=== PATIENT | female | born 1975 | race Hispanic/Latino ===

== ENCOUNTER 2023-03-12 20:04 | Emergency (ER) | payer OTHER, BC ==
[2023-03-12] MEDS ORDERED: ONDANSETRON 4 MG/2 ML VIAL ONE (21:00)
[2023-03-12] MEDS ORDERED: MORPHINE 4 MG/ML SYR ONE ×2 (21:00→23:18)
[2023-03-12] MEDS ORDERED: KETOROLAC 30 MG/ML INJ ONE (21:00)
--- NOTE | 2023-03-12 21:39 | RAD REPORT ---
[facility] 9[facility]18 [facility] CLINICAL HISTORY: CHEST PAIN COMPARISON: No comparisons TECHNIQUE: Single AP view of the chest. FINDINGS: The lungs are clear. No pneumothorax or effusion. The cardiomediastinal contours are unre markable. IMPRESSION: No acute cardiopulmonary process.
[2023-03-12 22:09] LABS: Absolute Lymphocytes (CBC) 1.4 K/uL (0.7-4.9); Hematocrit 36.2 % (36.0-45.0); Lymphocytes % 27.6 % (15.3-44.8); MCV 85.6 fL (80-100); MPV 7.8 fL (7.6-11.3); RBC Red Blood Cell Count 4.22 M/uL (3.86-4.86)
[2023-03-12 22:19] LABS: Protime INR 1.11
[2023-03-12 22:24] LABS: ALT/SGPT 27 U/L (13-56); AST/SGOT 26 U/L (15-37); Albumin 3.2 g/dL (3.4-5.0); Alkaline Phosphatase 66 U/L (45-117); BUN Blood Urea Nitrogen 19 mg/dL (7-18); Bicarbonate 27 mEq/L (21-32); Bilirubin Total 0.4 mg/dL (0.2-1.0); Glomerular Filtration Rate 106 ml/min (=/>90); Glucose Level 91 mg/dL (74-106); Sodium Level 135 mEq/L (136-145)
[2023-03-12 22:25] LABS: NT PRO-BNP 68 pg/mL (<125)
[2023-03-12 22:36] LABS: Bilirubin Direct < 0.1 mg/dL (0-0.2); Bilirubin Indirect, Calculated ND mg/dL (0.2-0.8); Troponin High Sensitivity < 3.0 pg/mL (<58.9)
[2023-03-12] MEDS ORDERED: METOCLOPRAMIDE 10 MG/2mL INJ ONE (23:18)
[2023-03-12] MEDS ORDERED: DICYCLOMINE HCL 20 MG/2 ML AMP IM ONE (23:19)
--- NOTE | 2023-03-13 00:18 | ER ---
Nurse's Notes [facility] Name: Ethan Harrison Age: 48 yrs Sex: Female : 1975 Arrival Date: 03/12/2023 Time: 20:04 Bed 3 Private MD: Diagnosis: Lower abdominal pain, unspecified;Right flank pain, noncardiac chest pain, nausea and vomiting Presentation: 03/12 20:40 Chief complaint: Patient states: pain on the back, right side for 2 days. Coronavirus aa9 screen: Vaccine status: Patient reports receiving the 2nd dose of the covid vaccine. Pfizer. Ebola Screen: No symptoms or risks identified at this time. Initial Sepsis Screen: Does the patient meet any 2 criteria? No. Patient's initial sepsis screen is negative. Does the patient have a suspected source of infection? No. Patient's initial sepsis screen is negative. Risk Assessment: Do you want to hurt yourself or someone else? Patient reports no desire to harm self or others. Onset of symptoms was March 12, 2023. 20:40 Method Of Arrival: Ambulatory aa9 20:40 Acuity: YUAN 3 aa9 Triage Assessment: 20:42 General: Appears uncomfortable, Behavior is calm, cooperative. Pain: Complains of pain aa9 in right side back pain. Cardiovascular: Rhythm is regular. Respiratory: Airway is patent Respiratory effort is even, unlabored. GI: Reports diarrhea, vomiting. : No signs and/or symptoms were reported regarding the genitourinary system. Derm: Skin is intact, is healthy with good turgor. - Immunization history:: Client reports receiving the 2nd dose of the Covid vaccine. - Social history:: Patient/guardian denies using alcohol, street drugs, IV drugs, caffeine, over the counter diet medications, tobacco products, Smoking status: Patient denies any tobacco usage or history of. - Family history:: not pertinent. Screenin/28 00:27 [facility] ED Fall Risk Assessment (Adult) Score/Fall Risk Level 0 - 2 = Low Risk. Abuse as6 screen: Denies threats or abuse. Denies injuries from another. Nutritional screening: No deficits noted. Tuberculosis screening: No symptoms or risk factors identified. Assessment: 03/12 23:15 Reassessment: Patient appears in no apparent distress at this time. pt c/o RLQ pain aa9 10/10 notified provider. 23:39 Reassessment: Patient appears in no apparent distress at this time. Patient and/or aa9 family updated on plan of care and expected duration. Pain level reassessed. Patient is alert, oriented x 3, equal unlabored respirations, skin warm/dry/pink. Patient states feeling better. Vital Signs: 20:40 BP 154 / 98; Pulse 73; Resp 18 S; Pulse Ox 98% ; aa9 20:42 Temp 98.9; aa9 21:00 BP 163 / 77; Pulse 71; Resp 14 S; Pulse Ox 100% on R/A; as6 22:52 BP 118 / 73; Pulse 74; Resp 17 S; Pulse Ox 100% on R/A; as6 03/13 00:16 BP 112 / 72; Pulse 63; Resp 20 S; Pulse Ox 96% on R/A; as6 ED Course: 03/12 20:06 Patient arrived in ED. jj6 20:20 Socrates Topete MD is Attending Physician. sp4 20:34 Tali Judd, LISSETH is Primary Nurse. aa9 20:41 Triage completed. aa9 20:42 Arm band placed on. aa9 21:01 Missed attempt(s): 22 gauge in left antecubital area. Bleeding controlled, band aid aa9 applied, catheter tip intact. 21:20 XRAY Chest (1 view) In Process Unspecified. EDMS 21:44 Inserted saline lock: 20 gauge in left antecubital area, using aseptic technique. Blood as6 collected. ultrasound guided, long catheter. 21:57 Basic Metabolic Panel Sent. as7 21:57 CBC with Diff Sent. as7 21:57 LFT's Sent. as7 21:57 NT PRO-BNP Sent. as7 21:57 PT-INR Sent. as7 21:57 Troponin HS Sent. as7 23:01 CT Abd/Pelvis - IV Contrast Only In Process Unspecified. EDMS 03/13 00:17 Jl Reyes MD is Referral Physician. sp4 00:27 Placed in gown. Bed in low position. Call light in reach. Side rails up X 1. as6 00:27 No provider procedures requiring assistance completed. IV discontinued, intact, as6 bleeding controlled, No redness/swelling at site. Pressure dressing applied. Administered Medications: 03/12 21:44 Drug: morphine IVP or IV 4 mg Route: IVP; Infused Over: 4 mins; Site: left antecubital; as6 22:51 Follow up: Response: No adverse reaction aa9 21:45 Drug: Ketorolac IVP 30 mg Route: IVP; Site: left antecubital; as6 22:51 Follow up: Response: No adverse reaction aa9 21:45 Drug: Ondansetron IVP 8 mg Route: IVP; Site: left antecubital; as6 22:51 Follow up: Response: No adverse reaction aa9 23:23 Drug: morphine IVP or IV 4 mg Route: IVP; Infused Over: 4 mins; Site: left antecubital; aa9 03/13 00:28 Follow up: Response: No adverse reaction as6 03/12 23:23 Drug: metoCLOPramide IVP 10 mg Route: IVP; Site: left antecubital; aa9 03/13 00:28 Follow up: Response: No adverse reaction as6 03/12 23:23 Drug: Dicyclomine IM 20 mg Route: IM; Site: left deltoid; aa9 03/13 00:28 Follow up: Response: No adverse reaction as6 Medication: 00:27 VIS not applicable for this client. as6 Outcome: 00:17 Discharge ordered by sp4 00:27 Discharged to home ambulatory. as6 00:27 Condition: stable 00:27 Discharge instructions given to patient, Instructed on discharge instructions, follow up and referral plans. medication usage, Demonstrated understanding of instructions, follow-up care, medications, Prescriptions given X 3. 00:28 Patient left the ED. as6 Signatures: Dispatcher [employer] EDCarolee Oviedo jjAntione Gamino RN RN as6 Tali Judd RN RN aa9 Senkyrik, Autumn as7 Socrates Topete MD MD sp4
--- NOTE | 2023-03-13 00:18 | EDPHYS ---
Physician Documentation [facility] Name: Ethan Harrison Age: 48 yrs Sex: Female : 1975 Arrival Date: 03/12/2023 Time: 20:04 Bed 3 Private MD: ED Physician Socrates Topete HPI: 03/12 20:20 This 48 yrs old Female presents to ER via Unassigned with complaints of Chest sp4 Pain, Back Pain, Nausea/Vomiting. 03/13 00:05 Patient is 48-year-old female who presents with worsening right flank pain associated sp4 with nausea, chest pain, feeling unwell. . 00:11 Patient states her symptoms began 2 days ago and manifested as pain in the right flank sp4 right lower back, chest pain and also some nausea. Patient has history of gastric sleeve surgery. History of cholecystectomy. Gastric sleeve was done in [place]. - Immunization history:: Client reports receiving the 2nd dose of the Covid vaccine. - Social history:: Patient/guardian denies using alcohol, street drugs, IV drugs, caffeine, over the counter diet medications, tobacco products, Smoking status: Patient denies any tobacco usage or history of. - Family history:: not pertinent. ROS: 00:11 Constitutional: Negative for fever, chills, and weight loss, Eyes: Negative for injury, sp4 pain, redness, and discharge, ENT: Negative for injury, pain, and discharge, Neck: Negative for injury, pain, and swelling, Cardiovascular: Negative for palpitations, and edema, positive for chest pain Respiratory: Negative for shortness of breath, cough, wheezing, and pleuritic chest pain, Abdomen/GI: Negative for diarrhea, and constipation, positive for right flank pain, abdominal pain, nausea vomiting, right lower back pain. Back: Negative for injury , positive for right lower back pain : Negative for injury, bleeding, discharge, and swelling, MS/Extremity: Negative for injury and deformity, Skin: Negative for injury, rash, and discoloration, Neuro: Negative for headache, weakness, numbness, tingling, and seizure, Psych: Negative for depression, anxiety, Allergy/Immunology: Negative for hives, rash, and allergies Endocrine: Negative for neck swelling, polydipsia, polyuria, polyphagia, and weight changes Hematologic/Lymphatic: Negative for swollen nodes, abnormal bleeding, and unusual bruising Exam: 00:11 Constitutional: This is a well developed, well nourished patient who is awake, alert, sp4 and in no acute distress. Head/Face: Normocephalic, atraumatic. Eyes: Pupils equal round and reactive to light, extra-ocular motions intact. Lids and lashes normal. Conjunctiva and sclera are not injected. Cornea within normal limits. Periorbital areas with no swelling, redness, or edema. ENT: Nares patent. No nasal discharge, no septal abnormalities noted. Tympanic membranes are normal and external auditory canals are clear. Oropharynx with no redness, swelling, or masses, exudates, or evidence of obstruction, uvula midline. Mucous membranes moist. Neck: Trachea midline, no thyromegaly or masses palpated, and no cervical lymphadenopathy. Supple, full range of motion without nuchal rigidity, or vertebral point tenderness. No Meningismus. Chest/axilla: Normal chest wall appearance and motion. Nontender with no deformity. No lesions are appreciated. Cardiovascular: Regular rate and rhythm with a normal S1 and S2. No gallops, murmurs, or rubs. Normal PMI, no JVD. No pulse deficits. Respiratory: Lungs have equal breath sounds bilaterally, clear to auscultation and percussion. No rales, rhonchi or wheezes noted. No increased work of breathing, no retractions or nasal flaring. Abdomen/GI: Soft, obese abdomen, right abdominal tenderness, no rebound, no rigidity, scarring from prior cholecystectomy, and also from prior gastric sleeve surgery. Normal active bowel sounds Back: No spinal tenderness. No costovertebral tenderness. Skin: Warm, dry with normal turgor. Normal color with no rashes, no lesions, and no evidence of cellulitis. MS/ Extremity: Pulses equal, no cyanosis. Neurovascular intact. Full, normal range of motion. Neuro: Awake and alert, GCS 15, oriented to person, place, time, and situation. Cranial nerves II-XII grossly intact. Motor strength 5/5 in all extremities. Sensory grossly intact. Psych: Awake, alert, with orientation to person, place and time. Behavior, mood, and affect are within normal limits 00:11 ECG was reviewed by the Attending Physician. EKG time 2015. There is normal sinus sp4 rhythm. Normal EKG. No ectopy. Vital Signs: 03/12 20:40 BP 154 / 98; Pulse 73; Resp 18 S; Pulse Ox 98% ; aa9 20:42 Temp 98.9; aa9 21:00 BP 163 / 77; Pulse 71; Resp 14 S; Pulse Ox 100% on R/A; as6 22:52 BP 118 / 73; Pulse 74; Resp 17 S; Pulse Ox 100% on R/A; as6 03/13 00:16 BP 112 / 72; Pulse 63; Resp 20 S; Pulse Ox 96% on R/A; as6 MDM: 03/12 20:30 Patient medically screened. sp4 03/13 00:11 Differential diagnosis: abnormal EKG, acute pericarditis, chest wall pain, sp4 cholecystitis, Cholelithiasis costochondritis, esophagitis, gastritis. HEART Score: History: Slightly Suspicious (0), ECG: Normal (0), Age: > 45 and < 65 years (1), Risk Factors: No Risk Factors Known (0), Troponin: < or = 1 x Normal Limit (0), Total Score = 1. Data reviewed: vital signs, nurses notes, old medical records, lab test result(s), EKG, radiologic studies, CT scan, plain films. ED course: EKG is normal today, chemistry panel is normal, CBC is normal, LFTs normal, albumin is suboptimal 40.2, troponin negative. Chest x-ray revealed no acute cardiopulmonary process. CT revealed no acute intra-abdominal or pelvic disease. Moderate size hiatal hernia. Gastric surgical changes consistent with gastric sleeve. Mild sigmoid diverticulosis with no evidence of diverticulitis. Status postcholecystectomy and mild extrahepatic biliary dilatation.. ED course: Patient's pain has improved in the ER. Patient was evaluated and found in stable condition for discharge home. No emergent intra-abdominal problems identified. Chest pain work-up is unremarkable at this time. Patient is stable for discharge home. Will refer to general surgery for evaluation of hiatal hernia. . 03/12 20:20 Order name: Basic Metabolic Panel; Complete Time: 22:45 sp4 03/12 20:20 Order name: CBC with Diff; Complete Time: 22:45 sp4 03/12 20:20 Order name: LFT's; Complete Time: 22:45 sp4 03/12 20:20 Order name: NT PRO-BNP; Complete Time: 22:45 [facility] 03/12 20:20 Order name: PT-INR; Complete Time: 22:45 [facility] 03/12 20:20 Order name: Troponin HS; Complete Time: 22:45 [facility] 03/12 20:20 Order name: XRAY Chest (1 view); Complete Time: 22:45 [facility] 03/12 20:30 Order name: CT Abd/Pelvis - IV Contrast Only [facility] 03/12 20:20 Order name: EKG; Complete Time: 20:22 [facility] 03/12 20:20 Order name: Cardiac monitoring; Complete Time: 20:44 [facility] 03/12 20:20 Order name: EKG - Nurse/Tech; Complete Time: 20:44 [facility] 03/12 20:20 Order name: IV Saline Lock; Complete Time: 21:44 [facility] 03/12 20:20 Order name: Labs collected and sent; Complete Time: 21:44 [facility] 03/12 20:20 Order name: O2 Per Protocol; Complete Time: 20:44 [facility] 03/12 20:20 Order name: O2 Sat Monitoring; Complete Time: 20:44 03/12 21:42 Order name: Misc. Order: Recollect Labs; Complete Time: 21:57 rv1 EC:11 Rate is 76 beats/min. Rhythm is regular, Normal Sinus Rhythm. QRS Broad Top is Normal. GA sp4 interval is normal. QRS interval is normal. QT interval is normal. T waves are Normal. No ST changes noted. Clinical impression: Normal ECG. Interpreted by me. Administered Medications: 03/12 21:44 Drug: morphine IVP or IV 4 mg Route: IVP; Infused Over: 4 mins; Site: left antecubital; as6 22:51 Follow up: Response: No adverse reaction aa9 21:45 Drug: Ketorolac IVP 30 mg Route: IVP; Site: left antecubital; as6 22:51 Follow up: Response: No adverse reaction aa9 21:45 Drug: Ondansetron IVP 8 mg Route: IVP; Site: left antecubital; as6 22:51 Follow up: Response: No adverse reaction aa9 23:23 Drug: morphine IVP or IV 4 mg Route: IVP; Infused Over: 4 mins; Site: left antecubital; aa9 05/28 00:28 Follow up: Response: No adverse reaction as6 03/12 23:23 Drug: metoCLOPramide IVP 10 mg Route: IVP; Site: left antecubital; 03/13 00:28 Follow up: Response: No adverse reaction as6 03/12 23:23 Drug: Dicyclomine IM 20 mg Route: IM; Site: left deltoid; 03/13 00:28 Follow up: Response: No adverse reaction as6 Disposition Summary: 03/13/23 00:17 Discharge Ordered Location: Home sp4 Problem: new sp4 Symptoms: have improved sp4 Condition: Stable sp4 Diagnosis - Lower abdominal pain, unspecified sp4 - Right flank pain, noncardiac chest pain, nausea and vomiting sp4 Followup: sp4 - With: Jl Reyes MD - When: 7 - 10 days - Reason: Recheck today's complaints Discharge Instructions: - Discharge Summary Sheet sp4 - Flank Pain, Adult sp4 Forms: - Prescription Opioid Use sp4 Prescriptions: - Ibuprofen 600 mg Oral Tablet - take 1 tablet by ORAL route every 6 hours As needed take with food; 30 tablet; sp4 Refills: 0, Product Selection Permitted - Zofran 4 mg Oral Tablet - take 1 tablet by ORAL route every 6 hours As needed PRN nausea; 30 tablet; sp4 Refills: 0, Product Selection Permitted - Tramadol 50 mg Oral Tablet - take 1 tablet by ORAL route every 8 hours as needed; 30 tablet; Refills: 0, sp4 Product Selection Permitted Signatures: Dispatcher [employer] Antione Vieira RN RN as6 Tali Judd RN RN maria teresa9 Caitlin Fernandez Sergey, MD MD sp4
[2023-03-13 01:21] VITALS: TEMP 98.9
[2023-03-13 01:26] VITALS: BP 112/72; O2SAT 96
--- NOTE | 2023-03-14 16:55 | RAD REPORT ---
EXAM DESCRIPTION: CT - Abdomen Pelvis W Contrast - 03/13/2023 6:41 am CLINICAL HISTORY: ABD PAIN TECHNIQUE: Contiguous axial images obtained through the abdomen and pelvis following the uneventful administration of IV contrast. Coronal and sagittal reformatted images were provided. This exam was performed according to our departmental dose-optimization program, which includes autom ated exposure control, adjustment of the mA and/or kV according to patient size and/or use of iterati ve reconstruction technique. COMPARISON: None available for comparison. FINDINGS: Lung bases: Clear Liver: Unremarkable Gallbladder and biliary system: Status post cholecystectomy with mild intra and extrahepatic bile mable t dilatation. Pancreas: Unremarkable Spleen: Unremarkable Adrenals: Unremarkable Kidneys: Normal renal cortical enhancement. No calculi. No hydronephrosis. GI: Moderate size hiatal hernia. Gastric surgical changes consistent with gastric sleeve. No obstruction. No appreciable mucosal thick ening. Mild sigmoid diverticulosis with no evidence of diverticulitis. Appendix: No findings to suggest acute appendicitis. Urinary bladder: Unremarkable Reproductive: Unremarkable as visualized Lymph nodes: No pathologically enlarged lymph nodes. Peritoneum: No focal fluid collection. No free air. Vessels: No abdominal aortic aneurysm. Abdominal wall: Unremarkable Bones: Unremarkable IMPRESSION: 1. No acute intra-abdominal or pelvic disease. 2. Moderate size hiatal hernia. Gastric surgical changes consistent with gastric sleeve. 3. Mild sigmoid diverticulosis with no evidence of diverticulitis. 4. Status post cholecystectomy with mild intra and extrahepatic bile duct dilatation. Electronically signed by: Colby Krishnamurthy MD 03/12/2023 11:42 PM CDT Due to temporary technical issues with the PACS/Fluency reporting system, reports are being signed by the in house radiologists without review as a courtesy to insure prompt reporting. The interpreting radiologist is fully responsible for the content of the report.
--- NOTE | 2023-03-16 07:16 | EKG ---
Test Date: 2023-03-12 Test Time: 20:16:05 Prosthetic Dentist: MEASUREMENT RESULTS: Intervals: Rate: 76 MO: 144 QRSD: 76 QT: 386 QTc: 434 [place]: P: 43 MO: 144 QRS: 38 T: 26 INTERPRETIVE STATEMENTS: Normal sinus rhythm Normal ECG No previous ECG available for comparison Electronically Signed On 03-16-23 07:07:54 CDT by Jair Ernandez
== END 2023-03-13 00:28 | disposition home or self-care (01) ==
LOC: ER 20:04
DX: R10.31 Right lower quadrant pain (principal); R07.89 Other chest pain; R11.2 Nausea with vomiting, unspecified
CPT/HCPCS: 93005; 85025; 80048; 36415; 85610; 80076; 84484; 83880; 74177; 71045; 96375; 96372; 96374; 99284; Q9967; J2765; J0500; J2405

== ENCOUNTER 2023-03-22 18:15 | Emergency (ER) | payer OTHER ==
[2023-03-22 19:27] LABS: Specific Gravity 1.023 (1.005-1.030); Urine Bacteria <20 /HPF (<20); Urine Bilirubin NEGATIVE (Negative); Urine Blood Negative (Negative); Urine Clarity Extremely Turbid (Clear); Urine Color Light-Yellow (Yellow); Urine Glucose NEGATIVE (Negative); Urine Mucus Slight /HPF (None Seen); Urine Protein NEGATIVE (Negative); Urine RBC None Seen /HPF (None Seen); Urine Urobilinogen Normal (Normal); Urine pH 5.5 (5.0-7.0)
--- NOTE | 2023-03-22 20:13 | RAD REPORT ---
EXAM DESCRIPTION: RAD - Chest Single View - 03/22/2023 8:06 pm CLINICAL HISTORY: ABDOMINAL DISTENTION Chest pain. COMPARISON: Chest Single View dated 03/12/2023 FINDINGS: Portable technique limits examination quality. The lungs are grossly clear. The heart is normal in size. No displaced fractures. IMPRESSION: No acute intrathoracic process suspected.
[2023-03-22] MEDS ORDERED: NA CHLORIDE 0.9% 1,000 ML ONE (20:43)
[2023-03-22] MEDS ORDERED: FAMOTIDINE 20 MG/2 ML VIAL IV ONE (20:43)
[2023-03-22] MEDS ORDERED: NA CHLORIDE 0.9% 500 ML ONE (20:43)
[2023-03-22 20:46] LABS: Protime INR 1.01
[2023-03-22 20:58] LABS: Absolute Lymphocytes (CBC) 1.7 K/uL (0.7-4.9); Hematocrit 38.5 % (36.0-45.0); Lymphocytes % 29.5 % (15.3-44.8); MPV 7.8 fL (7.6-11.3); RBC Red Blood Cell Count 4.42 M/uL (3.86-4.86)
[2023-03-22 21:03] LABS: ALT/SGPT 29 U/L (13-56); AST/SGOT 14 U/L (15-37); Albumin 3.8 g/dL (3.4-5.0); Alkaline Phosphatase 81 U/L (45-117); BUN Blood Urea Nitrogen 16 mg/dL (7-18); Bicarbonate 28 mEq/L (21-32); Bilirubin Direct 0.1 mg/dL (0-0.2); Bilirubin Indirect, Calculated 0.4 mg/dL (0.2-0.8); Bilirubin Total 0.5 mg/dL (0.2-1.0); Glomerular Filtration Rate 91 ml/min (=/>90); Glucose Level 92 mg/dL (74-106); Magnesium 2.1 mg/dL (1.6-2.4); NT PRO-BNP 36 pg/mL (<125); Potassium 3.8 mEq/L (3.5-5.1); Protein, Total 8.1 g/dL (6.4-8.2); Sodium Level 137 mEq/L (136-145)
[2023-03-22 21:10] LABS: Troponin High Sensitivity < 3.0 pg/mL (<58.9)
[2023-03-22] MEDS ORDERED: NA CHLORIDE 0.9% 100 ML ONE (21:38)
[2023-03-22] MEDS ORDERED: PIPERACIL/TAZO 3.375 GM VIAL IV ONE (21:38)
[2023-03-22] MEDS ORDERED: ONDANSETRON 4 MG/2 ML VIAL ONE (21:38)
[2023-03-22] MEDS ORDERED: FENTANYL CITR 100 MCG/2 ML ONE (21:38)
--- NOTE | 2023-03-22 22:10 | RAD REPORT ---
EXAM DESCRIPTION: CTAbdomen Pelvis W Contrast - 03/22/2023 10:04 pm CLINICAL HISTORY: Abdominal pain. ABD PAIN COMPARISON: <Comparisons> TECHNIQUE: Biphasic CT imaging of the abdomen and pelvis was performed with 100 ml non-ionic IV cont rast. All CT scans are performed using dose optimization technique as appropriate and may include automated exposure control or mA/KV adjustment according to patient size. FINDINGS: The lung bases are clear.Postsurgical changes affect the stomach. Moderate axial hiatal he rnia. Cholecystectomy clips. The liver, spleen, pancreas, adrenal glands and kidneys are within normal limits. No bowel obstruction, free air, free fluid or abscess. Small umbilical hernia. The appendix is not id entified as a discrete structure, however, no secondary findings of appendicitis are identified. No evidence of significant lymphadenopathy. Lumbosacral degenerative changes. IMPRESSION: No acute intra-abdominal or pelvic finding.
--- NOTE | 2023-03-22 22:31 | EDPHYS ---
Physician Documentation [facility] Name: Ethan Harrison Age: 48 yrs Sex: Female : 1975 Arrival Date: 03/22/2023 Time: 18:15 Bed 14 Private MD: ED Physician Socrates Topete HPI: 03/22 20:38 This 48 yrs old Female presents to ER via Ambulatory with complaints of griffin Abdominal Pain. 20:38 The patient presents with abdominal pain in the epigastric area, in the upper abdomen, griffin abdominal distention in the upper abdomen, in the lower abdomen. Onset: The symptoms/episode began/occurred 1 day(s) ago. The symptoms do not radiate. Associated signs and symptoms: none. The symptoms are described as constant, crampy. Modifying factors: The symptoms are alleviated by nothing, the symptoms are aggravated by nothing. Severity of pain: At its worst the pain was moderate in the emergency department the pain is unchanged. The patient has experienced similar episodes in the past, multiple times. 21:20 Patient was sent here by Dr. Reyes . sp4 21:27 CT report from prior visit IMPRESSION: 1. No acute intra-abdominal or pelvic disease. sp4 2. Moderate size hiatal hernia. Gastric surgical changes consistent with gastric sleeve. 3. Mild sigmoid diverticulosis with no evidence of diverticulitis. 4. Status post cholecystectomy with mild intra and extrahepatic bile duct dilatation. Electronically signed by: Colby Krishnamurthy MD 03/12/2023 . Historical: - Allergies: 18:28 No Known Allergies; aa5 - PMHx: 18:28 Asthma; insomnia; aa5 22:25 Pancreatitis; aa9 - PSHx: 18:28 Cholecystectomy; Appendectomy; gastric sleeve; right shoulder; aa5 - Immunization history:: Adult Immunizations unknown. - Social history:: Smoking status: Patient denies any tobacco usage or history of. - Family history:: not pertinent. ROS: 20:38 Constitutional: Negative for fever, chills, and weight loss, Eyes: Negative for injury, griffin pain, redness, and discharge, ENT: Negative for injury, pain, and discharge, Neck: Negative for injury, pain, and swelling, Cardiovascular: Negative for chest pain, palpitations, and edema, Respiratory: Negative for shortness of breath, cough, wheezing, and pleuritic chest pain, Back: Negative for injury and pain, : Negative for injury, bleeding, discharge, and swelling, MS/Extremity: Negative for injury and deformity, Skin: Negative for injury, rash, and discoloration, Neuro: Negative for headache, weakness, numbness, tingling, and seizure, Psych: Negative for depression, anxiety, suicide ideation, homicidal ideation, and hallucinations, Allergy/Immunology: Negative for hives, rash, and allergies, Endocrine: Negative for neck swelling, polydipsia, polyuria, polyphagia, and marked weight changes. 20:38 Abdomen/GI: Positive for abdominal pain, nausea, of the epigastric area and right upper quadrant. Exam: 20:38 Constitutional: This is a well developed, well nourished patient who is awake, alert, griffin and in no acute distress. Head/Face: Normocephalic, atraumatic. Eyes: Pupils equal round and reactive to light, extra-ocular motions intact. Lids and lashes normal. Conjunctiva and sclera are non-icteric and not injected. Cornea within normal limits. Periorbital areas with no swelling, redness, or edema. ENT: Nares patent. No nasal discharge, no septal abnormalities noted. Tympanic membranes are normal and external auditory canals are clear. Oropharynx with no redness, swelling, or masses, exudates, or evidence of obstruction, uvula midline. Mucous membranes moist. Neck: Trachea midline, no thyromegaly or masses palpated, and no cervical lymphadenopathy. Supple, full range of motion without nuchal rigidity, or vertebral point tenderness. No Meningismus. Chest/axilla: Normal chest wall appearance and motion. Nontender with no deformity. No lesions are appreciated. Cardiovascular: Regular rate and rhythm with a normal S1 and S2. No gallops, murmurs, or rubs. Normal PMI, no JVD. No pulse deficits. Respiratory: Lungs have equal breath sounds bilaterally, clear to auscultation and percussion. No rales, rhonchi or wheezes noted. No increased work of breathing, no retractions or nasal flaring. Back: No spinal tenderness. No costovertebral tenderness. Full range of motion. Female : Normal external genitalia. Skin: Warm, dry with normal turgor. Normal color with no rashes, no lesions, and no evidence of cellulitis. MS/ Extremity: Pulses equal, no cyanosis. Neurovascular intact. Full, normal range of motion. Neuro: Awake and alert, GCS 15, oriented to person, place, time, and situation. Cranial nerves II-XII grossly intact. Motor strength 5/5 in all extremities. Sensory grossly intact. Cerebellar exam normal. Normal gait. Psych: Awake, alert, with orientation to person, place and time. Behavior, mood, and affect are within normal limits. 20:38 Abdomen/GI: Inspection: distension, that is moderate, Bowel sounds: normal, Palpation: moderate abdominal tenderness, in the epigastric area and right upper quadrant, Liver: no appreciated palpable abnormalities, Hernia: not appreciated. 22:20 ECG was reviewed by the Attending Physician. Normal sinus rhythm at the rate of 71. sp4 EKG time 2140. Otherwise normal EKG. Vital Signs: 18:26 BP 147 / 87; Pulse 82; Resp 16 S; Temp 97.1(TE); Pulse Ox 99% on R/A; Weight 91.17 kg aa5 (R); Height 5 ft. 0 in. (R); 22:00 BP 146 / 89; Pulse 76; Resp 18; Temp 98.1(O); Pulse Ox 98% ; aa9 22:48 BP 119 / 58; Pulse 75; Resp 17; Pulse Ox 99% on R/A; aa9 23:17 BP 117 / 59; Pulse 69; Resp 17; Pulse Ox 100% on R/A; aa9 18:26 Body Mass Index 39.25 (91.17 kg, 152.4 cm) aa5 MDM: 18:41 Patient medically screened. griffin 20:40 Differential diagnosis: bowel obstruction, diverticulitis, Hepatitis, non-specific abd griffin pain, pancreatitis, Peptic Ulcer Disease, Perf. Duodenal Ulcer, Perf. Gastric Ulcer, urinary tract infection. Data reviewed: vital signs, nurses notes, lab test result(s), EKG, radiologic studies, CT scan, plain films. Consideration of Admission/Observation Escalation of care including admission/observation considered. I considered the following discharge prescriptions or medication management in the emergency department Medications were administered in the Emergency Department. See MAR. Test considered but Not performed: MRI: NO MRCP. Care significantly affected by the following chronic conditions: ASTHMA, INSOMNIA. 22:29 ED course: CT abdomen and pelvis reveals no acute intra-abdominal pathology, labs sp4 unremarkable, patient has no signs of pancreatitis, patient has history of gastric sleeve, small hiatal hernia, history of cholecystectomy. At this time source of abdominal pain is unclear but there is no sign of emergent medical or surgical condition based on the work-up. Patient stable for discharge home with follow-up with her surgeon. Dr. Reyes , who plans to do an upper endoscopy on Tuesday.. 03/22 18:42 Order name: Basic Metabolic Panel; Complete Time: 22:22 [facility] 03/22 18:42 Order name: CBC with Diff; Complete Time: 21:05 [facility] 03/22 18:42 Order name: LFT's; Complete Time: 22:22 [facility] 03/22 18:42 Order name: Magnesium; Complete Time: :22 [facility] 03/22 18:42 Order name: NT PRO-BNP; Complete Time: 22:22 [facility] 03/22 18:42 Order name: PT-INR; Complete Time: 21:05 [facility] 03/22 18:42 Order name: Troponin HS; Complete Time: 22:22 [facility] 03/22 18:43 Order name: Urinalysis w/ reflexes; Complete Time: 20:35 [facility] 03/22 18:42 Order name: XRAY Chest (1 view); Complete Time: 20:35 [facility] 03/22 18:42 Order name: CT Abd/Pelvis - IV Contrast Only [facility] 03/22 22:19 Order name: CT; Complete Time: 22:22 [facility] 03/22 18:42 Order name: EKG; Complete Time: 18:43 [facility] 03/22 18:42 Order name: Cardiac monitoring; Complete Time: 21:15 [facility] 03/22 18:42 Order name: EKG - Nurse/Tech; Complete Time: 21:48 [facility] 03/22 18:42 Order name: IV Saline Lock; Complete Time: 21:15 [facility] 03/22 18:42 Order name: Labs collected and sent; Complete Time: 21:15 [facility] 03/22 18:42 Order name: O2 Per Protocol; Complete Time: 21:15 [facility] 03/22 18:42 Order name: O2 Sat Monitoring; Complete Time: 21:15 [facility] EC:20 Rate is 71 beats/min. Rhythm is regular, Normal Sinus Rhythm. QRS [place] is Normal. [place] sp4 interval is normal. QRS interval is normal. QT interval is normal. T waves are Normal. No ST changes noted. Clinical impression: No evidence of ischemia. Interpreted by me. Administered Medications: 21:15 Drug: NS 0.9% IV 500 ml Route: IV; Rate: bolus; Site: left antecubital; aa9 21:15 Drug: NS 0.9% IV 1000 ml Route: IV; Rate: 125 ml/hr; Site: left antecubital; aa9 21:15 Drug: Famotidine IVP 20 mg Route: IVP; Site: left antecubital; aa9 23:17 Follow up: Response: No adverse reaction aa9 21:48 Drug: fentaNYL (PF) IVP 50 mcg Route: IVP; Site: left antecubital; aa9 23:16 Follow up: Response: No adverse reaction aa9 21:48 Drug: Ondansetron IVP 4 mg Route: IVP; Site: left antecubital; aa9 23:16 Follow up: Response: No adverse reaction aa9 22:17 Drug: Piperacillin-Tazobactam IVPB 3.375 grams Route: IVPB; Infused Over: 60 mins; aa9 Site: left antecubital; 22:43 Drug: morphine IVP or IV 4 mg Route: IVP; Infused Over: 4 mins; Site: left antecubital; aa9 23:16 Follow up: Response: No adverse reaction; Pain is decreased aa9 22:43 Drug: metoCLOPramide IVP 10 mg Route: IVP; Site: left antecubital; aa9 23:16 Follow up: Response: No adverse reaction aa9 22:43 Drug: GI Cocktail without - (Maalox PO Suspension 30 ml, Lidocaine Mucous aa9 Membrane Liquid 2 % 15 ml) Route: PO; 23:16 Follow up: Response: No adverse reaction aa9 Disposition Summary: 03/22/23 22:31 Discharge Ordered Location: Home sp4 Problem: new sp4 Symptoms: have improved sp4 Condition: Stable sp4 Diagnosis - Upper abdominal pain, unspecified sp4 - Hiatal hernia sp4 Followup: sp4 - With: Jl Reyes MD - When: 2 - 3 days - Reason: Recheck today's complaints Discharge Instructions: - Discharge Summary Sheet sp4 - Abdominal Pain, Adult, [id number] sp4 Prescriptions: - famotidine 20 mg Oral tablet - take 2 tablet by ORAL route once daily for 1 month; 60 tablet; Refills: 0, sp4 Product Selection Permitted - Reglan 10 mg Oral Tablet - take 1 tablet by ORAL route every 6 hours PRN nausea; 30 tablet; Refills: 0, sp4 Product Selection Permitted - Tramadol 50 mg Oral Tablet - take 1 tablet by ORAL route every 6 hours as needed; 30 tablet; Refills: 0, sp4 Product Selection Permitted Signatures: Dispatcher [employer] Moiz Burton MD MD cha Calderon, Audri RN RN aa5 Tali Judd RN RN aa9 Socrates Topete MD MD sp4
--- NOTE | 2023-03-22 22:31 | ER ---
Nurse's Notes [facility] Name: Ethan Harrison Age: 48 yrs Sex: Female : 1975 Arrival Date: 03/22/2023 Time: 18:15 Bed 14 Private MD: Diagnosis: Upper abdominal pain, unspecified;Hiatal hernia Presentation: 03/22 18:26 Chief complaint: Patient states: right sided abd pain, seen approximately 1 week ago aa5 and reports CT scan showed bile duct dilation. Reports being sent here by Dr. Reyes. Coronavirus screen: At this time, the client does not indicate any symptoms associated with coronavirus-19. Ebola Screen: Patient denies travel to an Ebola-affected area in the 21 days before illness onset. Initial Sepsis Screen: Does the patient meet any 2 criteria? No. Patient's initial sepsis screen is negative. Does the patient have a suspected source of infection? No. Patient's initial sepsis screen is negative. Risk Assessment: Do you want to hurt yourself or someone else? Patient reports no desire to harm self or others. Onset of symptoms was March 2023. 18:26 Acuity: YUAN 3 aa5 18:26 Method Of Arrival: Ambulatory aa5 Historical: - Allergies: 18:28 No Known Allergies; aa5 - PMHx: 18:28 Asthma; insomnia; aa5 22:25 Pancreatitis; aa9 - PSHx: 18:28 Cholecystectomy; Appendectomy; gastric sleeve; right shoulder; aa5 - Immunization history:: Adult Immunizations unknown. - Social history:: Smoking status: Patient denies any tobacco usage or history of. - Family history:: not pertinent. Screenin:26 [facility] ED Fall Risk Assessment (Adult) History of falling in the last 3 months, aa9 including since admission No falls in past 3 months (0 pts) Confusion or Disorientation No (0 pts) Intoxicated or Sedated No (0 pts) Impaired Gait No (0 pts) Mobility Assist Device Used No (0 pt) Altered Elimination No (0 pt) Score/Fall Risk Level 0 - 2 = Low Risk Oriented to surroundings, Maintained a safe environment, Educated pt \T\ family on fall prevention, incl call for assistance when getting out of bed. Abuse screen: Denies threats or abuse. Denies injuries from another. Nutritional screening: Has had N/V for 3 or more days. Tuberculosis screening: No symptoms or risk factors identified. Assessment: 20:45 General: Appears uncomfortable, obese, Behavior is cooperative, anxious. aa9 20:45 Pain: Complains of pain in right upper quadrant Pain currently is 9 out of 10 on a pain aa9 scale. Noted to be moaning, resistant to movement. Neuro: Level of Consciousness is awake, alert, obeys commands, Oriented to person, place, time, Appropriate for age. Cardiovascular: Patient's skin is warm and dry. Respiratory: Airway is patent Respiratory effort is even, unlabored. GI: Reports nausea. : No signs and/or symptoms were reported regarding the genitourinary system. Derm: Skin is intact, is healthy with good turgor. 22:43 Reassessment: Patient appears in no apparent distress at this time. discharge pending aa9 Zosyn administration completion. 23:17 Reassessment: Patient appears in no apparent distress at this time. Patient and/or aa9 family updated on plan of care and expected duration. Pain level reassessed. Patient is alert, oriented x 3, equal unlabored respirations, skin warm/dry/pink. Patient states symptoms have improved. 23:18 GI: Bowel sounds present X 4 quads. Abd is soft. aa9 Vital Signs: 18:26 BP 147 / 87; Pulse 82; Resp 16 S; Temp 97.1(TE); Pulse Ox 99% on R/A; Weight 91.17 kg aa5 (R); Height 5 ft. 0 in. (R); 22:00 BP 146 / 89; Pulse 76; Resp 18; Temp 98.1(O); Pulse Ox 98% ; aa9 22:48 BP 119 / 58; Pulse 75; Resp 17; Pulse Ox 99% on R/A; aa9 23:17 BP 117 / 59; Pulse 69; Resp 17; Pulse Ox 100% on R/A; aa9 18:26 Body Mass Index 39.25 (91.17 kg, 152.4 cm) aa5 ED Course: 18:17 Patient arrived in ED. mr 18:26 Arm band placed on. aa5 18:27 Triage completed. aa5 18:41 Moiz Claros MD is Attending Physician. [facility] 19:03 Radiology exam delayed due to lab results not completed at this time. (BUN/Creatinine) jg10 IV insertion attempt and/or patient not having appropriate IV at this time. 20:07 XRAY Chest (1 view) In Process Unspecified. EDMS 20:30 Inserted saline lock: 20 gauge in left antecubital area, using aseptic technique. aa9 ,using aseptic technique. Ultrasound guided. Catheter tip well visualized within vasculature during placement. Blood collected. 20:42 Attending Physician role handed off by Moiz Claros MD sp4 20:42 Socrates Topete MD is Attending Physician. sp4 21:28 Tali Judd RN is Primary Nurse. aa9 22:26 Patient has correct armband on for positive identification. Placed in gown. Bed in low aa9 position. Call light in reach. Side rails up X2. Pulse ox on. NIBP on. Warm blanket given. 22:30 Jl Reyes MD is Referral Physician. sp4 23:18 IV discontinued, intact, bleeding controlled, No redness/swelling at site. Pressure aa9 dressing applied. 23:18 No provider procedures requiring assistance completed. aa9 Administered Medications: 21:15 Drug: NS 0.9% IV 500 ml Route: IV; Rate: bolus; Site: left antecubital; aa9 21:15 Drug: NS 0.9% IV 1000 ml Route: IV; Rate: 125 ml/hr; Site: left antecubital; aa9 21:15 Drug: Famotidine IVP 20 mg Route: IVP; Site: left antecubital; aa9 23:17 Follow up: Response: No adverse reaction aa9 21:48 Drug: fentaNYL (PF) IVP 50 mcg Route: IVP; Site: left antecubital; aa9 23:16 Follow up: Response: No adverse reaction aa9 21:48 Drug: Ondansetron IVP 4 mg Route: IVP; Site: left antecubital; aa9 23:16 Follow up: Response: No adverse reaction aa9 22:17 Drug: Piperacillin-Tazobactam IVPB 3.375 grams Route: IVPB; Infused Over: 60 mins; aa9 Site: left antecubital; 22:43 Drug: morphine IVP or IV 4 mg Route: IVP; Infused Over: 4 mins; Site: left antecubital; aa9 23:16 Follow up: Response: No adverse reaction; Pain is decreased aa9 22:43 Drug: metoCLOPramide IVP 10 mg Route: IVP; Site: left antecubital; aa9 23:16 Follow up: Response: No adverse reaction aa9 22:43 Drug: GI Cocktail without - (Maalox PO Suspension 30 ml, Lidocaine Mucous aa9 Membrane Liquid 2 % 15 ml) Route: PO; 23:16 Follow up: Response: No adverse reaction aa9 Medication: 22:26 VIS not applicable for this client. aa9 Outcome: 22:31 Discharge ordered by . sp4 23:17 Discharged to home ambulatory. aa9 23:17 Condition: stable 23:17 Discharge instructions given to patient, Instructed on discharge instructions, follow up and referral plans. medication usage, Demonstrated understanding of instructions, follow-up care, medications, Prescriptions given X 3. 23:18 Patient left the ED. aa9 Signatures: Dispatcher [employer] EDMS Moiz Claros MD MD cha Rivera, Mary mr Marshall, LISSETH Camarena RN aa5 Tali Judd RN RN aa9 Maggi De SantiagoSocrates Saldivar MD MD sp4 Corrections: (The following items were deleted from the chart) 18:29 18:26 Chief complaint: Patient states: right sided abd pain, seen approximately 1 week aa5 ago and reports CT scan showed bile duct dilation. aa5
[2023-03-22] MEDS ORDERED: METOCLOPRAMIDE 10 MG/2mL INJ ONE (22:40)
[2023-03-22] MEDS ORDERED: MAGNES/ALUMIN/SIMET 30ML UCUP ONE (22:40)
[2023-03-22] MEDS ORDERED: MORPHINE 4 MG/ML SYR ONE (22:41)
[2023-03-22] MEDS ORDERED: LIDOCAINE VISCOUS 2% SOLN 15 ML UDC ONE (22:41)
[2023-03-23 00:38] VITALS: TEMP 98.1
[2023-03-23 00:42] VITALS: BP 117/59; O2SAT 100
--- NOTE | 2023-03-23 14:34 | EKG ---
Test Date: 2023-03-22 Test Time: 21:40:07 Dinkey Dispatcher: KARLA MEASUREMENT RESULTS: Intervals: Rate: 71 IN: 170 QRSD: 80 QT: 402 QTc: 436 [place]: P: 52 IN: 170 QRS: 35 T: 29 INTERPRETIVE STATEMENTS: Normal sinus rhythm Septal infarct, age undetermined Abnormal ECG Compared to ECG 03/12/2023 20:16:05 Myocardial infarct finding now present Electronically Signed On 03-23-23 14:32:23 CDT by Luis Enrique Chavez
--- NOTE | 2023-03-23 14:34 | EKG ---
Test Date: 2023-03-22 Test Time: 21:39:33 [employer] Engineer: KARLA MEASUREMENT RESULTS: Intervals: Rate: 66 [place]: 158 QRSD: 72 QT: 402 QTc: 421 [place]: P: 35 [place]: 158 QRS: 33 T: 26 INTERPRETIVE STATEMENTS: Normal sinus rhythm Septal infarct, age undetermined Abnormal ECG Compared to ECG 03/12/2023 20:16:05 Myocardial infarct finding now present Electronically Signed On 03-23-23 14:32:24 CDT by Luis Enrique Chavez
== END 2023-03-22 23:18 | disposition home or self-care (01) ==
LOC: ER 18:15
DX: K44.9 Diaphragmatic hernia without obstruction or gangrene (principal); Z98.84 Bariatric surgery status
CPT/HCPCS: 93005 ×2; 85025; 81001; 80048; 36415; 83735; 85610; 80076; 84484; 83880; 74177; 71045; 96375; 96374; 99284; Q9967; J2765; J2543; J3010; J2405; J7040; J7030

== ENCOUNTER 2023-03-25 08:08 | Day surgery (SDC) | payer OTHER ==
[2023-03-25] MEDS ORDERED: Ringers Lactate 1,000 ML IV ONE (08:41)
[2023-03-25] MEDS ORDERED: LIDOCAINE 1% MPF 5 ML VIAL ONE (09:47)
[2023-03-25] MEDS ORDERED: ONDANSETRON 4 MG/2 ML VIAL ONE (09:47)
[2023-03-25] MEDS ORDERED: propofoL 200 MG/20 ML VIAL IV ONE (09:48)
[2023-03-25 10:31] VITALS: BP 101/65; TEMP 96.5; O2SAT 96
== END 2023-03-25 10:36 | disposition home or self-care (01) ==
LOC: OR 08:08
PROVIDERS: ATTEND Surgery
PROC: 0DB78ZX Excision of Stomach, Pylorus, Via Natural or Artificial Opening Endoscopic, Diagnostic (ICD-10-PCS; 2023-03-25)
PROC: 0DB68ZX Excision of Stomach, Via Natural or Artificial Opening Endoscopic, Diagnostic (ICD-10-PCS; 2023-03-25)
PROC: 0DB48ZX Excision of Esophagogastric Junction, Via Natural or Artificial Opening Endoscopic, Diagnostic (ICD-10-PCS; principal; 2023-03-25 09:30)
DX: K29.40 Chronic atrophic gastritis without bleeding (principal); R10.13 Epigastric pain; K21.9 Gastro-esophageal reflux disease without esophagitis; K44.9 Diaphragmatic hernia without obstruction or gangrene; K21.00 Gastro-esophageal reflux disease with esophagitis, without bleeding; Z98.84 Bariatric surgery status
CPT/HCPCS: 88312; 88305; 43239; J2704; J2001; J2405; J7120

== ENCOUNTER 2023-07-05 15:18 | Emergency (ER) | payer OTHER ==
--- OUTSIDE RECORDS SUMMARY | 2023-07-05 15:22 | XMS REPORT | Continuity of Care Document ---
:1975 Author Organization [facility] t Address [address] [facility] [address] [place] [id number] Care Team Providers Name Role Phone CHELSEA SILVA Attending Clinician Unavailable Problems This patient has no known problems. Allergies, Adverse Reactions, Alerts This patient has no known allergies or adverse reactions. Medications This patient has no known medications. Procedures This patient has no known procedures. Encounters Start End Encounter Admission Attending Care Care Encounter Source Date/Time Date/Time Type Type Clinicians Facility Department ID 2023-07-11 2023-07-11 Outpatient FERMÍN SILVA [id number] 11:00:00 11:00:00 CHELSEA sanches Results This patient has no known results.
--- NOTE | 2023-07-05 16:51 | RAD REPORT ---
EXAM DESCRIPTION: RAD - Shoulder Right 2 View - 07/05/2023 4:34 pm CLINICAL HISTORY: PAIN COMPARISON: Chest Single View dated 03/22/2023 FINDINGS: Slight offset of the AC joint is noted, although likely chronic. Mild degenerative change AC joint and glenohumeral joint is noted. No acute fracture or dislocation.
--- NOTE | 2023-07-05 17:07 | RAD REPORT ---
EXAM DESCRIPTION: US - Transvaginal Study Probe - 07/05/2023 4:37 pm CLINICAL HISTORY: pelvic pain, vaginal bleeding Pelvic pain. COMPARISON: No comparisons FINDINGS: The uterus is normal in size, shape and echotexture. The uterus measures 10.2 x 6.0 x 5.0 cm. The endometrial stripe measures 5 mm, normal. The right ovary is obscured by bowel gas. The left ovary measures 3.0 x 2.7 x 2.5 cm. Normal blood fl ow is seen in the left ovary. No significant pelvic ascites. IMPRESSION: Negative examination except for nonvisualization of the right ovary.
[2023-07-05 17:53] LABS: Specific Gravity 1.022 (1.005-1.030)
[2023-07-05] MEDS ORDERED: ONDANSETRON 4 MG/2 ML VIAL ONE (18:02)
[2023-07-05] MEDS ORDERED: MORPHINE 2 MG/ML SYR ONE (18:02)
[2023-07-05 18:05] LABS: Potassium 4.4 mEq/L (3.5-5.1)
[2023-07-05 18:09] LABS: Absolute Lymphocytes (CBC) 1.8 K/uL (0.7-4.9); Lymphocytes % 25.7 % (15.3-44.8); MCV 86.2 fL (80-100); MPV 7.9 fL (7.6-11.3); Platelets 161 thou/uL (152-406); RBC Red Blood Cell Count 4.17 M/uL (3.86-4.86)
[2023-07-05 18:15] LABS: White Blood Cell Scan OK (OK)
[2023-07-05 18:17] LABS: Blood Morphology Comment NOT SEEN (NOT SEEN)
[2023-07-05 18:18] LABS: Platelet Estimate ADEQ
--- NOTE | 2023-07-05 18:26 | ER ---
Nurse's Notes [facility] Name: Ethan Harrison Age: 48 yrs Sex: Female : 1975 Arrival Date: 07/05/2023 Time: 15:18 Bed 15 Private MD: Diagnosis: Abnormal uterine and vaginal bleeding, unspecified Presentation: 07/05 15:45 Chief complaint: Patient states: "My right shoulder has been hurting for the past week mb9 since moving. I have a old shoulder injury. I also have bright red vaginal bleeding with clots fro the past 2 weeks. I feel dry, dizzy, and fatigued.". Coronavirus screen: At this time, the client does not indicate any symptoms associated with coronavirus-19. Ebola Screen: No symptoms or risks identified at this time. Initial Sepsis Screen: Does the patient meet any 2 criteria? No. Patient's initial sepsis screen is negative. Does the patient have a suspected source of infection? No. Patient's initial sepsis screen is negative. Risk Assessment: Do you want to hurt yourself or someone else? Patient reports no desire to harm self or others. Onset of symptoms was July 05, 2023. 15:45 Method Of Arrival: Ambulatory mb9 15:45 Acuity: YUAN 3 mb9 Triage Assessment: 15:47 General: Appears in no apparent distress. Behavior is calm, cooperative. Pain: mb9 Complains of pain in pelvis Pain radiates to back Quality of pain is described as stabbing. Neuro: Raman Agitation-Sedation Scale (RASS): 0 - Alert and Calm Level of Consciousness is awake, alert, obeys commands, Oriented to person, place, time, situation, Appropriate for age. Neuro: Reports dizziness, weakness. Cardiovascular: Patient's skin is warm and dry. Respiratory: Airway is patent Respiratory effort is even, unlabored. : Reports vaginal bleeding that is bright red, with clots, moderate flow. Derm: Skin is pink, warm \\T\\ dry. Musculoskeletal: Range of motion: intact in all extremities. 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 - Social history:: Smoking status: Patient denies any tobacco usage or history of. - Family history:: not pertinent. - Hospitalizations: : No recent hospitalization is reported. Screenin:04 [facility] ED Fall Risk Assessment (Adult) History of falling in the last 3 months, me1 including since admission No falls in past 3 months (0 pts) Confusion or Disorientation No (0 pts) Intoxicated or Sedated No (0 pts) Impaired Gait No (0 pts) Mobility Assist Device Used No (0 pt) Altered Elimination No (0 pt) Score/Fall Risk Level 0 - 2 = Low Risk. Abuse screen: Denies threats or abuse. Nutritional screening: No deficits noted. Tuberculosis screening: No symptoms or risk factors identified. Assessment: 18:04 General: Appears uncomfortable, well groomed, well developed, well nourished, Behavior me1 is calm, cooperative, appropriate for age, Reports right shoulder pain x 1 week since moving. States she has an old shoulder injury on the right. Also c/o bright red vaginal bleed x 2 weeks. States, "I feel dry. I'm dizzy and fatigued.". Pain: Complains of pain in back and pelvis Pain does not radiate. Pain currently is 7 out of 10 on a pain scale. Quality of pain is described as crampy, sharp, Pain began one week ago. Is continuous. Neuro: Level of Consciousness is awake, alert, obeys commands, Oriented to person, place, time, situation, Appropriate for age. Cardiovascular: Capillary refill < 3 seconds Patient's skin is warm and dry. Respiratory: Airway is patent Respiratory effort is even, unlabored, Respiratory pattern is regular, symmetrical. : Reports vaginal bleeding that is bright red, with clots, for two weeks. Vital Signs: 15:45 BP 128 / 97; Pulse 81; Resp 18; Temp 98.1; Pulse Ox 100% on R/A; Weight 90.72 kg; mb9 Height 5 ft. 0 in. ; 17:59 BP 135 / 84; Pulse 71; Resp 16; Pulse Ox 98% on R/A; me1 18:42 BP 125 / 82; Pulse 68; Resp 18; Pulse Ox 98% on R/A; me1 15:45 Body Mass Index 39.06 (90.72 kg, 152.4 cm) mb9 ED Course: 15:23 Patient arrived in ED. mg5 15:45 Arm band placed on. mb9 15:47 Triage completed. mb9 15:49 Fantasma Greene MD is Attending Physician. rn 16:35 XRAY Shoulder RIGHT 2 view In Process Unspecified. EDMS 16:39 Transvaginal Study Probe In Process Unspecified. EDMS 16:45 Audelia Summers, LISSETH is Primary Nurse. me1 17:43 Inserted saline lock: 22 gauge in right upper arm, using aseptic technique. me1 17:43 Basic Metabolic Panel Sent. me1 17:43 CBC with Diff Sent. me1 17:43 Test, Urine Sent. me1 18:04 Patient has correct armband on for positive identification. Bed in low position. Call me1 light in reach. Side rails up X 1. Provided Education on: POC. Verbalized understanding. . 18:04 No provider procedures requiring assistance completed. me1 18:05 Johana Maria FNP-C [facility]. kb 18:50 IV discontinued, intact, bleeding controlled, No redness/swelling at site. Pressure me1 dressing applied. Administered Medications: 17:57 Drug: morphine IVP or IV 2 mg IVP once over 4 mins Route: IVP; Infused Over: 4 mins; me1 Site: right upper arm; 18:41 Follow up: Response: No adverse reaction; Pain is decreased me1 17:57 Drug: Ondansetron IVP 4 mg IVP once; over 2 minutes Route: IVP; Site: right upper arm; me1 18:41 Follow up: Response: No adverse reaction; Nausea is decreased me1 Medication: 18:04 VIS not applicable for this client. me1 Outcome: 18:26 Discharge ordered by . kb 18:50 Discharged to home ambulatory, me1 18:50 Condition: stable 18:50 Discharge instructions given to patient, Instructed on discharge instructions, follow up and referral plans. Demonstrated understanding of instructions, follow-up care, 18:51 Patient left the ED. me1 Signatures: Dispatcher [employer] [facility] Johana Maria FNP-C FNP-Fantasma Ortega MD MD rn Breneman, Mary Beth, RN RN mb9 Audelia Summers, RN RN me1 Jacob, Yun 5
--- NOTE | 2023-07-05 18:26 | EDPHYS ---
Physician Documentation [facility] Name: Ethan Harrison Age: 48 yrs Sex: Female : 1975 Arrival Date: 07/05/2023 Time: 15:18 Bed 15 Private MD: ED Physician Fantasma Greene HPI: 07/05 17:10 This 48 yrs old Female presents to ER via Ambulatory with complaints of rn Shoulder Pain, Vaginal Bleeding. 17:10 The patient presents with vaginal bleeding that is with clots. Onset: The rn symptoms/episode began/occurred 2 week(s) ago. Modifying factors: The symptoms are alleviated by nothing, the symptoms are aggravated by nothing. Associated signs and symptoms: Pertinent positives: cramping, vaginal bleeding, Pertinent negatives: fever. Severity of symptoms: At their worst the symptoms were. 17:13 The patient has experienced similar episodes in the past. The patient has not recently rn seen a physician. Patient reports vaginal bleeding for 2 weeks, clots, no syncope or shortness of breath. Does not take blood thinners. Reports menstrual period is now irregular and only gets 1 every few months. Does not know when her mother is started menopause. Denies history of uterine or ovarian cancer. 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 - Social history:: Smoking status: Patient denies any tobacco usage or history of. - Family history:: not pertinent. - Hospitalizations: : No recent hospitalization is reported. ROS: 17:13 Constitutional: Negative for fever, chills, and weight loss, Cardiovascular: Negative rn for chest pain, palpitations, and edema, Respiratory: Negative for shortness of breath, cough, wheezing, and pleuritic chest pain, Abdomen/GI: Negative for abdominal pain, nausea, vomiting, diarrhea, and constipation, Back: Negative for injury and pain, : Positive for vaginal bleeding MS/Extremity: Negative for injury and deformity, Skin: Negative for injury, rash, and discoloration, Neuro: Positive for generalized weakness Exam: 17:13 Constitutional: This is a well developed, well nourished patient who is awake, alert, rn and in no acute distress. Cardiovascular: Regular rate and rhythm. No pulse deficits. Respiratory: No increased work of breathing, no retractions or nasal flaring. Abdomen/GI: Soft, non-tender Skin: Warm, dry MS/ Extremity: Pulses equal, no cyanosis. Neuro: Awake and alert, GCS 15 Vital Signs: 15:45 BP 128 / 97; Pulse 81; Resp 18; Temp 98.1; Pulse Ox 100% on R/A; Weight 90.72 kg; mb9 Height 5 ft. 0 in. ; 17:59 BP 135 / 84; Pulse 71; Resp 16; Pulse Ox 98% on R/A; me1 18:42 BP 125 / 82; Pulse 68; Resp 18; Pulse Ox 98% on R/A; me1 15:45 Body Mass Index 39.06 (90.72 kg, 152.4 cm) mb9 MDM: 15:49 Patient medically screened. rn 18:23 Differential diagnosis: anemia, fibroid, abnormal vaginal bleeding, fracture, sprain. kb Data reviewed: vital signs, nurses notes. Counseling: I had a detailed discussion with the patient and/or guardian regarding the historical points, exam findings, and any diagnostic results supporting the discharge/admit diagnosis, lab results, radiology results, the need for outpatient follow up, an OB/Gyne specialist, a orthopedic surgeon, to return to the emergency department if symptoms worsen or persist or if there are any questions or concerns that arise at home. 07/05 15:57 Order name: Basic Metabolic Panel; Complete Time: 18:11 rn 07/05 15:57 Order name: CBC with Diff; Complete Time: 18:23 rn 07/05 15:57 Order name: Test, Urine; Complete Time: 18:11 rn 07/05 18:13 Order name: CBC Smear Scan; Complete Time: 18:23 EDAR 07/05 18:18 Order name: Manual Differential; Complete Time: 18:23 EDAR 07/05 15:57 Order name: XRAY Shoulder RIGHT 2 view; Complete Time: 17:02 rn 07/05 16:12 Order name: Transvaginal Study Probe; Complete Time: 17:08 EDAR 07/05 15:57 Order name: IV Saline Lock; Complete Time: 17:43 rn 07/05 15:57 Order name: Labs collected and sent; Complete Time: 17:43 rn Administered Medications: 17:57 Drug: morphine IVP or IV 2 mg IVP once over 4 mins Route: IVP; Infused Over: 4 mins; me1 Site: right upper arm; 18:41 Follow up: Response: No adverse reaction; Pain is decreased me1 17:57 Drug: Ondansetron IVP 4 mg IVP once; over 2 minutes Route: IVP; Site: right upper arm; me1 18:41 Follow up: Response: No adverse reaction; Nausea is decreased me1 Disposition Summary: 07/05/23 18:26 Discharge Ordered Notes: Location: Home kb Condition: Stable kb Diagnosis - Abnormal uterine and vaginal bleeding, unspecified kb Followup: kb - With: Emergency Department - When: As needed - Reason: Worsening of condition Followup: kb - With: Private Physician - When: 2 - 3 days - Reason: Recheck today's complaints, Continuance of care, Re-evaluation by your physician Discharge Instructions: - Discharge Summary Sheet kb - Abnormal Uterine Bleeding, [id number] kb Forms: - Medication Reconciliation Form kb - Thank You Letter kb - Antibiotic Education kb - Prescription Opioid Use kb - Patient Portal Instructions kb - Leadership Thank You Letter kb Signatures: Dispatcher [employer] Johana Zavaleta, TERMINAL COMPUTER OPERATOR-C TERMINAL COMPUTER OPERATOR-Ckb Fantasma Greene MD MD rn Breneman, Mary Beth RN RN mb9 Audelia Summers, LISSTEH RN me1 Corrections: (The following items were deleted from the chart) 16:12 15:57 Pelvis Complete+US.RAD.BRZ ordered. [facility] EDAR
[2023-07-05 20:43] VITALS: TEMP 98.1
[2023-07-05 20:44] VITALS: O2SAT 98
[2023-07-05 20:46] VITALS: BP 125/82
== END 2023-07-05 18:51 | disposition home or self-care (01) ==
LOC: ER 15:18
DX: N93.9 Abnormal uterine and vaginal bleeding, unspecified (principal); M25.511 Pain in right shoulder
CPT/HCPCS: 85025; 80048; 36415; 81025; 73030; 76830; J2270; J2405

== ENCOUNTER 2024-05-23 16:03 | Emergency (ER) | payer OTHER ==
--- OUTSIDE RECORDS SUMMARY | 2024-05-23 16:06 | XMS REPORT | Continuity of Care Document ---
Author Name Unknown Address [address] [facility]. [address] [place] [address] [facility] thconnect Address [address] [facility] [address] [place] [address] Care Team Providers Care Product Representative Name Role Phone SOHA EARL Attending Clinician Unavailable RAGINI OKEEFE Attending Clinician UnavailCLEMENT Cameron Attending Clinician Unavailab marium KRAMER MD Attending Clinician Unavailab ALEJANDRA Hong Attending Clinician Unavailable [facility] Attending Clinician Unavailable ELBA PARK Attending Clinician Sis RACHEL Barber Attending Clinician Unav ailBARTOLO Fragoso Attending Clinician Unavailab le [id number] Attending Clinician Unavailable [id number] Attending Clinician Unavailable GABBIE BENZ Attending Clinician U navailable [id number] Attending Clinician Unavailable TANYA VILLA Attending Clinician Unavailable [facility] Attending Clinician Unavailable [id number] Attending Clinician Unavailable [id number] Attending Clinician Unavailable CHELSEA SILVA Attending Clinician Unava ilable PROVIDER, [employer] Attending Clinician Unav ailable Payers Payer Name Policy Type Policy Number Effective Date Expirati on Date Source [employer] [facility] 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 9 [id number] 2023 00:00:00 [employer] [facility] 2 [id number] 2022 00:00:00 Problems Condition Name Condition Details Condition Category Status Onset Date Resolution Date Last Treatment Date Treating Clinician Comments Source Asthma ([facility]) Asthma ([facility]) Disease Active 07-08 00:00: 00 Tere porter Chronic back pain Chronic back pain Disease Active 07-08 00:00: 00 Tere Biswasold - Externa german DDD (degenerat lillian disc disease), cervical DDD (degenerat lillian disc disease), cervical Disease Active 07-08 00:00: 00 Tere Biswasold - Externa l DDD (degenerat lillian disc disease), lumbar DDD (degenerat lillian disc disease), lumbar Disease Active 07-08 00:00: 00 Tere Paz - Externa german History of herniated interverte bral disc History of herniated interverte bral disc Disease Active 07-08 00:00: 00 Tere Paz - Externa german History of neck surgery History of neck surgery Disease Active 07-08 00:00: 00 Tere Biswasold - Externa german Migraine Migraine Disease Active 07-08 00:00: 00 Tere Biswasold - Externa german Chronic shoulder pain Chronic shoulder pain Disease Active 07-08 00:00: 00 Tere Paz - Externa german Pelvic pain Pelvic pain Disease Active 07-08 00:00: 00 Tere Biswasold - Externa german Menometror rhagia Menometror rhagia Disease Active 07-08 00:00: 00 Tere Paz - Externa german Anxiety Anxiety Disease Active 07-08 00:00: 00 Tere Paz - Externa german HTN (hypertens ion) HTN (hypertens ion) Disease Active 07-08 00:00: 00 Tere Paz - Externa german Insomnia Insomnia Disease Active 07-08 00:00: 00 Tere Mcqueenybold - Externa german Obesity Obesity Disease Active 07-08 00:00: 00 Tere Paz - Externa german Allergies, Adverse Reactions, Alerts Allergy Name Allergy Type Status Severity Reaction(s) Onset Date Inactive Date Treating Clinician Comments Source Celecoxi b Propensi ty to adverse reaction s Active 2021-10 00:00: 00 Other reaction( s): Unknown Tere Paz - Externa german Ibuprofe n Propensi ty to adverse reaction s Active 2021-10 00:00: 00 Other reaction( s): Unknown Tere Biswasold - Externa l Meloxica m Propensi ty to adverse reaction s Active 2021-10 00:00: 00 Other reaction( s): Unknown Tere Zulayold - Externa l Social History Social Habit Start Date Stop Date Quantity Comments Source Sexual orientation 2023-06-30 17:23:12 Heterosexual (finding) Tere Biswasold - External Alcohol intake 2023-12-08 00:00:00 2023-12-08 00:00:00 Current drinker of alcohol (finding) Tere Paz - External History of Social function 2023-07-13 00:00:00 2023-07-13 00:00:00 Tere Paz - External Tobacco use and exposure 2023-07-08 00:00:00 2023-07-08 00:00:00 Smokeless tobacco non-user Tere Paz - External Sex Assigned At 1975 00:00:00 1975 00:[birth year]:00 F Tere silverlaura - External Smoking Status Start Date Stop Date Source Never smoked tobacco Tere Paz - External Medications Ordered Medication Name Filled Medication Name Start Date Stop Date Current Medication? Ordering Clinician Indication Dosage Frequency Signature (SIG) Comments Components Source Amlodipine Besylate (NORVASC) 5 MG oral Tablet 12-07 14:52: 02 12-07 00:00 :00 No 5mg Take 1 tablet (5 mg total) by mouth daily. Tere Mckinneya l Amlodipine Besylate (NORVASC) 5 MG oral Tablet 2022-10 14:27: 37 Yes 5mg Take 1 tablet (5 mg total) by mouth daily. Tere Biswasold - Externa l Amlodipine Besylate (NORVASC) 5 MG oral Tablet 07-13 10:23: 29 Yes 5mg Take 1 tablet (5 mg total) by mouth daily. Tere Paz - Externa l Gabapentin 300 MG oral Capsule 07-13 00:00: 00 09-19 00:00 :00 No [id number] 600mg Take 2 capsules (600 mg total) by mouth 3 times daily Take 600 mg nightly for 5-7 nights; If no adverse affects increase to 600 mg two times a day for 5-7 days; If no adverse affects increase to 600 mg three times a day. Call physician office if you have any issues.. Tere porter Diclofenac Sodium (Voltaren Arthritis Pain) 1 % apply externally Gel 07-13 00:00: 00 08-13 04:59 :00 No [id number] 1{appli cation} Q.25D Apply 1 Applicatio n topically 4 times daily as needed (on painful area). Tere porter Amlodipine Besylate (NORVASC) 5 MG oral Tablet 07-08 10:28: 15 Yes 5mg Take 1 tablet (5 mg total) by mouth daily. Tere porter Paroxetine HCl 20 MG oral Tablet 07-08 00:00: 00 Yes [id number] 20mg Take 1 tablet (20 mg total) by mouth every morning. Tere porter Trazodone HCl 150 MG oral Tablet 07-08 00:00: 00 Yes [id number] 150mg Take 1 tablet (150 mg total) by mouth nightly. Tere porter Lorazepam (ATIVAN) 0.5 MG oral Tablet tablet 07-08 00:00: 00 Yes [id number] .5mg QD Take 1 tablet (0.5 mg total) by mouth nightly as needed for anxiety. Tere porter Zolpidem Tartrate (Ambien) 10 MG oral Tablet 07-08 00:00: 00 Yes [id number] 10mg QD Take 1 tablet (10 mg total) by mouth nightly as needed for sleep. Tere porter Diclofenac Sodium 75 MG oral Tablet Delayed Response 07-08 00:00: 00 09-19 00:00 :00 No [id number] 75mg Q.5D Take 1 tablet (75 mg total) by mouth 2 times daily as needed. Tere porter Paroxetine HCl 20 MG oral Tablet 08 00:00: 00 07-08 00:00 :00 No Tere porter Lorazepam 2 MG oral Tablet 8-02 00:00: 00 07-08 00:00 :00 No 2mg Take 1 tablet (2 mg total) by mouth 3 times daily. Tere porter Gabapentin 600 MG oral Tablet 11-12 00:00: 00 07-13 00:00 :00 No 600mg Take 1 tablet (600 mg total) by mouth 2 times daily. Tere porter Zolpidem Tartrate (Ambien) 10 MG oral Tablet 2021-10 2 00:00: 00 07-08 00:00 :00 No Tere porter Trazodone HCl 150 MG oral Tablet 2021-10 00:00: 00 07-08 00:00 :00 No Tere porter Immunizations Ordered Immunization Name Filled Immunization Name Date Status Comments Source Influenza, Injectable, Mdck, Quadrivalent With Preservative Unknown Completed Tere Paz - External Influenza, Injectable, Mdck, Quadrivalent With Preservative Unknown Completed Tere Paz - External Influenza, Injectable, Mdck, Quadrivalent With Preservative Unknown Completed Tere Paz - External Vital Signs Vital Name Observation Time Observation Value Comments S ource Systolic blood pressure 2023-12-08 20:12:00 132 mm[Hg] Tere Hobson ld - External Diastolic blood pressure 2023-12-08 20:12:00 86 mm[Hg] Tere Hobson ld - External Heart rate 2023-12-08 20:12:00 80 /min Jose Paz - External Body temperature 2023-12-08 20:12:00 36.56 Jaclyn Tere Paz - External Respiratory rate 2023-12-08 20:12:00 20 /min Tere Paz - External Body height 2023-12-08 20:12:00 152.4 cm Margot Paz - External Body weight 2023-12-08 20:12:00 88.905 kg Margot anton Seybold - External BMI 2023-12-08 20:12:00 38.28 kg/m2 Margot Paz - External Oxygen saturation in Arterial blood by Pulse oximetry 2023-12-08 20:12:00 100 /min Tere Seybo ld - External Systolic blood pressure 2023-12-07 20:51:00 138 mm[Hg] Tere Seybo ld - External Diastolic blood pressure 2023-12-07 20:51:00 88 mm[Hg] Tere Seybo ld - External Heart rate 2023-12-07 20:51:00 116 /min Kelse y Seybold - External Body weight 2023-12-07 20:51:00 87.544 kg Margot ey Seybold - External BMI 2023-12-07 20:51:00 37.69 kg/m2 Margot ey Seybold - External Systolic blood pressure 2023-09-19 20:24:00 124 mm[Hg] Tere Seybo ld - External Diastolic blood pressure 2023-09-19 20:24:00 85 mm[Hg] Tere Seybo ld - External Heart rate 2023-09-19 20:24:00 75 /min Kelse y Seybold - External Respiratory rate 2023-09-19 20:24:00 17 /min Tere Seybold - External Body height 2023-09-19 20:24:00 152.4 cm Margot ey Seybold - External Body weight 2023-09-19 20:24:00 90.719 kg Margot ey Seybold - External BMI 2023-09-19 20:24:00 39.06 kg/m2 Margot ey Seybold - External Systolic blood pressure 2023-07-13 15:23:00 114 mm[Hg] Tere Seybo ld - External Diastolic blood pressure 2023-07-13 15:23:00 82 mm[Hg] Tere Seybo ld - External Heart rate 2023-07-13 15:23:00 90 /min Kelse y Seybold - External Body temperature 2023-07-13 15:23:00 36.78 Jaclyn Tere Seybold - External Respiratory rate 2023-07-13 15:23:00 17 /min Tere Seybold - External Body height 2023-07-13 15:23:00 157.5 cm Margot ey Seybold - External Body weight 2023-07-13 15:23:00 89.812 kg Margot ey Seybold - External BMI 2023-07-13 15:23:00 36.21 kg/m2 Margot ey Seybold - External Systolic blood pressure 2023-07-08 15:26:00 142 mm[Hg] Tere Biswaso ld - External Diastolic blood pressure 2023-07-08 15:26:00 87 mm[Hg] Tere Biswaso ld - External Heart rate 2023-07-08 15:26:00 77 /min Jose y Seybold - External Body temperature 2023-07-08 15:26:00 36.67 Jaclyn Tere Mcqueenybold - External Respiratory rate 2023-07-08 15:26:00 12 /min Tere Seybold - External Body height 2023-07-08 15:26:00 157.5 cm Margot ey Seybold - External Body weight 2023-07-08 15:26:00 90.992 kg Margot anton Seybold - External BMI 2023-07-08 15:26:00 36.69 kg/m2 Margot anton Seybold - External Oxygen saturation in Arterial blood by Pulse oximetry 2023-07-08 15:26:00 99 /min Tere Hobson ld - External Encounters Start Date/Time End Date/Time Encounter Type Admission Type Attending [facility] Care Department Encounter ID Source 2024-06-11 16:15:00 2024-06-11 16:15:00 Outpatient SOHA EARL [id number] Tere [facility] 2024-05-29 15:30:00 2024-05-29 15:30:00 Outpatient SOHA EARL [id number] [facility] 2024-05-16 13:30:00 2024-05-16 13:30:00 Outpatient RAGINI OKEEFE [id number] Tere [facility] 2024-05-16 13:00:00 2024-05-16 13:00:00 Outpatient RAGINI OKEEFE [id number] Tere [facility] 2024-05-16 00:00:00 2024-05-16 00:00:00 Outpatient CLEMENT DIAZ [id number] [facility] 2024-05-11 00:00:00 2024-05-11 00:00:00 Outpatient MD TERE BASHIR [id number] [facility] 2024-05-09 00:00:00 2024-05-09 00:00:00 Outpatient MD [facility]ERE [facility]ASH[facility] [id number] [facility] 2024-05-04 10:00:00 2024-05-04 10:00:00 [facility]DR[id number] [facility] 00:00:00 2024-05-04 00:00:00 Outpatient PREZAS, SOHA KOVACS [id number] [facility] 2024-05-04 00:00:00 2024-05-04 00:00:00 Outpatient PREZAS, SOHA KOVACS [id number] [facility] 2024-04-30 10:45:00 2024-04-30 10:45:00 Outpatient PREZAS, SOHA KOVACS [id number] [facility] 2024-04-26 16:00:00 2024-04-26 16:00:00 Outpatient PREZAS, SOHA KOVACS [id number] [facility] 2024-04-05 00:00:00 2024-04-05 00:00:00 Outpatient PREZAS, SOHA KOVACS [id number] [facility] 10:00:00 2024-04-04 10:00:00 [facility]ERE [facility]ACS [id number] [facility] 2024-04-04 08:40:00 2024-04-04 08:40:00 Outpatient TERE KOVACS [id number] [facility] 2024-03-20 00:00:00 2024-03-20 00:00:00 Outpatient PREZAS, SOHA KOVACS [id number] [facility] 2024-03-20 00:00:00 2024-03-20 00:00:[address] [facility] TERE KOVACS [id number] [facility] 2024-03-08 00:00:2024-03-08 00:00:00 Outpatient CONFERENCE, [facility] TERE KOVACS [id number] [facility] 2024-02-17 08:00:00 2024-02-17 08:00:00 Outpatient EMILYCLEMENT TERE KOVACS [id number] [facility] 2024-02-14 14:30:00 2024-02-14 14:30:00 Outpatient XAVIERELBA TERE KOVACS [id number] [facility] 2024-02-13 00:00:00 2024-02-13 00:00:00 Outpatient HARESH EARLAND TERE KOVACS [id number] [facility] 2024-02-07 10:45:00 2024-02-07 10:45:00 Outpatient XAVIER ELBA [facility] [id number] [facility] 2024-01-26 16:00:00 2024-01-26 16:00:00 Outpatient EMILY CLEMENT TERE KOVACS [id number] [facility] 2024-01-23 14:15:00 2024-01-23 14:15:00 Outpatient DIAZ, CLEMENT TERE KOVACS [id number] [facility] 2024-01-20 16:00:00 2024-01-20 16:00:00 Outpatient EMILY CLEMENTKelsi KOVACS [id number] [facility] 2024-01-18 00:00:00 2024-01-18 00:00:00 Outpatient MD [facility]ERE [facility]ASHIR [id number] [facility] 2024-01-17 00:00:00 2024-01-17 00:00:00 Outpatient TERE KOVACS [id number] [facility] 2024-01-17 00:00:00 2024-01-17 00:00:00 Outpatient SOHA EARL [id number] [facility] 2024-01-17 00:00:00 2024-01-17 00:00:00 Outpatient [facility]FERENCE, [facility]ERE [facility]OVACS [id number] [facility] 2024-01-13 15:15:00 2024-01-13 15:15:00 Outpatient RACHEL LEMON [id number] [facility] 2024-01-09 00:00:00 2024-01-09 00:00:00 Outpatient MD TERE BASHIR [id number] [facility] 2024-01-05 14:30:00 2024-01-05 14:30:00 Outpatient CLEMENT DIAZ [id number] [facility] 2023-12-21 00:00:00 2023-12-21 00:00:00 Outpatient TERE KOVACS [id number] [facility] 2023-12-19 13:00:00 2023-12-19 13:00:00 Outpatient BARTOLO SERRA [id number] [facility] 2023-12-15 00:00:00 2023-12-15 00:00:00 Outpatient SOHA EARL [id number] [facility] 2023-12-14 14:00:00 2023-12-14 14:00:00 Outpatient LAB90 TERE KOVACS [id number] [facility] 2023-12-12 16:15:00 2023-12-12 16:15:00 Outpatient [id number] TERE KOVACS [id number] [facility] 2023-12-12 15:40:00 2023-12-12 15:40:00 Outpatient TERE KOVACS [id number] [facility] 2023-12-12 00:00:00 2023-12-12 00:00:00 Outpatient GABBIE WELLINGTON [id number] [facility] 2023-12-08 17:15:00 2023-12-08 17:15:00 Outpatient ALEJANDRA MATHIS [id number] [facility] 2023-12-08 14:15:00 2023-12-08 14:15:00 Outpatient SOHA EARL [id number] [facility] 2023-12-07 14:15:00 2023-12-07 14:15:00 Outpatient CLEMENT DIAZ [id number] [facility] 2023-11-30 16:15:00 2023-11-30 16:15:00 Outpatient TERE KOVACS [id number] [facility] 2023-11-16 15:00:00 2023-11-16 15:00:00 Outpatient TERE KOVACS [id number] [facility] 2023-11-15 13:45:00 2023-11-15 13:45:00 Outpatient PREZAS, SOHA KOVACS [id number] [facility] 2023-11-15 10:55:00 2023-11-15 10:55:00 Outpatient DEL, ALEJANDRA KOVACS [id number] [facility] 2023-10-26 15:00:00 2023-10-26 15:00:00 Outpatient SERRABARTOLO APODACA [id number] [facility] 2023-10-20 15:30:00 2023-10-20 15:30:00 Outpatient PRESOHA SIMENTAL [id number] [facility] 2023-10-12 10:45:00 2023-10-12 10:45:00 Outpatient SERRA, BARTOLO KOVACS [id number] [facility] 2023-10-05 15:00:00 2023-10-05 15:00:00 Outpatient SERRA, BARTOLO KOVACS [id number] [facility] 2023-10-04 15:30:00 2023-10-04 15:30:00 Outpatient PREZASSOHA [id number] [facility] 2023-09-19 15:15:00 2023-09-19 15:15:00 Outpatient LAB03 TERE KOVACS [id number] [facility] 2023-09-19 14:30:00 2023-09-19 14:30:00 Outpatient CLEMENT DIAZ [id number] [facility] 2023-09-13 14:45:00 2023-09-13 14:45:00 Outpatient PREZASOHA Graves [id number] [facility] 2023-08-31 00:00:00 2023-08-31 00:00:00 Outpatient PREZAS, SOHA KOVACS TERE [id number] [facility] 2023-08-25 15:00:00 2023-08-25 15:00:00 Outpatient DIAZCLEMENT HERNANDEZ TERE TERE [id number] [facility] 2023-08-10 14:00:00 2023-08-10 14:00:00 Outpatient TANYA VILLA TERE TERE [id number] [facility] 2023-08-08 14:30:00 2023-08-08 14:30:00 Outpatient DIAZCLEMENT HERNANDEZ TERE TERE [id number] [facility] Sey[facility] 2023-08-05 15:45:00 2023-08-05 15:45:00 Outpatient PREZAS, SOHA KOVACS TERE [id number] [facility] 2023-07-27 00:00:00 2023-07-27 00:00:00 Outpatient TERE KOVACS [id number] [facility] 2023-07-25 13:30:00 2023-07-25 13:30:00 Outpatient PREZAS, SOHA KOVACS TERE [id number] [facility] Seybold 2023-07-20 14:00:00 2023-07-20 14:00:00 Outpatient MARGARETHDANIEL TERE TERE [id number] [facility] 2023-07-19 10:30:00 2023-07-19 10:30:00 Outpatient LAB39 TERE KOVACS [id number] [facility] 2023-07-17 00:00:00 2023-07-17 00:00:00 Outpatient PREZAS, SOHA TERE TERE [id number] [facility] Sey[facility] 2023-07-13 12:10:00 2023-07-13 12:10:00 Outpatient KAC454 TERE KOVACS [id number] [facility] Sey[facility] 2023-07-13 11:25:00 2023-07-13 11:25:00 Outpatient TERE KOVACS [id number] [facility] 2023-07-13 11:20:00 2023-07-13 11:20:00 Outpatient TERE KOVACS [id number] [facility] 2023-07-13 11:15:00 2023-07-13 11:15:00 Outpatient TERE KOVACS [id number] [facility] 2023-07-13 10:15:00 2023-07-13 10:15:00 Outpatient BARTOLO SERRA TERE KOVACS [id number] [facility] 2023-07-11 11:00:00 2023-07-11 11:00:00 Outpatient CHELSEA SILVA TERE KOVACS [id number] [facility] 2023-07-08 10:00:00 2023-07-08 10:00:00 Outpatient RAJAT SOHA TERE KOVACS [id number] [facility] 2023-07-08 00:00:00 2023-07-08 00:00:00 Outpatient MD TERE BASHIR [id number] [facility] 2023-07-08 00:00:00 2023-07-08 00:00:00 [facility] [id number] [facility]:00 2023-07-08 00:00:00 Outpatient MD TERE BASHIR [id number] [facility] 2023-07-08 00:00:00 2023-07-08 00:00:00 Outpatient MD TERE BASHIR [id number] [facility] 2023-07-08 00:00:00 2023-07-08 00:00:00 Outpatient MD TERE BASHIR [id number] [facility] 2023-07-07 12:30:00 2023-07-07 12:30:00 Outpatient PROVIDER, TILA KOVACS [id number] Tere Paz Notes Date/Time Note Provider Source 2023-12-07 14:50:39 Chief Complaint [facility]
[2024-05-23] MEDS ORDERED: MORPHINE 4 MG/ML SYR ONE ×2 (17:56→19:57)
[2024-05-23] MEDS ORDERED: ONDANSETRON 4 MG/2 ML VIAL ONE ×2 (17:56→19:56)
[2024-05-23 18:02] LABS: Absolute Eosinophils 0.3 K/uL (0-0.5); Absolute Lymphocytes (CBC) 1.3 K/uL (0.7-4.9); Absolute Monocytes 0.3 K/uL (0.1-1.3); Absolute Neutrophil 3.1 K/uL (1.8-8.0); Basophils % 0.3 % (0-1.3); Eosinophils % 6.5 % (0-4.4); Hematocrit 33.3 % (36.0-45.0); Hemoglobin 11.1 g/dL (12.0-15.0); Lymphocytes % 26.7 % (15.3-44.8); MCH 26.7 pg (27.0-35.0); MCHC 33.3 g/dL (32.0-36.0); MPV 7.2 fL (7.6-11.3); Monocytes % 5.6 % (3.3-12.3); Neutrophils % 60.9 % (41.7-73.7); Nucleated Red Blood Cells % 0.1 % (0-0); Platelets 207 thou/uL (152-406); RBC Red Blood Cell Count 4.16 M/uL (3.86-4.86)
[2024-05-23 18:09] LABS: PT Prothrombin Time 12.5 SECONDS (9.4-12.5); PTT, Activated Partial Thromb 35.5 SECONDS (24.3-36.9); Protime INR 1.12
--- NOTE | 2024-05-23 18:29 | RAD REPORT ---
EXAM DESCRIPTION: US - Extremity Nonvascular Limited - 05/23/2024 6:08 pm CLINICAL HISTORY: PAIN COMPARISON: Abdomen Pelvis W Contrast dated 03/22/2023 TECHNIQUE: Focused ultrasound of the hips performed. FINDINGS: Complex cystic collection at the left hip measures 2.2 cm x 1.6 cm. A similar appearing cy stic and solid collection is present at the right hip measuring 2.5 cm x 1.6. These are located withi n the subcutaneous tissues. IMPRESSION: Similar appearing bilateral complex cystic collections at the areas of concern at the ar ps is nonspecific. It could represent small abscesses, subacute hematomas, or injection sites among o ther etiologies
[2024-05-23 18:40] LABS: Albumin 3.2 g/dL (3.4-5.0); Albumin/Globulin Ratio 0.8 (1.1-1.8); Alkaline Phosphatase 75 U/L (45-117); Anion Gap 6.7 mEq/L (5.0-15.0); BUN Blood Urea Nitrogen 14 mg/dL (7-18); Bicarbonate 30 mEq/L (21-32); Bilirubin Total 0.4 mg/dL (0.2-1.0); Globulin 4.2 g/dL (2.3-3.5); Glomerular Filtration Rate 103 ml/min (=/>90); Glucose Level 94 mg/dL (74-106); Potassium 3.7 mEq/L (3.5-5.1); Protein, Total 7.4 g/dL (6.4-8.2); Sodium Level 138 mEq/L (136-145)
[2024-05-23 18:41] LABS: Specific Gravity 1.021 (1.005-1.030); Urine Bacteria 20-50 /HPF (<20); Urine Bilirubin NEGATIVE (Negative); Urine Blood Negative (Negative); Urine Clarity Extremely Turbid (Clear); Urine Color Light-Yellow (Yellow); Urine Culture Reflex Order REFLEXED; Urine Glucose NEGATIVE (Negative); Urine Ketones NEGATIVE (Negative); Urine Microscopic Reflex YN ORDER UMIC; Urine Mucus 2+ /HPF (None Seen); Urine Nitrite 1+ (Negative); Urine Protein TRACE (Negative); Urine RBC None Seen /HPF (None Seen); Urine Urobilinogen Normal (Normal); Urine WBC >50 /HPF (<5); Urine WBC Clump Rare /HPF (None Seen)
[2024-05-23 18:42] LABS: ALT/SGPT < 14 U/L (13-56); AST/SGOT < 10 U/L (15-37)
--- NOTE | 2024-05-23 19:58 | RAD REPORT ---
EXAM DESCRIPTION: CTAbdomen Pelvis W Contrast - 05/23/2024 7:28 pm CLINICAL HISTORY: ABD PAIN COMPARISON: Abdomen Pelvis W Contrast dated 03/22/2023; Abdomen Pelvis W Contrast dated 03/12/2023 TECHNIQUE: CT of the abdomen and pelvis was performed. All CT scans are performed using dose optimization technique as appropriate and may include automated exposure control or mA/KV adjustment according to patient size. FINDINGS: Lower chest: No acute abnormality. Bilateral breast prostheses. Fluid present within the d istal esophagus. Likely prior fundoplication. Liver: No suspicious liver mass. Mild intrahepatic biliary duct dilatation. Biliary: Cholecystectomy. Stomach: No significant focal abnormality. Duodenum: No significant focal abnormality. Pancreas: No significant abnormality. Spleen: No significant abnormality. Adrenal: No suspicious lesions. Kidney/ureter: No hydronephrosis. No renal calculi. Retroperitoneum: No retroperitoneal adenopathy. Vascular: No aneurysm. Bowel: No significant focal abnormality. Peritoneum: Status post abdominoplasty. Small fat containing umbilical hernia. Diffuse skin thickenin g is present. Numerous rounded areas of stranding present throughout the subcutaneous tissues of the hips, flanks, including at the ischioanal fossa. No abscess identified. Bladder: Grossly unremarkable. Reproductive: No adnexal masses. Bones: No acute fracture. Other: n/a IMPRESSION: Status post abdominoplasty. Widespread encapsulated fatty structures within the subcutan eous fat throughout the abdominal wall, hips, and even the ischioanal fossa. These findings could be secondary to fat necrosis possibly as result of prior sepsis and septic emboli. By report, the patien t had a recent complicated medical course following abdominoplasty which included sepsis. With regard to cutaneous drainage, no abscess identified. No evidence of an enterocutaneous fistula.
--- NOTE | 2024-05-23 20:58 | EDPHYS ---
Physician Documentation [facility] Name: Ethan Harrison Age: 49 yrs Sex: Female : 1975 Arrival Date: 05/23/2024 Time: 16:03 Bed 14 Private MD: ED Physician Fantasma Greene HPI: 05/23 23:00 This 49 yrs old Female presents to ER via Ambulatory with complaints of Fever, kb Vomiting. 23:00 Patient is a 49-year-old female who had an abdominoplasty on January 09 in [place]. kb States she ended up getting an infection, having 5 subsequent surgeries including a skin graft taken from left thigh and being hospitalized for 3 months. [place] the [place] in [place]. Patient presents today for erythema, fever and drainage to skin graft site. States that it has been going on for about 2 weeks. Patient was seen at [facility] and prescribed Bactrim, Keflex and mupirocin. Patient was also seen by a plastic surgeon in [place] who recommended biopsy of the area. States she has completed the antibiotics and still has drainage to the area and pain.. 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 - Infectious Disease History:: Denies. - Social history:: Smoking status: Patient denies any tobacco usage or history of. ROS: 22:59 Constitutional: As per HPI kb Exam: 21:25 Constitutional: This is a well developed, well nourished patient who is awake, alert, kb and in no acute distress. Head/Face: Normocephalic, atraumatic. ENT: Moist Mucous membranes Cardiovascular: Regular rate Respiratory: Respirations even and unlabored. No increased work of breathing. Talking in full sentences MS/ Extremity: Pulses equal, no cyanosis. Neurovascular intact. Full, normal range of motion. Neuro: Awake and alert, GCS 15, oriented to person, place, time, and situation. Moves all extremities. Normal gait. 21:25 ECG was reviewed by the Attending Physician. 22:57 Abdomen/GI: Inspection: Status post abdominoplasty and skin graft across lower abdomen kb just below umbilicus. Multiple small open wounds to skin graft with mild drainage. No warmth or swelling to area, Bowel sounds: normal, Palpation: abdomen is soft and non-tender, Vital Signs: 16:45 BP 134 / 89; Pulse 83; Resp 16; Temp 98.5(O); Pulse Ox 98% on R/A; Weight 65.32 kg; cm10 Height 5 ft. 0 in. ; Pain 10/10; 18:53 BP 142 / 85; Pulse 72; Resp 18; Pulse Ox 100% on R/A; ph 19:37 BP 108 / 65; Pulse 96; Resp 16; Pulse Ox 100% on R/A; al5 20:00 BP 112 / 64; Pulse 89; Resp 16; Pulse Ox 100% on R/A; al5 20:30 BP 95 / 62; Pulse 82; Resp 16; Pulse Ox 100% on R/A; al5 16:45 Body Mass Index 28.12 (65.32 kg, 152.4 cm) cm10 16:45 Pain Scale: Adult cm10 MDM: 16:11 Patient medically screened. kb 22:59 Differential diagnosis: Cellulitis, postop infection, abscess. Data reviewed: vital kb signs, nurses notes. Counseling: I had a detailed discussion with the patient and/or guardian regarding the historical points, exam findings, and any diagnostic results supporting the discharge/admit diagnosis, lab results, radiology results, the need for outpatient follow up, a general surgeon, to return to the emergency department if symptoms worsen or persist or if there are any questions or concerns that arise at home. ED course: Discussed all results with patient and educated on need for follow-up with the plastic surgeon that she recently saw in [place]. Patient states that the surgeon wanted to do a biopsy when he saw her before and she wants to see a different one for a second opinion. Patient educated on importance of follow-up and strict return precautions.. 05/23 16:45 Order name: Blood Culture Adult (2) kb 05/23 16:45 Order name: CBC with Diff; Complete Time: 18:03 kb 05/23 16:45 Order name: CMP; Complete Time: 18:45 kb 05/23 16:45 Order name: Lactate w/ 2H reflex if indic.; Complete Time: 18:26 kb 05/23 16:45 Order name: Protime (+inr); Complete Time: 18:11 kb 05/23 16:45 Order name: Ptt, Activated; Complete Time: 18:11 kb 05/23 16:45 Order name: Urinalysis w/ reflexes; Complete Time: 18:45 kb 05/23 16:45 Order name: Wound Culture kb 05/23 18:45 Order name: Urine Culture EDMS 05/23 16:46 Order name: US Extrmty Nonvasular Limited; Complete Time: 18:30 kb 05/23 17:11 Order name: CT Abd/Pelvis - IV Contrast Only; Complete Time: 20:02 kb 05/23 16:45 Order name: Accucheck; Complete Time: 18:00 kb 05/23 16:45 Order name: Cardiac monitoring; Complete Time: 18:00 kb 05/23 16:45 Order name: EKG - Nurse/Tech; Complete Time: 18:00 kb 05/23 16:45 Order name: IV Saline Lock - Large Bore; Complete Time: 18:00 kb 05/23 16:45 Order name: Labs collected and sent; Complete Time: 18:00 kb 05/23 16:45 Order name: O2 Per Protocol; Complete Time: 17:31 kb 05/23 16:45 Order name: O2 Sat Monitoring; Complete Time: 17:31 kb 05/23 16:45 Order name: Vital Signs; Complete Time: 17:31 kb EC:25 Rate is 76 beats/min. Rhythm is regular. QRS [place] is Normal. [place] interval is normal at kb 168 msec. QRS interval is normal at 72 msec. QT interval is normal at 429 msec. Administered Medications: 18:15 Drug: morphine IVP or IV 4 mg IVP once over 4 mins Route: IVP; Infused Over: 4 mins; ph Site: right antecubital; 18:55 Follow up: Response: No adverse reaction; Pain is decreased; RASS: Alert and Calm (0) ph 18:15 Drug: Ondansetron IVP 4 mg IVP once; over 2 minutes Route: IVP; Site: right antecubital;ph 18:55 Follow up: Response: No adverse reaction ph 20:24 Drug: morphine IVP or IV 4 mg IVP once over 4 mins Route: IVP; Infused Over: 4 mins; al5 Site: right antecubital; 21:07 Follow up: Response: No adverse reaction al5 20:24 Drug: Ondansetron IVP 4 mg IVP once; over 2 minutes Route: IVP; Site: right antecubital;al5 21:07 Follow up: Response: No adverse reaction al5 21:22 Drug: Clindamycin PO 300 mg PO once Route: PO; al5 22:03 Follow up: Response: No adverse reaction al5 22:03 Drug: [place] PO 10 mg-325 mg 1 tabs PO once Route: PO; al5 22:03 Follow up: Response: No adverse reaction al5 Disposition: 05/24 07:04 Co-signature as Attending Physician, Fantasma Greene MD I reviewed the patient's care rn provided by the Advanced Practice Provider and agree with the diagnosis and treatment plan. Disposition Summary: 05/23/24 20:57 Discharge Ordered Notes: Location: Home kb Condition: Stable kb Diagnosis - Local infection of the skin and subcutaneous tissue, unspecified kb Followup: kb - With: Emergency Department - When: As needed - Reason: Worsening of condition Followup: kb - With: Private Physician - When: 2 - 3 days - Reason: Recheck today's complaints, Continuance of care, Re-evaluation by your physician Discharge Instructions: - Discharge Summary Sheet kb - Wound Infection, [id number] kb Forms: - Medication Reconciliation Form kb - Antibiotic Education kb - Prescription Opioid Use kb - Patient Portal Instructions kb - Leadership Thank You Letter kb Prescriptions: - Clindamycin HCl 300 mg Oral Capsule - take 1 capsule ORAL route every 6 hours for 10 days; 40 capsule; Refills: 0, kb Product Selection Permitted Signatures: Dispatcher [employer] EDJohana Velez, DIVISION OPERATIONS MANAGER-C DIVISION OPERATIONS MANAGER-Ckb Fantasma Greene MD MD rn Hall, Patricia RN RN Medina Dangelo RN RN cm10 Neelam Sheldon RN RN al5 Corrections: (The following items were deleted from the chart) 05/23 16:45 16:45 BLOOD CULTURE*+BA.LAB.BRZ ordered. EDMS EDMS 16:45 16:45 CBC+H.LAB.BRZ ordered. EDMS EDMS 16:45 16:45 COMPREHENSIVE METABOLIC PANEL+C.LAB.BRZ ordered. EDMS EDMS 16:45 16:45 LACTATE+C.LAB.BRZ ordered. EDMS EDMS 16:45 16:45 PROTIME (+INR)+COAG.LAB.BRZ ordered. EDMS EDMS 16:45 16:45 PTT, ACTIVATED+COAG.LAB.BRZ ordered. EDMS EDMS 16:45 16:45 Urinalysis+U.LAB.BRZ ordered. EDMS EDMS 16:45 16:45 Wound Culture+BA.LAB.BRZ ordered. EDMS EDMS 16:45 16:42 Allergies: No Known Allergies; cm10 cm10 22:59 21:25 Constitutional: This is a well developed, well nourished patient who is awake, kb alert, and in no acute distress. Head/Face: Normocephalic, atraumatic. ENT: Moist Mucous membranes Cardiovascular: Regular rate Respiratory: Respirations even and unlabored. No increased work of breathing. Talking in full sentences MS/ Extremity: Pulses equal, no cyanosis. Neurovascular intact. Full, normal range of motion. Neuro: Awake and alert, GCS 15, oriented to person, place, time, and situation. Moves all extremities. Normal gait. kb
--- NOTE | 2024-05-23 20:58 | ER ---
Nurse's Notes [facility] Name: Ethan Harrison Age: 49 yrs Sex: Female : 1975 Arrival Date: 05/23/2024 Time: 16:03 Bed 14 Private MD: Diagnosis: Local infection of the skin and subcutaneous tissue, unspecified Presentation: 05/23 16:45 Chief complaint: Patient states: Had abdominoplasty in December in [facility] and had cm10 complications from the surgery and was hospitalized for 3 months. Pt states that last week, pt noticed increased redness, drainage and fever. Pt saw a plastic surgeon and was placed on Bactrim, Cephalexin and topical antibiotics with no changes. Pt states that she feels like it is getting worse. Coronavirus screen: Client denies travel out of the [place] in the last 14 days. At this time, the client does not indicate any symptoms associated with coronavirus-19. Ebola Screen: Patient denies travel to an Ebola-affected area in the 21 days before illness onset. No symptoms or risks identified at this time. Initial Sepsis Screen: Does the patient meet any 2 criteria? No. Patient's initial sepsis screen is negative. Does the patient have a suspected source of infection? No. Patient's initial sepsis screen is negative. Risk Assessment: Do you want to hurt yourself or someone else? Patient reports no desire to harm self or others. Onset of symptoms was May 23, 2024. 16:45 Method Of Arrival: Ambulatory cm10 16:45 Acuity: YUAN 3 cm10 Triage Assessment: 16:48 General: Appears in no apparent distress. uncomfortable, Behavior is calm, cooperative. 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 - Infectious Disease History:: Denies. - Social history:: Smoking status: Patient denies any tobacco usage or history of. Screenin:31 [facility] ED Fall Risk Assessment (Adult) History of falling in the last 3 months, ph including since admission No falls in past 3 months (0 pts) Confusion or Disorientation No (0 pts) Intoxicated or Sedated No (0 pts) Impaired Gait No (0 pts) Mobility Assist Device Used No (0 pt) Altered Elimination No (0 pt) Score/Fall Risk Level 0 - 2 = Low Risk Oriented to surroundings, Maintained a safe environment, Hourly rounding (assess needs \T\ fall precautionary measures) done. Abuse screen: Denies threats or abuse. Denies injuries from another. Nutritional screening: No deficits noted. Tuberculosis screening: No symptoms or risk factors identified. Assessment: 17:32 General: Appears in no apparent distress. Behavior is calm, cooperative, Reports chills ph for fever for. Pain: Complains of pain in abdomen. 17:32 Neuro: Raman Agitation-Sedation Scale (RASS): 0 - Alert and Calm Level of ph Consciousness is awake, alert, obeys commands, Oriented to person, place, time, situation. Cardiovascular: Capillary refill < 3 seconds in bilateral fingers Patient's skin is warm and dry. Respiratory: Airway is patent Respiratory effort is even, unlabored. GI: Abdomen is non-distended, extensive scarring noted to lower abdomen w/ some open areas w/ yellow dried drainage noted. Derm: Skin is pink, warm \T\ dry. 19:46 General: Appears in no apparent distress. uncomfortable, Behavior is calm, cooperative. al5 Pain: Complains of pain in abdomen Pain currently is 10 out of 10 on a pain scale. Neuro: Level of Consciousness is awake, alert, obeys commands, Oriented to person, place, time, situation, Gait is steady, Speech is normal. Cardiovascular: Capillary refill < 3 seconds Patient's skin is warm and dry. Respiratory: Airway is patent Respiratory effort is even, unlabored, Respiratory pattern is regular, symmetrical. GI: Abdomen is non-distended. GI: Reports lower abdominal pain, upper abdominal pain. : No signs and/or symptoms were reported regarding the genitourinary system. EENT: No signs and/or symptoms were reported regarding the EENT system. Derm: Skin is pink, warm \T\ dry. scar to lower abdomen. Musculoskeletal: No signs and/or symptoms reported regarding the musculoskeletal system. 20:34 Reassessment: Patient appears in no apparent distress at this time. Patient and/or al5 family updated on plan of care and expected duration. Pain level reassessed. Patient is alert, oriented x 3, equal unlabored respirations, skin warm/dry/pink. Patient states feeling better. Vital Signs: 16:45 BP 134 / 89; Pulse 83; Resp 16; Temp 98.5(O); Pulse Ox 98% on R/A; Weight 65.32 kg; cm10 Height 5 ft. 0 in. ; Pain 10/10; 18:53 BP 142 / 85; Pulse 72; Resp 18; Pulse Ox 100% on R/A; ph 19:37 BP 108 / 65; Pulse 96; Resp 16; Pulse Ox 100% on R/A; al5 20:00 BP 112 / 64; Pulse 89; Resp 16; Pulse Ox 100% on R/A; al5 20:30 BP 95 / 62; Pulse 82; Resp 16; Pulse Ox 100% on R/A; al5 16:45 Body Mass Index 28.12 (65.32 kg, 152.4 cm) cm10 16:45 Pain Scale: Adult cm10 Vitals: 18:53 Cardiac Rhythm Assessment Sinus rhythm. ph ED Course: 16:06 Patient arrived in ED. mg5 16:10 Johana Maria FNP-C is PHCP. kb 16:11 Fantasma Greene MD is Attending Physician. kb 16:48 Triage completed. cm10 16:48 Arm band placed on Patient placed in an exam room, on a stretcher. cm10 17:04 Mandi Mcdonald, RN is Primary Nurse. ph 17:31 Patient has correct armband on for positive identification. Bed in low position. Call ph light in reach. Side rails up X 1. Pulse ox on. NIBP on. Door closed. Noise minimized. Warm blanket given. 17:31 Missed attempt(s): 22 gauge in left upper arm. Bleeding controlled, band aid applied, ph catheter tip intact. 17:55 Radiology exam delayed due to lab results not completed at this time. (BUN/Creatinine). nj 18:10 US Extrmty Nonvasular Limited In Process Unspecified. EDMS 19:30 CT Abd/Pelvis - IV Contrast Only In Process Unspecified. EDMS 19:48 No provider procedures requiring assistance completed. al5 20:25 Inserted saline lock: 20 gauge in right antecubital area, using aseptic technique. al5 ,using aseptic technique. done by LISSETH Raymond prior to my shift arrival. 21:07 Provided Education on: discharge follow up. al5 22:04 IV discontinued, intact, bleeding controlled, No redness/swelling at site. Pressure al5 dressing applied. Administered Medications: 18:15 Drug: morphine IVP or IV 4 mg IVP once over 4 mins Route: IVP; Infused Over: 4 mins; ph Site: right antecubital; 18:55 Follow up: Response: No adverse reaction; Pain is decreased; RASS: Alert and Calm (0) ph 18:15 Drug: Ondansetron IVP 4 mg IVP once; over 2 minutes Route: IVP; Site: right antecubital;ph 18:55 Follow up: Response: No adverse reaction ph 20:24 Drug: morphine IVP or IV 4 mg IVP once over 4 mins Route: IVP; Infused Over: 4 mins; al5 Site: right antecubital; 21:07 Follow up: Response: No adverse reaction al5 20:24 Drug: Ondansetron IVP 4 mg IVP once; over 2 minutes Route: IVP; Site: right antecubital;al5 21:07 Follow up: Response: No adverse reaction al5 21:22 Drug: Clindamycin PO 300 mg PO once Route: PO; al5 22:03 Follow up: Response: No adverse reaction al5 22:03 Drug: [place] PO 10 mg-325 mg 1 tabs PO once Route: PO; al5 22:03 Follow up: Response: No adverse reaction al5 Medication: 17:31 VIS not applicable for this client. ph Outcome: 20:57 Discharge ordered by MD. alas 22:06 Discharged to home ambulatory, with family, al5 22:06 Condition: good 22:06 Discharge instructions given to patient, family, Instructed on discharge instructions, follow up and referral plans. medication usage, Demonstrated understanding of instructions, follow-up care, medications, Prescriptions given X 1, 22:07 Patient left the ED. al5 Signatures: Dispatcher [employer] EDMS Johana Maria, OPERATIONS SCHEDULER-C OPERATIONS SCHEDULER-Ckb Mandi Mcdonald RN RN ph Jordan, Nathan nj Martinez, Clarissa, RN RN Yun Somers 5 Neelam Sheldon RN RN al5 Corrections: (The following items were deleted from the chart) 16:45 16:42 Allergies: No Known Allergies; cm10 cm10 18:55 17:32 General: Appears in no apparent distress. Behavior is calm, cooperative, Reports ph chills for fever for ph
[2024-05-23] MEDS ORDERED: HYDROCODONE/APAP 10/325 TAB ONE (21:11)
[2024-05-23 22:23] VITALS: TEMP 98.5
[2024-05-23 22:24] VITALS: O2SAT 100
[2024-05-23 22:27] VITALS: BP 95/62
--- NOTE | 2024-05-24 13:06 | EKG ---
Test Date: 2024-05-23 Test Time: 17:50:59 International Logistics Coordinator: PH MEASUREMENT RESULTS: Intervals: Rate: 76 WI: 168 QRSD: 72 QT: 382 QTc: 429 [place]: P: 56 WI: 168 QRS: 39 T: 26 INTERPRETIVE STATEMENTS: Normal sinus rhythm Normal ECG Compared to ECG 03/22/2023 21:40:07 Myocardial infarct finding no longer present Electronically Signed On 05-24-24 13:05:10 CDT by Luis Enrique Chavez
== END 2024-05-23 22:07 | disposition home or self-care (01) ==
LOC: ER 16:03
DX: L08.9 Local infection of the skin and subcutaneous tissue, unspecified (principal)
CPT/HCPCS: 87040 ×2; 87088; 87070; 85025; 81001; 87086; 36415; 87205; 85610; 83605; 85730; 80053; 74177; 76882; Q9967; J2405 ×2; 93005

== ENCOUNTER 2025-01-15 12:09 | Emergency (ER) | payer OTHER, SELFPAY ==
--- OUTSIDE RECORDS SUMMARY | 2025-01-15 12:18 | XMS REPORT | Continuity of Care Document ---
Author Name Unknown Address [address] [place] [address] [facility] Address [address] [place] [address] Care Team Providers Care Tandem [employer] Name Role Phone RISA JARAMILLO Attending Clinician Unavailable KLEVER VELÁZQUEZ Attending Clinician Unavailable CLEMENT DIAZ Attending Clinician Unavailab le LAB90 Attending Clinician Unavailable RAGINI OKEEFE Attending Clinician Unavaila Molly Crawford Attending Clinician Unavailable Aris De La O Attending Clinician Unavailable Bill Villatoro Attending Clinician Unavailab LEODAN Kirby Attending Clinician Unavailab SOREN Mccallum Attending Clinician UnavailALEJANDRA Iverson Attending Clinician Unavailable MD WILLIAMS Attending Clinician Unavailab marium TEAGUE, BDC Attending Clinician Unavailable ELBA PARK Attending Clinician Sis RACHEL Barber Attending Clinician Unav BARTOLO Gonzalez Attending Clinician Unavailab le [id number] Attending Clinician Unavailable NAYELI BENZ Attending Clinician U navailable [id number] Attending Clinician Unavailable TANYA VILLA Attending Clinician Unavailable [facility] Attending Clinician Unavailable [id number] Attending Clinician Unavailable [id number] Attending Clinician Unavailable CHELSEA SILVA Attending Clinician Unava ilable PROVIDER, VIDEOVISITJOSE LUIS Attending Clinician Unav ailable Klever Velázquez Admitting Clinician Unavailable Aris De La O Admitting Clinician Unavailable SOREN GRAMAJO Admitting Clinician Unavailabl e Payers Payer Name Policy Type Policy Number Effective Date Expirati on Date Source GOLD 3 ADVANCED 9 [id number] 2024 00:00:00 [employer] 2 [id number] 2024 00:00:00 Problems Condition Name Condition Details Condition Category Status Onset Date Resolution Date Last Treatment Date Treating Clinician Comments Source Amyloidosi s, unspecifie d type (multi HCC) Amyloidosi s, unspecifie d type (multi HCC) Disease Active 2023-10 00:00: 00 Tere Seybold - Externa l Infected surgical wound Infected surgical wound Disease Active 07-10 00:00: 00 Tere Seybold - Externa l Cellulitis Cellulitis Disease Active 07-10 00:00: 00 Tere Seybold - Externa l S/P abdominopl asty S/P abdominopl asty Disease Active 07-10 00:00: 00 Tere Seybold - Externa l Paraesopha geal hernia Paraesopha geal hernia Disease Active 07-10 00:00: 00 Tere Seybold - Externa l WOUND-ABD AREA WOUND-ABD AREA Active 06/27/2024 [facility] Diagnosis Active 06-27 00:00: 00 2024-06-27 16:00:00 Rajendra Banks INFECTED SURGICAL WOUND INFECTED SURGICAL WOUND Active 06/27/2024 [facility] Diagnosis Active 06-27 00:00: 00 2024-06-29 12:14:00 Memgino porter Darren Asthma (HHS-HCC) Asthma (HHS-HCC) Disease Active 07-08 00:00: 00 Tere Seybold - Externa l Chronic back pain Chronic back pain Disease Active 07-08 00:00: 00 Tere Seybold - Externa l DDD (degenerat lillian disc disease), cervical DDD (degenerat lillian disc disease), cervical Disease Active 07-08 00:00: 00 Tere Paz - Externa l DDD (degenerat lillian disc disease), lumbar DDD (degenerat lillian disc disease), lumbar Disease Active 07-08 00:00: 00 Tere Paz - Externa german History of herniated interverte bral disc History of herniated interverte bral disc Disease Active 07-08 00:00: 00 Tere Paz - Externa german History of neck surgery History of neck surgery Disease Active 07-08 00:00: 00 Tere Paz - Externa german Migraine Migraine Disease Active [...] Anxiety Disease Active 07-08 00:00: 00 Tere Biswasold - Externa german HTN (hypertens ion) HTN (hypertens ion) Disease Active 07-08 00:00: 00 Tere Biswasold - Externa german Insomnia Insomnia Disease Active 07-08 00:00: 00 Tere Biswasold - Externa german Obesity Obesity Disease Active 07-08 00:00: 00 Tere Biswasold - Externa german Simple obesity (disorder) Simple obesity (disorder) Active Problem 07/02/2024 [facility] Problem Active 2024-07-02 00:43:37 Memgino porter Darren INFECTION FOLLOWING A PROCEDURE, OTHER S INFECTION FOLLOWING A PROCEDURE, OTHER S Active [facility] Diagnosis Active 2024-06-29 12:14:00 Memgino Garciaann Allergies, Adverse Reactions, Alerts Allergy Name Allergy Type Status Severity Reaction(s) Onset Date Inactive Date Treating Clinician Comments Source Toradol Propensi ty to adverse reaction s Active 2023-10 2- 00:00: 00 Tere Biswasold - Externa l aspirin DA Active MO RASH 2023-10 0-09 00:00: 00 [facility] ibuprofe n DA Active U THROAT SWELLING 2023-10 0-09 00:00: 00 [facility] ketorola c DA Active MO RASH 2023-10 0-09 00:00: 00 [facility] ibuprofe n DA Active U THROAT SWELLING 9-24 00:00: [facility] aspirin DA Active MO RASH 8- 00:00: 00 [facility] ketorola c DA Active MO RASH 8 00:00: 00 [facility] Calcium Acetylsa licylate Propensi ty to adverse reaction s Active Rash - 00:00: 00 Tere Biswasold - Externa l Ketorola c Propensi ty to adverse reaction s Active Rash - 00:00: 00 Tere Biswasold - Externa l Celecoxi b Propensi ty to adverse reaction s Active 2021-10 00:00: 00 Other reaction( s): Unknown Tere Biswasold - Externa l Ibuprofe n Propensi ty to adverse reaction s Active 2021-10- 00:00: 00 Other reaction( s): Unknown Tere Biswasold - Externa l Meloxica m Propensi ty to adverse reaction s Active 2021-10- 00:00: 00 Other reaction( s): Unknown Tere Mcqueenybold - Externa l Morphine Propensi ty to adverse reaction s Active Rash 06-24 00:00: 00 Tere Biswasold - Externa l ibuprofe n ibuprofe n Active [facility] aspirin aspirin Active [facility] Toradol Toradol Active [facility] Social History Social Habit Start Date Stop Date Quantity Comments Source Sexual orientation 2023-06-30 17:23:12 Heterosexual (finding) Tere Paz - External ASSERTION Not Tere Paz - External Alcoholic beverage intake 2024-09-26 00:00:00 2024-09-26 00:00:00 Lifetime non-drinker (finding) Tere Mcqueensilverlaura - External Alcohol intake 2023-12-08 00:00:00 2023-12-08 00:00:00 Current drinker of alcohol (finding) Tere Mcqueensilverlaura - External History of Social function 2023-07-13 00:00:00 2023-07-13 00:00:00 Tere Mcqueensilverlaura - External Tobacco use and exposure 2023-07-08 00:00:00 2023-07-08 00:00:00 Smokeless tobacco non-user Tere Mcqueensilverlaura - External Sex 2023-06-30 13:33:37 2023-06-30 13:33:37 Female (finding) Tere Paz - External Sex assigned at 1975 00:00:00 1975 00:00:00 F Tere Paz - External Smoking Status Start Date Stop Date Source Never smoked tobacco Tere Mcqueensilverlaura - External Medications Ordered Medication Name Filled Medication Name Start Date Stop Date Current Medication? Ordering Clinician Indication Dosage Frequency Signature (SIG) Comments Components Source Tramadol HCl (ULTRAM) 50 MG oral Tablet 2023-10 09:50: 36 09-26 00:00 :00 No TAKE 1 TABLET BY MOUTH EVERY 6 HOURS NEEDED FOR PAIN FOR 3 DAYS Tere porter Mupirocin (BACTROBAN) 2 % apply externally Ointment 2023-10 0 00:00: 00 09-26 00:00 :00 No 1{appli cation} Q.5D apply to affected area twice a day Tere porter Tramadol HCl (ULTRAM) 50 MG oral Tablet 07-10 15:20: 07 Yes TAKE 1 TABLET BY MOUTH EVERY 6 HOURS NEEDED FOR PAIN FOR 3 DAYS Tere porter Pantoprazol e Sodium (Protonix) 40 MG oral Tablet Delayed Response 07-10 00:00: 00 Yes [id number] 40mg QD Take 1 tablet (40 mg total) by mouth daily Please take 30 minutes before breakfast. Tere porter Doxycycline Hyclate 100 MG oral Tablet 07-10 00:00: 00 07-10 00:00 :00 No [id number] 100mg Take 1 tablet (100 mg total) by mouth every 12 hours Please take with food. Tere porter Protonix 40 mg oral enteric coated tablet 06-29 19:17: 00 Yes 40 mg = 1 tab, PO, Daily, # 30 tab, 0 Refill(s), Pharmacy: [facility] #[id number], 149.86, cm, 06/27/24 21:34:00 CDT, Height, 70.5, kg, 06/27/24 21:34:00 CDT, Weight Rajendra Banks acetaminoph en-hydrocod one 325 mg-5 mg oral tablet 06-29 17:45: 00 Yes 1 tab, PO, Q6H, PRN Pain Score 4-6, X 7 day, # 28 tab, 0 Refill(s), Pharmacy: [facility] #[id number], 149.86, cm, 06/27/24 21:34:00 CDT, Height, 70.5, kg, 06/27/24 21:34:00 CDT, Weight Rajendra Banks Augmentin 875 mg oral tablet 06-29 17:44: 00 Yes 875 mg = 1 tab, PO, Q12H, X 14 day, # 28 tab, 0 Refill(s), Pharmacy: [facility] #[id number], 149.86, cm, 06/27/24 21:34:00 CDT, Height, 70.5, kg, 06/27/24 21:34:00 CDT, Weight Rajendra Banks cefdinir 300 mg oral capsule 06-29 17:44: 00 Yes 300 mg = 1 cap, PO, Q12H, X 14 day, # 28 cap, 0 Refill(s), Pharmacy: [facility] #[id number], 149.86, cm, 06/27/24 21:34:00 CDT, Height, 70.5, kg, 06/27/24 21:34:00 CDT, Weight Rajendra Bnaks Protonix 40 MG oral Tablet Delayed Response 06-29 00:00: 00 07-10 00:00 :00 No 40 mg = 1 tab, PO, Daily, # 30 tab, 0 Refill(s), Pharmacy: [facility] #[id number], 149.86, cm, 06/27/24 21:34:00 CDT, Height, 70.5, kg, 06/27/24 21:34:00 CDT, Weight Tere porter QUEtiapine 50 mg oral tablet 06-28 02:48: 00 Yes 50 mg = 1 tab, PO, Bedtime, PRN Insomnia, 0 Refill(s) Memoria german Banks trazodone 150 mg oral tablet 06-28 02:47: 00 Yes 300 mg = 2 tab, PO, Bedtime, 0 Refill(s) Memoria german Banks PARoxetine 20 mg oral tablet 06-28 02:46: 00 Yes 20 mg = 1 tab, PO, Daily, 0 Refill(s) Memoria german Banks zolpidem 10 mg oral tablet 06-28 02:46: 00 Yes 10 mg = 1 tab, PO, Bedtime, PRN as needed for insomnia, 0 Refill(s) Rajendra Banks LORazepam 2 mg oral tablet 06-28 02:44: 00 Yes 2 mg = 1 tab, PO, TID, PRN anxiety, 0 Refill(s) Memgino Banks Mupirocin (BACTROBAN) 2 % apply externally Ointment 05-16 00:00: 00 Yes 1{appli cation} Q.5D Apply 1 Applicatio n topically 2 times daily. Tere porter Lorazepam 2 MG oral Tablet 04-26 00:00: 00 09-26 00:00 :00 No Tere porter Quetiapine Fumarate 50 MG oral Tablet 04-25 00:00: 00 Yes Tere porter Amlodipine Besylate (NORVASC) 5 MG oral Tablet 12-07 14:52: 02 12-07 00:00 :00 No 5mg Take 1 tablet (5 mg total) by mouth daily. Tere porter Amlodipine Besylate (NORVASC) 5 MG oral Tablet 2022-10 14:27: 37 Yes 5mg Take 1 tablet (5 mg total) by mouth daily. Tere porter Amlodipine Besylate (NORVASC) 5 MG oral Tablet 07-13 10:23: 29 Yes 5mg Take 1 tablet (5 mg total) by mouth daily. Tere porter Gabapentin 300 MG oral Capsule 07-13 00:00: 00 09-19 00:00 :00 No [id number] 600mg Take 2 capsules (600 mg total) [...] 07-13 00:00: 00 08-13 04:59 :00 No [id number] 1{appli cation} Q.25D Apply 1 Applicatio n topically 4 times daily as needed (on painful area). Tere porter Amlodipine Besylate (NORVASC) 5 MG oral Tablet 07-08 10:28: 15 Yes 5mg Take 1 tablet (5 mg total) by mouth daily. Tere porter Paroxetine HCl 20 MG oral Tablet 07-08 00:00: 00 Yes [id number] 20mg Take 1 tablet (20 mg total) by mouth every morning. Tere porter Trazodone HCl 150 MG oral Tablet 07-08 00:00: 00 Yes [id number] 150mg QD Take 1 tablet (150 mg total) by mouth nightly. Tere porter Zolpidem Tartrate (Ambien) 10 MG oral Tablet 07-08 00:00: 00 Yes [id number] 10mg QD Take 1 tablet (10 mg total) by mouth nightly as needed for sleep. Tere porter Lorazepam (ATIVAN) 0.5 MG oral Tablet tablet 07-08 00:00: 00 07-10 00:00 :00 No [id number] .5mg QD Take 1 tablet (0.5 mg total) by mouth nightly as needed for anxiety. Tere porter Diclofenac Sodium 75 MG oral Tablet Delayed Response 07-08 00:00: 00 09-19 00:00 :00 No [id number] 75mg Q.5D Take 1 tablet (75 mg total) by mouth 2 times daily as needed. Tere porter Paroxetine HCl 20 MG oral Tablet 8-08 00:00: 00 07-08 00:00 :00 No Tere porter Lorazepam 2 MG oral Tablet 8-02 00:00: 00 07-08 00:00 :00 No 2mg Take 1 tablet (2 mg total) by mouth 3 times daily. Tere porter Gabapentin 600 MG oral Tablet 1- 00:00: 00 07-13 00:00 :00 No 600mg Take 1 tablet (600 mg total) by mouth 2 times daily. Tere porter Zolpidem Tartrate (Ambien) 10 MG oral Tablet 2021-10 2-04 00:00: 00 07-08 00:00 :00 No Tere porter Trazodone HCl 150 MG oral Tablet 2021-10 2-03 00:00: 00 07-08 00:00 :00 No Tere porter Immunizations Ordered Immunization Name Filled Immunization Name Date Status Comments Source Influenza, Injectable, Mdck, Quadrivalent With Preservative Unknown Completed Tere Danielle Influenza, Injectable, Mdck, Quadrivalent With Preservative Unknown Completed Tere Danielle Influenza, Injectable, Mdck, Quadrivalent With Preservative Unknown Completed Tere Danielle Influenza, Injectable, Mdck, Quadrivalent With Preservative Unknown Completed Tere Danielle Influenza, Injectable, Mdck, Quadrivalent With Preservative Unknown Completed Tere Danielle Influenza Virus Vaccine, Unspecified Formulation Unknown Completed Tere Danielle PPD-Protein Derivative (Purified)- Tuberculin Unknown Completed Tere Seybold - External Vital Signs Vital Name Observation Time Observation Value Comments S ource Systolic blood pressure 2024-09-26 15:39:00 112 mm[Hg] Tere Seybo ld - External Diastolic blood pressure 2024-09-26 15:39:00 76 mm[Hg] Tere Seybo ld - External Heart rate 2024-09-26 15:39:00 93 /min Kelse y Seybold - External Body temperature 2024-09-26 15:39:00 36.67 Jaclyn Tere Seybold - External Body height 2024-09-26 15:39:00 152.4 cm Margot ey Seybold - External Body weight 2024-09-26 15:39:00 74.39 kg Margot ey Seybold - External BMI 2024-09-26 15:39:00 32.03 kg/m2 Margot ey Seybold - External Oxygen saturation in Arterial blood by Pulse oximetry 2024-09-26 15:39:00 98 /min Tere Seybo ld - External Systolic blood pressure 2024-07-10 20:14:00 120 mm[Hg] Tere Seybo ld - External Diastolic blood pressure 2024-07-10 20:14:00 78 mm[Hg] Tere Seybo ld - External Heart rate 2024-07-10 20:14:00 85 /min Satishse y Seybold - External Body temperature 2024-07-10 20:14:00 37 Jaclyn Tere Seybold - External Respiratory rate 2024-07-10 20:14:00 16 /min Tere Seybold - External Body height 2024-07-10 20:14:00 152.4 cm Margot ey Seybold - External Body weight 2024-07-10 20:14:00 71.94 kg Margot ey Seybold - External BMI 2024-07-10 20:14:00 30.97 kg/m2 Margot ey Seybold - External Systolic blood pressure 2023-12-08 20:12:00 132 mm[Hg] Tere Seybo ld - External Diastolic blood pressure 2023-12-08 20:12:00 86 mm[Hg] Tere Seybo ld - External Heart rate 2023-12-08 20:12:00 80 /min Kelse y Seybold - External Body temperature 2023-12-08 20:12:00 36.56 Jaclyn Tere Seybold - External Respiratory rate 2023-12-08 20:12:00 20 /min Tere Seybold - External Body height 2023-12-08 20:12:00 152.4 cm Margot ey Seybold - External Body weight 2023-12-08 20:12:00 88.905 kg Margot ey Seybold - External BMI 2023-12-08 20:12:00 38.28 kg/m2 Margot ey Seybold - External Oxygen saturation in Arterial [...] blood pressure 2023-07-08 15:26:00 142 mm[Hg] Tere Seybo ld - External Diastolic blood pressure 2023-07-08 15:26:00 87 mm[Hg] Tere Mcqueenybo ld - External Heart rate 2023-07-08 15:26:00 77 /min Kelse y Seybold - External Body temperature 2023-07-08 15:26:00 36.67 Jaclyn Tere Seybold - External Respiratory rate 2023-07-08 15:26:00 12 /min Tere Seybold - External Body height 2023-07-08 15:26:00 157.5 cm Margot ey Seybold - External Body weight 2023-07-08 15:26:00 90.992 kg Margot ey Seybold - External BMI 2023-07-08 15:26:00 36.69 kg/m2 Margot ey Seybold - External Oxygen saturation in Arterial blood by Pulse oximetry 2023-07-08 15:26:00 99 /min Tere Seybo ld - External Heart Rate 2024-06-29 16:38:55 [facility]yl[facility]audh[facility] Systolic (mm Hg) 2024-06-29 16:38:34 [facility] Diastolic (mm Hg) 2024-06-29 16:38:34 [facility] Temperature Oral (F) 2024-06-29 16:38:33 97.6 F [facility] Temperature Oral (F) 2024-06-28 13:17:47 98 F [facility] Height 2024-06-28 02:34:00 4 [ft_i] [facility] Weight 2024-06-28 02:34:00 [facility] BMI Calculated 2024-06-28 02:34:00 [facility] Procedures Procedure Date / Time Performed Performing Clinicia n Source [id number] 2024-07-19 00:00:00 KUMSA.02 [facility] [id number] 2024-07-16 00:00:00 KHAMO03 [facility] [id number] 2024-05-28 00:00:00 VILAN01 [facility] [id number] 2024-05-28 00:00:00 VILAN01 [facility] [id number] 2024-05-26 00:00:00 KUMSA.02 [facility] [id number] 2024-05-26 00:00:00 KUMSA.02 [facility] [id number] 2024-05-26 00:00:00 KUMSA.02 [facility] Encounters Start Date/Time End Date/Time Encounter Type Admission Type Attending [facility] Care Department Encounter ID Source 2025-01-11 00:00:00 2025-01-11 00:00:00 Outpatient RISA JARAMILLO [id number] [facility] 2025-01-08 00:00:00 2025-01-08 00:00:00 Outpatient KLEVER VELÁZQUEZ [id number] [facility] 2024-10-26 00:00:00 2024-10-26 00:00:00 Outpatient KLEVER VELÁZQUEZ [id number] [facility] 2024-10-01 08:15:00 2024-10-01 08:15:00 Outpatient CLEMENT DIAZ [id number] [facility] 2024-09-26 10:50:00 2024-09-26 10:50:00 Outpatient LAB90 TERE KOVACS [id number] [facility] 2024-09-26 09:30:00 2024-09-26 09:30:00 Outpatient RISA JARAMILLOSEY [id number] [facility] 2024-08-22 13:15:00 2024-08-22 13:15:00 Outpatient CLEMENT DIAZ TERE KOVACS [id number] [facility] 2024-08-22 00:00:00 2024-08-22 00:00:00 Outpatient DIAZCLEMENT TERE KOVACS [id number] [facility] 2024-08-13 14:30:00 2024-08-13 14:30:00 Outpatient CLEMENT DIAZ TERE KOVACS [id number] [facility] 2024-07-26 00:00:00 2024-07-26 00:00:00 Outpatient RAGINI OKEEFE TERE KOVACS [id number] [facility] 2024-07-25 15:53:00 2024-07-25 18:45:00 Emergency EM SrinivasMolly HCAPM BRYAN [id number] 32 [facility] 2024-07-20 00:00:00 2024-07-20 00:00:00 Outpatient KLEVER VELÁZQUEZ TERE KOVACS [id number] [facility] 2024-07-11 06:32:00 2024-07-19 17:54:00 Inpatient EM Aris De La O HCAPM MEDI.[id number] 03 [facility] 2024-07-12 14:59:00 2024-07-12 14:59:00 Outpatient Aris De La O HCACL LABO [id number] [facility] 2024-07-12 08:30:00 2024-07-12 08:30:00 Outpatient CLEMENT DIAZ [id number] [facility] 2024-07-10 21:04:00 2024-07-11 05:23:00 Emergency [facility] [id number] 68 [facility] 2024-07-10 15:00:00 2024-07-10 15:00:00 Outpatient LEODAN QUIROS [id number] [facility] 2024-07-10 00:00:00 2024-07-10 00:00:00 Outpatient TERE KOVACS [id number] [facility] 2024-06-27 19:04:00 2024-06-29 14:44:00 Outpatient SOREN HART [facility] [id number] [facility] 2024-06-25 08:20:00 2024-06-25 08:20:00 Outpatient ALEJANDRA MATHIS [id number] [facility] 2024-06-20 00:00:00 2024-06-20 00:00:00 Outpatient KLEVER VELÁZQUEZ [id number] [facility] 2024-06-11 16:15:00 2024-06-11 16:15:00 Outpatient KLEVER VELÁZQUEZ [id number] [facility] 2024-05-26 11:49:00 2024-05-30 18:15:00 Inpatient EM Aris De La O HCA [id number] 74 [facility] 2024-05-29 15:30:00 2024-05-29 15:30:00 Outpatient KLEVER VELÁZQUEZ [id number] [facility] 2024-05-25 23:04:00 2024-05-25 23:04:00 Outpatient Aris De La O HCACL LABO [id number] 2024-05-16 13:30:00 2024-05-16 13:30:00 Outpatient RAGINI OKEEFE [id number] [facility] 2024-05-16 13:00:00 2024-05-16 13:00:00 Outpatient RAGINI OKEEFE [id number] [facility] 2024-05-16 00:00:00 2024-05-16 00:00:00 Outpatient CLEMENT DIAZ [id number] [facility] 2024-05-11 00:00:00 2024-05-11 00:00:00 Outpatient MD TERE BASHIR [id number] [facility] 2024-05-09 00:00:00 2024-05-09 00:00:00 Outpatient MD TERE BASHIR [id number] [facility] 2024-05-04 10:00:00 2024-05-04 10:00:00 Outpatient PROVIDER, ALEJANDRA KOVACS [id number] [facility] 2024-05-04 00:00:00 2024-05-04 00:00:00 Outpatient PREZAS, KLEVER TERE KOVACS [id number] [facility] 2024-05-04 00:00:00 2024-05-04 00:00:00 Outpatient PREZAS, KLEVER TERE KOVACS [id number] [facility] 2024-04-30 10:45:00 2024-04-30 10:45:00 Outpatient PREZAS, KLEVER KOVACS [id number] [facility] 2024-04-26 16:00:00 2024-04-26 16:00:00 Outpatient PREZAS, KLEVER KOVACS [id number] [facility] 2024-04-05 00:00:00 2024-04-05 00:00:00 Outpatient PREZAS, KLEVER TERE KOVACS [id number] [facility] 2024-04-04 10:00:00 2024-04-04 10:00:00 Outpatient TERE KOVACS [id number] [facility] 2024-04-04 08:40:00 2024-04-04 08:40:00 Outpatient TERE KOVACS [id number] [facility] 2024-03-20 00:00:00 2024-03-20 00:00:00 Outpatient PREZAS, KLEVER TERE KOVACS [id number] [facility] 2024-03-20 00:00:00 2024-03-20 00:00:00 Outpatient CONFERENCE, [facility] TERE KOVACS [id number] [facility] 2024-03-08 00:00:00 2024-03-08 00:00:00 Outpatient CONFERENCE, [facility] TERE KOVACS [id number] [facility] 2024-02-17 08:00:00 2024-02-17 08:00:00 Outpatient CLEMENT DIAZ [id number] [facility] 2024-02-14 14:30:00 2024-02-14 14:30:00 Outpatient ELBA PARK TERE KOVACS [id number] [facility] 2024-02-13 00:00:00 2024-02-13 00:00:00 Outpatient RAJATKLEVER TERE KOVACS [id number] [facility] 2024-02-07 10:45:00 2024-02-07 10:45:00 Outpatient ELBA PARK TERE KOVACS [id number] [facility] 2024-01-26 16:00:00 2024-01-26 16:00:00 Outpatient EMILY CLEMENT TERE KOVACS [id number] [facility] 2024-01-23 14:15:00 2024-01-23 14:15:00 [facility] CLE[id number] 16:00:00 2024-01-20 16:00:00 Outpatient EMILY CLEMENT TERE KOVACS [id number] [facility] 2024-01-18 00:00:00 2024-01-18 00:00:00 Outpatient MD TERE BASHIR [id number] [facility] 2024-01-17 00:00:00 2024-01-17 00:00:00 Outpatient TERE KOVACS [id number] [facility] 2024-01-17 00:00:00 2024-01-17 00:00:00 Outpatient KLEVER VELÁZQUEZ [id number] [facility] 2024-01-17 00:00:00 2024-01-17 00:00:00 Outpatient HO [facility] TERE KOVACS [id number] [facility] 2024-01-13 15:15:00 2024-01-13 15:15:00 Outpatient RACHEL LEMON [id number] [facility] 2024-01-09 00:00:00 2024-01-09 00:00:00 Outpatient MD TERE BASHIR [id number] [facility] 2024-01-05 14:30:00 2024-01-05 14:30:00 Outpatient CLEMENT DIAZ [id number] [facility] 2023-12-21 00:00:00 2023-12-21 00:00:00 Outpatient TERE KOVACS [id number] [facility] 2023-12-19 13:00:00 2023-12-19 13:00:00 Outpatient BARTOLO SERRA [id number] [facility] 2023-12-15 00:00:00 2023-12-15 00:00:00 Outpatient KLEVER VELÁZQUEZ [id number] [facility] 2023-12-14 14:00:00 2023-12-14 14:00:00 Outpatient LAB90 TERE KOVACS [id number] [facility] 2023-12-12 16:15:00 2023-12-12 16:15:00 Outpatient [id number] TERE KOVACS [id number] [facility] 2023-12-12 15:40:00 2023-12-12 15:40:00 Outpatient TERE KOVACS [id number] [facility] 2023-12-12 00:00:00 2023-12-12 00:00:00 Outpatient NAYELI WELLINGTON [id number] [facility] 2023-12-08 17:15:00 2023-12-08 17:15:00 Outpatient ALEJANDRA MATHIS [id number] [facility] 2023-12-08 14:15:00 2023-12-08 14:15:00 Outpatient KLEVER VELÁZQUEZ [id number] [facility] 2023-12-07 14:15:00 2023-12-07 14:15:00 Outpatient CLEMENT DIAZ [id number] [facility]23-11-30 16:15:00 2023-11-30 16:15:00 Outpatient TERE KOVACS [id number] [facility] 2023-11-16 15:00:00 2023-11-16 15:00:00 Outpatient TERE KOVACS [id number] [facility] 2023-11-15 13:45:00 2023-11-15 13:45:00 Outpatient PREZAS, KLEVER TERE KOVACS [id number] [facility] 2023-11-15 10:55:00 2023-11-15 10:55:00 Outpatient ALEJANDRA MATHIS [id number] [facility] 2023-10-26 15:00:00 2023-10-26 15:00:00 Outpatient SERRA, BARTOLO TERE KOVACS [id number] [facility] 2023-10-20 15:30:00 2023-10-20 15:30:00 Outpatient PREZAS, KLEVER TERE KOVACS [id number] [facility] 2023-10-12 10:45:00 2023-10-12 10:45:00 Outpatient SERRA, BARTOLO TERE KOVACS [id number] [facility] 2023-10-05 15:00:00 2023-10-05 15:00:00 Outpatient SERRA[facility] BARTOLO [facility] [id number] [facility] 15:30:00 2023-10-04 15:30:00 Outpatient PREZAS, KLEVER TERE KOVACS [id number] [facility] 2023-09-19 15:15:00 2023-09-19 15:15:00 Outpatient LAB03 TERE KOVACS [id number] [facility] 2023-09-19 14:30:00 2023-09-19 14:30:00 Outpatient DIAZCLEMENT [id number] [facility] 2023-09-13 14:45:00 2023-09-13 14:45:00 Outpatient PREZAS, KLEVER TERE KOVACS [id number] [facility] 2023-08-31 00:00:00 2023-08-31 00:00:00 Outpatient PREZAS, KLEVER [facility] [id number] [facility]-25 15:00:00 2023-08-25 15:00:00 Outpatient DIAZ, CLEMENT TERE KOVACS [id number] [facility] 2023-08-10 14:00:00 2023-08-10 14:00:00 Outpatient TANYA VILLA TERE TERE [id number] [facility] 2023-08-08 14:30:00 2023-08-08 14:30:00 Outpatient CLEMENT DIAZ TERE KOVACS [id number] [facility] 2023-08-05 15:45:00 2023-08-05 15:45:00 Outpatient PREZAKLEVER Graves TERE KOVACS [id number] [facility] 2023-07-27 00:00:00 2023-07-27 00:00:00 Outpatient TERE KOVACS [id number] [facility] 2023-07-25 13:30:00 2023-07-25 13:30:00 Outpatient PREZAS, KLEVER [facility] [id number] [facility] 14:00:00 2023-07-20 14:00:00 Outpatient MARGARETHDANIEL TERE KOVACS [id number] [facility] 2023-07-19 10:30:00 2023-07-19 10:30:00 Outpatient LAB39 [facility]ACS [id number] [facility]23-07-17 00:00:00 2023-07-17 00:00:00 Outpatient PREZAS, KLEVER TERE KOVACS [id number] [facility] 2023-07-13 12:10:00 2023-07-13 12:10:00 Outpatient PWZ423 TERE KOVACS [id number] [facility] 2023-07-13 11:25:00 2023-07-13 11:25:00 Outpatient TERE KOVACS [id number] [facility] 2023-07-13 11:20:00 2023-07-13 11:20:00 Outpatient TERE KOVACS [id number] [facility] 2023-07-13 11:15:00 2023-07-13 11:15:00 Outpatient TERE KOVACS [id number] [facility] 2023-07-13 10:15:00 2023-07-13 10:15:00 Outpatient BARTOLO SERRA TERE KOVACS [id number] [facility] 2023-07-11 11:00:00 2023-07-11 11:00:00 Outpatient CHELSEA SILVA TERE KOVACS [id number] [facility] 2023-07-08 10:00:00 2023-07-08 10:00:00 Outpatient VLADKAMILLE KLEVER TERE KOVACS [id number] [facility] 2023-07-08 00:00:00 2023-07-08 00:00:00 Outpatient MD TERE BASHIR [id number] [facility] 2023-07-08 00:00:00 2023-07-08 00:00:00 Outpatient MD TERE BASHIR [id number] [facility] 2023-07-08 00:00:00 2023-07-08 00:00:00 Outpatient MD TERE BASHIR [id number] [facility] 2023-07-08 00:00:00 2023-07-08 00:00:00 Outpatient MD [facility]ASHIR [id number] [facility]:00 2023-07-08 00:00:00 Outpatient MD TERE BASHIR [id number] [facility] 2023-07-07 12:30:00 2023-07-07 12:30:00 Outpatient PROVIDER, TILA KOVACS [id number] [facility] Results Test Description Test Time Test Comments Results Result Co mments Source BASIC METABOLIC [id number] 08:55:00* Test Item Value Reference Range Interpretation Comme nts SODIUM (test code = NA) 140 mmol/L 136-145 N POTASSIUM (test code = K) 4.4 mmol/L 3.4-5.0 N CHLORIDE (test code = CL) 104 mmol/L 98-107 N CARBON DIOXIDE (test code = CO2) 33 mmol/L 21-32 H ANION GAP (test code = GAP) 3 GAP calc 4-15 L GLUCOSE (test code = GLU) 97 MG/DL 70-110 N BLOOD UREA NITROGEN (test code = BUN) 16 MG/DL 7-18 N GLOMERULAR FILTRATION RATE (test code = GFR) >=60 max estimate estGFR >60 The Glomerular Filtration Rate is a calculated parameterbased on serum Creatinine, patient age and sex. GFR valuesless than 60 mL/min/1.73 square meters are indicative ofChronic Kidney Disease. Values less than 15 mL/min/1.73square meters indicate Kidney failure. The calculation forGFR is based on the CKD-EPI (202) calculation. This formulais race indifferent and is the recommended formula for GFRby the National Kidney Foundation for Adults.The GFR will not calculate if the sex is unknown or if thepatient's age is <18 years. CREATININE (test code = CREAT) 0.7 MG/DL 0.6-1.0 N CALCIUM (test code = CA) 8.8 MG/DL 8.5-10.1 N CBC W/AUTO [id number] 08:12:00* Test Item Value Reference Range Interpretation Comme nts WHITE BLOOD CELL (test code = WBC) 3.9 K/mm3 3.5-11.0 N RED BLOOD CELL (test code = RBC) 3.97 M/mm3 4.70-6.10 L HEMOGLOBIN (test code = HGB) 10.0 G/DL 10.4-14.9 L HEMATOCRIT (test code = HCT) 31.9 % 31.5-44.1 N MEAN CELL VOLUME (test code = MCV) 80.4 Fl 84.5-98.6 L MEAN CELL HGB (test code = MCH) 25.2 pg 27.0-34.2 L MEAN CELL HGB CONCETRATION (test code = MCHC) 31.3 G/DL 31.5-34.0 L RED CELL DISTRIBUTION WIDTH (test code = RDW) 13.9 SD 11.5-14.5 N PLATELET COUNT (test code = PLT) 168 K/mm3 150-450 N MEAN PLATELET VOLUME (test c ode = MPV) 9.00 fL 7.0-10.5 N NEUTROPHIL % (test code = NT%) 50.3 % 40-76 N IMMATURE GRANULOCYTE % (test code = IG%) 0.3 % 0.0-5.0 N LYMPHOCYTE % (test code = LY%) 33.8 % 20.5-51.1 N MONOCYTE % (test code = MO%) 9.5 % 1.7-9.3 H EOSINOPHIL % (test code = EO%) 5.6 % 0.0-6.0 N BASOPHIL % (test code = BA%) 0.5 % 0.0-2.0 N NUCLEATED RBC % (test code = NRBC%) 0.0 /100WBC% 0.0-1.0 N NEUTROPHIL # (test code = NT#) 2.0 K/mm3 1.8-7.6 N IMMATURE GRANULOCYTE # (test code = IG#) 0.01 x10 3/uL 0.00-0.03 N LYMPHOCYTE # (test code = LY#) 1.3 K/mm3 0.6-3.2 N MONOCYTE # (test code = MO#) 0.4 K/mm3 0.3-1.1 N EOSINOPHIL # (test code = EO#) 0.2 K/mm3 0.0-0.4 N BASOPHIL # (test code = BA#) 0.0 K/mm3 0.0-0.1 N NUCLEATED RBC # (test code = NRBC#) 0.0 K/mm3 0.0-0.1 N CBC W/AUTO [id number] 10:25:00* Test Item Value Reference Range Interpretation Comme nts WHITE BLOOD CELL (test code = WBC) 4.0 K/mm3 3.5-11.0 N RED BLOOD CELL (test code = RBC) 3.73 M/mm3 4.70-6.10 L HEMOGLOBIN (test code = HGB) 9.7 G/DL 10.4-14.9 L HEMATOCRIT (test code = HCT) 30.5 % 31.5-44.1 L MEAN CELL VOLUME (test code = MCV) 81.8 Fl 84.5-98.6 L MEAN CELL HGB (test code = MCH) 26.0 pg 27.0-34.2 L MEAN CELL HGB CONCETRATION (test code = MCHC) 31.8 G/DL 31.5-34.0 N RED CELL DISTRIBUTION WIDTH (test code = RDW) 13.9 SD 11.5-14.5 N PLATELET COUNT (test code = PLT) 158 K/mm3 150-450 N MEAN PLATELET VOLUME (test c ode = MPV) 9.50 fL 7.0-10.5 N NEUTROPHIL % (test code = NT%) 55.5 % 40-76 IMMATURE GRANULOCYTE % (test code = IG%) 0.2 % 0.0-5.0 N LYMPHOCYTE % (test code = LY%) 27.7 % 20.5-51.1 N MONOCYTE % (test code = MO%) 11.9 % 1.7-9.3 H EOSINOPHIL % (test code = EO%) 4.2 % 0.0-6.0 N BASOPHIL % (test code = BA%) 0.5 % 0.0-2.0 N NUCLEATED RBC % (test code = NRBC%) 0.0 /100WBC% 0.0-1.0 N NEUTROPHIL # (test code = NT#) 2.2 K/mm3 1.8-7.6 N IMMATURE GRANULOCYTE # (test code = IG#) 0.01 x10 3/uL 0.00-0.03 N LYMPHOCYTE # (test code = LY#) 1.1 K/mm3 0.6-3.2 N MONOCYTE # (test code = MO#) 0.5 K/mm3 0.3-1.1 N EOSINOPHIL # (test code = EO#) 0.2 K/mm3 0.0-0.4 N BASOPHIL # (test code = BA#) 0.0 K/mm3 0.0-0.1 N NUCLEATED RBC # (test code = NRBC#) 0.0 K/mm3 0.0-0.1 N [id number] 17:13:00* Test Item Value Reference Range Interpretation Comme nts SURGICAL (test code = SR) RUN DATE: 07/17/24 [facility] [place] [facility] PAGE 1 RUN TIME: 1714 Specimen Inquiry RUN USER: INTERFACE PATIENT: ETHAN GARCIA LOC: [facility] U #: [id number] AGE/SX: 49/F ROOM: DIEGO RE07/11/24REG DR: Aris De La O MD : 73 BED: 1 DIS: STATUS: ADM IN TLOC: SPEC #: [id number]:[id number] RECD: 07/16/24 STATUS: DAVID REQ #: [id number] SHAMAR: 07/16/[address] [facility] [address]: Aris De La O MD ENTERED: 07/16/24-1210 SP TYPE: SURGICAL OTHR DR: Self Referred Mario Menezes MD, Stephen Q MD Mendoza Requena, Daniel MD Prezas, Roland DOORDERED: [id number], ANATOMIC SPEC, SPECIMEN TRACK COPIES TO: [place] [address] [facility], [address] [place] [address] [place] [address] [place] [address] Balwinder Dow MD [address] [place] [address] [place] [address] [place] [address] Klever Velázquez DO [address] [place] [address] [address] [place] [id number] PROCEDURES: [id number] (07/17/24-1712) SPECIMEN TRACK (07/16/24-121) TISSUES: A. ABDOMINAL WALL - INFECTED ABDOMINAL WALL WOUND TISSUE CONTINUED ON NEXT PAGE RUN DATE: 07/17/24 [facility] - [facility] PAGE 2 RUN TIME: 1713 Specimen Inquiry RUN USER: INTERFACE SPEC #: [id number]:[facility]:[id number] PATIENT: ETHAN GARCIA #[id number] (Continued) FINAL DIAGNOSIS ABDOMINAL WALL, DEBRIDEMENT: - Skin and subcutaneous tissue with ulceration, granulation tissue, acute and chronic inflammation, abscess, and foreign material with giant cell reaction.- Mesh material identified, gross examination only. GROSS DESCRIPTION Infected abdominal wound tissue. Received are multiple pieces of yadav-salcedo tissue measuringaggregate of 3.5 x 3.5 x 1 cm. It is sectioned to reveal several pieces of mesh materialpresent. It Administrator sections are submitted as A1. Technical tissue processing and slide preparation performed at [facility],[place] [address] , [place] [address] MICROSCOPIC DESCRIPTION Microscopic examination is performed and the findings are incorporated into the finaldiagnosis. Please see diagnosis for findings. Signed SIGNATURE ON FILE Mela Powers X 07/17/24 1713 END OF REPORT BASIC METABOLIC [id number] 12:32:00* Test Item Value Reference Range Interpretation Comme nts SODIUM (test code = NA) 142 mmol/L 136-145 N POTASSIUM (test code = K) 3.4 mmol/L 3.4-5.0 N CHLORIDE (test code = CL) 104 mmol/L 98-107 N CARBON DIOXIDE (test code = CO2) 30 mmol/L 21-32 N ANION GAP (test code = GAP) 8 GAP calc 4-15 N GLUCOSE (test code = GLU) 107 MG/DL 70-110 N BLOOD UREA NITROGEN (test code = BUN) 16 MG/DL 7-18 N GLOMERULAR FILTRATION RATE (test code = GFR) >=60 max estimate estGFR >60 The Glomerular Filtration Rate is a calculated parameterbased on serum Creatinine, patient age and sex. GFR valuesless than 60 mL/min/1.73 square meters are indicative ofChronic Kidney Disease. Values less than 15 mL/min/1.73square meters indicate Kidney failure. The calculation forGFR is based on the CKD-EPI (2020) calculation. This formulais race indifferent and is the recommended formula for GFRby the National Kidney Foundation for Adults.The GFR will not calculate if the sex is unknown or if thepatient's age is <18 years. CREATININE (test code = CREAT) 0.6 MG/DL 0.6-1.0 N CALCIUM (test code = CA) 8.6 MG/DL 8.5-10.1 N HCG SERUM [id number] 11:48:00* Test Item Value Reference Range Interpretation Comme nts HCG SERUM QUAL (test code = HCGQL) SERUM NEGATIVE SCREEN NEGATIVE CBC W/AUTO [id number] 10:57:00* Test Item Value Reference Range Interpretation Comme nts WHITE BLOOD CELL (test code = WBC) 3.8 K/mm3 3.5-11.0 N RED BLOOD CELL (test code = RBC) 3.92 M/mm3 4.70-6.10 L HEMOGLOBIN (test code = HGB) 9.9 G/DL 10.4-14.9 L HEMATOCRIT (test code = HCT) 31.5 % 31.5-44.1 N MEAN CELL VOLUME (test code = MCV) 80.4 Fl 84.5-98.6 L MEAN CELL HGB (test code = MCH) 25.3 pg 27.0-34.2 L MEAN CELL HGB CONCETRATION (test code = MCHC) 31.4 G/DL 31.5-34.0 L RED CELL DISTRIBUTION WIDTH (test code = RDW) 13.6 SD 11.5-14.5 N PLATELET COUNT (test code = PLT) 164 K/mm3 150-450 N MEAN PLATELET VOLUME (test c ode = MPV) 8.80 fL 7.0-10.5 N NEUTROPHIL % (test code = NT%) 69.3 % 40-76 N IMMATURE GRANULOCYTE % (test code = IG%) 1.3 % 0.0-5.0 N LYMPHOCYTE % (test code = LY%) 21.9 % 20.5-51.1 N MONOCYTE % (test code = MO%) 5.9 % 1.7-9.3 N EOSINOPHIL % (test code = EO%) 1.1 % 0.0-6.0 N BASOPHIL % (test code = BA%) 0.5 % 0.0-2.0 N NUCLEATED RBC % (test code = NRBC%) 0.0 /100WBC% 0.0-1.0 N NEUTROPHIL # (test code = NT#) 2.6 K/mm3 1.8-7.6 N IMMATURE GRANULOCYTE # (test code = IG#) 0.05 x10 3/uL 0.00-0.03 H LYMPHOCYTE # (test code = LY#) 0.8 K/mm3 0.6-3.2 N MONOCYTE # (test code = MO#) 0.2 K/mm3 0.3-1.1 L EOSINOPHIL # (test code = EO#) 0.0 K/mm3 0.0-0.4 N BASOPHIL # (test code = BA#) 0.0 K/mm3 0.0-0.1 N NUCLEATED RBC # (test code = NRBC#) 0.0 K/mm3 0.0-0.1 N UR HCG [id number] 09:34:00* Test Item Value Reference Range Interpretation Comme nts UR HCG QUAL (test code = HCGQLU) NEGATIVE NEGATIVE BASIC METABOLIC [id number] 04:05:00* Test Item Value Reference Range Interpretation Comme nts SODIUM (test code = NA) 141 mmol/L 136-145 N POTASSIUM (test code = K) 3.5 mmol/L 3.4-5.0 N CHLORIDE (test code = CL) 107 mmol/L 98-107 N CARBON DIOXIDE (test code = CO2) 31 mmol/L 21-32 N ANION GAP (test code = GAP) 3 GAP calc 4-15 L GLUCOSE (test code = GLU) 99 MG/DL 70-110 N BLOOD UREA NITROGEN (test code = BUN) 17 MG/DL 7-18 N GLOMERULAR FILTRATION RATE (test code = GFR) >=60 max estimate estGFR >60 The Glomerular Filtration Rate is a calculated parameterbased on serum Creatinine, patient age and sex. GFR valuesless than 60 mL/min/1.73 square meters are indicative ofChronic Kidney Disease. Values less than 15 mL/min/1.73square meters indicate Kidney failure. The calculation forGFR is based on the CKD-EPI (2020) calculation. This formulais race indifferent and is the recommended formula for GFRby the National Kidney Foundation for Adults.The GFR will not calculate if the sex is unknown or if thepatient's age is <18 years. CREATININE (test code = CREAT) 0.5 MG/DL 0.6-1.0 L CALCIUM (test code = CA) 8.6 MG/DL 8.5-10.1 N CBC W/AUTO [id number] 03:43:00* Test Item Value Reference Range Interpretation Comme nts WHITE BLOOD CELL (test code = WBC) 3.5 K/mm3 3.5-11.0 N RED BLOOD CELL (test code = RBC) 3.61 M/mm3 4.70-6.10 L HEMOGLOBIN (test code = HGB) 9.7 G/DL 10.4-14.9 L HEMATOCRIT (test code = HCT) 29.9 % 31.5-44.1 L MEAN CELL VOLUME (test code = MCV) 82.8 Fl 84.5-98.6 L MEAN CELL HGB (test code = MCH) 26.9 pg 27.0-34.2 L MEAN CELL HGB CONCETRATION (test code = MCHC) 32.4 G/DL 31.5-34.0 N RED CELL DISTRIBUTION WIDTH (test code = RDW) 14.0 SD 11.5-14.5 N PLATELET COUNT (test code = PLT) 174 K/mm3 150-450 N MEAN PLATELET VOLUME (test c ode = MPV) 9.70 fL 7.0-10.5 N NEUTROPHIL % (test code = NT%) 45.8 % 40-76 IMMATURE GRANULOCYTE % (test code = IG%) 0.0 % 0.0-5.0 N LYMPHOCYTE % (test code = LY%) 38.1 % 20.5-51.1 N MONOCYTE % (test code = MO%) 7.3 % 1.7-9.3 N EOSINOPHIL % (test code = EO%) 8.5 % 0.0-6.0 H BASOPHIL % (test code = BA%) 0.3 % 0.0-2.0 N NUCLEATED RBC % (test code = NRBC%) 0.0 /100WBC% 0.0-1.0 N NEUTROPHIL # (test code = NT#) 1.6 K/mm3 1.8-7.6 L IMMATURE GRANULOCYTE # (test code = IG#) 0.00 x10 3/uL 0.00-0.03 N LYMPHOCYTE # (test code = LY#) 1.4 K/mm3 0.6-3.2 N MONOCYTE # (test code = MO#) 0.3 K/mm3 0.3-1.1 N EOSINOPHIL # (test code = EO#) 0.3 K/mm3 0.0-0.4 N BASOPHIL # (test code = BA#) 0.0 K/mm3 0.0-0.1 N NUCLEATED RBC # (test code = NRBC#) 0.0 K/mm3 0.0-0.1 N BASIC METABOLIC [id number] 18:06:00* Test Item Value Reference Range Interpretation Comme nts SODIUM (test code = NA) 140 mmol/L 136-145 N POTASSIUM (test code = K) 3.5 mmol/L 3.4-5.0 N CHLORIDE (test code = CL) 105 mmol/L 98-107 N CARBON DIOXIDE (test code = CO2) 28 mmol/L 21-32 N ANION GAP (test code = GAP) 7 GAP calc 4-15 N GLUCOSE (test code = GLU) 112 MG/DL 70-110 H BLOOD UREA NITROGEN (test code = BUN) 16 MG/DL 7-18 N GLOMERULAR FILTRATION RATE (test code = GFR) >=60 max estimate estGFR >60 The Glomerular Filtration Rate is a calculated parameterbased on serum Creatinine, patient age and sex. GFR valuesless than 60 mL/min/1.73 square meters are indicative ofChronic Kidney Disease. Values less than 15 mL/min/1.73square meters indicate Kidney failure. The calculation forGFR is based on the CKD-EPI (2020) calculation. This formulais race indifferent and is the recommended formula for GFRby the National Kidney Foundation for Adults.The GFR will not calculate if the sex is unknown or if thepatient's age is <18 years. CREATININE (test code = CREAT) 0.7 MG/DL 0.6-1.0 N CALCIUM (test code = CA) 8.4 MG/DL 8.5-10.1 L CBC W/AUTO [id number] 17:12:00* Test Item Value Reference Range Interpretation Comme nts WHITE BLOOD CELL (test code = WBC) 4.8 K/mm3 3.5-11.0 N RED BLOOD CELL (test code = RBC) 3.85 M/mm3 4.70-6.10 L HEMOGLOBIN (test code = HGB) 9.9 G/DL 10.4-14.9 L HEMATOCRIT (test code = HCT) 30.8 % 31.5-44.1 L MEAN CELL VOLUME (test code = MCV) 80.0 Fl 84.5-98.6 L MEAN CELL HGB (test code = MCH) 25.7 pg 27.0-34.2 L MEAN CELL HGB CONCETRATION (test code = MCHC) 32.1 G/DL 31.5-34.0 N RED CELL DISTRIBUTION WIDTH (test code = RDW) 13.9 SD 11.5-14.5 N PLATELET COUNT (test code = PLT) 185 K/mm3 150-450 N MEAN PLATELET VOLUME (test c ode = MPV) 8.80 fL 7.0-10.5 N NEUTROPHIL % (test code = NT%) 63.4 % 40-76 N IMMATURE GRANULOCYTE % (test code = IG%) 0.2 % 0.0-5.0 N LYMPHOCYTE % (test code = LY%) 24.8 % 20.5-51.1 N MONOCYTE % (test code = MO%) 5.6 % 1.7-9.3 N EOSINOPHIL % (test code = EO%) 5.8 % 0.0-6.0 N BASOPHIL % (test code = BA%) 0.2 % 0.0-2.0 N NUCLEATED RBC % (test code = NRBC%) 0.0 /100WBC% 0.0-1.0 N NEUTROPHIL # (test code = NT#) 3.0 K/mm3 1.8-7.6 N IMMATURE GRANULOCYTE # (test code = IG#) 0.01 x10 3/uL 0.00-0.03 N LYMPHOCYTE # (test code = LY#) 1.2 K/mm3 0.6-3.2 N MONOCYTE # (test code = MO#) 0.3 K/mm3 0.3-1.1 N EOSINOPHIL # (test code = EO#) 0.3 K/mm3 0.0-0.4 N BASOPHIL # (test code = BA#) 0.0 K/mm3 0.0-0.1 N NUCLEATED RBC # (test code = NRBC#) 0.0 K/mm3 0.0-0.1 N BASIC METABOLIC [id number] 04:02:00* Test Item Value Reference Range Interpretation Comme nts SODIUM (test code = NA) 140 MMOL/L 137-145 N POTASSIUM (test code = K) 3.5 MMOL/L 3.5-5.1 N CHLORIDE (test code = CL) 106 MMOL/L 98-107 N CARBON DIOXIDE (test code = CO2) 27 MMOL/L 22-30 N GLUCOSE (test code = GLU) 108 MG/DL 74-106 H BLOOD UREA NITROGEN (test code = BUN) 13 MG/DL 7-17 N GLOMERULAR FILTRATION RATE (test code = GFR) > 60 The Glomerular Filtration Rate is a calculated parameterbased on serum Creatinine, patient age and sex. GFR valuesless than 60 mL/min/1.73 square meters are indicative ofChronic Kidney Disease. Values less than 15 mL/min/1.73square meters indicate Kidney failure. The calculation forGFR is based on the CKD-EPI (202) calculation. This formulais race indifferent and is the recommended formula for GFRby the National Kidney Foundation for Adults.The GFR will not calculate if the sex is unknown or if thepatient's age is <18 years. CREATININE (test code = CREAT) 0.70 MG/DL 0.52-1.04 N CALCIUM (test code = CA) 8.3 MG/DL 8.4-10.2 L HEPATIC FUNCTION [id number] 04:02:00* Test Item Value Reference Range Interpretation Comme nts TOTAL PROTEIN (test code = PROT) 6.8 G/DL 6.3-8.2 N Ortho Clinical D iagnostic has made us aware of newinformation regarding the potential interference ofEltrombopag (a bone marrow stimulant used to treatthrombocytonmenia and aplastic anemia) with specific assayson the [employer] of which Total Protein is one of thoseassays performed in our lab.Interference testing performed at [facility] determined thatEltrombopag does interfere with [facility] Total Protein asfollowsEltrombopag Interference for Vitros Product Total Protein: Eltrombopag Max Observed Avg. BiasConcentration Concentration Concentration 2.5 mg/dl 6.0 g/dl +0.41 +0.34 3.5 mg/dl 6.0 g/dl +0.50 +0.45 5 mg/dl 6.0 g/dl +0.73 +0.65 2.5 mg/dl 8.0 g/dl +0.44 +0.41 3.5 mg/dl 8.0 g/dl +0.55 +0.52 5 mg/dl 8.0 g/dl +0.86 +0.77 ALBUMIN (test code = ALB) 3.3 G/DL 3.5-5.0 L BILIRUBIN TOTAL (test code = BILT) 0.6 MG/DL 0.2-1.3 N Eltrombopag Inte rference for Vitros Product TBil, BuBc: Assay Eltrombopag Analyte/ Max Observed Avg. Bias Concentration Concentration Concentration TBil 7mg/dl TBil/ 1.2mg/dl +0.23mg.dl +0.20mg/dlBuBc 3.5mg/dl Bu/0.8mg/dl +0.25mg/dl +0.24mg/dlBuBc 7 mg/dl Bu/14.2mg/dl +0.38mg/dl +0.25mg/dlBuBc 5mg/dl Bc/0mg/dl +0.25mg/dl +0.15mg/dlBuBc 3.5mg/dl Bc/2.8mg/dl +0.25mg/dl +0.23mg/dl BILIRUBIN DIRECT (test code = BILD) 0.0 MG/DL 0.0-0.3 N Eltrombopag Inte rference for Vitros Product TBil, BuBc: Assay Eltrombopag Analyte/ Max Observed Avg. Bias Concentration Concentration Concentration TBil 7mg/dl TBil/ 1.2mg/dl +0.23mg.dl +0.20mg/dlBuBc 3.5mg/dl Bu/0.8mg/dl +0.25mg/dl +0.24mg/dlBuBc 7 mg/dl Bu/14.2mg/dl +0.38mg/dl +0.25mg/dlBuBc 5mg/dl Bc/0mg/dl +0.25mg/dl +0.15mg/dlBuBc 3.5mg/dl Bc/2.8mg/dl +0.25mg/dl +0.23mg/dl SGOT/AST (test code = AST) 182 UNITS/L 14-36 H SGPT/ALT (test code = ALT) 60 UNITS/L 0-34 H ALKALINE PHOSPHATASE (test code = ALKP) 138 UNITS/L 38-126 H NT PRO-BRAIN NATRIURETIC [id number] 04:02:00* Test Item Value Reference Range Interpretation Comme nts NT PRO-BRAIN NATRIURETIC PEPTI (test code = PROBNP) 159.0 pg/mL INTERPRETAT ION OF RESULTS Results of this test should be used in accordance with the appropriate clinical guidelines and in conjunction with clinical presentation and other diagnostic tests. Clinical guidelines recommend using natriuretic peptides in both Emergency Department (ED) and outpatient settings for diagnosis or exclusion of heart failure (HF). The performance of the [employer] NT-proBNP II test was evaluated separately in each of these settings using published age-independent and age-dependent cutoffs. EMERGENCY DEPARTMENT SETTINGS/INPATIENT: For patients presenting to the ED settings with acute or worsening dyspnea and clinical suspicion of HF, the VITROS NT-proBNP II test results should be interpreted as indicated in the table below. NT-pro BNP II Test Age Group Interpretation of Results Results (pg/mL) <300 All Negative: Heart Failure Unlikely -->=300 to <450 22-<50 [place] Zone: Result >=300 to <900 50-<75 Indeterminate >=300 to <1800 >=75 - Consider other causes of NT-proBNP elevation ---------------->=450 22-<50 >=900 50-<75 Positive: Heart Failure likely >=1800 >=75 OUTPAT IENT SETTINGS: In the outpatient settings, the optimal use of natriuretic peptides is to exclude HF. Therefore, a lower rule-out cutoff which increases sensitivity and negative predictive value is needed, as patients can present with limited, less acute HF symptoms. For ambulatory patients presenting to outpatient facilities with clinical suspicion of HF not previously diagnosed and at least one sign, symptom or risk factor for HF, the VITROSNT-proBNP II test results should be interpreted as indicatedin the table below. NT-pro BNP II Test Age Group Interpretation of Results Results (pg/mL) <125 All Negative: Heart Failure Unlikely ---------------->=125 All Consider Heart Failure as well as other causes* of NT-proBNP elevation. [id number] 04:02:00* Test Item Value Reference Range Interpretation Comme nts TROPONIN-I (test code = TROPI) < 0.012 NG/ML 0.012-0.033 L "Please be aware that bias results for Troponin may occurfor patients who are taking Biotin supplements, causingfalsely low troponin results. Please screen for routineBiotin (Vitamin B7) supplements taken in leonard doses (greaterthan 100-300mg/day) or beauty supplements." UA RFLX MICR CULT IF [id number] 00:05:00* Test Item Value Reference Range Interpretation Comme nts UA COLOR (test code = COLU) Light-Yellow YELLOW UA APPEARANCE (test code = APPU) Clear CLEAR UA GLUCOSE DIPSTICK (test code = DGLUU) Normal MG/DL NORMAL UA BILIRUBIN DIPSTICK (test code = BILU) Negative MG/DL NEGATIVE UA KETONE DIPSTICK (test code = KETU) Negative MG/DL NEGATIVE UA SPECIFIC GRAVITY (test code = SGU) 1.031 1.003-1.030 H UA BLOOD DIPSTICK (test code = RAMAN) Negative Antoine/mm3 NEGATIVE UA PH DIPSTICK (test code = SAI) 6.5 5.0-9.0 N UA PROTEIN DIPSTICK (test code = PROU) Negative MG/DL NEGATIVE UA UROBILINIOGEN DIPSTICK (test code = URO) Normal MG/DL NORMAL UA NITRITE DIPSTICK (test code = VANESSA) Negative NEGATIVE UA LEUKOCYTE ESTERASE DIPSTICK (test code = LEUU) Negative /mm3 NEGATIVE Indication for culture: RiskForSepsis-no oth srcSOURCE OF URINE: CLEAN CATCH LACTIC [id number] 22:53:00* Test Item Value Reference Range Interpretation Comme nts LACTIC ACID (test code = LACT) 0.7 MMOL/L 0.7-2.1 N PROTHROMBIN [id number] 22:48:00* Test Item Value Reference Range Interpretation Comme nts PROTHROMBIN TIME PATIENT (test code = PTP) 12.3 SECONDS 9.4-12.5 N INTERNATIONAL NORMAL RATIO (test code = INR) 1.1 0.86-1.14 N The INR is to be used only for monitoring oral anticoagulanttherap y. INDICATION INR VALUE -------1. Prophylaxis, deep venous thrombosis, including high risk surgery. 2.0 - 3.0 2. Prophylaxis, deep venous thrombosis, hip surgery, treatment for deep venous thrombosis or pulmonary prevention of systemic embolism in patients with valvular heart disease, atrial fibrillation, tissue heart valve, or acute myocardial infarction. 2.0 - 3.0 3. Mechanical prosthesis heart valves, recurrent systemic embolism. 3.0 - 4.5 CBC W/AUTO [id number] 22:41:00* Test Item Value Reference Range Interpretation Comme nts WHITE BLOOD CELL (test code = WBC) 5.4 K/MM3 3.8-9.8 N RED BLOOD CELL (test code = RBC) 4.26 M/MM3 3.58-4.97 N HEMOGLOBIN (test code = HGB) 11.1 G/DL 11.2-14.9 L HEMATOCRIT (test code = HCT) 34.0 % 33.2-43.5 N MEAN CELL VOLUME (test code = MCV) 80 fL 80.7-99.1 L MEAN CELL HGB (test code = MCH) 26.1 pg 27.0-34.1 L MEAN CELL HGB CONCETRATION (test code = MCHC) 32.6 % 32.2-35.7 N RED CELL DISTRIBUTION WIDTH (test code = RDW) 13.7 % 12.1-15.2 N PLATELET COUNT (test code = PLT) 225 K/MM3 129-368 N MEAN PLATELET VOLUME (test c ode = MPV) 9.0 fl 7.4-10.4 N NEUTROPHIL % (test code = NT%) 57.4 % 43-75 N IMMATURE GRANULOCYTE % (test code = IG%) 0.4 % 0.0-2.0 N LYMPHOCYTE % (test code = LY%) 32.7 % 14-44 N MONOCYTE % (test code = MO%) 6.1 % 4-13 N EOSINOPHIL % (test code = EO%) 2.8 % 0-6 N BASOPHIL % (test code = BA%) 0.6 % 0-2 N NUCLEATED RBC % (test code = NRBC%) 0.0 % 0-1.0 N NEUTROPHIL # (test code = NT#) 3.09 K/mm3 2.0-7.6 N IMMATURE GRANULOCYTE # (test code = IG#) 0.02 x10 3/uL 0-0.03 N LYMPHOCYTE # (test code = LY#) 1.76 K/mm3 1.0-3.8 N MONOCYTE # (test code = MO#) 0.33 K/mm3 0.1-0.8 N EOSINOPHIL # (test code = EO#) 0.15 K/mm3 0.0-0.2 N BASOPHIL # (test code = BA#) 0.03 K/mm3 0.0-0.2 N NUCLEATED RBC # (test code = NRBC#) 0.00 K/mm3 0.0-0.1 N [id number] 08:59:00* Test Item Value Reference Range Interpretation Comme nts Glucose Lvl (test code = Glucose Lvl) 97 70-99 BUN (test code = BUN) 12 9-23 Creatinine Lvl (test code = Creatinine Lvl) 0.71 0.55-1.02 Sodium Lvl (test code = Sodium Lvl) 140 136-145 Potassium Lvl (test code = P otassium Lvl) 3.9 3.4-4.5 Chloride Lvl (test code = Chloride Lvl) 107 98-107 CO2 (test code = CO2) 28.9 20.0-31.0 Calcium Lvl (test code = Calcium Lvl) 8.4 8.3-10.6 AGAP (test code = AGAP) 8.0 10.0-20.0 eGFR (test code = eGFR) 103 Magnesium Lvl (test code = M agnesium Lvl) 1.85 1.60-2.60 [id number] 08:59:00* Test Item Value Reference Range Interpretation Comme nts WBC (test code = WBC) 3.59 4.15-10.55 NRBC % (test code = NRBC %) 0.0 <=0.0 RBC (test code = RBC) 4.01 3.74-5.22 Hgb (test code = Hgb) 10.2 10.8-14.8 Hct (test code = Hct) 32.2 33.9-45.4 MCV (test code = MCV) 80.3 77.8-97.5 MCH (test code = MCH) 25.4 pg 24.9-32.6 MCHC (test code = MCHC) 31.7 30.1-35.0 RDW - SD (test code = RDW - SD) 39.8 37.6-49.1 Platelet (test code = Platelet) 170 191-422 MPV (test code = MPV) 9.0 9.0-12.6 Segmented Neutrophils (test code = Segmented Neutrophils) 54.0 40.9-70.4 Lymphocytes (test code = Lymphocytes) 29.2 15.3-46.4 Monocytes (test code = Monocytes) 5.6 3.9-10.9 Eosinophils (test code = Eosinophils) 10.6 0.3-4.1 Basophils (test code = Basophils) 0.3 0.2-1.3 Immature Granulocytes # (merissa t code = Immature Granulocytes #) 0.3 0.1-1.0 Segmented Neutrophils # (merissa t code = Segmented Neutrophils #) 1.94 2.03-7.09 Lymphocytes # (test code = Lymphocytes #) 1.05 1.09-3.65 Monocytes # (test code = Monocytes #) 0.20 0.27-0.78 Eosinophils # (test code = Eosinophils #) 0.38 0.02-0.33 Basophils # (test code = Basophils #) 0.01 0.01-0.09 Immature Granulocytes (test code = Immature Granulocytes) 0.01 0.01-0.07 [id number] 08:59:00* Test Item Value Reference Range Interpretation Comme [facility] Ag/Ab 4th Gen (test code = HIV Ag/Ab 4th Gen) Negative 1(06/29/24 3:59 AM) [facility] [id number] 16:41:00* Test Item Value Reference Range [facility]ation [facility] Van[facility] AUC (test code = Vancomycin AUC) 18.3 [facility] [id number] 21:33:30* Test Item Value Reference Range Interpretation Comme nts RADRPT (test code = RADRPT) Radiation Dose CTDIVOL = 0 (mGy): DLP = 426.3 (mGy-cm)PROCEDURE INFORMATION: Exam: CT Abdomen And Pelvis With Contrast Exam date and time: 06/27/2024 4:07 PM Age: 49 years old Clinical indication: /abd pain, n/v, prior skin graft after infected abdominoplasty January 07 TECHNIQUE: Imaging protocol: Computed tomography of the abdomen and pelvis with contrast. Radiation optimization: All CT scans at this facility use at least one of these dose optimization techniques: automated exposure control; mA and/or kV adjustment per patient size (includes targeted exams where dose is matched to clinical indication); or iterative reconstruction. Contrast material: OMNI 350; Contrast volume: 65 ml; Contrast route: INTRAVENOUS (IV); COMPARISON: No relevant prior studies available. RADIATION DOSE METRICS: Total DLP (mGy-cm): 426.3 FINDINGS: Lower chest: Bilateral breast implants.Liver: Normal. No mass. Gallbladder and biliary ducts: Status post cholecystectomy. No calcified stones. No ductal dilation. Pancreas: Normal. No ductal dilation. Spleen: Normal. No splenomegaly. Adrenal glands: Normal. No mass. Kidneys and ureters: Normal. No renal calculi, ureteral calculi or hydronephrosis. Stomach and bowel: Circumferential thickening of the distal esophagus. Small hiatal hernia. Status post sleeve gastrectomy. No obstruction. Colonic diverticulosis without evidence of acute diverticulitis. Appendix: No evidence of appendicitis. Intraperitoneal space: Unremarkable. No free air. No significant fluid collection. Vasculature: Unremarkable. No abdominal aortic aneurysm. Lymph nodes: Unremarkable. No enlarged lymph nodes. Urinary bladder: Unremarkable as visualized. Reproductive: Unremarkable as visualized. Bones/joints: Unremarkable. No acute fracture. Soft tissues: There is absence of subcutaneous fat along the majority of the anterior abdominal wall consistent with provided history of infected abdominoplasty and skin grafting. Subcutaneous stranding in the back and abdominal wall consistent with prior liposuction. Numerous soft tissue and fatty nodules in the bilateral gluteal regions consistent with prior surgery. No drainable soft tissue collection.IMPRESSION: Esophagitis. Small hiatal hernia.Alton Freitas MD On 06/27/2024 16:32:26; [id number] [id number] 19:12:00* Test Item Value Reference Range Interpretation Comme nts ALANINE AMINOTRANSFERASE (te st code = ALANINE AMINOTRANSFERASE) no gt 7-40 ASPARTATE TRANSAMINASE (test code = ASPARTATE TRANSAMINASE) 11 12-40 Albumin Lvl (test code = Albumin Lvl) 3.4 3.4-5.0 Alk Phos (test code = Alk Phos) 86 46-116 Bili Total (test code = Bili Total) 0.31 0.30-1.20 B/C Ratio (test code = B/C Ratio) 27 1 6-25 Total Protein (test code = T otal Protein) 7.5 5.7-8.2 Globulin (test code = Globulin) 4.1 2.0-4.0 A/G Ratio (test code = A/G Ratio) 0.8 1 0.7-1.6 Lipase Lvl (test code = Lipase Lvl) 48 12-53 Lactic Acid Lvl (test code = Lactic Acid Lvl) 0.93 0.50-2.20 Procalcitonin Lvl (test code = Procalcitonin Lvl) no gt <=0.10 hCG Tot (test code = hCG Tot) 4 <=5 [facility]: [id number] 19:12:00* Test Item Value Reference Range Interpretation Comme nts Culture: Blood (test code = Culture: Blood) No Growth At [id number] 14:14:00* Test Item Value Reference Range Interpretation Comme nts SURGICAL (test code = SR) RUN DATE: 05/30/24 [facility] PAGE 1 RUN TIME: 1414 Specimen Inquiry RUN USER: INTERFACE AMILCAR ENT: ETHAN GARCIA [facility]: [id number] AGE/SX: 49/F ROOM: [facility] RE05/26/24REG DR: Aris De La O MD : 73 BED: 1 DIS: STATUS: ADM IN TLOC: SPEC #: [id number]:[id number] RECD: 05/29/24 STATUS: DAVID BROWN #: [id number] SHAMAR: 05/28/24-[address] [facility] [address]: Aris De La O MD ENTERED: 05/29/24 SP TYPE: SURGICAL OTHR DR: Self Referred Balwinder Dow MD, Daniel MD Prezas, Roland DO Villamor, Antonio N III MDORDERED: [id number], ANATOMIC SPEC, SPECIMEN TRACK COPIES TO: [place] [address] [place] [address] [email or web address] Balwinder Dow MD [address] [place] [address] [place] G[place] [address] [place] [address] Klever Velázquez DO [facility] [address] [place] [address] [place] [address] [place] [address] PROCEDURES: [id number] (05/30/24-1412) SPECIMEN TRACK (05/29/24-1048) TISSUES: A. ABDOMINAL WALL - ABDOMINAL WALL BX CONTINUED ON NEXT PAGE RUN DATE: 05/30/24 [facility] PAGE 2 RUN TIME: 1414 Specimen Inquiry RUN USER: INTERFACE SPEC #: [id number]:[facility]:[id number] PATIENT: ETHAN GARCIA #[id number] (Continued) ------- FINAL DIAGNOSIS SKIN AND SUBCUTANEOUS TISSUE, ABDOMINAL WALL, BIOPSY: - Epithelial inclusion cysts with marked chronic inflammation. - Completely excised. GROSS DESCRIPTION Abdominal wall biopsy. It consists of segment of fibrous salcedo-white tissue measuring 3 x2.2 x 0.6 cm. It is serially sectioned to reveal a fibrous firm cut surface. It isentirely submitted as A1-A3. Technical tissue processing and slide preparation performed at [facility] [address] [place] [address] MICROSCOPIC DESCRIPTION Microscopic examination is performed and the findings are incorporated into the finaldiagnosis. Please see diagnosis for findings. ----- Signed SIGNATURE ON FILE Mela Powers X 05/30/24 1414 END OF REPORT CBC W/AUTO [id number] 06:02:00* Test Item Value Reference Range Interpretation Comme nts WHITE BLOOD CELL (test code = WBC) 4.2 K/mm3 3.5-11.0 N RED BLOOD CELL (test code = RBC) 3.28 M/mm3 4.70-6.10 L HEMOGLOBIN (test code = HGB) 9.2 G/DL 10.4-14.9 L HEMATOCRIT (test code = HCT) 27.3 % 31.5-44.1 L MEAN CELL VOLUME (test code = MCV) 83.2 Fl 84.5-98.6 L MEAN CELL HGB (test code = MCH) 28.0 pg 27.0-34.2 N MEAN CELL HGB CONCETRATION (test code = MCHC) 33.7 G/DL 31.5-34.0 N RED CELL DISTRIBUTION WIDTH (test code = RDW) 13.4 SD 11.5-14.5 N PLATELET COUNT (test code = PLT) 187 K/mm3 150-450 N MEAN PLATELET VOLUME (test c ode = MPV) 9.00 fL 7.0-10.5 N NEUTROPHIL % (test code = NT%) 50.7 % 40-76 IMMATURE GRANULOCYTE % (test code = IG%) 0.0 % 0.0-5.0 N LYMPHOCYTE % (test code = LY%) 35.8 % 20.5-51.1 N MONOCYTE % (test code = MO%) 6.4 % 1.7-9.3 N EOSINOPHIL % (test code = EO%) 6.6 % 0.0-6.0 H BASOPHIL % (test code = BA%) 0.5 % 0.0-2.0 N NUCLEATED RBC % (test code = NRBC%) 0.0 /100WBC% 0.0-1.0 N NEUTROPHIL # (test code = NT#) 2.2 K/mm3 1.8-7.6 N IMMATURE GRANULOCYTE # (test code = IG#) 0.00 x10 3/uL 0.00-0.03 N LYMPHOCYTE # (test code = LY#) 1.5 K/mm3 0.6-3.2 N MONOCYTE # (test code = MO#) 0.3 K/mm3 0.3-1.1 N EOSINOPHIL # (test code = EO#) 0.3 K/mm3 0.0-0.4 N BASOPHIL # (test code = BA#) 0.0 K/mm3 0.0-0.1 N NUCLEATED RBC # (test code = NRBC#) 0.0 K/mm3 0.0-0.1 N CBC W/AUTO [id number] 11:46:00* Test Item Value Reference Range Interpretation Comme nts WHITE BLOOD CELL (test code = WBC) 4.7 K/mm3 3.5-11.0 N RED BLOOD CELL (test code = RBC) 3.70 M/mm3 4.70-6.10 L HEMOGLOBIN (test code = HGB) 9.7 G/DL 10.4-14.9 L HEMATOCRIT (test code = HCT) 29.5 % 31.5-44.1 L MEAN CELL VOLUME (test code = MCV) 79.7 Fl 84.5-98.6 L MEAN CELL HGB (test code = MCH) 26.2 pg 27.0-34.2 L MEAN CELL HGB CONCETRATION (test code = MCHC) 32.9 G/DL 31.5-34.0 N RED CELL DISTRIBUTION WIDTH (test code = RDW) 13.3 SD 11.5-14.5 N PLATELET COUNT (test code = PLT) 188 K/mm3 150-450 N MEAN PLATELET VOLUME (test c ode = MPV) 8.80 fL 7.0-10.5 N NEUTROPHIL % (test code = NT%) 62.9 % 40-76 IMMATURE GRANULOCYTE % (test code = IG%) 0.8 % 0.0-5.0 N LYMPHOCYTE % (test code = LY%) 22.4 % 20.5-51.1 N MONOCYTE % (test code = MO%) 6.1 % 1.7-9.3 N EOSINOPHIL % (test code = EO%) 7.2 % 0.0-6.0 H BASOPHIL % (test code = BA%) 0.6 % 0.0-2.0 N NUCLEATED RBC % (test code = NRBC%) 0.0 /100WBC% 0.0-1.0 N NEUTROPHIL # (test code = NT#) 3.0 K/mm3 1.8-7.6 N IMMATURE GRANULOCYTE # (test code = IG#) 0.04 x10 3/uL 0.00-0.03 H LYMPHOCYTE # (test code = LY#) 1.1 K/mm3 0.6-3.2 N MONOCYTE # (test code = MO#) 0.3 K/mm3 0.3-1.1 N EOSINOPHIL # (test code = EO#) 0.3 K/mm3 0.0-0.4 N BASOPHIL # (test code = BA#) 0.0 K/mm3 0.0-0.1 N NUCLEATED RBC # (test code = NRBC#) 0.0 K/mm3 0.0-0.1 N Vancomycin [id number] 22:02:00* Test Item Value Reference Range Interpretation Comme nts Vancomycin AUC2 (test code = VANCAUC2) 13.3 mcg/mL 10-20 N Vancomycin [id number] 18:01:00* Test Item Value Reference Range Interpretation Comme nts Vancomycin AUC2 (test code = VANCAUC2) 19.3 mcg/mL 10-20 N CBC W/AUTO [id number] 05:18:00* Test Item Value Reference Range Interpretation Comme nts WHITE BLOOD CELL (test code = WBC) 4.2 K/mm3 3.5-11.0 N RED BLOOD CELL (test code = RBC) 3.43 M/mm3 4.70-6.10 L HEMOGLOBIN (test code = HGB) 9.6 G/DL 10.4-14.9 L HEMATOCRIT (test code = HCT) 28.4 % 31.5-44.1 L MEAN CELL VOLUME (test code = MCV) 82.8 Fl 84.5-98.6 L MEAN CELL HGB (test code = MCH) 28.0 pg 27.0-34.2 N MEAN CELL HGB CONCETRATION (test code = MCHC) 33.8 G/DL 31.5-34.0 N RED CELL DISTRIBUTION WIDTH (test code = RDW) 13.1 SD 11.5-14.5 N PLATELET COUNT (test code = PLT) 177 K/mm3 150-450 N MEAN PLATELET VOLUME (test c ode = MPV) 9.10 fL 7.0-10.5 N NEUTROPHIL % (test code = NT%) 48.0 % 40-76 IMMATURE GRANULOCYTE % (test code = IG%) 0.2 % 0.0-5.0 N LYMPHOCYTE % (test code = LY%) 34.2 % 20.5-51.1 N MONOCYTE % (test code = MO%) 7.0 % 1.7-9.3 N EOSINOPHIL % (test code = EO%) 10.1 % 0.0-6.0 H BASOPHIL % (test code = BA%) 0.5 % 0.0-2.0 N NUCLEATED RBC % (test code = NRBC%) 0.0 /100WBC% 0.0-1.0 N NEUTROPHIL # (test code = NT#) 2.0 K/mm3 1.8-7.6 N IMMATURE GRANULOCYTE # (test code = IG#) 0.01 x10 3/uL 0.00-0.03 N LYMPHOCYTE # (test code = LY#) 1.4 K/mm3 0.6-3.2 N MONOCYTE # (test code = MO#) 0.3 K/mm3 0.3-1.1 N EOSINOPHIL # (test code = EO#) 0.4 K/mm3 0.0-0.4 N BASOPHIL # (test code = BA#) 0.0 K/mm3 0.0-0.1 N NUCLEATED RBC # (test code = NRBC#) 0.0 K/mm3 0.0-0.1 N Vancomycin [id number] 02:38:00* Test Item Value Reference Range Interpretation Comme nts Vancomycin AUC1 (test code = VANCAUC1) 22.6 mcg/mL 20-60 N COMPREHENSIVE METABOLIC [id number] 15:50:00* Test Item Value Reference Range Interpretation Comme nts SODIUM (test code = NA) 139 mmol/L 136-145 N POTASSIUM (test code = K) 3.7 mmol/L 3.4-5.0 N CHLORIDE (test code = CL) 106 mmol/L 98-107 N CARBON DIOXIDE (test code = CO2) 26 mmol/L 21-32 N ANION GAP (test code = GAP) 7 GAP calc 4-15 N GLUCOSE (test code = GLU) 115 MG/DL 70-110 H BLOOD UREA NITROGEN (test code = BUN) 7 MG/DL 7-18 N GLOMERULAR FILTRATION RATE (test code = GFR) >=60 max estimate estGFR >60 The Glomerular Filtration Rate is a calculated parameterbased on serum Creatinine, patient age and sex. GFR valuesless than 60 mL/min/1.73 square meters are indicative ofChronic Kidney Disease. Values less than 15 mL/min/1.73square meters indicate Kidney failure. The calculation forGFR is based on the CKD-EPI (2020) calculation. This formulais race indifferent and is the recommended formula for GFRby the National Kidney Foundation for Adults.The GFR will not calculate if the sex is unknown or if thepatient's age is <18 years. CREATININE (test code = CREAT) 0.7 MG/DL 0.6-1.0 N TOTAL PROTEIN (test code = PROT) 6.7 G/DL 6.4-8.2 N ALBUMIN (test code = ALB) 2.7 G/DL 3.4-5.0 L GLOBULIN (test code = GLOB) 4.0 GM/dL ALBUMIN/GLOBULIN RATIO (test code = A/G) 0.7 RATIO 1.2-2.2 L CALCIUM (test code = CA) 8.5 MG/DL 8.5-10.1 N BILIRUBIN TOTAL (test code = BILT) 0.1 MG/DL 0.0-1.0 N SGOT/AST (test code = AST) 17 Unit/L 15-37 N SGPT/ALT (test code = ALT) 19 Unit/L 30-65 L ALKALINE PHOSPHATASE TOTAL (test code = ALKP) 118 Unit/L 50-136 N [id number] 15:50:00* Test Item Value Reference Range Interpretation Comme nts MAGNESIUM (test code = MAG) 1.8 MG/DL 1.8-2.4 N THYROID STIMULATING [id number] 15:50:00* Test Item Value Reference Range Interpretation Comme nts THYROID STIMULATING HORMONE (test code = TSH) 1.95 mcIU/ML 0.34-4.82 N NT PRO-BRAIN NATRIURETIC [id number] 15:50:00* Test Item Value Reference Range Interpretation Comme nts NT PRO-BRAIN NATRIURETIC PEP TI (test code = PROBNP) 429 PG/ML 0-100 H CBC W/AUTO [id number] 13:14:00* Test Item Value Reference Range Interpretation Comme nts WHITE BLOOD CELL (test code = WBC) 4.4 K/mm3 3.5-11.0 N RED BLOOD CELL (test code = RBC) 3.95 M/mm3 4.70-6.10 L HEMOGLOBIN (test code = HGB) 10.5 G/DL 10.4-14.9 N HEMATOCRIT (test code = HCT) 32.1 % 31.5-44.1 N MEAN CELL VOLUME (test code = MCV) 81.3 Fl 84.5-98.6 L MEAN CELL HGB (test code = MCH) 26.6 pg 27.0-34.2 L MEAN CELL HGB CONCETRATION (test code = MCHC) 32.7 G/DL 31.5-34.0 N RED CELL DISTRIBUTION WIDTH (test code = RDW) 13.2 SD 11.5-14.5 N PLATELET COUNT (test code = PLT) 187 K/mm3 150-450 N MEAN PLATELET VOLUME (test c ode = MPV) 9.10 fL 7.0-10.5 N NEUTROPHIL % (test code = NT%) 57.8 % 40-76 N IMMATURE GRANULOCYTE % (test code = IG%) 0.0 % 0.0-5.0 N LYMPHOCYTE % (test code = LY%) 27.5 % 20.5-51.1 N MONOCYTE % (test code = MO%) 5.2 % 1.7-9.3 N EOSINOPHIL % (test code = EO%) 9.3 % 0.0-6.0 H BASOPHIL % (test code = BA%) 0.2 % 0.0-2.0 N NUCLEATED RBC % (test code = NRBC%) 0.0 /100WBC% 0.0-1.0 N NEUTROPHIL # (test code = NT#) 2.6 K/mm3 1.8-7.6 N IMMATURE GRANULOCYTE # (test code = IG#) 0.00 x10 3/uL 0.00-0.03 N LYMPHOCYTE # (test code = LY#) 1.2 K/mm3 0.6-3.2 N MONOCYTE # (test code = MO#) 0.2 K/mm3 0.3-1.1 L EOSINOPHIL # (test code = EO#) 0.4 K/mm3 0.0-0.4 N BASOPHIL # (test code = BA#) 0.0 K/mm3 0.0-0.1 N NUCLEATED RBC # (test code = NRBC#) 0.0 K/mm3 0.0-0.1 N BASIC METABOLIC [id number] 06:17:00* Test Item Value Reference Range Interpretation Comme nts SODIUM (test code = NA) 139 mmol/L 136-145 N POTASSIUM (test code = K) 4.2 mmol/L 3.4-5.0 N CHLORIDE (test code = CL) 105 mmol/L 98-107 N CARBON DIOXIDE (test code = CO2) 24 mmol/L 21-32 N ANION GAP (test code = GAP) 10 GAP calc 4-15 N GLUCOSE (test code = GLU) 90 MG/DL 70-110 N BLOOD UREA NITROGEN (test code = BUN) 8 MG/DL 7-18 N GLOMERULAR FILTRATION RATE (test code = GFR) >=60 max estimate estGFR >60 The Glomerular Filtration Rate is a calculated parameterbased on serum Creatinine, patient age and sex. GFR valuesless than 60 mL/min/1.73 square meters are indicative ofChronic Kidney Disease. Values less than 15 mL/min/1.73square meters indicate Kidney failure. The calculation forGFR is based on the CKD-EPI (2020) calculation. This formulais race indifferent and is the recommended formula for GFRby the National Kidney Foundation for Adults.The GFR will not calculate if the sex is unknown or if thepatient's age is <18 years. CREATININE (test code = CREAT) 0.6 MG/DL 0.6-1.0 N CALCIUM (test code = CA) 9.0 MG/DL 8.5-10.1 N [id number] 06:17:00* Test Item Value Reference Range Interpretation Comme nts PHOSPHOROUS (test code = PHOS) 3.2 MG/DL 2.5-4.9 N [id number] 06:17:00* Test Item Value Reference Range Interpretation Comme nts MAGNESIUM (test code = MAG) 1.9 MG/DL 1.8-2.4 N CBC W/AUTO [id number] 06:14:00* Test Item Value Reference Range Interpretation Comme nts WHITE BLOOD CELL (test code = WBC) 4.0 K/mm3 3.5-11.0 N RED BLOOD CELL (test code = RBC) 4.55 M/mm3 4.70-6.10 L HEMOGLOBIN (test code = HGB) 12.3 G/DL 10.4-14.9 N HEMATOCRIT (test code = HCT) 37.5 % 31.5-44.1 N MEAN CELL VOLUME (test code = MCV) 82.4 Fl 84.5-98.6 L MEAN CELL HGB (test code = MCH) 27.0 pg 27.0-34.2 N MEAN CELL HGB CONCETRATION (test code = MCHC) 32.8 G/DL 31.5-34.0 N RED CELL DISTRIBUTION WIDTH (test code = RDW) 13.1 SD 11.5-14.5 N PLATELET COUNT (test code = PLT) 191 K/mm3 150-450 N MEAN PLATELET VOLUME (test c ode = MPV) 9.20 fL 7.0-10.5 N NEUTROPHIL % (test code = NT%) 55.5 % 40-76 IMMATURE GRANULOCYTE % (test code = IG%) 0.3 % 0.0-5.0 N LYMPHOCYTE % (test code = LY%) 29.3 % 20.5-51.1 N MONOCYTE % (test code = MO%) 6.8 % 1.7-9.3 N EOSINOPHIL % (test code = EO%) 7.6 % 0.0-6.0 H BASOPHIL % (test code = BA%) 0.5 % 0.0-2.0 N NUCLEATED RBC % (test code = NRBC%) 0.0 /100WBC% 0.0-1.0 N NEUTROPHIL # (test code = NT#) 2.2 K/mm3 1.8-7.6 N IMMATURE GRANULOCYTE # (test code = IG#) 0.01 x10 3/uL 0.00-0.03 N LYMPHOCYTE # (test code = LY#) 1.2 K/mm3 0.6-3.2 N MONOCYTE # (test code = MO#) 0.3 K/mm3 0.3-1.1 N EOSINOPHIL # (test code = EO#) 0.3 K/mm3 0.0-0.4 N BASOPHIL # (test code = BA#) 0.0 K/mm3 0.0-0.1 N NUCLEATED RBC # (test code = NRBC#) 0.0 K/mm3 0.0-0.1 N PROTHROMBIN [id number] 06:08:00* Test Item Value Reference Range Interpretation Comme nts PT PATIENT (test code = PTP) 11.4 SECONDS 9.3-12.9 N INTERNATIONAL NORMAL RATIO (test code = INR) 1.04 INR Unit 0.8-1.2 N TARGET INR BY INDICATION Indication INR1. Prophylaxis of venous thrombosis 2.0 - 3.0 (orthopedic surgery), Prophylaxis of venous thrombosis (other than high-risk surgery), Treatment of Deep Vein Thrombosis/Pulmonary Embolism, Prevention of systemic embolism - Tissue heart valves, Acute Myocardial Infarction (to prevent systemic embolism), Valvular heart disease, Acute Myocardial Infarction (to prevent systemic embolism), Valvular heart disease, Atrial Fibrillation, Bileaflet mechanical valve in aortic position.2. Mechanical prosthetic valves (high risk), 2.5 - 3.5 Presence of Lupus Anticoagulant or Antiphospholipid Antibodies, Prevention of systemic embolism - Acute Myocardial Infarction (to prevent recurrent infarct). THROMBOPLASTIN TIME [id number] 06:08:00* Test Item Value Reference Range Interpretation Comme [facility] THROMBOPLASTIN TIME PARTIAL (test code = PTT) 19.6 SECONDS 26-35 L [id number] 06:08:00* Test Item Value Reference Range Interpretation Comme nts FIBRINOGEN (test code = FIB) 287 mg/dL 185-453 N LACTIC [id number] 18:37:00* Test Item Value Reference Range Interpretation Comme nts LACTIC ACID (test code = LACT) 0.4 mmol/L 0.4-1.9 N BASIC METABOLIC [id number] 18:26:00* Test Item Value Reference Range Interpretation Comme nts SODIUM (test code = NA) 137 mmol/L 136-145 N POTASSIUM (test code = K) 3.8 mmol/L 3.4-5.0 N CHLORIDE (test code = CL) 101 mmol/L 98-107 N CARBON DIOXIDE (test code = CO2) 28 mmol/L 21-32 N ANION GAP (test code = GAP) 8 GAP calc 4-15 N GLUCOSE (test code = GLU) 87 MG/DL 70-110 N BLOOD UREA NITROGEN (test code = BUN) 14 MG/DL 7-18 N GLOMERULAR FILTRATION RATE (test code = GFR) >=60 max estimate estGFR >60 The Glomerular Filtration Rate is a calculated parameterbased on serum Creatinine, patient age and sex. GFR valuesless than 60 mL/min/1.73 square meters are indicative ofChronic Kidney Disease. Values less than 15 mL/min/1.73square meters indicate Kidney failure. The calculation forGFR is based on the CKD-EPI (2020) calculation. This formulais race indifferent and is the recommended formula for GFRby the National Kidney Foundation for Adults.The GFR will not calculate if the sex is unknown or if thepatient's age is <18 years. CREATININE (test code = CREAT) 0.7 MG/DL 0.6-1.0 N CALCIUM (test code = CA) 9.5 MG/DL 8.5-10.1 N HEPATIC FUNCTION [id number] 18:26:00* Test Item Value Reference Range Interpretation Comme nts TOTAL PROTEIN (test code = PROT) 8.2 G/DL 6.4-8.2 N ALBUMIN (test code = ALB) 3.4 G/DL 3.4-5.0 N BILIRUBIN TOTAL (test code = BILT) 0.3 MG/DL 0.0-1.0 N BILIRUBIN DIRECT (test code = BILD) 0.1 MG/DL 0.0-0.3 N BILIRUBIN INDIRECT (test cod e = BILIND) 0.20 MG/DL 0.2-1.2 N SGOT/AST (test code = AST) 19 Unit/L 15-37 N SGPT/ALT (test code = ALT) 21 Unit/L 30-65 L ALKALINE PHOSPHATASE TOTAL ( test code = ALKP) 111 Unit/L 50-136 N TROP-I HIGH [id number] 18:26:00* Test Item Value Reference Range Interpretation Comme nts TROP-I HIGH SENSITIVITY (test code = TROPIHS) 2.9 ng/L 0-54 N CAUTION: Units o f the current test methodology (ng/L) differfrom the prior test methodology (ng/mL) by a factor of 1000. 99th Percentile Upper Reference Limit (URL):Females: 54 ng/LMales: 79 ng/L In order to distinguish acute elevations of high sensitivitytroponin from other clinical conditions, the FourthUniversal Definition of Myocardial Infarction stressesclinical assessment and the demonstration of a rise and/orfall in serial troponin results above the URL. Results from different methodologies should not be comparedto one another as quantitative results and URLs may varyby method. HCG [id number] 18:19:00* Test Item Value Reference Range Interpretation Comme nts HCG SERUM (test code = HCG) 5 mi-IU/ML 0-6 N UA RFLX MICR CULT IF [id number] 18:10:00* Test Item Value Reference Range Interpretation Comme nts UA COLOR (test code = COLU) Yellow YELLOW UA APPEARANCE (test code = APPU) CLEAR CLEAR UA GLUCOSE DIPSTICK (test code = DGLUU) Negative mg/dL NEGATIVE UA BILIRUBIN DIPSTICK (test code = BILU) Negative NEGATIVE UA KETONE DIPSTICK (test code = KETU) Negative NEGATIVE UA SPECIFIC GRAVITY (test code = SGU) 1.015 1.005-1.015 UA BLOOD DIPSTICK (test code = RAMAN) Negative NEGATIVE UA PH DIPSTICK (test code = SAI) 7.0 5.0-7.0 UA PROTEIN DIPSTICK (test code = PROU) Negative mg/dL NEGATIVE UA UROBILINIOGEN DIPSTICK (test code = URO) 0.2 EU/dL See_Comment [Automated message] The system which generated this result transmitted reference range: <2.0 EU/dL. The reference range was not used to interpret this result as normal/abnormal. UA NITRITE DIPSTICK (test code = VANESSA) Negative NEGATIVE UA LEUKOCYTE ESTERASE DIPSTICK (test code = LEUU) 1+ NEGATIVE A UA WBC (test code = WBCU) 3-5 #WBC/HPF 0-3 A UA RBC (test code = RBCU) 0-1 #RBC/HPF 0-3 UA BACTERIA (test code = BACU) 1+ /HPF NONE-TRACE A UA SQUAMOUS CELLS (test code = SQU) TRACE /HPF NONE UA CULTURE NEEDED? (test code = UACULT) NO, WBC<10 Criteria Culture CHK Indication for culture: Suprapubic PainSOURCE OF URINE: MIDSTREAMCBC W/AUTO DIFF 2024-05-25 18:04:00* Test Item Value Reference Range Interpretation Comme nts WHITE BLOOD CELL (test code = WBC) 4.8 K/mm3 3.5-11.0 N RED BLOOD CELL (test code = RBC) 4.47 M/mm3 4.70-6.10 L HEMOGLOBIN (test code = HGB) 12.3 G/DL 10.4-14.9 N HEMATOCRIT (test code = HCT) 36.8 % 31.5-44.1 N MEAN CELL VOLUME (test code = MCV) 82.3 Fl 84.5-98.6 L MEAN CELL HGB (test code = MCH) 27.5 pg 27.0-34.2 N MEAN CELL HGB CONCETRATION (test code = MCHC) 33.4 G/DL 31.5-34.0 N RED CELL DISTRIBUTION WIDTH (test code = RDW) 13.1 SD 11.5-14.5 N PLATELET COUNT (test code = PLT) 226 K/mm3 150-450 N MEAN PLATELET VOLUME (test c ode = MPV) 9.30 fL 7.0-10.5 N NEUTROPHIL % (test code = NT%) 62.9 % 40-76 N IMMATURE GRANULOCYTE % (test code = IG%) 0.2 % 0.0-5.0 N LYMPHOCYTE % (test code = LY%) 25.7 % 20.5-51.1 N MONOCYTE % (test code = MO%) 5.0 % 1.7-9.3 N EOSINOPHIL % (test code = EO%) 5.8 % 0.0-6.0 N BASOPHIL % (test code = BA%) 0.4 % 0.0-2.0 N NUCLEATED RBC % (test code = NRBC%) 0.0 /100WBC% 0.0-1.0 N NEUTROPHIL # (test code = NT#) 3.0 K/mm3 1.8-7.6 N IMMATURE GRANULOCYTE # (test code = IG#) 0.01 x10 3/uL 0.00-0.03 N LYMPHOCYTE # (test code = LY#) 1.2 K/mm3 0.6-3.2 N MONOCYTE # (test code = MO#) 0.2 K/mm3 0.3-1.1 L EOSINOPHIL # (test code = EO#) 0.3 K/mm3 0.0-0.4 N BASOPHIL # (test code = BA#) 0.0 K/mm3 0.0-0.1 N NUCLEATED RBC # (test code = NRBC#) 0.0 K/mm3 0.0-0.1 N History and Physical Notes Date/Time Note Provider Source 2024-06-29 19:44:00 Soren Gramajo DO : [employer] Display: History and PhysicalAuthored Date: [id number] and Physical Primary Team Name:Team Contact Info:PCP Contact info:Family contact info: Code Status: None Specified=FULL CODE Chief Complaint: C/o pain around wound area around abdomen s/p skin graft in February 2024. Pt c/o fever at home, nausea. +wound draining and +foul smell. PMH: Asthma, Migraine, History of Present Illness: 49-year-old female with past medical history of asthma, abdominoplasty with infection status post skin graft December 2023 presents to the emergency department for wound infection. Patient reports worsening pain, redness and discharge from the wound over the last week. Reports fever, chills, nausea and vomiting. Patient underwent abdominoplasty in December 2023. 2 days after the abdominoplasty developed infection with necrosis for which she had surgical debridement with skin graft. Reports she was in the hospital in [place] at that time for 2 months. She was seen in February at [facility] for infection again and had a's skin biopsy done at that time. In ER vital stable. Abdominal CT largely unremarkable regarding infection. Given vancomycin and ceftriaxone. Evaluated by general surgery with no plans for surgical intervention Review of Systems: General: Denies fevers, weight loss, night sweatsHEENT: Denies visual changes, hearing changes, sore throat, headache, nasal dischargeLymphatic: Denies swellings in neck, or lumps underneath skinEndocrine: Denies heat or cold intolerance, sweating, increased thirst or increased urinary frequency, skin pigmentationPulmonary: Denies shortness of breath or wheezing. Denies cough or hemoptysis.Cardiovascular: Denies chest pain, palpitations. Denies lower extremity edema.Gastroenterology: Denies nausea, vomiting, diarrhea or constipation. Denies abdominal pain, changes in bowel habits or characteristics. Denies heartburn. Denies blood in stool or dark stool.Genitourinary: Denies genital lesions including foul discharge.Renal: Denies decreased urination or changes in urine composition including cloudiness, blood in urine or frothiness.Musculoskeletal: Denies arthritis, joint swelling, muscle pain.Integumentary: Abdominal woundPsychiatry: Denies suicidal or homicidal ideations. Reports no depression or anxiety. Problem List/Past Medical History: Ongoing No qualifying data Social History: Electronic Cigarette/Vaping Electronic Cigarette Use: Never. Tobacco Use: Never smoker. Tobacco smoke exposure: None. Did the Patient Smoke Cigarettes Anytime During the Last 365 Days? No. Cessation Counseling Provided? No. Allergies: Toradol aspirin ibuprofen Home Medications: No active home medications Physical Exam: Vitals and Measurements T: 98.9 F (Oral) TMIN: 98.4 F (Oral) TMAX: 98.9 F (Oral) HR: 92 (Apical) RR: 22 BP: 153/77 SpO2: 99% WT: 70.5 kg BMI: 30.35 General: Alert, Awake, in no acute distressChest: Clear to auscultation bilaterally, without adventitious sounds.Heart: Regular rate and rhythm, without auscultated murmurs, rubs or gallopsAbdomen: Soft, nontender, nondistended, normal active bowel soundsSkin: Abdominoplasty wound with erythema and tenderness, no significant dischargeNeurologic: Cranial nerves 2-12 grossly intact. No observed motor deficits. Strength is 5/5 throughout. Sensation grossly intact. Speech is normal.Extremities: No clubbing cyanosis or edema Pertinent Labs: I personally reviewed labs Pertinent Imaging: I have personally reviewed imaging Assessment/Plan: 1. Cellulitis (L03.90) 2. Abdominal wound dehiscence (T81.30XA) 3. S/P abdominoplasty (Z98.890) 49-year-old status post abdominoplasty in December presenting with recurrent surgical wound infection Continue with ceftriaxone and vancomycinBlood culturesWound care consultPain control Prophylaxis Ambulatory Disposition Discharge once blood trays are clear and wound care Soren Zamudio DOElectronically Signed: 06/27/24 19:12 [facility] Notes Date/Time Note Provider Source 2024-09-26 09:47:50 Chief Complaint Patient presents with Physical Patient here for physical. She is fasting. [facility] 2024-07-25 17:18:00 [facility] ([facility]) EMERGENCY PROVIDER REPORT REPORT#:[id number] REPORT STATUS: Signed DATE:07/25/24 TIME:1717 PATIENT: ETHAN GARCIA UNIT #: [id number] ROOM/BED: : 73 AGE: 49 SEX: F PCP PHYS: Klever Velázquez DO SERVICE AUTHOR: Molly Espino MD REP SRV REP SRV TM: 1718 * ALL edits or amendments must be made on the electronic/computer document * HPI-General Illness General Initial Greet Date/Time 07/25/24 1559 Presentation Chief Complaint malfunctioning midline catheter Free Text HPI Notes Free Text HPI Notes 50 year old female with a history of abdominoplasty complicated by wound infection, s/p reconstructive grafts on IV antibiotics who presents with an infiltrated midline catheter. There is leakage of fluid and swelling around the catheter. Review of Systems ROS Statements All systems rev neg except as marked. Past Medical History - Adult Stated Complaint REF DOC GEOVANNY NAIK PICC LINE Allergies Coded Allergies: aspirin (Mild, RASH 07/25/24) ketorolac (From TORADOL) (Mild, RASH 07/25/24) ibuprofen (THROAT SWELLING 07/25/24) Home Medications Active Scripts traMADol (ULTRAM) 50 MG PO Q6H PRN PRN ACUTE PAIN traMADol (ULTRAM) 50 MG PO Q6H PRN PRN ACUTE PAIN #10 TABS Prov: 07/19/24 Reported Medications LORazepam (ATIVAN) 2 MG PO BEDTIME PRN PRN AGITATION PARoxetine HCL (PAXIL) 20 MG PO DAILY QUEtiapine (SEROquel) 50 MG PO BEDTIME ZOLPIDEM (AMBIEN) 10 MG PO BEDTIME traZODone (DESYREL) 300 MG PO BEDTIME Calculated Suicide Risk (nurs) No risk Past Medical History: Reports: Depression/mood disorder. Alcohol Use Denies EtOH use Drug Use Denies recreational drugs Smoking status for patients 13 years old or older: Never Smoker Physical Exam Vital Signs Review of Vital Signs Reviewed Free Text PE Notes Free Text PE Notes Patient in no apparent distress. Alert and awake. Normocephalic, atraumatic. Conjunctiva clear. Unlabored breathing. Abdomen nondistended. No limb deformities. Moving all extremities. Normal speech. No rash. Appropriate mood and affect. Right upper extremity catheter in place with surrounding soft tissue swelling. No erythema or warmth Interpretation Diagnostics Lab Results Interpretation Lab Statement Laboratory studies reviewed and considered in the medical decision-making. Re-Evaluation MDM Free Text MDM Notes Free Text MDM Notes 49-year-old female who presents with a malfunctioning midline catheter. Vascular access team was consulted and the catheter was exchanged. She is stable for discharge ED Course Medication(s) Ordered Medication(s) Ordered: Cardiovascular Drugs Sig/Ever Start time Last Medication Dose Route Stop Time Status Admin Lidocaine HCl 5 ML ONCE ONE 07/25 1800 DC LOCAL 07/25 1801 Electrolytic, Caloric, And Faye Sig/Ever Start time Last Medication Dose Route Stop Time Status Admin Sodium Chloride 10 ML BID 07/25 2100 AC IV 08/24 2059 Sodium Chloride 10 ML ASDIR PRN 07/25 1800 AC IV 08/24 1759 Differential Diagnosis Differential Diagnosis catheter migration, infiltrated IV access site Patient Discharge Departure Vital Signs/Condition Vital Signs All vital signs available at the time of this entry have been reviewed. Clinical Impression Clinical Impression Primary Impression: Need for intravenous access Disposition Decision Discharge )( Discharged to Home Yes )( Time 1840 )( Date 07/25/24 Discharge/Care Plan Counseled Regarding Diagnosis, Need for follow-up, When to return to ED Patient Instructions ED Cellulitis, ED Well Adult Exam GCDV Discharge Note I have spoken with the patient and/or caregivers. I have explained the patient's condition, diagnoses and treatment plan based on the information available to me at this time. I have answered the patient's and/or caregiver's questions and addressed any concerns. The patient and/or caregivers have as good an understanding of the patient's diagnosis, condition and treatment plan as can be expected at this point. The vital signs have been stable. The patient's condition is stable and appropriate for discharge from the emergency department. The patient will pursue further outpatient evaluation with the primary care physician or other designated or consulting physician as outlined in the discharge instructions. The patient and/or caregivers are agreeable to this plan of care and follow-up instructions have been explained in detail. The patient and/or caregivers have received these instructions in written format and have expressed an understanding of the discharge instructions. The patient and/or caregivers are aware that any significant change in condition or worsening of symptoms should prompt an immediate return to this or the closest emergency department or a call to 911. at 1842 RPT #: [id number] END OF REPORT [facility] 2024-07-19 14:24:00 [facility] Infectious Dis. Progress Note REPORT#:[id number] REPORT STATUS: Signed REPORT INITIALIZATION DATE:07/19/24 TIME:1423 PATIENT: ETHAN GARCIA UNIT #: [id number] ROOM/BED: [place] [address] : 73 AGE: 49 SEX: F ATTEND: Aris De La O MD ADM AUTHOR: Patrick Gaxiola MD REPT SERVICE DT/TIME: 07/19/241423 * ALL edits or amendments must be made on the electronic/computer document * Subjective Chief complaint: Abdominal wound HPI: Pt is on meropenem. WBC is normal. Review of Systems Constitutional: Denies: fever. Objective General VS/I O: Vital Signs Date Temp Pulse Resp B/P B/P Mean Pulse Ox FiO2 07/18-07/19 36.4-36.8 70-85 14-16 83-135/55-83 64.6-98.1 94-97 Last Documented: Result Date Time Pulse Ox 95 07/19 1206 B/P 107/71 07/19 1206 B/P Mean 83.3 07/19 1206 Pulse 75 07/19 1206 O2 Delivery Room air 07/19 1140 Temp 36.4 10 1140 Resp 14 07/19 1140 O2 Flow Rate 5 07/16 1055 Vital Signs: Date Time Temp Pulse Resp B/P B/P Pulse O2 O2 Flow FiO2 Mean Ox Delivery Rate 07/19 1206 75 107/71 83.3 95 07/19 1140 36.4 75 14 83/55 64.6 95 Room air 07/19 0725 36.6 70 14 129/83 98.1 96 Room air 07/19 0436 36.7 71 16 114/75 87.8 97 07/19 0001 36.5 85 16 107/70 82.2 95 07/18 1911 84 14 135/78 97.4 97 Room air 07/18 1608 36.8 77 14 95/63 73.6 94 Room air 24 hour I O ending at 0700: 07/19 0700 07/18 1900 Intake Total 500 720 Output Total Balance 500 720 Intake, Oral 500 720 Number Voids 2 PATIENT WEIGHT: Weight (lb): Weight (oz): Weight (kg): 71.818 Physical Exam General appearance: alert, awake Head/Eyes: atraumatic, clear cornea, normal conjunctiva/sclera, normal eyelids/ periorb, normocephalic Neck: full range of motion, non-tender, supple/no meningismus Cardiovascular: regular rate rhythm Respiratory: symmetric expansion, no distress Abdomen: Abdominal skin graft with TTP, edema and erythema (which is chronic), no pus Extremities: no clubbing, no cyanosis Neuro/SPEECH PATHOLOGY TEACHER: alert, oriented X 3, normal speech Skin: normal turgor Diagnosis, Assessment Plan Free Text A P: Laboratory Tests 07/19/24 0746: [Embedded Image Not Available] 07/18/24 0916: [Embedded Image Not Available] Assessment: 1. 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 Wound cx showed ESBL P. vulgaris (S=ciprofloxacin), P. mirabilis ( S=ciprofloxacin, cefazolin), and enterococcus. 2. S/p debridement down to fascia 07/16/24. 3. S/p debridement and tissue biopsy 05/28/24. Tissue cxs showed Proteus, Prevotella, E. faecali and Morganella. AFB cx neg. Fungal cx showed Penicillium, most likely a contaminant. Pt has been on cefdinir and Augmentin as outpt. 4. H/o abdominoplasty. Plan: 1. Meropenem (day 6). 2. Duration: 14 days from surgery. End date 07/31/24. 3. Midline before discharge. 4. Surgery following. 5. Monitor CBC and kidney function. 6. Wound care. 7. Dermatology evaluation would be helpful, this was discussed with the pt. 8. CM consulted to arrange home IV abx. at 1443 RPT #: [id number] END OF REPORT [facility] 2024-07-19 14:13:00 [facility] ([facility]) Wound Care Progress Note REPORT#:[id number] REPORT STATUS: Signed REPORT INITIALIZATION DATE:07/19/24 TIME:1412 PATIENT: ETHAN GARCIA UNIT #: [id number] ROOM/BED: [place] [address] : 73 AGE: 49 SEX: F ATTEND: Aris De La O MD ADM AUTHOR: Balwinder Dow MD REPT SERVICE DT/TIME: 07/19/241412 * ALL edits or amendments must be made on the electronic/computer document * Subjective Chief complaint: Wound Care HPI: no acute events. Dressings done prior to my arrival Patient reports: Yes: able to communicate, feeling better, pain controlled. No: drainage from wound. Objective General VS: Last Documented: Result Date Time Pulse Ox 95 07/19 1206 B/P 107/71 07/19 1206 B/P Mean 83.3 07/19 1206 Pulse 75 07/19 1206 O2 Delivery Room air 07/19 1140 Temp 97.5 07/19 1140 Resp 14 07/19 1140 O2 Flow Rate 5 07/16 1055 PATIENT WEIGHT: Weight (lb): Weight (oz): Weight (kg): 71.818 Medications: Active Meds + DC'd Last 24 Hrs Morphine Sulfate (morphine Sulfate) 2 MG Q4H PRN PRN IV Metoclopramide HCl (REGLAN) 10 MG AC HS PO Docusate Sodium (COLACE) 100 MG BID PO Pregabalin (LYRICA) 75 MG BID PO (DC) Ondansetron HCl (ZOFRAN) 8 MG Q8H PRN PRN PO Ondansetron HCl (ZOFRAN) 8 MG Q8H PRN PRN IV Sodium Hypochlorite (DAKIN'S 1/4 (0.125%) STRENGTH) 1 APPLIC Q12H TOPICAL Meropenem (MERREM) 500 MG Q6H IV Sterile Water (WATER FOR INJECTION) 10 ML Enoxaparin Sodium (lovENOX) 40 MG Q24H SUBQ Trazodone HCl (DESYREL) 300 MG BEDTIME PO Paroxetine HCl (PAXIL) 20 MG DAILY PO Acetaminophen (TYLENOL) 650 MG Q6H PRN PRN PO Hydrocodone Bitart/Acetaminophen (NORCO 7.5/325) 1 TAB Q6H PRN PRN PO Lorazepam (ATIVAN) 2 MG BEDTIME PRN PRN PO Dietitian Nutrition assessment The data set between the solid lines has been imported from the dietitian's assessment. BMI Calculated: 27.2 Nutrition related diagnosis: Obese Nutrition diagnosis details: BMI 30-39.9 Nutrition problem: Increased nutrient needs Nutrition etiology: Acute illness Nutrition signs and symptoms: Non-healing wound Nutrition prescription: 1) Continue regular diet as tolerated 2) Ensure HP BID, Tomy BID for wound 3) Encourage oral intake of food/supplements Dietitian name: Ailyn Albert, DIET Assessment completed: 07/18/24 Physical Exam General appearance: chronically ill appearing Head/eyes: atraumatic Neck: no JVD Cardiovascular: no rub Respiratory: no distress Abdomen: non-tender Extremities: no edema Neuro/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 Chronic abdominal wound infection ok from wound care standpoint for discharge. Appreciate Dr. Menezes. Cont with dakin's then place ABD pad. Carry this out once per RN shift. Appreciate ID and surgery. f/u CM for home health order 2. Skin graft failure appreciate surgery for salvaging the graft monitor 3. Multiple excoriations stable, cont to leave open to air 4. Obesity no pressure wounds so far. turn every 2 hours to prevent pressure wounds at 1414 RPT #: [id number] END OF REPORT [facility] 2024-07-19 11:48:00 [facility] ([facility]) Hospitalist Discharge Summary REPORT#:[id number] REPORT STATUS: Signed REPORT INITIALIZATION DATE:07/19/24 TIME:114 PATIENT: ETHAN GARCIA UNIT #: [id number] ROOM/BED: [place] [address] : 73 AGE: 49 SEX: F ATTEND: Aris De La O MD ADM AUTHOR: Genevieve Pozo REPT SERVICE DT/TIME: 07/19/24 1148 * ALL edits or amendments must be made on the electronic/computer document * General Information Date of admission: Observation Start Date: Date of admission: 07/11/24 Discharge date: 07/19/24 Discharge diagnosis: Infected abdominal wound with cellulitis Hx of hiatal hernia s/p sleeve gastrectomy and abdominoplasty complicated by necrotizing infection of abdominal walk and skin graft failure Hospital course: 49 y/o female with PMHx of hiatal hernia s/p sleeve gastrectomy and abdominoplasty with skin graft of left thigh in [facility] 12/2023 complicated by necrotizing infection of abdominal wall was admitted to the hospital for infected abdominal wall wound with cellulitis. Please refer to Grace Viramontes for further admission details. General surgery, wound care and Infectious Disease were all consulted on case. Pt underwent debridement down to fascia 07/16/24. ID recs to teat with IV meropenem abx for 14 days from date of surgery with end date . Case management was consulted and has arranged home health IV abx. Will discharge home with home health IV abx with PCP and surgery follow up. Med Rec Med Rec Discharge meds: Continue taking these medications: LORazepam (ATIVAN) 2 MG TAB 2 MILLIGRAM ORAL AT BEDTIME NEEDED. as needed for AGITATION Comments: #90 - SIG Obtained From [facility] PARoxetine HCL (PAXIL) 20 MG TAB 20 MILLIGRAM ORAL DAILY. Comments: #30 - SIG Obtained From [facility] QUEtiapine (SEROquel) 50 MG TAB 50 MILLIGRAM ORAL BEDTIME. Comments: #30 - SIG Obtained From [facility] ZOLPIDEM (AMBIEN) 10 MG TAB 10 MILLIGRAM ORAL BEDTIME. Comments: #30 - SIG Obtained From [facility] traZODone (TABITHAYREL) 300 MG TAB 300 MILLIGRAM ORAL BEDTIME. Objective VS/I O Last Documented: Result Date Time Pulse Ox 95 07/19 1140 B/P 83/55 07/19 1140 B/P Mean 64.6 07/19 1140 O2 Delivery Room air 07/19 1140 Temp 97.5 07/19 1140 Pulse 75 07/19 1140 Resp 14 07/19 1140 O2 Flow Rate 5 07/16 1055 24 hour I O ending at 0700: 07/19 0700 07/18 1900 Intake Total 500 720 Output Total Balance 500 720 Intake, Oral 500 720 Number Voids 2 General appearance: alert, awake, no acute distress Head/Eyes: atraumatic, normocephalic ENT: moist mucosal membranes, normal dentition Cardiovascular: normal heart sounds, regular rate rhythm Respiratory: symmetric expansion, no distress Abdomen: tenderness, abdominal dressing in place c/d/i Extremities: moves all, no edema Neuro/SPEECH PATHOLOGY TEACHER: alert, normal speech Psychiatry: normal affect, normal mood Results Findings/Data: Laboratory Tests: 07/19 0746 Chemistry Sodium (136 - 145 mmol/L) 140 Potassium (3.4 - 5.0 mmol/L) 4.4 Chloride (98 - 107 mmol/L) 104 Carbon Dioxide (21 - 32 mmol/L) 33 H Anion Gap (4 - 15 GAP calc) 3 L BUN (7 - 18 MG/DL) 16 Creatinine (0.6 - 1.0 MG/DL) 0.7 Glomerular Filtr Rate (>60 estGFR) >=60 max estimate Glucose (70 - 110 MG/DL) 97 Calcium (8.5 - 10.1 MG/DL) 8.8 Hematology WBC (3.5 - 11.0 K/mm3) 3.9 RBC (4.70 - 6.10 M/mm3) 3.97 L Hgb (10.4 - 14.9 G/DL) 10.0 L Hct (31.5 - 44.1 %) 31.9 MCV (84.5 - 98.6 Fl) 80.4 L MCH (27.0 - 34.2 pg) 25.2 L MCHC (31.5 - 34.0 G/DL) 31.3 L RDW (11.5 - 14.5 SD) 13.9 Plt Count (150 - 450 K/mm3) 168 MPV (7.0 - 10.5 fL) 9.00 Neut % (Auto) (40 - 76 %) 50.3 Lymph % (Auto) (20.5 - 51.1 %) 33.8 Morgan % (Auto) (1.7 - 9.3 %) 9.5 H Eos % (Auto) (0.0 - 6.0 %) 5.6 Baso % (Auto) (0.0 - 2.0 %) 0.5 Neut # (Auto) (1.8 - 7.6 K/mm3) 2.0 Lymph # (Auto) (0.6 - 3.2 K/mm3) 1.3 Morgan # (Auto) (0.3 - 1.1 K/mm3) 0.4 Eos # (Auto) (0.0 - 0.4 K/mm3) 0.2 Baso # (Auto) (0.0 - 0.1 K/mm3) 0.0 Abs Immat Gran (auto) (0.00 - 0.03 x10 3/uL) 0.01 Immature Gran % (0.0 - 5.0 %) 0.3 Nucleated RBC % (0.0 - 1.0 /100WBC%) 0.0 Discharge Instructions PCP PCP follow-up: PCP: Klever Velázquez DO Discharge to: Home Health [facility] Additional Discharge Routines: PCP Follow-Up, Contract Implementation Analyst Follow-Up Diet: Regular Discharge management: face to face encounter, discharge time 32 minutes Follow-up Appointments PCP follow-up: PCP: Klever Velázquez DO PCP follow up timeframe: In 1-2 weeks Consulting provider 1: Provider 1: Balwinder Dow MD Specialty: Nephrology Consult follow up timeframe: In 1-2 weeks Consulting provider 2: Provider 2: Mario Menezes MD Specialty: Colon and Rectal Surgery Follow up timeframe: In 3-4 weeks at 1200 at 1414 RPT #: [id number] END OF REPORT [facility] 2024-07-18 17:28:00 [facility] ([facility]) Wound Care Progress Note REPORT#:[id number] REPORT STATUS: Signed REPORT INITIALIZATION DATE:07/18/24 TIME:1727 PATIENT: ETHAN GARCIA UNIT #: [id number] ROOM/BED: [place] [address] : 73 AGE: 49 SEX: F ATTEND: Aris De La O MD ADM AUTHOR: Balwinder Dow MD REPT SERVICE DT/TIME: 07/18/241727 * ALL edits or amendments must be made on the electronic/computer document * Subjective Chief complaint: Wound Care HPI: dispo planning is underway Patient reports: Yes: able to communicate, feeling better, pain controlled. No: drainage from wound. Objective General VS: Last Documented: Result Date Time Pulse Ox 94 07/18 1608 B/P 95/63 07/18 1608 B/P Mean 73.6 07/18 1608 O2 Delivery Room air 07/18 160 Temp 98.2 07/18 1608 Pulse 77 07/18 1608 Resp 14 07/18 1608 O2 Flow Rate 5 07/16 1055 PATIENT WEIGHT: Weight (lb): Weight (oz): Weight (kg): 71.818 Medications: Active Meds + DC'd Last 24 Hrs Morphine Sulfate (morphine Sulfate) 2 MG Q4H PRN PRN IV Metoclopramide HCl (REGLAN) 10 MG AC HS PO Docusate Sodium (COLACE) 100 MG BID PO Pregabalin (LYRICA) 75 MG BID PO Ondansetron HCl (ZOFRAN) 8 MG Q8H PRN PRN PO Ondansetron HCl (ZOFRAN) 8 MG Q8H PRN PRN IV Sodium Hypochlorite (DAKIN'S 1/4 (0.125%) STRENGTH) 1 APPLIC Q12H TOPICAL Meropenem (MERREM) 500 MG Q6H IV Sterile Water (WATER FOR INJECTION) 10 ML Enoxaparin Sodium (lovENOX) 40 MG Q24H SUBQ Trazodone HCl (DESYREL) 300 MG BEDTIME PO Paroxetine HCl (PAXIL) 20 MG DAILY PO Acetaminophen (TYLENOL) 650 MG Q6H PRN PRN PO Hydrocodone Bitart/Acetaminophen (NORCO 7.5/325) 1 TAB Q6H PRN PRN PO Lorazepam (ATIVAN) 2 MG BEDTIME PRN PRN PO Dietitian Nutrition assessment The data set between the solid lines has been imported from the dietitian's assessment. BMI Calculated: 27.2 Nutrition related diagnosis: Obese Nutrition diagnosis details: BMI 30-39.9 Nutrition problem: Increased nutrient needs Nutrition etiology: Acute illness Nutrition signs and symptoms: Non-healing wound Nutrition prescription: 1) Continue regular diet as tolerated 2) Ensure HP BID, Tomy BID for wound 3) Encourage oral intake of food/supplements Dietitian name: Ailyn Albert, DIET Assessment completed: 07/18/24 Physical Exam General appearance: obese Head/eyes: atraumatic Neck: no JVD Cardiovascular: no rub Respiratory: no distress Abdomen: non-tender Extremities: no edema Neuro/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 Chronic abdominal wound infection ok from wound care standpoint for discharge. Appreciate Dr. Menezes. Cont with dakin's then place ABD pad. Carry this out once per RN shift. Appreciate ID and surgery. f/u CM for home health order 2. Skin graft failure appreciate surgery for salvaging the graft monitor 3. Multiple excoriations stable, cont to leave open to air 4. Obesity turn every 2 hours to prevent pressure wounds at 1729 RPT #: [id number] END OF REPORT [facility] 2024-07-18 14:50:00 [facility] ([facility]) Infectious Dis. Progress Note REPORT#:[id number] REPORT STATUS: Signed REPORT INITIALIZATION DATE:07/18/24 TIME:1449 PATIENT: ETHAN GARCIA UNIT #: [id number] ROOM/BED: [place] [address] : 73 AGE: 49 SEX: F ATTEND: Aris De La O MD ADM AUTHOR: Patrick Gaxiola MD REPT SERVICE DT/TIME: 07/18/24 1450 * ALL edits or amendments must be made on the electronic/computer document * Subjective Chief complaint: Abdominal wound HPI: Pt is on meropenem. S/p debridment. Review of Systems Constitutional: Denies: fever. Objective Physical Exam General appearance: alert, awake Head/Eyes: atraumatic, clear cornea, normal conjunctiva/sclera, normal eyelids/ periorb, normocephalic Neck: full range of motion, non-tender, supple/no meningismus Cardiovascular: regular rate rhythm Respiratory: symmetric expansion, no distress Abdomen: Abdominal skin graft with TTP, edema and erythema (which is chronic), no pus Extremities: no clubbing, no cyanosis Neuro/SPEECH PATHOLOGY TEACHER: alert, oriented X 3, normal speech Skin: normal turgor Diagnosis, Assessment Plan Free Text A P: Laboratory Tests 07/18/24 0916: [Embedded Image Not Available] 07/17/24 1032: [Embedded Image Not Available] Assessment: 1. 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 Wound cx showed ESBL P. vulgaris (S=ciprofloxacin), P. mirabilis ( S=ciprofloxacin, cefazolin), and enterococcus. 2. S/p debridement down to fascia 07/16/24. 3. S/p debridement and tissue biopsy 05/28/24. Tissue cxs showed Proteus, Prevotella, E. faecali and Morganella. AFB cx neg. Fungal cx showed Penicillium, most likely a contaminant. Pt has been on cefdinir and Augmentin as outpt. 4. H/o abdominoplasty. Plan: 1. Meropenem (day 5). 2. Duration: 14 days from surgery. End date 07/31/24. 3. Midline before discharge. 4. Surgery following. 5. Monitor CBC and kidney function. 6. Wound care. 7. Dermatology evaluation would be helpful, this was discussed with the pt. 8. CM consulted to arrange home IV abx. at 1451 RPT #: [id number] END OF REPORT [facility] 2024-07-18 13:23:00 [facility]) Hospitalist Progress Note REPORT#:[id number] REPORT STATUS: Signed REPORT INITIALIZATION DATE:07/18/24 TIME:132 PATIENT: ETHAN GARCIA UNIT #: [id number] ROOM/BED: [place] [address] : 73 AGE: 49 SEX: F ATTEND: Aris De La O MD ADM AUTHOR: Genevieve Pozo REPT SERVICE DT/TIME: 07/18/24 1323 * ALL edits or amendments must be made on the electronic/computer document * Subjective Chief complaint: Abd pain HPI: no acute events overnight still having some abdominal pain, no N/V Review of Systems Constitutional: Denies: fever. Respiratory: Denies: SOB. Cardiovascular: Denies: chest pain. GI: Reports: abdominal pain. Denies: nausea, vomiting. Objective General VS/I O: Vital Signs: Date Time Temp Pulse Resp B/P B/P Pulse O2 O2 Flow FiO2 Mean Ox Delivery Rate 07/18 1159 97.9 78 14 111/72 84.6 93 Room air 07/18 0634 97.9 78 14 107/73 84.7 95 Room air 07/18 0438 16 07/18 0437 98.6 78 114/66 82.4 93 Room air 07/18 0014 98.4 85 100/66 77.1 93 Room air 07/17 2050 98.8 81 117/76 89.7 99 Room air 07/17 1540 97.5 78 14 104/66 78.7 98 Room air 24 hour I O ending at 0700: 07/18 0700 07/17 1900 Intake Total 600 480 Output Total Balance 600 480 Intake, Oral 600 480 Number Voids 3 PATIENT WEIGHT: Weight (lb): Weight (oz): Weight (kg): 71.818 Medications: Active Meds + DC'd Last 24 Hrs Morphine Sulfate (morphine Sulfate) 2 MG Q4H PRN PRN IV Metoclopramide HCl (REGLAN) 10 MG AC HS PO Docusate Sodium (COLACE) 100 MG BID PO Pregabalin (LYRICA) 75 MG BID PO Ondansetron HCl (ZOFRAN) 8 MG Q8H PRN PRN PO Ondansetron HCl (ZOFRAN) 8 MG Q8H PRN PRN IV Sodium Hypochlorite (DAKIN'S 1/4 (0.125%) STRENGTH) 1 APPLIC Q12H TOPICAL Morphine Sulfate (morphine SULFATE) 4 MG Q4H PRN PRN IV (DC) Meropenem (MERREM) 500 MG Q6H IV Sterile Water (WATER FOR INJECTION) 10 ML Enoxaparin Sodium (lovENOX) 40 MG Q24H SUBQ Trazodone HCl (DESYREL) 300 MG BEDTIME PO Paroxetine HCl (PAXIL) 20 MG DAILY PO Acetaminophen (TYLENOL) 650 MG Q6H PRN PRN PO Hydrocodone Bitart/Acetaminophen (NORCO 7.5/325) 1 TAB Q6H PRN PRN PO Lorazepam (ATIVAN) 2 MG BEDTIME PRN PRN PO Dietitian nutrition assessment The data set between the solid lines has been imported from the dietitian's assessment. BMI Calculated: 27.2 Nutrition related diagnosis: Overweight Nutrition diagnosis details: BMI 25-29.9 Nutrition problem: Increased nutrient needs Nutrition etiology: Acute illness Nutrition signs and symptoms: Non-healing wound Nutrition prescription: 1) Continue regular diet as tolerated 2) Ensure HP BID, Tomy BID for wound 3) Encourage oral intake of food/supplements Dietitian name: Ailyn Albert, DIET Assessment completed: 07/12/24 Physical Exam Head/Eyes: atraumatic, clear cornea, EOMI, normocephalic, PERRL ENT: normal ear left, normal ear right, normal nose Cardiovascular: normal capillary refill, normal heart sounds, regular rate rhythm Respiratory: aerating well, clear to auscultation, symmetric expansion Abdomen: obese, tenderness, Large wound Extremities: moves all, no clubbing, no cyanosis Neuro/SPEECH PATHOLOGY TEACHER: alert, oriented X 3, normal speech Psychiatry: normal affect, normal mood Diagnosis, Assessment Plan Free Text DxA P Notes Free text DxA P notes: 49 year old lady with a history of h/o hiatal hernia s/p sleeve gastrectomy and abdominoplasty in [facility] with skin graft from the left thigh, necrotizing infection of the abdominal wall and underwent multiple surgeries in [facility], admitted for: # Infected abdominal wound/cellulitis #H/o Gastrectomy #H/O abdominoplasty # Hiatal hernia #Necrotizing infection of the abdominal wall Pt states she had gastric sleeve surgery done December 2023 in [place] Failed outpatient treatment with cefdinir and Augmentin oral outpt Status post surgical I D 07/16/2024 Wound culture grew ESBL P. vulgaris Day 5 of 10 IV Merrem per ID Surgery and ID following, appreciate recs #Skin graft failure Needs to follow-up with plastic surgery upon discharge #Anxiety, depression, mood disorder Resume home medications DVT prophylaxis: Lovenox Full code Plan of care discussed with patient and all questions addressed Disposition Case management to assess for SNF vs home health for IV Merrem and wound care at 1329 at 1631 RPT #: [id number] END OF REPORT [facility] 2024-07-18 12:05:00 [facility] ([facility]) Colorectal Surgery Prog Note REPORT#:[id number] REPORT STATUS: Signed REPORT INITIALIZATION DATE:07/18/24 TIME:1205 PATIENT: ETHAN GARCIA UNIT #: [id number] ROOM/BED: [place] [address] : 73 AGE: 49 SEX: F ATTEND: Aris De La O MD ADM AUTHOR: Mario Menezes MD REPT SERVICE DT/TIME: 07/18/24 1205 * ALL edits or amendments must be made on the electronic/computer document * Subjective HPI: Patient is a 49 years old female with past medical history of hiatal hernia repair, history of sleeve gastrectomy who underwent abdominoplasty in [place], her postoperative course was complicated with necrotizing infection of the abdominal wall requiring return to the operating room and subsequently having multiple surgical intervention and lastly patient had skin graft from the left thigh. Patient has been having chronic nonhealing abdominal wound with multiple sinuses and the skin with intermittent and frequent discharge associated with pain. Patient was admitted recently to [facility] and was discharged with oral antibiotics patient completed oral antibiotics course without improvement of her symptoms. Patient was seen by her primary care physician who recommended her to come to emergency room for evaluation and treatment. Patient denies nausea or vomiting. Denies having fever or chills. Denies having rectal bleeding. Patient has no constipation. Comments: No n/v, no fever. Objective General VS/I O: Last Documented: Result Date Time Pulse Ox 93 07/18 115 B/P 111/72 07/18 1159 B/P Mean 84.6 07/18 115 O2 Delivery Room air 07/18 115 Temp 36.6 07/18 115 Pulse 78 07/18 1159 Resp 14 07/18 115 O2 Flow Rate 5 07/16 1055 24 hour I O ending at 0700: 07/18 0700 07/17 1900 Intake Total 600 480 Output Total Balance 600 480 Intake, Oral 600 480 Number Voids 3 PATIENT WEIGHT: Weight (lb): Weight (oz): Weight (kg): 71.818 Dietitian nutrition assessment The data set between the solid lines has been imported from the dietitian's assessment. BMI Calculated: 27.2 Nutrition related diagnosis: Overweight Nutrition diagnosis details: BMI 25-29.9 Nutrition problem: Increased nutrient needs Nutrition etiology: Acute illness Nutrition signs and symptoms: Non-healing wound Nutrition prescription: 1) Continue regular diet as tolerated 2) Ensure HP BID, Tomy BID for wound 3) Encourage oral intake of food/supplements Dietitian name: Ailyn Albert, DIET Assessment completed: 07/12/24 Physical Exam General appearance: alert, awake HEENT: anicteric, atraumatic, clear cornea Neck: full range of motion, non-tender Cardiovascular: normal capillary refill, normal heart sounds Respiratory: aerating well, clear to auscultation, equal breath sounds Abdomen: non-tender, normal bowel sounds, soft Extremities: moves all, normal capillary refill Musculoskeletal: full range of motion Neuro/SPEECH PATHOLOGY TEACHER: alert, oriented x 3 Skin: dry, intact Current Medications Medications: Active Meds + DC'd Last 24 Hrs Morphine Sulfate (morphine Sulfate) 2 MG Q4H PRN PRN IV Metoclopramide HCl (REGLAN) 10 MG AC HS PO Docusate Sodium (COLACE) 100 MG BID PO Pregabalin (LYRICA) 75 MG BID PO Ondansetron HCl (ZOFRAN) 8 MG Q8H PRN PRN PO Ondansetron HCl (ZOFRAN) 8 MG Q8H PRN PRN IV Sodium Hypochlorite (DAKIN'S 1/4 (0.125%) STRENGTH) 1 APPLIC Q12H TOPICAL Morphine Sulfate (morphine SULFATE) 4 MG Q4H PRN PRN IV (DC) Meropenem (MERREM) 500 MG Q6H IV Sterile Water (WATER FOR INJECTION) 10 ML Enoxaparin Sodium (lovENOX) 40 MG Q24H SUBQ Trazodone HCl (DESYREL) 300 MG BEDTIME PO Paroxetine HCl (PAXIL) 20 MG DAILY PO Acetaminophen (TYLENOL) 650 MG Q6H PRN PRN PO Hydrocodone Bitart/Acetaminophen (NORCO 7.5/325) 1 TAB Q6H PRN PRN PO Lorazepam (ATIVAN) 2 MG BEDTIME PRN PRN PO Results Findings/Data: Laboratory Tests 07/18/24915: [Embedded Image Not Available] Laboratory Tests 07/18 916 Hematology WBC (3.5 - 11.0 K/mm3) 4.0 RBC (4.70 - 6.10 M/mm3) 3.73 L Hgb (10.4 - 14.9 G/DL) 9.7 L Hct (31.5 - 44.1 %) 30.5 L MCV (84.5 - 98.6 Fl) 81.8 L MCH (27.0 - 34.2 pg) 26.0 L MCHC (31.5 - 34.0 G/DL) 31.8 RDW (11.5 - 14.5 SD) 13.9 Plt Count (150 - 450 K/mm3) 158 MPV (7.0 - 10.5 fL) 9.50 Neut % (Auto) (40 - 76 %) 55.5 Lymph % (Auto) (20.5 - 51.1 %) 27.7 Morgan % (Auto) (1.7 - 9.3 %) 11.9 H Eos % (Auto) (0.0 - 6.0 %) 4.2 Baso % (Auto) (0.0 - 2.0 %) 0.5 Neut # (Auto) (1.8 - 7.6 K/mm3) 2.2 Lymph # (Auto) (0.6 - 3.2 K/mm3) 1.1 Morgan # (Auto) (0.3 - 1.1 K/mm3) 0.5 Eos # (Auto) (0.0 - 0.4 K/mm3) 0.2 Baso # (Auto) (0.0 - 0.1 K/mm3) 0.0 Abs Immat Gran (auto) (0.00 - 0.03 x10 3/uL) 0.01 Immature Gran % (0.0 - 5.0 %) 0.2 Nucleated RBC % (0.0 - 1.0 /100WBC%) 0.0 Diagnosis, Assessment Plan Free Text A P: Patient is a 49 years old female with past medical history of hiatal hernia repair, history of sleeve gastrectomy who underwent abdominoplasty in [place], her postoperative course was complicated with necrotizing infection of the abdominal wall requiring return to the operating room and subsequently having multiple surgical intervention and lastly patient had skin graft from the left thigh. Patient has been having chronic nonhealing abdominal wound with multiple sinuses and the skin with intermittent and frequent discharge associated with pain. Patient was admitted recently to [facility] and was discharged with oral antibiotics patient completed oral antibiotics course without improvement of her symptoms. Patient was seen by her primary care physician who recommended her to come to emergency room for evaluation and treatment. Patient denies nausea or vomiting. Denies having fever or chills. Denies having rectal bleeding. Patient has no constipation. Patient had a chronic uncomplicated condition of nonhealing chronic wound of the abdominal wall, it is located in the lower portion of the abdomen, patient has left the hospital approximately 4 months ago and since then this wound has not been healing, there is multiple sinuses within the abdominal wound in addition to some areas of granulation tissue, the wound extend over a distance of approximately 15 x 25 cm. I had detailed discussion with the patient regarding her symptoms, discussed with her the plan for IV antibiotics, local wound care, in addition to that, but patient would benefit from debridement of abdominal wall nonhealing wound and multiple skin sinuses, required with the patient that the wound may take several weeks to heal, I reviewed the abdomen and pelvis CT scan and it does not appear there is any fistulization of the bowel to the wound at this time. PROCEDURE PERFORMED: Excisional debridement of infected and chronic abdominal wound. A total area of the debridement is 16 x 12 cm, including skin, subcutaneous tissue, superficial fascia. Recommendations Pain control as needed Local wound care IV antibiotics DVT prophylaxis GI prophylaxis Diet as tolerated GI regimen Monitor H H, transfuse as needed Outpatient colonoscopy for anemia workup D/C planning at 1845 RPT #: [id number] END OF REPORT [facility] 2024-07-17 20:31:00 [facility] Colorectal Surgery Prog Note REPORT#:[id number] REPORT STATUS: Signed REPORT INITIALIZATION DATE:07/17/24 TIME:2030 PATIENT: YIFAN ZARCOMaameMOLLY UNIT #: [id number] ROOM/BED: [place] [address] : 73 AGE: 49 SEX: F ATTEND: Aris De La O MD ADM AUTHOR: Mario Menezes MD REPT SERVICE DT/TIME: 07/17/242030 * ALL edits or amendments must be made on the electronic/computer document * Subjective HPI: Patient is a 49 years old female with past medical history of hiatal hernia repair, history of sleeve gastrectomy who underwent abdominoplasty in [place], her postoperative course was complicated with necrotizing infection of the abdominal wall requiring return to the operating room and subsequently having multiple surgical intervention and lastly patient had skin graft from the left thigh. Patient has been having chronic nonhealing abdominal wound with multiple sinuses and the skin with intermittent and frequent discharge associated with pain. Patient was admitted recently to [facility] and was discharged with oral antibiotics patient completed oral antibiotics course without improvement of her symptoms. Patient was seen by her primary care physician who recommended her to come to emergency room for evaluation and treatment. Patient denies nausea or vomiting. Denies having fever or chills. Denies having rectal bleeding. Patient has no constipation. Objective General Dietitian nutrition assessment The data set between the solid lines has been imported from the dietitian's assessment. BMI Calculated: 27.2 Nutrition related diagnosis: Overweight Nutrition diagnosis details: BMI 25-29.9 Nutrition problem: Increased nutrient needs Nutrition etiology: Acute illness Nutrition signs and symptoms: Non-healing wound Nutrition prescription: 1) Continue regular diet as tolerated 2) Ensure HP BID, Tomy BID for wound 3) Encourage oral intake of food/supplements Dietitian name: Ailyn Albert, DIET Assessment completed: 07/12/24 Physical Exam General appearance: alert, awake HEENT: anicteric, atraumatic, clear cornea Neck: full range of motion, non-tender Cardiovascular: normal capillary refill, normal heart sounds Respiratory: aerating well, clear to auscultation, equal breath sounds Abdomen: non-tender, normal bowel sounds, soft Extremities: moves all, normal capillary refill Musculoskeletal: full range of motion Neuro/SPEECH PATHOLOGY TEACHER: alert, oriented x 3 Skin: dry, intact Current Medications Medications: Active Meds + DC'd Last 24 Hrs Metoclopramide HCl (REGLAN) 10 MG AC HS PO Docusate Sodium (COLACE) 100 MG BID PO Pregabalin (LYRICA) 75 MG BID PO Hydrocodone Bitart/Acetaminophen (NORCO 5/325) 1 TAB PACU ONCE PRN PO ( DC) Hydrocodone Bitart/Acetaminophen (NORCO 10/325) 1 TAB PACU ONCE PRN PO ( DC) Hydromorphone HCl (DILAUDID) 0.2 MG PACU Q10MIN PRN PRN IV (DC) Labetalol HCl (TRANDATE) 5 MG PACU Q10MIN PRN PRN IV (DC) Lactated Ringer's (LACTATED RINGERS) 1,000 ML ASDIR IV (DC) Meperidine HCl (DEMEROL) 12.5 MG PACU ONCE PRN IV (DC) Ondansetron HCl (ZOFRAN) 4 MG PACU ONCE PRN IV (DC) Ondansetron HCl (ZOFRAN) 8 MG Q8H PRN PRN PO Ondansetron HCl (ZOFRAN) 8 MG Q8H PRN PRN IV Sodium Hypochlorite (DAKIN'S 1/4 (0.125%) STRENGTH) 1 APPLIC Q12H TOPICAL Morphine Sulfate (morphine SULFATE) 4 MG Q4H PRN PRN IV (DC) Meropenem (MERREM) 500 MG Q6H IV Sterile Water (WATER FOR INJECTION) 10 ML Enoxaparin Sodium (lovENOX) 40 MG Q24H SUBQ Trazodone HCl (DESYREL) 300 MG BEDTIME PO Paroxetine HCl (PAXIL) 20 MG DAILY PO Acetaminophen (TYLENOL) 650 MG Q6H PRN PRN PO Hydrocodone Bitart/Acetaminophen (NORCO 7.5/325) 1 TAB Q6H PRN PRN PO Lorazepam (ATIVAN) 2 MG BEDTIME PRN PRN PO Results Findings/Data: Laboratory Tests 07/17/24 1032: [Embedded Image Not Available] Laboratory Tests 07/17 07/17 1032 1032 Chemistry Sodium (136 - 145 mmol/L) 142 Potassium (3.4 - 5.0 mmol/L) 3.4 Chloride (98 - 107 mmol/L) 104 Carbon Dioxide (21 - 32 mmol/L) 30 Anion Gap (4 - 15 GAP calc) 8 BUN (7 - 18 MG/DL) 16 Creatinine (0.6 - 1.0 MG/DL) 0.6 Glomerular Filtr Rate (>60 estGFR) >=60 max estimate Glucose (70 - 110 MG/DL) 107 Calcium (8.5 - 10.1 MG/DL) 8.6 Serum , Qual (NEGATIVE SCREEN) SERUM NEGATIVE Laboratory Tests 07/17 1032 Hematology WBC (3.5 - 11.0 K/mm3) 3.8 RBC (4.70 - 6.10 M/mm3) 3.92 L Hgb (10.4 - 14.9 G/DL) 9.9 L Hct (31.5 - 44.1 %) 31.5 MCV (84.5 - 98.6 Fl) 80.4 L MCH (27.0 - 34.2 pg) 25.3 L MCHC (31.5 - 34.0 G/DL) 31.4 L RDW (11.5 - 14.5 SD) 13.6 Plt Count (150 - 450 K/mm3) 164 MPV (7.0 - 10.5 fL) 8.80 Neut % (Auto) (40 - 76 %) 69.3 Lymph % (Auto) (20.5 - 51.1 %) 21.9 Morgan % (Auto) (1.7 - 9.3 %) 5.9 Eos % (Auto) (0.0 - 6.0 %) 1.1 Baso % (Auto) (0.0 - 2.0 %) 0.5 Neut # (Auto) (1.8 - 7.6 K/mm3) 2.6 Lymph # (Auto) (0.6 - 3.2 K/mm3) 0.8 Morgan # (Auto) (0.3 - 1.1 K/mm3) 0.2 L Eos # (Auto) (0.0 - 0.4 K/mm3) 0.0 Baso # (Auto) (0.0 - 0.1 K/mm3) 0.0 Abs Immat Gran (auto) (0.00 - 0.03 x10 3/uL) 0.05 H Immature Gran % (0.0 - 5.0 %) 1.3 Nucleated RBC % (0.0 - 1.0 /100WBC%) 0.0 Interpretation I independently reviewed the [ ] and my interpretation is [ ] Diagnosis, Assessment Plan Free Text A P: Patient is a 49 years old female with past medical history of hiatal hernia repair, history of sleeve gastrectomy who underwent abdominoplasty in [place], her postoperative course was complicated with necrotizing infection of the abdominal wall requiring return to the operating room and subsequently having multiple surgical intervention and lastly patient had skin graft from the left thigh. Patient has been having chronic nonhealing abdominal wound with multiple sinuses and the skin with intermittent and frequent discharge associated with pain. Patient was admitted recently to [facility] and was discharged with oral antibiotics patient completed oral antibiotics course without improvement of her symptoms. Patient was seen by her primary care physician who recommended her to come to emergency room for evaluation and treatment. Patient denies nausea or vomiting. Denies having fever or chills. Denies having rectal bleeding. Patient has no constipation. Patient had a chronic uncomplicated condition of nonhealing chronic wound of the abdominal wall, it is located in the lower portion of the abdomen, patient has left the hospital approximately 4 months ago and since then this wound has not been healing, there is multiple sinuses within the abdominal wound in addition to some areas of granulation tissue, the wound extend over a distance of approximately 15 x 25 cm. I had detailed discussion with the patient regarding her symptoms, discussed with her the plan for IV antibiotics, local wound care, in addition to that, but patient would benefit from debridement of abdominal wall nonhealing wound and multiple skin sinuses, required with the patient that the wound may take several weeks to heal, I reviewed the abdomen and pelvis CT scan and it does not appear there is any fistulization of the bowel to the wound at this time. 07/16/2024:PROCEDURE PERFORMED: Excisional debridement of infected and chronic abdominal wound. A total area of the debridement is 16 x 12 cm, including skin, subcutaneous tissue, superficial fascia. Recommendations Pain control as needed Local wound care IV antibiotics DVT prophylaxis GI prophylaxis Diet as tolerated GI regimen Monitor H H, transfuse as needed Outpatient colonoscopy for anemia workup D/C planning at 1843 RPT #: [id number] END OF REPORT [facility] 2024-07-17 15:51:00 [facility] ([facility]) Wound Care Progress Note REPORT#:[id number] REPORT STATUS: Signed REPORT INITIALIZATION DATE:07/17/24 TIME:155 PATIENT: ETHAN GARCIA UNIT #: [id number] ROOM/BED: [place] [address] : 73 AGE: 49 SEX: F ATTEND: Aris De La O MD ADM AUTHOR: Balwinder Dow MD REPT SERVICE DT/TIME: 07/17/24 1551 * ALL edits or amendments must be made on the electronic/computer document * Subjective Chief complaint: Wound Care HPI: dressings done prior to my arrival. Discussed case with hospitalist and CM Unable to obtain: medical condition Objective General VS: Last Documented: Result Date Time Pulse Ox 98 07/17 1540 B/P 104/66 07/17 1540 B/P Mean 78.7 07/17 1540 O2 Delivery Room air 07/17 1540 Temp 97.5 07/17 1540 Pulse 78 07/17 1540 Resp 14 07/17 1540 O2 Flow Rate 5 07/16 1055 PATIENT WEIGHT: Weight (lb): Weight (oz): Weight (kg): 71.818 Medications: Active Meds + DC'd Last 24 Hrs Metoclopramide HCl (REGLAN) 10 MG AC HS PO Docusate Sodium (COLACE) 100 MG BID PO Pregabalin (LYRICA) 75 MG BID PO Hydrocodone Bitart/Acetaminophen (NORCO 5/325) 1 TAB PACU ONCE PRN PO ( DC) Hydrocodone Bitart/Acetaminophen (NORCO 10/325) 1 TAB PACU ONCE PRN PO ( DC) Hydromorphone HCl (DILAUDID) 0.2 MG PACU Q10MIN PRN PRN IV (DC) Labetalol HCl (TRANDATE) 5 MG PACU Q10MIN PRN PRN IV (DC) Lactated Ringer's (LACTATED RINGERS) 1,000 ML ASDIR IV (DC) Meperidine HCl (DEMEROL) 12.5 MG PACU ONCE PRN IV (DC) Ondansetron HCl (ZOFRAN) 4 MG PACU ONCE PRN IV (DC) Ondansetron HCl (ZOFRAN) 8 MG Q8H PRN PRN PO Ondansetron HCl (ZOFRAN) 8 MG Q8H PRN PRN IV Sodium Hypochlorite (DAKIN'S 1/4 (0.125%) STRENGTH) 1 APPLIC Q12H TOPICAL Morphine Sulfate (morphine SULFATE) 4 MG Q4H PRN PRN IV Meropenem (MERREM) 500 MG Q6H IV Sterile Water (WATER FOR INJECTION) 10 ML Enoxaparin Sodium (lovENOX) 40 MG Q24H SUBQ Trazodone HCl (DESYREL) 300 MG BEDTIME PO Paroxetine HCl (PAXIL) 20 MG DAILY PO Acetaminophen (TYLENOL) 650 MG Q6H PRN PRN PO Hydrocodone Bitart/Acetaminophen (NORCO 7.5/325) 1 TAB Q6H PRN PRN PO Lorazepam (ATIVAN) 2 MG BEDTIME PRN PRN PO Dietitian Nutrition assessment The data set between the solid lines has been imported from the dietitian's assessment. BMI Calculated: 27.2 Nutrition related diagnosis: Overweight Nutrition diagnosis details: BMI 25-29.9 Nutrition problem: Increased nutrient needs Nutrition etiology: Acute illness Nutrition signs and symptoms: Non-healing wound Nutrition prescription: 1) Continue regular diet as tolerated 2) Ensure HP BID, Tomy BID for wound 3) Encourage oral intake of food/supplements Dietitian name: Ailyn Albert, DIET Assessment completed: 07/12/24 Physical Exam General appearance: chronically ill appearing Head/eyes: atraumatic Neck: no JVD Cardiovascular: no rub Respiratory: no distress Abdomen: non-tender Extremities: no edema Neuro/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 Chronic abdominal wound infection ok from wound care standpoint for discharge. Appreciate Dr. Menezes. Cont with dakin's then place ABD pad. Carry this out once per RN shift. Appreciate ID and surgery. f/u CM for home health order 2. Skin graft failure appreciate surgery eval. 3. Multiple excoriations stable, cont to leave open to air 4. Obesity turn every 2 hours to prevent pressure wounds at 1553 RPT #: [id number] END OF REPORT [facility] 2024-07-17 14:54:00 [facility] ([facility]) Infectious Dis. Progress Note REPORT#:[id number] REPORT STATUS: Signed REPORT INITIALIZATION DATE:07/17/24 TIME:1453 PATIENT: ETHAN GARCIA UNIT #: [id number] ROOM/BED: [place] [address] : 73 AGE: 49 SEX: F ATTEND: Aris De La O MD ADM AUTHOR: Patrick Gaxiola MD REPT SERVICE DT/TIME: 07/17/241453 * ALL edits or amendments must be made on the electronic/computer document * Subjective Chief complaint: Abdominal wound HPI: Pt is on meropenem. S/p debridment. Review of Systems Constitutional: Denies: fever. Objective General VS/I O: Vital Signs Date Temp Pulse Resp B/P B/P Mean Pulse Ox FiO2 07/16-07/17 36.6-36.8 67-95 14-18 102-150/65-87 77.3-104.3 90-97 Last Documented: Result Date Time Pulse Ox 95 07/17 1051 B/P 102/65 07/17 1051 B/P Mean 77.3 07/17 1051 O2 Delivery Room air 07/17 1051 Temp 36.6 07/17 1051 Pulse 81 07/17 1051 Resp 14 07/17 1051 O2 Flow Rate 5 07/16 1055 Vital Signs: Date Time Temp Pulse Resp B/P B/P Pulse O2 O2 Flow FiO2 Mean Ox Delivery Rate 07/17 105 36.6 81 14 102/65 77.3 95 Room air 07/17 0635 36.8 79 14 117/76 89.8 95 Room air 07/17 0428 36.8 67 18 150/81 104.3 90 07/17 0001 36.6 95 18 120/73 89.0 97 07/16 2013 36.6 81 18 131/84 99.3 95 Room air 07/16 1628 36.7 75 14 130/87 101.0 97 Room air 24 hour I O ending at 0700: 07/17 0700 07/16 1900 Intake Total 400 Output Total Balance 400 Intake, Oral 400 Number 0 Bowel Movements Number Voids 1 PATIENT WEIGHT: Weight (lb): Weight (oz): Weight (kg): 71.818 Physical Exam General appearance: alert, awake Head/Eyes: atraumatic, clear cornea, normal conjunctiva/sclera, normal eyelids/ periorb, normocephalic Neck: full range of motion, non-tender, supple/no meningismus Cardiovascular: regular rate rhythm Respiratory: symmetric expansion, no distress Abdomen: Abdominal skin graft with TTP, edema and erythema (which is chronic), no pus Extremities: no clubbing, no cyanosis Neuro/SPEECH PATHOLOGY TEACHER: alert, oriented X 3, normal speech Skin: normal turgor Diagnosis, Assessment Plan Free Text A P: Laboratory Tests 07/17/24 1032: [Embedded Image Not Available] Assessment: 1. 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 Wound cx showed ESBL P. vulgaris (S=ciprofloxacin), P. mirabilis ( S=ciprofloxacin, cefazolin), and enterococcus. 2. S/p debridement down to fascia 07/16/24. 3. S/p debridement and tissue biopsy 05/28/24. Tissue cxs showed Proteus, Prevotella, E. faecali and Morganella. AFB cx neg. Fungal cx showed Penicillium, most likely a contaminant. Pt has been on cefdinir and Augmentin as outpt. 4. H/o abdominoplasty. Plan: 1. Meropenem (day 4). 2. Duration: 14 days from surgery. 3. Midline before discharge. 4. Surgery following. 5. Monitor CBC and kidney function. 6. Wound care. 7. Dermatology evaluation would be helpful, this was discussed with the pt. at 1424 RPT #: [id number] END OF REPORT [facility] 2024-07-17 12:38:00 [facility]) Hospitalist Progress Note REPORT#:[id number] REPORT STATUS: Signed REPORT INITIALIZATION DATE:07/17/24 TIME:1237 PATIENT: ETHAN GARCIA UNIT #: [id number] ROOM/BED: [place] [address] : 73 AGE: 49 SEX: F ATTEND: Aris De La O MD ADM AUTHOR: Allyson Ayala MSN REPT SERVICE DT/TIME: 07/17/24 1238 * ALL edits or amendments must be made on the electronic/computer document * Allyson Ayala 07/17/24 1238: Subjective Chief complaint: Abd pain Review of Systems Constitutional: Reports: generalized weakness. Skin: Reports: other (abd wound). GI: Reports: abdominal pain. Musculoskeletal: Reports: extremity pain. All systems rev neg: except as noted Objective Physical Exam General appearance: alert, awake, oriented Head/Eyes: atraumatic, clear cornea, EOMI, normocephalic, PERRL ENT: normal ear left, normal ear right, normal nose Cardiovascular: normal capillary refill, normal heart sounds, regular rate rhythm Respiratory: aerating well, clear to auscultation, symmetric expansion Abdomen: obese, tenderness, Large wound Extremities: moves all, no clubbing, no cyanosis Musculoskeletal: normal inspection Neuro/SPEECH PATHOLOGY TEACHER: alert, oriented X 3, normal speech Skin: dry, Abd with ABD dressing Psychiatry: normal affect, normal mood Diagnosis, Assessment Plan Free Text DxA P Notes Free text DxA P notes: 49 year old lady with a history of h/o hiatal hernia s/p sleeve gastrectomy and abdominoplasty in [facility] with skin graft from the left thigh, necrotizing infection of the abdominal wall and underwent multiple surgeries in [facility], admitted for: # Infected abdominal wound/cellulitis #H/o Gastrectomy #H/O abdominoplasty # Hiatal hernia #Necrotizing infection of the abdominal wall - Pt states she had gastric sleeve surgery done december, in [place] Failed outpatient treatment with cefdinir and Augmentin oral outpt Status post surgical I D 07/16/2024 Wound culture grew ESBL P. vulgaris Day 4 of 10 IV Merrem per ID Surgery following Surgery and ID following #Skin graft failure Consult surgery to evaluate for take down of the graft. Needs to follow-up with plastic upon discharge #Anxiety, depression, mood disorder -Resume home medications DVT prophylaxis: Lovenox Full code Plan of care discussed with patient and all questions addressed Disposition Case management to assess for SNF vs home health for IV Merrem and wound care at 1244 at 1707 RPT #: [id number] END OF REPORT [facility] 2024-07-16 20:13:00 [id number] [facility] [id number] [place] [id number] PATIENT NAME: ETHAN GARCIA ADMIT DATE: 07/11/24 ACCOUNT NO: [id number] ROOM NO: [facility] AGE: 49 REPORT TYPE: OPERATIVE REPORT SEX: F ADMITTING PHYSICIAN: Aris De La O MD ATTENDING PHYSICIAN: Aris De La O MD OPERATION DATE: 07/16/2024 PREOPERATIVE DIAGNOSIS: Infected and chronic abdominal wound measuring approximately 25 x 14 cm. POSTOPERATIVE DIAGNOSIS: Infected and chronic abdominal wound measuring approximately 25 x 14 cm. PROCEDURE PERFORMED: Excisional debridement of infected and chronic abdominal wound. A total area of the debridement is 16 x 12 cm, including skin, subcutaneous tissue, superficial fascia. SURGEON: Mario Menezes MD FIBERGLASS DOWEL DRAWING OPERATOR: None. ANESTHESIA: General. COMPLICATIONS: None. FINDINGS OF THE PROCEDURE: There is multiple sinuses and chronic wounds in the lower abdominal wall around the site of abdominoplasty incision, excisional debridement was performed, old residual sponge material was noted in different sites of the wounds, an old stitch was identified creating granuloma effect. Debridement was performed including skin, subcutaneous tissue, superficial fascia. Hemostasis was satisfactory. PROCEDURE IN DETAIL: After obtaining an informed consent, explaining risks, benefits, alternatives of the procedure to the patient, the patient was brought to the operating room. The patient was placed on the operating room table in supine position . General anesthesia was induced. Abdomen was prepped and draped in the usual sterile fashion. Timeout was performed. We started the procedure by excisional debridement of the abdominal wall wound including the multiple sinuses, further debridement was performed sharply and we identified an old sponge-like material within the wound. This was debrided as well. Once that was completed, we used a curette to curette all the residual infected tissue. Once that was completed, hemostasis was confirmed. The wound was covered with a Xeroform dressing and 4 x 4 gauze. The procedure was completed. The patient tolerated the procedure and transferred to recovery room in stable condition. Dictated By: Mario Menezes MD PATIENT NAME: ETHAN GARCIA Date Dictated: 07/16/2024 20:13:04 Date Transcribed: 07/16/2024 21:23:09 BAKARI/ABHIJIT/YFN/MICHAEL Receipt ID: [id number] Authenticated and Edited by Marcelino Menezes MD On 10/02/24 6:41:19 PM at 0643 PATIENT NAME: ETHAN GARCIA [facility] 2024-07-16 14:07:00 [facility] ([facility]) Infectious Dis. Progress Note REPORT#:[id number] REPORT STATUS: Signed REPORT INITIALIZATION DATE:07/16/24 TIME:1406 PATIENT: ETHAN GARCIA UNIT #: [id number] ROOM/BED: [facility] : 73 AGE: 49 SEX: F ATTEND: Aris De La O MD ADM AUTHOR: Patrick Gaxiola MD REPT SERVICE DT/TIME: 07/16/24 5160 * ALL edits or amendments must be made on the electronic/computer document * Subjective Chief complaint: Abdominal wound HPI: Pt is on meropenem. Multiple bacteria grew in wound cx, inclusing ESBL organisms. Review of Systems Constitutional: Denies: fever. Objective Physical Exam General appearance: alert, awake Head/Eyes: atraumatic, clear cornea, normal conjunctiva/sclera, normal eyelids/ periorb, normocephalic Neck: full range of motion, non-tender, supple/no meningismus Cardiovascular: regular rate rhythm Respiratory: symmetric expansion, no distress Abdomen: Abdominal skin graft with TTP, edema and erythema (which is chronic), no pus Extremities: no clubbing, no cyanosis Neuro/SPEECH PATHOLOGY TEACHER: alert, oriented X 3, normal speech Skin: normal turgor Diagnosis, Assessment Plan Free Text A P: No new CBC Assessment: 1. 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 Wound cx showed ESBL P. vulgaris (S=ciprofloxacin), P. mirabilis ( S=ciprofloxacin, cefazolin), and enterococcus. 2. S/p debridement 07/16/24. 3. S/p debridement and tissue biopsy 05/28/24. Tissue cxs showed Proteus, Prevotella, E. faecali and Morganella. AFB cx neg. Fungal cx showed Penicillium, most likely a contaminant. Pt has been on cefdinir and Augmentin as outpt. 4. H/o abdominoplasty. Plan: 1. Meropenem (day 3). 2. Duration: 10 days from surgery. 3. Midline before discharge. 4. Surgery following. 5. Monitor CBC and kidney function. 6. Wound care. 7. Dermatology evaluation would be helpful, this was discussed with the pt. at 1740 RPT #: [id number] END OF REPORT [facility] 2024-07-16 12:53:00 [facility] ([facility]) Wound Care Progress Note REPORT#:[id number] REPORT STATUS: Signed REPORT INITIALIZATION DATE:07/16/24 TIME:1253 PATIENT: ETHAN GARCIA UNIT #: [id number] ROOM/BED: [place] [address] : 73 AGE: 49 SEX: F ATTEND: Aris De La O MD ADM AUTHOR: Balwinder Dow MD REPT SERVICE DT/TIME: 07/16/24 1253 * ALL edits or amendments must be made on the electronic/computer document * Subjective Chief complaint: Wound Care HPI: was taken to surgery today Patient reports: Yes: able to communicate, drainage from wound, feeling better. No: pain controlled. Objective General VS: Last Documented: Result Date Time Pulse Ox 95 07/16 1209 B/P 120/82 07/16 1209 B/P Mean 94.9 07/16 1209 O2 Delivery Room air 07/16 1209 Temp 97.7 07/16 1209 Pulse 68 07/16 1209 Resp 17 07/16 1125 O2 Flow Rate 5 07/16 1055 PATIENT WEIGHT: Weight (lb): Weight (oz): Weight (kg): 71.818 Medications: Active Meds + DC'd Last 24 Hrs Docusate Sodium (COLACE) 100 MG BID PO Pregabalin (LYRICA) 75 MG BID PO Bacitracin (BACITRACIN 0.9 GM-UD OINTMENT) 0 .STK-MED ONE .ROUTE (DC) Cefazolin Sodium (KEFZOL) 0 .STK-MED ONE .ROUTE (DC) Acetaminophen (TYLENOL EXTRA STRENGTH) 1,000 MG Q6H PO (DC) Hydrocodone Bitart/Acetaminophen (NORCO 5/325) 1 TAB PACU ONCE PRN PO Hydrocodone Bitart/Acetaminophen (NORCO 10/325) 1 TAB PACU ONCE PRN PO Hydromorphone HCl (DILAUDID) 0.2 MG PACU Q10MIN PRN PRN IV Labetalol HCl (TRANDATE) 5 MG PACU Q10MIN PRN PRN IV Lactated Ringer's (LACTATED RINGERS) 1,000 ML ASDIR IV Meperidine HCl (DEMEROL) 12.5 MG PACU ONCE PRN IV Ondansetron HCl (ZOFRAN) 4 MG PACU ONCE PRN IV Ondansetron HCl (ZOFRAN) 8 MG Q8H PRN PRN PO Ondansetron HCl (ZOFRAN) 8 MG Q8H PRN PRN IV Fentanyl Citrate (SUBLIMAZE) 0 .STK-MED ONE .ROUTE (DC) Ketorolac Tromethamine (TORADOL 30 MG) 0 .STK-MED ONE .ROUTE (DC) Lidocaine HCl (XYLOCAINE) 0 .STK-MED ONE .ROUTE (DC) Midazolam HCl (VERSED) 0 .STK-MED ONE .ROUTE (DC) Ondansetron HCl (ZOFRAN) 0 .STK-MED ONE .ROUTE (DC) Rocuronium [place] (ZEMURON) 0 .STK-MED ONE .ROUTE (DC) Succinylcholine Chloride (QUELICIN FLIPTOP) 0 .STK-MED ONE .ROUTE (DC) Propofol (DIPRIVAN) 20 ML .STK-MED ONE IV (DC) Sodium Hypochlorite (DAKIN'S 1/4 (0.125%) STRENGTH) 1 APPLIC Q12H TOPICAL Morphine Sulfate (morphine SULFATE) 4 MG Q4H PRN PRN IV Meropenem (MERREM) 500 MG Q6H IV Sterile Water (WATER FOR INJECTION) 10 ML Enoxaparin Sodium (lovENOX) 40 MG Q24H SUBQ Trazodone HCl (DESYREL) 300 MG BEDTIME PO Paroxetine HCl (PAXIL) 20 MG DAILY PO Acetaminophen (TYLENOL) 650 MG Q6H PRN PRN PO Hydrocodone Bitart/Acetaminophen (NORCO 7.5/325) 1 TAB Q6H PRN PRN PO Lorazepam (ATIVAN) 2 MG BEDTIME PRN PRN PO Dietitian Nutrition assessment The data set between the solid lines has been imported from the dietitian's assessment. BMI Calculated: 27.2 Nutrition related diagnosis: Overweight Nutrition diagnosis details: BMI 25-29.9 Nutrition problem: Increased nutrient needs Nutrition etiology: Acute illness Nutrition signs and symptoms: Non-healing wound Nutrition prescription: 1) Continue regular diet as tolerated 2) Ensure HP BID, Tomy BID for wound 3) Encourage oral intake of food/supplements Dietitian name: Ailyn Roosevelt, DIET Assessment completed: 07/12/24 Physical Exam General appearance: chronically ill appearing Head/eyes: atraumatic Neck: no JVD Cardiovascular: no rub Respiratory: no distress Abdomen: non-tender Extremities: no edema Neuro/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 Chronic abdominal wound infection s/p surgery. appreciate Dr. Menezes. Cont with dakin's then place ABD pad. Carry this out once per RN shift. Appreciate ID and surgery. f/u CM for home health order 2. Skin graft failure appreciate surgery eval. 3. Multiple excoriations stable, cont to leave open to air 4. Obesity turn every 2 hours to prevent pressure wounds at [facility] RPT #: [id number] END OF REPORT [facility] 2024-07-16 12:18:00 [facility] ([facility]) Hospitalist Progress Note REPORT#:[id number] REPORT STATUS: Signed REPORT INITIALIZATION DATE:07/16/24 TIME:1217 PATIENT: ETHAN GARCIA UNIT #: [id number] ROOM/BED: [place] [address] : 73 AGE: 49 SEX: F ATTEND: Aris De La O MD ADM AUTHOR: Allyson Ayala MSN REPT SERVICE DT/TIME: 07/16/24 1218 * ALL edits or amendments must be made on the electronic/computer document * Allyson Ayala 07/16/24 1218: Subjective Chief complaint: Abd pain Review of Systems Constitutional: Reports: generalized weakness. Skin: Reports: other (abd wound). All systems rev neg: except as noted Objective General VS/I O: Vital Signs: Date Time Temp Pulse Resp B/P B/P Pulse O2 O2 Flow FiO2 Mean Ox Delivery Rate 07/16 1209 97.7 68 120/82 94.9 95 Room air 07/16 1125 97.4 70 17 152/96 95 Room air 07/16 1121 67 17 156/91 96 Room air 07/16 1115 72 16 166/92 92 Room air 07/16 1110 76 17 171/100 96 Room air 07/16 1105 79 14 170/126 97 Room air 07/16 1100 74 13 165/97 100 Room air 07/16 1055 78 13 161/92 98 Simple 5 mask 07/16 1050 Simple 5 mask 07/16 1050 79 15 161/92 99 Simple 5 mask 07/16 1045 82 16 165/93 99 Simple mask 07/16 1040 96.8 83 15 165/57 97 Simple 5 mask 07/16 0904 97.7 71 18 136/76 95 Room air 07/16 0521 97.7 72 18 129/88 101.9 97 07/15 2357 97.7 82 18 141/90 107.1 97 07/15 1705 97.9 78 14 113/76 88.5 96 Room air 24 hour I O ending at 0700: 07/16 0700 07/15 1900 Intake Total 120 Output Total Balance 120 Intake, Oral 120 Number Voids 2 5 PATIENT WEIGHT: Weight (lb): Weight (oz): Weight (kg): 71.818 Medications: Active Meds + DC'd Last 24 Hrs Docusate Sodium (COLACE) 100 MG BID PO Pregabalin (LYRICA) 75 MG BID PO Bacitracin (BACITRACIN 0.9 GM-UD OINTMENT) 0 .STK-MED ONE .ROUTE (DC) Cefazolin Sodium (KEFZOL) 0 .STK-MED ONE .ROUTE (DC) Acetaminophen (TYLENOL EXTRA STRENGTH) 1,000 MG Q6H PO (DC) Hydrocodone Bitart/Acetaminophen (NORCO 5/325) 1 TAB PACU ONCE PRN PO Hydrocodone Bitart/Acetaminophen (NORCO 10/325) 1 TAB PACU ONCE PRN PO Hydromorphone HCl (DILAUDID) 0.2 MG PACU Q10MIN PRN PRN IV Labetalol HCl (TRANDATE) 5 MG PACU Q10MIN PRN PRN IV Lactated Ringer's (LACTATED RINGERS) 1,000 ML ASDIR IV Meperidine HCl (DEMEROL) 12.5 MG PACU ONCE PRN IV Ondansetron HCl (ZOFRAN) 4 MG PACU ONCE PRN IV Ondansetron HCl (ZOFRAN) 8 MG Q8H PRN PRN PO Ondansetron HCl (ZOFRAN) 8 MG Q8H PRN PRN IV Fentanyl Citrate (SUBLIMAZE) 0 .STK-MED ONE .ROUTE (DC) Ketorolac Tromethamine (TORADOL 30 MG) 0 .STK-MED ONE .ROUTE (DC) Lidocaine HCl (XYLOCAINE) 0 .STK-MED ONE .ROUTE (DC) Midazolam HCl (VERSED) 0 .STK-MED ONE .ROUTE (DC) Ondansetron HCl (ZOFRAN) 0 .STK-MED ONE .ROUTE (DC) Rocuronium [place] (ZEMURON) 0 .STK-MED ONE .ROUTE (DC) Succinylcholine Chloride (QUELICIN FLIPTOP) 0 .STK-MED ONE .ROUTE (DC) Propofol (DIPRIVAN) 20 ML .STK-MED ONE IV (DC) Sodium Hypochlorite (DAKIN'S 1/4 (0.125%) STRENGTH) 1 APPLIC Q12H TOPICAL Morphine Sulfate (morphine SULFATE) 4 MG Q4H PRN PRN IV Meropenem (MERREM) 500 MG Q6H IV Sterile Water (WATER FOR INJECTION) 10 ML Enoxaparin Sodium (lovENOX) 40 MG Q24H SUBQ Trazodone HCl (DESYREL) 300 MG BEDTIME PO Paroxetine HCl (PAXIL) 20 MG DAILY PO Acetaminophen (TYLENOL) 650 MG Q6H PRN PRN PO Hydrocodone Bitart/Acetaminophen (NORCO 7.5/325) 1 TAB Q6H PRN PRN PO Lorazepam (ATIVAN) 2 MG BEDTIME PRN PRN PO Dietitian nutrition assessment The data set between the solid lines has been imported from the dietitian's assessment. BMI Calculated: 27.2 Nutrition related diagnosis: Overweight Nutrition diagnosis details: BMI 25-29.9 Nutrition problem: Increased nutrient needs Nutrition etiology: Acute illness Nutrition signs and symptoms: Non-healing wound Nutrition prescription: 1) Continue regular diet as tolerated 2) Ensure HP BID, Tomy BID for wound 3) Encourage oral intake of food/supplements Dietitian name: Tanner Roosevelt, DIET Assessment completed: 07/12/24 Physical Exam General appearance: alert, awake, oriented Head/Eyes: atraumatic, clear cornea, EOMI, normocephalic, PERRL ENT: normal ear left, normal ear right, normal nose Neck: full range of motion, non-tender, normal thyroid Cardiovascular: normal capillary refill, normal heart sounds, regular rate rhythm Respiratory: aerating well, clear to auscultation, symmetric expansion Abdomen: obese, tenderness, Large wound Extremities: moves all, no clubbing, no cyanosis Musculoskeletal: normal inspection Neuro/SPEECH PATHOLOGY TEACHER: alert, oriented X 3, normal speech Skin: dry, Abd with ABD dressing Psychiatry: normal affect, normal mood Diagnosis, Assessment Plan Free Text DxA P Notes Free text DxA P notes: 49 year old lady with a history of h/o hiatal hernia s/p sleeve gastrectomy and abdominoplasty in [facility] with skin graft from the left thigh, necrotizing infection of the abdominal wall and underwent multiple surgeries in [facility], admitted for: # Infected abdominal wound/cellulitis #H/o Gastrectomy #H/O abdominoplasty # Hiatal hernia #Necrotizing infection of the abdominal wall - Pt states she had gastric sleeve surgery done december, in [place] Patient just completed course of cefdinir and Augmentin oral outpt Start IV antibiotic therapy IV Vancomycin + Rocephin ID and museum specialist consulted, appreciate input Surgery following Scheduled for surgical I D today 07/16/24 NPO after #Skin graft failure Consult surgery to evaluate for take down of the graft. #Anxiety, depression, mood disorder -Resume home medications DVT prophylaxis: Lovenox Full code Plan of care discussed with patient and all questions addressed at 1219 at 1333 RPT #: [id number] END OF REPORT [facility] 2024-07-16 10:49:00 [facility] ([facility]) Post Anesthesia Evaluation REPORT#:[id number] REPORT STATUS: Signed REPORT INITIALIZATION DATE:07/16/24 TIME:1049 PATIENT: ETHAN GARCIA UNIT #: [id number] ROOM/BED: [place] [address] : 73 AGE: 49 SEX: F ATTEND: Aris De La O MD ADM AUTHOR: Chad Fabian MD REPT SERVICE DT/TIME: 07/16/24 1049 * ALL edits or amendments must be made on the electronic/computer document * Post Anesthesia Evaluation Anes. changes from pre-op eval Level of consciousness: no change, patient awake, able to answer questions, participate in this eval. Vital signs: Last Documented: Result Date Time Pulse Ox 95 07/16 09 B/P 136/76 07/16 0904 O2 Delivery Room air 07/16 09 Temp 36.5 07/16 0904 Pulse 71 07/16 0904 Resp 18 07/16 0904 B/P Mean 101.9 07/16 0521 Cardiovascular: CV system stable, vital signs stable Respiratory/Airway: respiratory system stable, maintains without support Pain: adequately controlled Hydration: adequate Temp status: normothermic Presence of N/V: no Anesthesia complications: no at 1049 RPT #: [id number] END OF REPORT [facility] 2024-07-15 16:32:00 [facility] ([facility]) Wound Care Progress Note REPORT#:[id number] REPORT STATUS: Signed REPORT INITIALIZATION DATE:07/15/24 TIME:1632 PATIENT: ETHAN GARCIA UNIT #: [id number] ROOM/BED: [place] [address] : 73 AGE: 49 SEX: F ATTEND: Aris De La O MD ADM AUTHOR: Balwinder Dow MD REPT SERVICE DT/TIME: 07/15/24 9012 * ALL edits or amendments must be made on the electronic/computer document * Subjective Chief complaint: Wound Care HPI: I reviewed the wound care orders with RN. Patient reports: Yes: able to communicate, pain controlled. No: drainage from wound, odor. Objective General VS: Last Documented: Result Date Time Pulse Ox 97 07/15 115 B/P 134/86 07/15 1158 B/P Mean 102.1 07/15 1158 O2 Delivery Room air 07/15 115 Temp 97.5 07/15 1158 Pulse 75 07/15 1158 Resp 14 07/15 1158 PATIENT WEIGHT: Weight (lb): Weight (oz): Weight (kg): 71.818 Medications: Active Meds + DC'd Last 24 Hrs Sodium Hypochlorite (DAKIN'S 1/4 (0.125%) STRENGTH) 1 APPLIC Q12H TOPICAL Morphine Sulfate (morphine SULFATE) 4 MG Q4H PRN PRN IV Meropenem (MERREM) 500 MG Q6H IV Sterile Water (WATER FOR INJECTION) 10 ML Enoxaparin Sodium (lovENOX) 40 MG Q24H SUBQ Trazodone HCl (DESYREL) 300 MG BEDTIME PO Paroxetine HCl (PAXIL) 20 MG DAILY PO Acetaminophen (TYLENOL) 650 MG Q6H PRN PRN PO Hydrocodone Bitart/Acetaminophen (NORCO 7.5/325) 1 TAB Q6H PRN PRN PO Lorazepam (ATIVAN) 2 MG BEDTIME PRN PRN PO Dietitian Nutrition assessment The data set between the solid lines has been imported from the dietitian's assessment. BMI Calculated: 27.2 Nutrition related diagnosis: Overweight Nutrition diagnosis details: BMI 25-29.9 Nutrition problem: Increased nutrient needs Nutrition etiology: Acute illness Nutrition signs and symptoms: Non-healing wound Nutrition prescription: 1) Continue regular diet as tolerated 2) Ensure HP BID, Tomy BID for wound 3) Encourage oral intake of food/supplements Dietitian name: Ailyn Albert, DIET Assessment completed: 07/12/24 Physical Exam General appearance: chronically ill appearing Head/eyes: atraumatic Neck: no JVD Cardiovascular: no rub Respiratory: no distress Abdomen: non-tender Extremities: no edema Neuro/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 Chronic abdominal wound infection slightly improved. Cont with dakin's then place ABD pad. Carry this out once per RN shift. Appreciate ID and surgery. f/u CM for home health order 2. Skin graft failure appreciate surgery eval. 3. Multiple excoriations leave open to air 4. Obesity at 1633 RPT #: [id number] END OF REPORT [facility] 2024-07-15 13:09:00 [facility] ([facility]) Colorectal Surgery Prog Note REPORT#:[id number] REPORT STATUS: Signed REPORT INITIALIZATION DATE:07/15/24 TIME:1309 PATIENT: ETHAN GARCIA UNIT #: [id number] ROOM/BED: [place] [address] : 73 AGE: 49 SEX: F ATTEND: Aris De La O MD ADM AUTHOR: Mario Menezes MD REPT SERVICE DT/TIME: 07/15/24 1309 * ALL edits or amendments must be made on the electronic/computer document * Subjective HPI: Patient is a 49 years old female with past medical history of hiatal hernia repair, history of sleeve gastrectomy who underwent abdominoplasty in [place], her postoperative course was complicated with necrotizing infection of the abdominal wall requiring return to the operating room and subsequently having multiple surgical intervention and lastly patient had skin graft from the left thigh. Patient has been having chronic nonhealing abdominal wound with multiple sinuses and the skin with intermittent and frequent discharge associated with pain. Patient was admitted recently to [facility] and was discharged with oral antibiotics patient completed oral antibiotics course without improvement of her symptoms. Patient was seen by her primary care physician who recommended her to come to emergency room for evaluation and treatment. Patient denies nausea or vomiting. Denies having fever or chills. Denies having rectal bleeding. Patient has no constipation. Objective General Dietitian nutrition assessment The data set between the solid lines has been imported from the dietitian's assessment. BMI Calculated: 27.2 Nutrition related diagnosis: Overweight Nutrition diagnosis details: BMI 25-29.9 Nutrition problem: Increased nutrient needs Nutrition etiology: Acute illness Nutrition signs and symptoms: Non-healing wound Nutrition prescription: 1) Continue regular diet as tolerated 2) Ensure HP BID, Tomy BID for wound 3) Encourage oral intake of food/supplements Dietitian name: Ailyn Albert, DIET Assessment completed: 07/12/24 Physical Exam General appearance: alert, awake HEENT: anicteric, atraumatic, clear cornea Neck: full range of motion, non-tender Cardiovascular: normal capillary refill, normal heart sounds Respiratory: aerating well, clear to auscultation, equal breath sounds Abdomen: non-tender, normal bowel sounds, soft Extremities: moves all, normal capillary refill Musculoskeletal: full range of motion Neuro/SPEECH PATHOLOGY TEACHER: alert, oriented x 3 Skin: dry, intact Psychiatry: normal affect, normal judgment/insight Current Medications Medications: Active Meds + DC'd Last 24 Hrs Sodium Hypochlorite (DAKIN'S 1/4 (0.125%) STRENGTH) 1 APPLIC Q12H TOPICAL Morphine Sulfate (morphine SULFATE) 4 MG Q4H PRN PRN IV Meropenem (MERREM) 500 MG Q6H IV Sterile Water (WATER FOR INJECTION) 10 ML Enoxaparin Sodium (lovENOX) 40 MG Q24H SUBQ Trazodone HCl (DESYREL) 300 MG BEDTIME PO Paroxetine HCl (PAXIL) 20 MG DAILY PO Acetaminophen (TYLENOL) 650 MG Q6H PRN PRN PO Hydrocodone Bitart/Acetaminophen (NORCO 7.5/325) 1 TAB Q6H PRN PRN PO Lorazepam (ATIVAN) 2 MG BEDTIME PRN PRN PO Results Findings/Data: Laboratory Tests 07/16 0922 Urines Urine HCG, Qual (NEGATIVE) NEGATIVE Interpretation I independently reviewed the [ ] and my interpretation is [ ] Diagnosis, Assessment Plan Free Text A P: Patient is a 49 years old female with past medical history of hiatal hernia repair, history of sleeve gastrectomy who underwent abdominoplasty in [place], her postoperative course was complicated with necrotizing infection of the abdominal wall requiring return to the operating room and subsequently having multiple surgical intervention and lastly patient had skin graft from the left thigh. Patient has been having chronic nonhealing abdominal wound with multiple sinuses and the skin with intermittent and frequent discharge associated with pain. Patient was admitted recently to [facility] and was discharged with oral antibiotics patient completed oral antibiotics course without improvement of her symptoms. Patient was seen by her primary care physician who recommended her to come to emergency room for evaluation and treatment. Patient denies nausea or vomiting. Denies having fever or chills. Denies having rectal bleeding. Patient has no constipation. Patient had a chronic uncomplicated condition of nonhealing chronic wound of the abdominal wall, it is located in the lower portion of the abdomen, patient has left the hospital approximately 4 months ago and since then this wound has not been healing, there is multiple sinuses within the abdominal wound in addition to some areas of granulation tissue, the wound extend over a distance of approximately 15 x 25 cm. I had detailed discussion with the patient regarding her symptoms, discussed with her the plan for IV antibiotics, local wound care, in addition to that, but patient would benefit from debridement of abdominal wall nonhealing wound and multiple skin sinuses, required with the patient that the wound may take several weeks to heal, I reviewed the abdomen and pelvis CT scan and it does not appear there is any fistulization of the bowel to the wound at this time. Recommendations Pain control as needed Local wound care IV antibiotics DVT prophylaxis GI prophylaxis Diet as tolerated GI regimen Monitor H H, transfuse as needed Outpatient colonoscopy for anemia workup Discussed with the patient the debridement of abdominal wall tomorrow, patient is agreeable. . at 2022 RPT #: [id number] END OF REPORT [facility] 2024-07-15 10:31:00 [facility] Hospitalist Progress Note REPORT#:[id number] REPORT STATUS: Signed REPORT INITIALIZATION DATE:07/15/24 TIME:1031 PATIENT: ETHAN GARCIA UNIT #: [id number] ROOM/BED: [place] [address] : 73 AGE: 49 SEX: F ATTEND: Aris De La O MD ADM AUTHOR: Allyson Ayala MSN REPT SERVICE DT/TIME: 07/15/24 1031 * ALL edits or amendments must be made on the electronic/computer document * Allyson Ayala 07/15/24 1031: Subjective Chief complaint: Abd pain Review of Systems Constitutional: Reports: generalized weakness. Skin: Reports: rash, swelling. All systems rev neg: except as noted Objective General VS/I O: Vital Signs: Date Time Temp Pulse Resp B/P B/P Pulse O2 O2 Flow FiO2 Mean Ox Delivery Rate 07/15 0655 97.7 72 14 119/82 94.2 95 Room air 07/15 0345 97.7 77 16 125/85 98.6 95 07/14 2351 97.7 78 16 102/64 76.7 98 07/14 1907 98.6 81 16 109/65 79.8 97 07/14 1527 97.9 85 14 117/76 89.4 95 Room air 07/14 1045 98.2 73 14 101/69 79.7 95 Room air 24 hour I O ending at 00: 07/15 0700 07/14 1900 Intake Total 360 Output Total Balance 360 Intake, Oral 360 Number Voids 3 PATIENT WEIGHT: Weight (lb): Weight (oz): Weight (kg): 71.818 Physical Exam General appearance: alert, awake, oriented Head/Eyes: atraumatic, clear cornea, EOMI, normocephalic, PERRL ENT: normal ear left, normal ear right, normal nose Neck: full range of motion, non-tender, normal thyroid Cardiovascular: normal capillary refill, normal heart sounds, regular rate rhythm Respiratory: aerating well, clear to auscultation, symmetric expansion Abdomen: obese, tenderness, Large wound Extremities: moves all, no clubbing, no cyanosis Neuro/SPEECH PATHOLOGY TEACHER: alert, oriented X 3, normal speech Skin: dry, Abd with ABD dressing Psychiatry: normal affect, normal mood Diagnosis, Assessment Plan Free Text DxA P Notes Free text DxA P notes: 49 year old lady with a history of h/o hiatal hernia s/p sleeve gastrectomy and abdominoplasty in [facility] with skin graft from the left thigh, necrotizing infection of the abdominal wall and underwent multiple surgeries in [facility], admitted for: # Infected abdominal wound/cellulitis #H/o Gastrectomy #H/O abdominoplasty # Hiatal hernia #Necrotizing infection of the abdominal wall - Pt states she had gastric sleeve surgery done december, in [place] Patient just completed course of cefdinir and Augmentin oral outpt Start IV antibiotic therapy IV Vancomycin + Rocephin ID and museum specialist consulted, appreciate input Surgery following Scheduled for surgical I D in am NPO after #Skin graft failure Consult surgery to evaluate for take down of the graft. #Anxiety, depression, mood disorder -Resume home medications DVT prophylaxis: Lovenox Full code Plan of care discussed with patient and all questions addressed at 1041 at 1830 [facility] #: [id number] END OF REPORT [facility] 2024-07-14 19:46:00 [facility] ([facility]) Wound Care Progress Note REPORT#:[id number] REPORT STATUS: Signed REPORT INITIALIZATION DATE:07/14/24 TIME:1945 PATIENT: ETHAN GARCIA UNIT #: [id number] ROOM/BED: [place] [address] : 73 AGE: 49 SEX: F ATTEND: Aris De La O MD ADM AUTHOR: Balwinder Dow MD REPT SERVICE DT/TIME: 07/14/241945 * ALL edits or amendments must be made on the electronic/computer document * Subjective Chief complaint: Wound Care HPI: I carried out the wound care at bedside Unable to obtain: medical condition Objective General VS: Last Documented: Result Date Time Pulse Ox 97 07/14 1907 B/P 109/65 07/14 1907 B/P Mean 79.8 07/14 1907 Temp 98.6 07/14 1907 Pulse 81 07/14 190 Resp 16 07/14 1907 O2 Delivery Room air 07/14 1527 PATIENT WEIGHT: Weight (lb): Weight (oz): Weight (kg): 71.818 Medications: Active Meds + DC'd Last 24 Hrs Sodium Hypochlorite (DAKIN'S 1/4 (0.125%) STRENGTH) 1 APPLIC Q12H TOPICAL Morphine Sulfate (morphine SULFATE) 4 MG Q4H PRN PRN IV Non-Formulary Medication (VANCOMYCIN AUC2) 1 EACH ONCE ONE MISC (DC) Meropenem (MERREM) 500 MG Q6H IV Sterile Water (WATER FOR INJECTION) 10 ML Non-Formulary Medication (VANCOMYCIN AUC1) 1 EACH ONCE ONE MISC (DC) Famotidine (PEPCID) 20 MG ONCE PO (DC) Enoxaparin Sodium (lovENOX) 40 MG Q24H SUBQ Trazodone HCl (DESYREL) 300 MG BEDTIME PO Paroxetine HCl (PAXIL) 20 MG DAILY PO Acetaminophen (TYLENOL) 650 MG Q6H PRN PRN PO Ceftriaxone Sodium (ROCEPHIN) 1,000 MG Q24H IV (DC) Sterile Water (WATER FOR INJECTION) 10 ML Hydrocodone Bitart/Acetaminophen (NORCO 7.5/325) 1 TAB Q6H PRN PRN PO Lorazepam (ATIVAN) 2 MG BEDTIME PRN PRN PO Morphine Sulfate (morphine SULFATE) 4 MG Q4H PRN PRN IV (DC) Dietitian Nutrition assessment The data set between the solid lines has been imported from the dietitian's assessment. BMI Calculated: 27.2 Nutrition related diagnosis: Overweight Nutrition diagnosis details: BMI 25-29.9 Nutrition problem: Increased nutrient needs Nutrition etiology: Acute illness Nutrition signs and symptoms: Non-healing wound Nutrition prescription: 1) Continue regular diet as tolerated 2) Ensure HP BID, Tomy BID for wound 3) Encourage oral intake of food/supplements Dietitian name: Ailyn Albert, DIET Assessment completed: 07/12/24 Physical Exam General appearance: chronically ill appearing Head/eyes: atraumatic Neck: no JVD Cardiovascular: no rub Respiratory: no distress Abdomen: non-tender Extremities: no edema Neuro/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 Chronic abdominal wound infection slightly improved. Cont with dakin's then place ABD pad. Carry this out once per RN shift. Home health ordered. Appreciate ID and surgery 2. Skin graft failure appreciate surgery eval. 3. Multiple excoriations leave open to air 4. Obesity at 1952 RPT #: [id number] END OF REPORT [facility] 2024-07-14 15:59:00 [facility]) Colorectal Surgery Prog Note REPORT#:[id number] REPORT STATUS: Signed REPORT INITIALIZATION DATE:07/14/24 TIME:1559 PATIENT: YIFAN CHOWDHURYETHAN Isabel UNIT #: [id number] ROOM/BED: [place] [address] : 73 AGE: 49 SEX: F ATTEND: Aris De La O MD ADM AUTHOR: Mario Menezes MD REPT SERVICE DT/TIME: 07/14/24 9432 * ALL edits or amendments must be made on the electronic/computer document * Subjective HPI: Patient is a 49 years old female with past medical history of hiatal hernia repair, history of sleeve gastrectomy who underwent abdominoplasty in [place], her postoperative course was complicated with necrotizing infection of the abdominal wall requiring return to the operating room and subsequently having multiple surgical intervention and lastly patient had skin graft from the left thigh. Patient has been having chronic nonhealing abdominal wound with multiple sinuses and the skin with intermittent and frequent discharge associated with pain. Patient was admitted recently to [facility] and was discharged with oral antibiotics patient completed oral antibiotics course without improvement of her symptoms. Patient was seen by her primary care physician who recommended her to come to emergency room for evaluation and treatment. Patient denies nausea or vomiting. Denies having fever or chills. Denies having rectal bleeding. Patient has no constipation. Comments: Events noted, no n/v, no fever Objective General Dietitian nutrition assessment The data set between the solid lines has been imported from the dietitian's assessment. BMI Calculated: 27.2 Nutrition related diagnosis: Overweight Nutrition diagnosis details: BMI 25-29.9 Nutrition problem: Increased nutrient needs Nutrition etiology: Acute illness Nutrition signs and symptoms: Non-healing wound Nutrition prescription: 1) Continue regular diet as tolerated 2) Ensure HP BID, Tomy BID for wound 3) Encourage oral intake of food/supplements Dietitian name: Ailyn Albert, DIET Assessment completed: 07/12/24 Physical Exam General appearance: alert, awake HEENT: anicteric, atraumatic, clear cornea Neck: full range of motion, non-tender Cardiovascular: normal capillary refill, normal heart sounds Respiratory: aerating well, clear to auscultation, equal breath sounds Abdomen: non-tender, normal bowel sounds, soft Extremities: moves all, normal capillary refill Musculoskeletal: full range of motion Neuro/SPEECH PATHOLOGY TEACHER: alert, oriented x 3 Skin: dry, intact Psychiatry: normal affect, no hallucinations Current Medications Medications: Active Meds + DC'd Last 24 Hrs Non-Formulary Medication (VANCOMYCIN AUC2) 1 EACH ONCE ONE MISC (DC) Meropenem (MERREM) 500 MG Q6H IV Sterile Water (WATER FOR INJECTION) 10 ML Non-Formulary Medication (VANCOMYCIN AUC1) 1 EACH ONCE ONE MISC (DC) Famotidine (PEPCID) 20 MG ONCE PO (DC) Enoxaparin Sodium (lovENOX) 40 MG Q24H SUBQ Vancomycin HCl (VANCOMYCIN HCL) 1,000 MG Q8HR IV (DC) Sodium Chloride (0.9% Sodium Chloride) 250 ML Miscellaneous Information (VANCOMYCIN PHARMACY TO DOSE) 1 EACH ASDIR IV (DC) Trazodone HCl (DESYREL) 300 MG BEDTIME PO Paroxetine HCl (PAXIL) 20 MG DAILY PO Acetaminophen (TYLENOL) 650 MG Q6H PRN PRN PO Ceftriaxone Sodium (ROCEPHIN) 1,000 MG Q24H IV (DC) Sterile Water (WATER FOR INJECTION) 10 ML Hydrocodone Bitart/Acetaminophen (NORCO 7.5/325) 1 TAB Q6H PRN PRN PO Lorazepam (ATIVAN) 2 MG BEDTIME PRN PRN PO Morphine Sulfate (morphine SULFATE) 4 MG Q4H PRN PRN IV (DC) Results Interpretation I independently reviewed the [ ] and my interpretation is [ ] Diagnosis, Assessment Plan Free Text A P: Patient is a 49 years old female with past medical history of hiatal hernia repair, history of sleeve gastrectomy who underwent abdominoplasty in [place], her postoperative course was complicated with necrotizing infection of the abdominal wall requiring return to the operating room and subsequently having multiple surgical intervention and lastly patient had skin graft from the left thigh. Patient has been having chronic nonhealing abdominal wound with multiple sinuses and the skin with intermittent and frequent discharge associated with pain. Patient was admitted recently to [facility] and was discharged with oral antibiotics patient completed oral antibiotics course without improvement of her symptoms. Patient was seen by her primary care physician who recommended her to come to emergency room for evaluation and treatment. Patient denies nausea or vomiting. Denies having fever or chills. Denies having rectal bleeding. Patient has no constipation. Patient had a chronic uncomplicated condition of nonhealing chronic wound of the abdominal wall, it is located in the lower portion of the abdomen, patient has left the hospital approximately 4 months ago and since then this wound has not been healing, there is multiple sinuses within the abdominal wound in addition to some areas of granulation tissue, the wound extend over a distance of approximately 15 x 25 cm. I had detailed discussion with the patient regarding her symptoms, discussed with her the plan for IV antibiotics, local wound care, in addition to that, but patient would benefit from debridement of abdominal wall nonhealing wound and multiple skin sinuses, required with the patient that the wound may take several weeks to heal, I reviewed the abdomen and pelvis CT scan and it does not appear there is any fistulization of the bowel to the wound at this time. Recommendations Pain control as needed Local wound care IV antibiotics DVT prophylaxis GI prophylaxis Diet as tolerated GI regimen Monitor H H, transfuse as needed Outpatient colonoscopy for anemia workup Will discuss further regarding the debridement with the patient at 2021 RPT #: [id number] END OF REPORT [facility] 2024-07-14 15:57:00 [facility] ([facility]) Colorectal Surgery Prog Note REPORT#:[id number] REPORT STATUS: Signed REPORT INITIALIZATION DATE:07/14/24 TIME:1556 PATIENT: ETHAN GARCIA UNIT #: [id number] ROOM/BED: [place] [address] : 73 AGE: 49 SEX: F ATTEND: Aris De La O MD ADM AUTHOR: Mario Menezes MD REPT SERVICE DT/TIME: 07/13/24 6865 * ALL edits or amendments must be made on the electronic/computer document * Subjective HPI: Patient is a 49 years old female with past medical history of hiatal hernia repair, history of sleeve gastrectomy who underwent abdominoplasty in [place], her postoperative course was complicated with necrotizing infection of the abdominal wall requiring return to the operating room and subsequently having multiple surgical intervention and lastly patient had skin graft from the left thigh. Patient has been having chronic nonhealing abdominal wound with multiple sinuses and the skin with intermittent and frequent discharge associated with pain. Patient was admitted recently to [facility] and was discharged with oral antibiotics patient completed oral antibiotics course without improvement of her symptoms. Patient was seen by her primary care physician who recommended her to come to emergency room for evaluation and treatment. Patient denies nausea or vomiting. Denies having fever or chills. Denies having rectal bleeding. Patient has no constipation. Comments: No n/v, no fever. No abdominal pain. Objective General VS/I O: Last Documented: Result Date Time Pulse Ox 95 07/14 1527 B/P 117/76 07/14 1527 B/P Mean 89.4 07/14 1527 O2 Delivery Room air 07/14 1527 Temp 36.6 07/14 1527 Pulse 85 07/14 1527 Resp 14 07/14 1527 24 hour I O ending at 0700: 07/14 0700 07/13 1900 Intake Total 980.00 Output Total Balance 980.00 Intake, IV 500.00 Intake, Oral 480 Number Voids 3 5 PATIENT WEIGHT: Weight (lb): Weight (oz): Weight (kg): 71.818 Dietitian nutrition assessment The data set between the solid lines has been imported from the dietitian's assessment. BMI Calculated: 27.2 Nutrition related diagnosis: Overweight Nutrition diagnosis details: BMI 25-29.9 Nutrition problem: Increased nutrient needs Nutrition etiology: Acute illness Nutrition signs and symptoms: Non-healing wound Nutrition prescription: 1) Continue regular diet as tolerated 2) Ensure HP BID, Tomy BID for wound 3) Encourage oral intake of food/supplements Dietitian name: Ailyn Albert, DIET Assessment completed: 07/12/24 Physical Exam General appearance: alert, awake HEENT: anicteric, atraumatic, clear cornea Neck: full range of motion, non-tender Cardiovascular: normal capillary refill, normal heart sounds Respiratory: aerating well, clear to auscultation, equal breath sounds Abdomen: non-tender, normal bowel sounds, soft Extremities: moves all, normal capillary refill Musculoskeletal: full range of motion Neuro/SPEECH PATHOLOGY TEACHER: alert, oriented x 3 Skin: dry, intact Psychiatry: normal affect Current Medications Medications: Active Meds + DC'd Last 24 Hrs Non-Formulary Medication (VANCOMYCIN AUC2) 1 EACH ONCE ONE MISC (DC) Meropenem (MERREM) 500 MG Q6H IV Sterile Water (WATER FOR INJECTION) 10 ML Non-Formulary Medication (VANCOMYCIN AUC1) 1 EACH ONCE ONE MISC (DC) Famotidine (PEPCID) 20 MG ONCE PO (DC) Enoxaparin Sodium (lovENOX) 40 MG Q24H SUBQ Vancomycin HCl (VANCOMYCIN HCL) 1,000 MG Q8HR IV (DC) Sodium Chloride (0.9% Sodium Chloride) 250 ML Miscellaneous Information (VANCOMYCIN PHARMACY TO DOSE) 1 EACH ASDIR IV (DC) Trazodone HCl (DESYREL) 300 MG BEDTIME PO Paroxetine HCl (PAXIL) 20 MG DAILY PO Acetaminophen (TYLENOL) 650 MG Q6H PRN PRN PO Ceftriaxone Sodium (ROCEPHIN) 1,000 MG Q24H IV (DC) Sterile Water (WATER FOR INJECTION) 10 ML Hydrocodone Bitart/Acetaminophen (NORCO 7.5/325) 1 TAB Q6H PRN PRN PO Lorazepam (ATIVAN) 2 MG BEDTIME PRN PRN PO Morphine Sulfate (morphine SULFATE) 4 MG Q4H PRN PRN IV (DC) Results Findings/Data: Laboratory Tests 07/16 0922 Urines Urine HCG, Qual (NEGATIVE) NEGATIVE Interpretation I independently reviewed the [ ] and my interpretation is [ ] Diagnosis, Assessment Plan Free Text A P: Patient is a 49 years old female with past medical history of hiatal hernia repair, history of sleeve gastrectomy who underwent abdominoplasty in [place], her postoperative course was complicated with necrotizing infection of the abdominal wall requiring return to the operating room and subsequently having multiple surgical intervention and lastly patient had skin graft from the left thigh. Patient has been having chronic nonhealing abdominal wound with multiple sinuses and the skin with intermittent and frequent discharge associated with pain. Patient was admitted recently to [facility] and was discharged with oral antibiotics patient completed oral antibiotics course without improvement of her symptoms. Patient was seen by her primary care physician who recommended her to come to emergency room for evaluation and treatment. Patient denies nausea or vomiting. Denies having fever or chills. Denies having rectal bleeding. Patient has no constipation. Patient had a chronic uncomplicated condition of nonhealing chronic wound of the abdominal wall, it is located in the lower portion of the abdomen, patient has left the hospital approximately 4 months ago and since then this wound has not been healing, there is multiple sinuses within the abdominal wound in addition to some areas of granulation tissue, the wound extend over a distance of approximately 15 x 25 cm. I had detailed discussion with the patient regarding her symptoms, discussed with her the plan for IV antibiotics, local wound care, in addition to that, but patient would benefit from debridement of abdominal wall nonhealing wound and multiple skin sinuses, required with the patient that the wound may take several weeks to heal, I reviewed the abdomen and pelvis CT scan and it does not appear there is any fistulization of the bowel to the wound at this time. Recommendations Pain control as needed Local wound care IV antibiotics DVT prophylaxis GI prophylaxis Diet as tolerated GI regimen Monitor H H, transfuse as needed Outpatient colonoscopy for anemia workup Discussed with the patient the debridement of abdominal wall to remove the infected tissue within the abdominal wall. at 2018 RPT #: [id number] END OF REPORT [facility] 2024-07-14 12:01:00 [facility] ([facility]) Hospitalist Progress Note REPORT#:[id number] REPORT STATUS: Signed REPORT INITIALIZATION DATE:07/14/24 TIME:1201 PATIENT: ETHAN GARCIA UNIT #: [id number] RO[address]: [address] : [address] AGE: 49 SEX: F ATTEND: Aris De La O MD ADM AUTHOR: Allyson Ayala MSN REPT SERVICE DT/TIME: 07/14/24 1201 * ALL edits or amendments must be made on the electronic/computer document * Allyson Ayala 07/14/24 1201: Subjective Chief complaint: Abd pain Review of Systems Skin: Reports: other (Abd wound). GI: Reports: abdominal pain. All systems rev neg: except as noted Objective General VS/I O: Vital Signs: Date Time Temp Pulse Resp B/P B/P Pulse O2 O2 Flow FiO2 Mean Ox Delivery Rate 07/14 1045 98.2 73 14 101/69 79.7 95 Room air 07/14 0617 97.5 71 14 120/83 95.3 95 Room air 07/14 0349 98.1 70 18 116/75 88.9 97 07/13 2351 73 16 95/62 73.3 96 07/13 1924 98.2 87 16 127/81 96.3 97 07/13 1734 82 14 97/64 75.2 97 Room air 24 hour I O ending at 0700: 07/14 0700 07/13 1900 Intake Total 980.00 Output Total Balance 980.00 Intake, IV 500.00 Intake, Oral 480 Number Voids 3 5 PATIENT WEIGHT: Weight (lb): Weight (oz): Weight (kg): 71.818 Medications: Active Meds + DC'd Last 24 Hrs Non-Formulary Medication (VANCOMYCIN AUC2) 1 EACH ONCE ONE MISC (DC) Meropenem (MERREM) 500 MG Q6H IV Sterile Water (WATER FOR INJECTION) 10 ML Non-Formulary Medication (VANCOMYCIN AUC1) 1 EACH ONCE ONE MISC (DC) Famotidine (PEPCID) 20 MG ONCE PO (DC) Enoxaparin Sodium (lovENOX) 40 MG Q24H SUBQ Vancomycin HCl (VANCOMYCIN HCL) 1,000 MG Q8HR IV (DC) Sodium Chloride (0.9% Sodium Chloride) 250 ML Miscellaneous Information (VANCOMYCIN PHARMACY TO DOSE) 1 EACH ASDIR IV (DC) Trazodone HCl (DESYREL) 300 MG BEDTIME PO Paroxetine HCl (PAXIL) 20 MG DAILY PO Acetaminophen (TYLENOL) 650 MG Q6H PRN PRN PO Ceftriaxone Sodium (ROCEPHIN) 1,000 MG Q24H IV (DC) Sterile Water (WATER FOR INJECTION) 10 ML Hydrocodone Bitart/Acetaminophen (NORCO 7.5/325) 1 TAB Q6H PRN PRN PO Lorazepam (ATIVAN) 2 MG BEDTIME PRN PRN PO Morphine Sulfate (morphine SULFATE) 4 MG Q4H PRN PRN IV (DC) Dietitian nutrition assessment The data set between the solid lines has been imported from the dietitian's assessment. BMI Calculated: 27.2 Nutrition related diagnosis: Overweight Nutrition diagnosis details: BMI 25-29.9 Nutrition problem: Increased nutrient needs Nutrition etiology: Acute illness Nutrition signs and symptoms: Non-healing wound Nutrition prescription: 1) Continue regular diet as tolerated 2) Ensure HP BID, Tomy BID for wound 3) Encourage oral intake of food/supplements Dietitian name: Ailyn Albert, DIET Assessment completed: 07/12/24 Physical Exam General appearance: alert, awake, oriented Head/Eyes: atraumatic, clear cornea, EOMI, normocephalic, PERRL ENT: normal ear left, normal ear right, normal nose Cardiovascular: normal capillary refill, normal heart sounds, regular rate rhythm Respiratory: aerating well, clear to auscultation, symmetric expansion Abdomen: obese, tenderness, Large wound Extremities: moves all, no clubbing, no cyanosis Neuro/SPEECH PATHOLOGY TEACHER: alert, oriented X 3, normal speech Skin: dry, Abd with ABD dressing Diagnosis, Assessment Plan Free Text DxA P Notes Free text DxA P notes: 49 year old lady with a history of h/o hiatal hernia s/p sleeve gastrectomy and abdominoplasty in [facility] with skin graft from the left thigh, necrotizing infection of the abdominal wall and underwent multiple surgeries in [facility], admitted for: # Infected abdominal wound/cellulitis #H/o Gastrectomy #H/O abdominoplasty # Hiatal hernia #Necrotizing infection of the abdominal wall - Pt states she had gastric sleeve surgery done december, in [place] Patient just completed course of cefdinir and Augmentin oral outpt Start IV antibiotic therapy IV Vancomycin + Rocephin ID and museum specialist consulted, appreciate input Surgery following #Skin graft failure Consult surgery to evaluate for take down of the graft. #Anxiety, depression, mood disorder -Resume home medications DVT prophylaxis: Lovenox Full code Plan of care discussed with patient and all questions addressed at 1202 at 1406 RPT #: [id number] END OF REPORT [facility] 2024-07-14 11:11:00 [facility] ([facility]) Infectious Dis. Progress Note REPORT#:[id number] REPORT STATUS: Signed REPORT INITIALIZATION DATE:07/14/24 TIME:1111 PATIENT: ETHAN GARCIA UNIT #: [id number] ROOM/BED: [place] [address] : 73 AGE: 49 SEX: F ATTEND: Aris De La O MD ADM AUTHOR: Patrick Gaxiola MD REPT SERVICE DT/TIME: 07/14/24 1111 * ALL edits or amendments must be made on the electronic/computer document * Subjective Chief complaint: Abdominal wound HPI: WBC is normal. Multiple bacteria grew in wound cx, inclusing ESBL organisms. Pt strongly prefers IV abx instead of PO this time. Review of Systems Constitutional: Denies: fever. Objective General VS/I O: Vital Signs Date Temp Pulse Resp B/P B/P Mean Pulse Ox FiO2 07/13-07/14 36.4-36.8 70-87 14-18 95-127/62-83 73.3-96.3 95-97 Last Documented: Result Date Time Pulse Ox 95 07/14 1045 B/P 101/69 07/14 1045 B/P Mean 79.7 07/14 1045 O2 Delivery Room air 07/14 1045 Temp 36.8 07/14 1045 Pulse 73 07/14 1045 Resp 14 07/14 1045 Vital Signs: Date Time Temp Pulse Resp B/P B/P Pulse O2 O2 Flow FiO2 Mean Ox Delivery Rate 07/14 1045 36.8 73 14 101/69 79.7 95 Room air 07/14 0617 36.4 71 14 120/83 95.3 95 Room air 07/14 0349 36.7 70 18 116/75 88.9 97 07/13 2351 73 16 95/62 73.3 96 07/13 1924 36.8 87 16 127/81 96.3 97 07/13 1734 82 14 97/64 75.2 97 Room air 07/13 1146 36.6 73 14 116/75 88.8 95 Room air 24 hour I O ending at 0700: 07/14 0700 07/13 1900 Intake Total 980.00 Output Total Balance 980.00 Intake, IV 500.00 Intake, Oral 480 Number Voids 3 5 PATIENT WEIGHT: Weight (lb): Weight (oz): Weight (kg): 71.818 Physical Exam General appearance: alert, awake Head/Eyes: atraumatic, clear cornea, EOMI, normal conjunctiva/sclera, normal eyelids/periorb, normocephalic Neck: full range of motion, non-tender, supple/no meningismus Cardiovascular: regular rate rhythm Respiratory: symmetric expansion, no distress Abdomen: Abdominal skin graft with TTP, edema and erythema (which is chronic), no pus Extremities: no clubbing, no cyanosis Musculoskeletal: no joint swelling Neuro/SPEECH PATHOLOGY TEACHER: alert, oriented X 3, normal speech Skin: normal turgor Psychiatry: normal affect, normal judgment/insight, normal mood Diagnosis, Assessment Plan Free Text A P: Laboratory Tests 07/13/24 0315: [Embedded Image Not Available] 07/12/24 1706: [Embedded Image Not Available] Imaging: Pending Assessment: 1. 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 Wound cx showed ESBL P. vulgaris (S=ciprofloxacin), P. mirabilis ( S=ciprofloxacin, cefazolin), and enterococcus. 2. S/p debridement and tissue biopsy 05/28/24. Tissue cxs showed Proteus, Prevotella, E. faecali and Morganella. AFB cx neg. Fungal cx showed Penicillium, most likely a contaminant. Pt has been on cefdinir and Augmentin as outpt. 3. S/p abdominoplasty. Plan: 1. Switch ceftriaxone to meropenem (day 1). 2. Duration: likely 14 days. 3. Midline before discharge. 4. Surgery following. 5. Monitor CBC. 6. Monitor kidney function. 7. Wound care. 8. Dermatology evaluation would be helpful, this was discussed with the pt. at 1132 RPT #: [id number] END OF REPORT [facility] 2024-07-13 18:59:00 [facility]) Wound Care Progress Note REPORT#:[id number] REPORT STATUS: Signed REPORT INITIALIZATION DATE:07/13/24 TIME:1858 PATIENT: ETHAN GARCIA UNIT #: [id number] ROOM/BED: [place] [address] : 73 AGE: 49 SEX: F ATTEND: Aris De La O MD ADM AUTHOR: Balwinder Dow MD REPT SERVICE DT/TIME: 07/13/241858 * ALL edits or amendments must be made on the electronic/computer document * Subjective Chief complaint: Wound Care HPI: Evaluated by surgery and ID Patient reports: Yes: able to communicate, drainage from wound, itching. No: feeling better. Objective General VS: Last Documented: Result Date Time Pulse Ox 97 07/13 1734 B/P 97/64 07/13 1734 B/P Mean 75.2 07/13 1734 O2 Delivery Room air 07/13 173 Pulse 82 07/13 1734 Resp 14 07/13 173 Temp 97.9 07/13 1146 PATIENT WEIGHT: Weight (lb): Weight (oz): Weight (kg): 71.818 Medications: Active Meds + DC'd Last 24 Hrs Non-Formulary Medication (VANCOMYCIN AUC2) 1 EACH ONCE ONE MISC (DC) Non-Formulary Medication (VANCOMYCIN AUC1) 1 EACH ONCE ONE MISC (DC) Enoxaparin Sodium (lovENOX) 40 MG Q24H SUBQ Non-Formulary Medication (VANCOMYCIN AUC1) 1 EACH ONCE ONE MISC (DC) Vancomycin HCl (VANCOMYCIN HCL) 1,000 MG Q8HR IV (DC) Sodium Chloride (0.9% Sodium Chloride) 250 ML Miscellaneous Information (VANCOMYCIN PHARMACY TO DOSE) 1 EACH ASDIR IV (DC) Trazodone HCl (DESYREL) 300 MG BEDTIME PO Paroxetine HCl (PAXIL) 20 MG DAILY PO Acetaminophen (TYLENOL) 650 MG Q6H PRN PRN PO Ceftriaxone Sodium (ROCEPHIN) 1,000 MG Q24H IV Sterile Water (WATER FOR INJECTION) 10 ML Hydrocodone Bitart/Acetaminophen (NORCO 7.5/325) 1 TAB Q6H PRN PRN PO Lorazepam (ATIVAN) 2 MG BEDTIME PRN PRN PO Morphine Sulfate (morphine SULFATE) 4 MG Q4H PRN PRN IV Dietitian Nutrition assessment The data set between the solid lines has been imported from the dietitian's assessment. BMI Calculated: 27.2 Nutrition related diagnosis: Overweight Nutrition diagnosis details: BMI 25-29.9 Nutrition problem: Increased nutrient needs Nutrition etiology: Acute illness Nutrition signs and symptoms: Non-healing wound Nutrition prescription: 1) Continue regular diet as tolerated 2) Ensure HP BID, Tomy BID for wound 3) Encourage oral intake of food/supplements Dietitian name: Ailyn Albert, DIET Assessment completed: 07/12/24 Physical Exam General appearance: chronically ill appearing Head/eyes: atraumatic Neck: no JVD Cardiovascular: no rub Respiratory: no distress Abdomen: non-tender Extremities: no edema Neuro/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 Chronic abdominal wound infection appreciate ID and surgery note. Cont with dakin's then place ABD pad. Carry this out once per RN shift. 2. Skin graft failure appreciate surgery eval. 3. Multiple excoriations leave open to air 4. Obesity at 1902 RPT #: [id number] END OF REPORT [facility] 2024-07-13 17:56:00 [facility] ([facility]) Hospitalist Progress Note REPORT#:[id number] REPORT STATUS: Signed REPORT INITIALIZATION DATE:07/13/24 TIME:1755 PATIENT: ETHAN GARCIA UNIT #: [id number] ROOM/BED: [place] [address] : 73 AGE: 49 SEX: F ATTEND: Aris De La O MD ADM AUTHOR: Allyson Ayala MSN REPT SERVICE DT/TIME: 07/13/241755 * ALL edits or amendments must be made on the electronic/computer document * Allyson Ayala 07/13/241755: Subjective Chief complaint: Abd pain Review of Systems Constitutional: Reports: generalized weakness. GI: Reports: abdominal pain. All systems rev neg: except as noted Objective Physical Exam General appearance: alert, awake, oriented Head/Eyes: atraumatic, clear cornea, EOMI, normocephalic, PERRL ENT: normal ear left, normal ear right, normal nose Cardiovascular: normal capillary refill, normal heart sounds, regular rate rhythm Respiratory: aerating well, clear to auscultation, symmetric expansion Abdomen: obese, tenderness, Large wound Extremities: moves all, no clubbing, no cyanosis Neuro/SPEECH PATHOLOGY TEACHER: alert, oriented X 3, normal speech Skin: dry, Abd with ABD dressing Diagnosis, Assessment Plan Free Text DxA P Notes Free text DxA P notes: 49 year old lady with a history of h/o hiatal hernia s/p sleeve gastrectomy and abdominoplasty in [facility] with skin graft from the left thigh, necrotizing infection of the abdominal wall and underwent multiple surgeries in [facility], admitted for: # Infected abdominal wound/cellulitis #H/o Gastrectomy #H/O abdominoplasty # Hiatal hernia #Necrotizing infection of the abdominal wall - Pt states she had gastric sleeve surgery done december, in [place] Patient just completed course of cefdinir and Augmentin oral outpt Start IV antibiotic therapy IV Vancomycin + Rocephin ID and museum specialist consulted, appreciate input Surgery also consulted #Skin graft failure Consult surgery to evaluate for take down of the graft. #Anxiety, depression, mood disorder -Resume home medications DVT prophylaxis: Lovenox Full code Plan of care discussed with patient and all questions addressed at 1759 at 190 RPT #: [id number] END OF REPORT [facility] 2024-07-12 20:28:00 [facility]) Pharmacy Prog.Note-Vancomycin REPORT#:[id number] REPORT STATUS: Signed REPORT INITIALIZATION DATE:07/12/24 TIME:2027 PATIENT: ETHAN GARCIA UNIT #: [id number] ROOM/BED: [place] [address] : 73 AGE: 49 SEX: F ATTEND: Aris De La O MD ADM AUTHOR: Rika Franklin [facility] REPT SERVICE DT/TIME: 07/12/242027 * ALL edits or amendments must be made on the electronic/computer document * Vancomycin Vancomycin Medication Therapy Goal: trough 10-15 mcg/mL Indication for treatment: Skin and soft tissue infection VS and I/O: Vital Signs Date Temp Pulse Resp B/P B/P Mean Pulse Ox FiO2 07/11-07/12 36.9-37.1 77-97 15-18 96-139/63-86 74.0-103.5 93-98 72 hours ending at 0700 07/12 0707/11 19007/11 0707/10 071899 Intake Total Output Total Balance Patient 71.818 kg Weight Weight Estimated Measuremen t Method 72 Hour I O Total 07/12 0700 07/11 0700 07/10 0700 Intake Total Output Total Balance Labs: Laboratory Test : 07/12 1706 Chemistry BUN (7 - 18 MG/DL) 16 Creatinine (0.6 - 1.0 MG/DL) 0.7 Hematology WBC (3.5 - 11.0 K/mm3) 4.8 Microbiology: 07/12 1441 ABDOMINAL: Wound Culture - RECD 07/12 1037 NASAL: MRSA Screen - RECD Treatment plan: consult, initiation of therapy Rationale: 49 y/o female currently on vancomycin to treat skin and soft tissue infection. Pharmacy consulted to adjust and monitor therapy today is day 1 of therapy. Labs: Wt: 71.8 kg Ht: 162.56 cm WBC: 4.8 k/mm3 Scr: 0.7 mg/dl C S: Abdominal wound culture pending Nasal MRSA Screen pending Other current abx: Ceftriaxone 1000 mg q24h (start 07/12) Plan: Pharmacy to initiate vancomycin 1000mg q8h starting on 07/12 at 2200. This dose is expected to yield an AUC of 478. A peak ordered for 07/14 at 0900 and a trough ordered for 07/14 at 1300 to assess therapy. Thank you for the consult. Pharmacy to continue to follow. at 2037 RPT #: [id number] END OF REPORT [facility] 2024-07-12 17:30:00 [facility] ([facility]) Infect Disease Consult Note REPORT#:[id number] REPORT STATUS: Signed REPORT INITIALIZATION DATE:07/12/24 TIME:1729 PATIENT: ETHAN GARCIA UNIT #: [id number] ROOM[facility]BED: [facility] : [facility] AGE: 49 SEX: F ATTEND: Aris De La O MD ADM AUTHOR: Patrick Gaxiola MD REPT SERVICE DT/TIME: 07/12/24 1730 * ALL edits or amendments must be made on the electronic/computer document * History of Present Illness Chief complaint: Abdominal wound HPI: 49-year-old female with h/o hiatal hernia s/p sleeve gastrectomy and abdominoplasty in [facility] with skin graft from the left thigh, necrotizing infection of the abdominal wall around December s/p multiple surgeries, who presented to the ED with worsening intermittent fever associated with a nonhealing abdominal wound. She was discharged from [facility] a few weeks ago on cefdinir. She just completed the treatment without improvement. History - Adult longitudinal Past medical history: Reports: Depression/mood disorder. Alcohol use: Denies EtOH use Drug use: Denies recreational drugs Smoking status for patients 13 years old or older: Unknown,if ever smoked Allergies: Coded Allergies: aspirin (Mild, RASH 05/25/24) ketorolac (From TORADOL) (Mild, RASH 05/25/24) ibuprofen (THROAT SWELLING 07/10/24) Review of Systems Constitutional: Reports: fever. Skin: Denies: itching. Allergy/Immun: Denies hives Eyes: Denies discharge ENT: Denies: sore throat. Respiratory: Denies: productive cough (sputum). Cardiovascular: Denies: chest pain. GI: Reports: abdominal pain. : Denies: dysuria. Musculoskeletal: Denies: joint swelling. Objective General VS/I O: Vital Signs Date Temp Pulse Resp B/P B/P Mean Pulse Ox FiO2 07/11-07/12 36.7-37.1 86-97 14-15 96-153/63-102 74.0-118.9 93-99 Last Documented: Result Date Time Pulse Ox 96 07/12 1241 B/P 96/63 07/12 1241 B/P Mean 74.0 07/12 1241 Temp 37.1 07/12 1241 Pulse 93 07/12 1241 Resp 15 07/12 1241 O2 Delivery Room air 07/12 0813 Vital Signs: Date Time Temp Pulse Resp B/P B/P Pulse O2 O2 Flow FiO2 Mean Ox Delivery Rate 07/12 1241 37.1 93 15 96/63 74.0 96 07/12 0813 36.9 86 125/84 97.9 93 Room air 07/12 0407 93 131/83 99.3 94 Room air 07/11 2304 36.9 97 139/86 103.5 98 Room air 07/11 1942 36.7 96 14 153/102 118.9 99 Room air PATIENT WEIGHT: Weight (lb): Weight (oz): Weight (kg): 71.818 Physical Exam General appearance: obese, alert, awake, oriented, no acute distress, mental status normal, no respiratory distress Head/Eyes: atraumatic, clear cornea, EOMI, normal conjunctiva/sclera, normal eyelids/periorb, normocephalic ENT: moist mucosal membranes, normal nose Neck: full range of motion, non-tender, supple/no meningismus Cardiovascular: regular rate rhythm Respiratory: symmetric expansion, no distress Abdomen: Abdominal skin graft with TTP, edema and erythema (which is chronic), no pus Genitourinary: no flank pain Extremities: no clubbing, no cyanosis Musculoskeletal: no joint swelling Neuro/SPEECH PATHOLOGY TEACHER: alert, oriented X 3, normal speech Skin: normal turgor Psychiatry: normal affect, normal judgment/insight, normal mood Diagnosis, Assessment Plan Free Text DxA P Notes Free text DxA P notes: Laboratory Tests 07/12/24 1706: [Embedded Image Not Available] Imaging: Pending Assessment: 1. Recurrent cellulitis/inflammation of abdominal wall with atypical presentation s/p debridement and tissue biopsy 05/28/24. Tissue cxs showed Proteus, Prevotella, E. faecali and Morganella. AFB cx neg. Fungal cx showed Penicillium, most likely a contaminant. Pt has been on cefdinir and Augmentin as outpt. 2. S/p abdominoplasty. Plan: 1. Ceftriaxone (day 2). 2. Wound cx pending. 3. Surgery consulted. 4. Monitor CBC. 5. Monitor kidney function. 6. Wound care. 7. Dermatology evaluation would be helpful, this was discussed with the pt. Tnank you for this consult. at 1839 RPT #: [id number] END OF REPORT [facility] 2024-07-12 16:51:00 [facility] ([facility]) Colorectal Surgery Consult REPORT#:[id number] REPORT STATUS: Signed REPORT INITIALIZATION DATE:07/12/24 TIME:1650 PATIENT: ETHAN GARCIA UNIT #: [id number] ROOM/BED: [place] [address] : 73 AGE: 49 SEX: F ATTEND: Aris De La O MD ADM AUTHOR: Mario Menezes MD REPT SERVICE DT/TIME: 07/12/24 2731 * ALL edits or amendments must be made on the electronic/computer document * History of Present Illness HPI: Patient is a 49 years old female with past medical history of hiatal hernia repair, history of sleeve gastrectomy who underwent abdominoplasty in [place], her postoperative course was complicated with necrotizing infection of the abdominal wall requiring return to the operating room and subsequently having multiple surgical intervention and lastly patient had skin graft from the left thigh. Patient has been having chronic nonhealing abdominal wound with multiple sinuses and the skin with intermittent and frequent discharge associated with pain. Patient was admitted recently to [facility] and was discharged with oral antibiotics patient completed oral antibiotics course without improvement of her symptoms. Patient was seen by her primary care physician who recommended her to come to emergency room for evaluation and treatment. Patient denies nausea or vomiting. Denies having fever or chills. Denies having rectal bleeding. Patient has no constipation. History - Adult longitudinal Past medical history: Reports: Depression/mood disorder. Alcohol use: Denies EtOH use Drug use: Denies recreational drugs Smoking status for patients 13 years old or older: Unknown,if ever smoked Allergies: Coded Allergies: aspirin (Mild, RASH 05/25/24) ketorolac (From TORADOL) (Mild, RASH 05/25/24) ibuprofen (THROAT SWELLING 07/10/24) Review of Systems All systems rev neg: except as marked (negative except what in HP) Objective Physical Exam VS/I O: Last Documented: Result Date Time Pulse Ox 96 07/12 1241 B/P 96/63 07/12 1241 B/P Mean 74.0 07/12 1241 Temp 37.1 07/12 1241 Pulse 93 07/12 1241 Resp 15 07/12 1241 O2 Delivery Room air 07/12 0813 PATIENT WEIGHT: Weight (lb): Weight (oz): Weight (kg): 71.818 General appearance: alert, awake HEENT: anicteric, atraumatic, clear cornea Neck: full range of motion, non-tender Cardiovascular: normal capillary refill, normal heart sounds Respiratory: aerating well, clear to auscultation, equal breath sounds Abdomen: non-tender, normal bowel sounds, soft Extremities: moves all, normal capillary refill Musculoskeletal: full range of motion Neuro/SPEECH PATHOLOGY TEACHER: alert, oriented x 3 Skin: dry, intact Psychiatry: normal affect, normal judgment/insight Results Findings/Data: Microbiology: Date/Time Procedure - Status Source Growth 07/12 1441 Wound Culture - RECD ABDOMINAL 07/12 1037 MRSA Screen - RECD NASAL Interpretation I independently reviewed the [ ] and my interpretation is [ ] Diagnosis, Assessment Plan Free Text A P: Patient is a 49 years old female with past medical history of hiatal hernia repair, history of sleeve gastrectomy who underwent abdominoplasty in [place], her postoperative course was complicated with necrotizing infection of the abdominal wall requiring return to the operating room and subsequently having multiple surgical intervention and lastly patient had skin graft from the left thigh. Patient has been having chronic nonhealing abdominal wound with multiple sinuses and the skin with intermittent and frequent discharge associated with pain. Patient was admitted recently to [facility] and was discharged with oral antibiotics patient completed oral antibiotics course without improvement of her symptoms. Patient was seen by her primary care physician who recommended her to come to emergency room for evaluation and treatment. Patient denies nausea or vomiting. Denies having fever or chills. Denies having rectal bleeding. Patient has no constipation. Patient had a chronic uncomplicated condition of nonhealing chronic wound of the abdominal wall, it is located in the lower portion of the abdomen, patient has left the hospital approximately 4 months ago and since then this wound has not been healing, there is multiple sinuses within the abdominal wound in addition to some areas of granulation tissue, the wound extend over a distance of approximately 15 x 25 cm. I had detailed discussion with the patient regarding her symptoms, discussed with her the plan for IV antibiotics, local wound care, in addition to that, but patient would benefit from debridement of abdominal wall nonhealing wound and multiple skin sinuses, required with the patient that the wound may take several weeks to heal, I reviewed the abdomen and pelvis CT scan and it does not appear there is any fistulization of the bowel to the wound at this time. Recommendations Pain control as needed Local wound care IV antibiotics DVT prophylaxis GI prophylaxis Diet as tolerated GI regimen Monitor H H, transfuse as needed Outpatient colonoscopy for anemia workup Will discuss further with the patient at 0758 RPT #: [id number] END OF REPORT [facility] 2024-07-12 15:07:00 [facility] ([facility]) Hospitalist Progress Note REPORT#:[id number] REPORT STATUS: Signed REPORT INITIALIZATION DATE:07/12/24 TIME:1506 PATIENT: ETHAN GARCIA UNIT #: [id number] ROOM/BED: [place] [address] : 73 AGE: 49 SEX: F ATTEND: Aris De La O MD ADM AUTHOR: Allyson Ayala MSN REPT SERVICE DT/TIME: 07/12/24 1507 * ALL edits or amendments must be made on the electronic/computer document * Allyson Ayala 07/12/24 1507: Subjective Chief complaint: Abd pain Review of Systems Skin: Reports: swelling, other (wound). GI: Reports: abdominal pain. All systems rev neg: except as noted Objective General VS/I O: Vital Signs: Date Time Temp Pulse Resp B/P B/P Pulse O2 O2 Flow FiO2 Mean Ox Delivery Rate 07/12 1241 98.8 93 15 96/63 74.0 96 07/12 0813 98.4 86 125/84 97.9 93 Room air 07/12 0407 93 131/83 99.3 94 Room air 07/11 2304 98.4 97 139/86 103.5 98 Room air 07/11 1942 98.1 96 14 153/102 118.9 99 Room air 07/11 1746 97.9 98 20 146/93 110.4 99 07/11 1521 88 19 129/69 89 100 PATIENT WEIGHT: Weight (lb): Weight (oz): Weight (kg): 71.818 Medications: Active Meds + DC'd Last 24 Hrs Trazodone HCl (DESYREL) 300 MG BEDTIME PO Famotidine (PEPCID) 20 MG ONCE ONE IV (DC) Paroxetine HCl (PAXIL) 20 MG DAILY PO Acetaminophen (TYLENOL) 650 MG Q6H PRN PRN PO Ceftriaxone Sodium (ROCEPHIN) 1,000 MG Q24H IV Sterile Water (WATER FOR INJECTION) 10 ML Hydrocodone Bitart/Acetaminophen (NORCO 7.5/325) 1 TAB Q6H PRN PRN PO Lorazepam (ATIVAN) 2 MG BEDTIME PRN PRN PO Morphine Sulfate (morphine SULFATE) 4 MG Q4H PRN PRN IV Dietitian nutrition assessment The data set between the solid lines has been imported from the dietitian's assessment. BMI Calculated: 27.2 Nutrition related diagnosis: Overweight Nutrition diagnosis details: BMI 25-29.9 Nutrition problem: Increased nutrient needs Nutrition etiology: Acute illness Nutrition signs and symptoms: Non-healing wound Nutrition prescription: 1) Continue regular diet as tolerated 2) Ensure HP BID, Tomy BID for wound 3) Encourage oral intake of food/supplements Dietitian name: Ailyn Albert, DIET Assessment completed: 07/12/24 Physical Exam General appearance: alert, awake, oriented Head/Eyes: atraumatic, clear cornea, EOMI, normocephalic, PERRL ENT: normal ear left, normal ear right, normal nose Neck: full range of motion, non-tender, normal thyroid Cardiovascular: normal capillary refill, normal heart sounds, regular rate rhythm Respiratory: aerating well, clear to auscultation, symmetric expansion Abdomen: obese, tenderness, Large wound Extremities: moves all, no clubbing, no cyanosis Musculoskeletal: normal inspection Neuro/SPEECH PATHOLOGY TEACHER: alert, oriented X 3, normal speech Skin: dry, Abd with ABD dressing Psychiatry: normal affect, normal mood Diagnosis, Assessment Plan Free Text DxA P Notes Free text DxA P notes: 49 year old lady with a history of h/o hiatal hernia s/p sleeve gastrectomy and abdominoplasty in [facility] with skin graft from the left thigh, necrotizing infection of the abdominal wall and underwent multiple surgeries in [facility], admitted for: # Infected abdominal wound/cellulitis #H/o Gastrectomy #H/O abdominoplasty # Hiatal hernia #Necrotizing infection of the abdominal wall - Pt states she had gastric sleeve surgery done december, in [place] Patient just completed course of cefdinir and Augmentin oral outpt Start IV antibiotic therapy IV Vancomycin + Rocephin ID and museum specialist consulted, appreciate input Surgery also consulted #Skin graft failure Consult surgery to evaluate for take down of the graft. #Anxiety, depression, mood disorder -Resume home medications DVT prophylaxis: Lovenox Full code Plan of care discussed with patient and all questions addressed Aris De La O 07/12/24 1847: Attestations Physician Attestation Agree w/findings plan: Agree with the findings and plan as documented at 1518 at 5187 RPT #: [id number] END OF REPORT [facility] 2024-07-12 14:00:00 [facility] ([facility]) Wound Care Consultation Note REPORT#:[id number] REPORT STATUS: Signed REPORT INITIALIZATION DATE:07/12/24 TIME:1400 PATIENT: ETHAN GARCIA UNIT #: [id number] ROOM/BED: [place] [address] : 73 AGE: 49 SEX: F ATTEND: Aris De La O MD ADM AUTHOR: Balwinder Dow MD REPT SERVICE DT/TIME: 07/12/24 1400 * ALL edits or amendments must be made on the electronic/computer document * HPI/History - Adult longitud Requesting clinician: KEVON Crane Reason for consult: Wound Care HPI: Ms. Ethan Zarco is a 49 year old lady with a history of h/o hiatal hernia s/p sleeve gastrectomy and abdominoplasty in [facility] with skin graft from the left thigh, necrotizing infection of the abdominal wall around December and she underwent multiple surgeries all at [facility], s/p graft biopsy which only showed inclusion cyst with targeted directed antibiotics to the culture results who [facility] with the complaints of fever and nonhealing abdominal wound. Past medical history: Reports: Depression/mood disorder. Alcohol use: Denies EtOH use Drug use: Denies recreational drugs Smoking status for patients 13 years old or older: Unknown,if ever smoked Allergies: Coded Allergies: aspirin (Mild, RASH 05/25/24) ketorolac (From TORADOL) (Mild, RASH 05/25/24) ibuprofen (THROAT SWELLING 07/10/24) Objective General VS: Last Documented: Result Date Time Pulse Ox 96 07/12 1241 B/P 96/63 07/12 1241 B/P Mean 74.0 07/12 1241 Temp 98.8 07/12 1241 Pulse 93 07/12 1241 Resp 15 07/12 1241 O2 Delivery Room air 07/12 0813 PATIENT WEIGHT: Weight (lb): Weight (oz): Weight (kg): 71.818 Medications: Active Meds + DC'd Last 24 Hrs Trazodone HCl (DESYREL) 300 MG BEDTIME PO Famotidine (PEPCID) 20 MG ONCE ONE IV (DC) Paroxetine HCl (PAXIL) 20 MG DAILY PO Acetaminophen (TYLENOL) 650 MG Q6H PRN PRN PO Ceftriaxone Sodium (ROCEPHIN) 1,000 MG Q24H IV Sterile Water (WATER FOR INJECTION) 10 ML Hydrocodone Bitart/Acetaminophen (NORCO 7.5/325) 1 TAB Q6H PRN PRN PO Lorazepam (ATIVAN) 2 MG BEDTIME PRN PRN PO Morphine Sulfate (morphine SULFATE) 4 MG Q4H PRN PRN IV Dietitian Nutrition assessment The data set between the solid lines has been imported from the dietitian's assessment. BMI Calculated: 27.2 Nutrition related diagnosis: Overweight Nutrition diagnosis details: BMI 25-29.9 Nutrition problem: Increased nutrient needs Nutrition etiology: Acute illness Nutrition signs and symptoms: Non-healing wound Nutrition prescription: 1) Continue regular diet as tolerated 2) Ensure HP BID, Tomy BID for wound 3) Encourage oral intake of food/supplements Dietitian name: Ailyn Albert, DIET Assessment completed: 07/12/24 Physical Exam General appearance: chronically ill appearing Head/eyes: atraumatic Neck: no JVD Cardiovascular: no rub Respiratory: no distress Abdomen: non-tender Extremities: no edema Neuro/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 Chronic abdominal wound infection A P Will cleanse entire wound base with dakin's then place ABD pad. Carry this out once per RN shift. 2. Skin graft failure A P consult surgery to evaluate for take down of the graft. 3. Multiple excoriations 4. Obesity at 1441 RPT #: [id number] END OF REPORT [facility] 2024-07-11 11:25:00 [facility] ([facility]) History Physical - Adult REPORT#:[id number] REPORT STATUS: Signed REPORT INITIALIZATION DATE:07/11/24 TIME:1124 PATIENT: ETHAN GARCIA UNIT #: [id number] ROOM/BED: [place] [address] : 73 AGE: 49 SEX: F ATTEND: Aris De La O MD ADM AUTHOR: Allyson Ayala MSN REPT SERVICE DT/TIME: 07/11/241124 * ALL edits or amendments must be made on the electronic/computer document * Allyson Ayala 07/11/24 1125: History of Present Illness HPI Chief complaint: Infected abdominal wound PCP: PCP: Klever Velázquez DO Free Text HPI Notes Free Text HPI Notes: 49-year-old female with h/o hiatal hernia s/p sleeve gastrectomy and abdominoplasty in [facility] with skin graft from the left thigh, necrotizing infection of the abdominal wall around December and she underwent multiple surgeries, presents to ER with the complaints of fever and nonhealing abdominal wound. According to patient, she has had multiple admissions due to this wound that she was admitted here in February and was just discharged from [facility] a few weeks ago. She said she was discharged on oral Augmentin and cefdinir from [facility] and she just completed the course of both without improvement. She says she followed up with her PCP yesterday and PCP sent her straight to the hospital for admission. She denies nausea, vomiting but endorses but endorses moderate abdominal pain. History Past medical history: Reports: Depression/mood disorder. Alcohol use: Denies EtOH use Drug use: Denies recreational drugs Smoking status for patients 13 years old or older: Unknown,if ever smoked Medication/Allergy-Vaccine Hx Medications: Home Medications: Medication Dose/Rte/Freq Days Qty Entered Last Max Daily Dose Reviewed LORazepam (ATIVAN) 2 MG PO 05/25/24 Strength: 2 MG TAB BEDTIME PRN PRN 2317 AGITATION PARoxetine HCL (PAXIL) 20 MG PO DAILY 05/25/24 Strength: 20 MG TAB 2317 QUEtiapine (SEROquel) 50 MG PO BEDTIME 05/25/24 Strength: 50 MG TAB 2317 ZOLPIDEM (AMBIEN) 10 MG PO BEDTIME 05/25/24 Strength: 10 MG TAB 2317 traZODone (DESYREL) 300 MG PO BEDTIME 05/25/24 Strength: 300 MG TAB 2317 AMOXICILLIN/CLAV K 875 MG PO Q12H 20 05/30/24 (AUGMENTIN 875/125 MG) 1041 Strength: 875 MG-125 MG TAB SULFAMETHOXAZOLE/TMP 1 TAB PO Q12H 20 05/30/24 (BACTRIM DS 800/160 MG) 1041 Strength: 800 MG-160 MG TAB Hydrocodone/Acetaminophen 1 TAB PO Q4H 15 05/30/24 (HYDROcodone/APAP 5/325) 1041 Strength: 5 MG-325 MG TAB Current Hospital Medications: Antihistamine Drugs Sig/Ever Start time Last Medication Dose Route Stop Time Status Admin Diphenhydramine HCl 25 MG ONCE ONE 07/11 930 DC (BENADRYL) PO 07/11 931 Central Nervous System Agents Sig/Ever Start time Last Medication Dose Route Stop Time Status Admin Morphine Sulfate 4 MG X1ED STA 07/11 0920 DC 07/11 (morphine Sulfate) IV 07/11 09 0933 Hydromorphone HCl 1 MG X1ED STA 07/11 0607 DC 07/11 (DILAUDID) IV 07/11 06 0621 Gastrointestinal Drugs Sig/Ever Start time Last Medication Dose Route Stop Time Status Admin Ondansetron HCl 4 MG X1ED STA 07/11 0608 DC 07/11 (ZOFRAN) IV 07/11 06 0621 Allergies: Coded Allergies: aspirin (Mild, RASH 05/25/24) ketorolac (From TORADOL) (Mild, RASH 05/25/24) ibuprofen (THROAT SWELLING 07/10/24) Review of Systems Constitutional: Reports: fatigue, fever. Skin: Reports: other (Abdominal wound). All systems rev neg: except as marked Physical Exam General appearance: alert, awake, oriented Head/Eyes: atraumatic, clear cornea, EOMI, normocephalic, PERRLA ENT: normal ear left, normal ear right, normal nose Neck: full range of motion, non-tender, no JVD Cardiovascular: normal capillary refill, regular rate rhythm, normal heart sounds Respiratory: clear to auscultation, no distress, no tenderness, aerating well Abdomen/GI: decreased bowel sounds, soft, no guarding Extremities: moves all, no clubbing, no cyanosis Musculoskeletal: normal inspection Neuro/SPEECH PATHOLOGY TEACHER: alert, oriented X 3, normal speech Skin: Abdominal dressing CDI Psychiatry: normal affect, normal mood Diagnosis, Assessment Plan Free Text DxA P Notes Free Text DxA P Notes: 49 years old female with past surgical history of abdominoplasty., gasrectomy who is admitted for: # Infected abdominal wound/cellulitis #H/o Gastrectomy #H/O abdominoplasty # Hiatal hernia - Pt states she had gastric sleeve surgery done december, in [place] -Admit to telemetry, inpatient Routine vital signs Strict I's and O's Patient just completed course of cefdinir and Augmentin oral Start IV antibiotic therapy IV Vancomycin + Rocephin ID and museum specialist consulted, appreciate input #Anxiety, depression, mood disorder -Resume home medications DVT prophylaxis: Lovenox Full code Plan of care discussed with patient and all questions addressed Aris De La O 07/11/24 1332: Attestations Physician Attestation Agree w/findings plan: Appreciate note from [employer]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 Agree with the history and physical findings Lab works noted Imaging noted as well Findings were discussed with the ESPERANZA and Staff at 1142 at 1332 RPT #: [id number] END OF REPORT [facility] 2024-07-11 06:02:00 [facility] ([facility]) EMERGENCY PROVIDER REPORT REPORT#:[id number] REPORT STATUS: Signed DATE:07/11/24 TIME:601 PATIENT: ETHAN GARCIA UNIT #: [id number] ROOM/BED: [place] [address] : 73 AGE: 49 SEX: F PCP PHYS: Klever Velázquez DO SERVICE AUTHOR: Jean Culver MD REP SRV REP SRV TM: 0602 * ALL edits or amendments must be made on the electronic/computer document * HPI-Rash/Abscess/Cellulitis Free Text HPI Notes Free Text HPI Notes 49-year-old female past medical history significant for gastric sleeve in [place] years ago c/b hiatal hernia and chronic abdominal wound status post abdominoplasty in December 2023 in [place] who presents to the ED as a transfer from [facility] for cellulitis and intractable abdominal pain. At outside facility patient received full septic workup that was unremarkable. She received vancomycin and Zosyn, 30 cc/kg of fluids and IV morphine. Patient CT abdomen/pelvis, shows some subcutaneous fat stranding, but no evidence of a fluid collection or intra-abdominal abscess. Patient still endorsing abdominal pain sp 8mg morphine at [facility]; provider [facility] discussed with patient about admission. She stated that she wanted to be transferred to [facility] for continuity of care due to the fact that she was seen here a month ago for abdominal wall cellulitis and hiatal hernia. At the time general surgeon Dr. Tamez cared for her and performed an abdominal wall biopsy. Patient's tissue culture resulted in Enterococcus susceptible to vancomycin, penicillin and ampicillin as well as Morganella susceptible to ceftriaxone, cefepime, gentamicin, Zosyn Patient's wound culture resulted in protease that was susceptible to ampicillin, Augmentin, ceftriaxone, cefazolin, ciprofloxacin, gentamicin, levofloxacin, Bactrim. Patient's fungal culture resulted back in penicillium species/fungal smear no growth AFB culture and smear no growth Patient was discharged home on Bactrim and Augmentin. [facility] provider spoke with Dr tamez and he agreed with transfer and admission for further evaluation of the patient's cellulitis. General Initial Greet Date/Time 07/11/24 0601 Presentation Chief Complaint cellulitis Review of Systems ROS Statements All systems rev neg except as marked. Focused Review of Systems GI Reports: Abdominal pain. Skin Reports: Erythema. Past Medical History - Adult Stated Complaint ABD PAIN Allergies Coded Allergies: aspirin (Mild, RASH 05/25/24) ketorolac (From TORADOL) (Mild, RASH 05/25/24) ibuprofen (THROAT SWELLING 07/10/24) Home Medications Discontinued Scripts AMOXICILLIN/CLAV K (AUGMENTIN 875/125 MG) 875 MG PO Q12H AMOXICILLIN/CLAV K (AUGMENTIN 875/125 MG) 875 MG PO Q12H #20 TABS Prov: 05/30/24 DC: 07/11/24 1701 Therapy completed SULFAMETHOXAZOLE/TMP (BACTRIM DS 800/160 MG) 1 TAB PO Q12H SULFAMETHOXAZOLE/TMP (BACTRIM DS 800/160 MG) 1 TAB PO Q12H #20 TABS Prov: 05/30/24 DC: 07/11/24 1701 Therapy completed Hydrocodone/Acetaminophen (HYDROcodone/APAP 5/325) 1 TAB PO Q4H Hydrocodone/Acetaminophen (HYDROcodone/APAP 5/325) 1 TAB PO Q4H #15 TABS Prov: 05/30/24 DC: 07/11/24 1701 Therapy completed Reported Medications LORazepam (ATIVAN) 2 MG PO BEDTIME PRN PRN AGITATION PARoxetine HCL (PAXIL) 20 MG PO DAILY QUEtiapine (SEROquel) 50 MG PO BEDTIME ZOLPIDEM (AMBIEN) 10 MG PO BEDTIME traZODone (DESYREL) 300 MG PO BEDTIME Physical Exam Vital Signs Vital Signs First Documented: Result Date Time B/P 104/60 07/11 557 B/P Mean 74 07/11 557 O2 Delivery Room air 09/25 0557 Temp 36.8 09/25 0557 Pulse 90 07/11 0557 Resp 18 07/11 0557 Pulse Ox 98 07/11 626 Last Documented: Result Date Time Pulse Ox 98 07/11 626 B/P 122/71 07/11 626 B/P Mean 91 07/11 626 Pulse 90 07/11 626 Resp 16 07/11 626 O2 Delivery Room air 07/11 0557 Temp 36.8 07/11 05 Review of Vital Signs Reviewed Focused PE General/Const General/Const Awake, Alert, No acute distress Resp/Chest Respiratory/Chest Breath sounds NL, Breath sounds = bilat, No respiratory distress Cardiovascular Cardiovascular Heart rate NL, Regular rhythm, No gallop, No murmurs Skin Text/Dict Notes Lower abdominal cellulitis; mild oozing, warmth and erythema Interpretation Diagnostics Lab Results Interpretation Results Microbiology: Date/Time Procedure - Status Source Growth 07/11 632 MRSA Screen - ORD NASAL Re-Evaluation MDM Free Text MDM Notes Free Text MDM Notes 49-year-old female past medical history significant for gastric sleeve in [place] years ago c/b hiatal hernia and chronic abdominal wound status post abdominoplasty in December 2023 in [place] who presents to the ED as a transfer from [facility] for cellulitis and intractable abdominal pain. Vital signs stable physical exam notable for chronic lower abdominal cellulitis. Tests: Sepsis workup performed at [facility] Treatment: IV Dilaudid, IV Zofran Disposition: Admission to medicine with general surgery and ID following for management of chronic abdominal wall cellulitis and intractable abdominal pain. ED Course Medication(s) Ordered Medication(s) Ordered: Central Nervous System Agents Sig/Ever Start time Last Medication Dose Route Stop Time Status Admin Hydromorphone HCl 1 MG X1ED STA 07/11 06 DC 07/11 IV 07/11 06 0621 Gastrointestinal Drugs Sig/Ever Start time Last Medication Dose Route Stop Time Status Admin Ondansetron HCl 4 MG X1ED STA 07/11 06 DC 07/11 IV 07/11 0609 0621 Patient Discharge Departure Vital Signs/Condition Vital Signs First Documented: Result Date Time B/P 104/60 07/11 557 B/P Mean 74 07/11 557 O2 Delivery Room air 07/11 05 Temp 36.8 07/11 05 Pulse 90 07/11 05 Resp 18 07/11 556 Pulse Ox 98 07/11 626 Last Documented: Result Date Time Pulse Ox 98 07/11 626 B/P 122/71 07/11 626 B/P Mean 91 07/11 626 Pulse 90 07/11 626 Resp 16 07/11 626 O2 Delivery Room air 07/11 557 Temp 36.8 07/11 557 All vital signs available at the time of this entry have been reviewed. Clinical Impression Clinical Impression Primary Impression: Cellulitis Secondary Impressions: Hx of abdominoplasty, Intractable abdominal pain Disposition Decision Hospitalize )( Accepts Hospitalization Yes )( Reason for Hospitalization Chronic abdominal wall cellulitis, intractable abdominal pain )( Accepted Time 626 )( Accepted Date 07/11/24 at 2002 RPT #: [id number] END OF REPORT [facility] 2024-07-11 02:16:00 [facility] ([facility]) EMERGENCY PROVIDER REPORT REPORT#:[id number] REPORT STATUS: Signed DATE:07/11/24 TIME: 215 PATIENT: ETHAN GARCIA UNIT #: [id number] ROOM/BED: : 73 AGE: 49 SEX: F PCP PHYS: Klever Velázquez DO SERVICE AUTHOR: Md Bill Villatoro MD LOCATION: [facility] REP [facility] TM: 0216 * ALL edits or amendments must be made on the electronic/computer document * HPI-General Illness Free Text HPI Notes Free Text HPI Notes Patient is a 49-year-old male with history of a chronic abdominal wound after complications from an abdominoplasty in december 2023 from a doctor in [facility], presents to the ED with abdominal pain. Pt also endorses having a fever at home of 100.5, but states she took Tylenol at home, and is now afebrile. Pt also endorses some vomiting. She notes that her abdominal pain has become severe over the past 1-2 days, and that prompted her to come to the ED because she is concerned about it being infected again. Pt was seen at [facility], and was evaluation by the general surgery team, wound care, and infectious disease. As per chart review, pt had a biopsy of her abdominal wound in May 2024, and it grew proteus which required antibiotic treatment and ID consultation. General Initial Greet Date/Time 07/10/242103 Provider in Triage HPI Chief Complaint Fever, ABDOMINAL SKIN INFECTION ON SKIN GRAFT PE General/Const No acute distress Respiratory/Chest No respiratory distress Presentation Chief Complaint Abdominal pain Review of Systems ROS Statements All systems rev neg except as marked. Past Medical History - Adult Stated Complaint POSSIBLE ABDOMINOPLASTIC INFECTION Allergies Coded Allergies: aspirin (Mild, RASH 05/25/24) ketorolac (From TORADOL) (Mild, RASH 05/25/24) ibuprofen (THROAT SWELLING 07/10/24) Home Medications Active Scripts AMOXICILLIN/CLAV K (AUGMENTIN 875/125 MG) 875 MG PO Q12H AMOXICILLIN/CLAV K (AUGMENTIN 875/125 MG) 875 MG PO Q12H #20 TABS Prov: 05/30/24 SULFAMETHOXAZOLE/TMP (BACTRIM DS 800/160 MG) 1 TAB PO Q12H SULFAMETHOXAZOLE/TMP (BACTRIM DS 800/160 MG) 1 TAB PO Q12H #20 TABS Prov: 05/30/24 Hydrocodone/Acetaminophen (HYDROcodone/APAP 5/325) 1 TAB PO Q4H Hydrocodone/Acetaminophen (HYDROcodone/APAP 5/325) 1 TAB PO Q4H #15 TABS Prov: 05/30/24 Reported Medications LORazepam (ATIVAN) 2 MG PO BEDTIME PRN PRN AGITATION PARoxetine HCL (PAXIL) 20 MG PO DAILY QUEtiapine (SEROquel) 50 MG PO BEDTIME ZOLPIDEM (AMBIEN) 10 MG PO BEDTIME traZODone (DESYREL) 300 MG PO BEDTIME Calculated Suicide Risk (nurs) No risk Pt reports no significant: Family history, Social history Smoking status for patients 13 years old or older: Unknown,if ever smoked Physical Exam Vital Signs Vital Signs First Documented: Result Date Time Pulse Ox 100 07/10 2106 B/P 142/98 07/10 2106 B/P Mean 112 07/10 2106 O2 Delivery Room air 07/10 2106 Temp 36.9 07/10 2106 Pulse 85 07/10 2106 Resp 18 07/10 2106 Last Documented: Result Date Time Pulse Ox 100 07/11 0000 B/P 121/64 07/11 0000 B/P Mean 83 07/11 0000 O2 Delivery Room air 07/11 Pulse 80 07/11 0000 Resp 18 07/11 Temp 36.9 07/10 2106 Review of Vital Signs Reviewed Free Text PE Notes Free Text PE Notes GENERAL APPEARANCE: Awake protecting airway, uncomfortable appearing. HEAD: Normocephallic, atraumatic EYES: EOMI, PERRL ENT: Airway is patent without pooling of secretions. No trismus or drooling NECK: Supple, no meningismus or restricted ROM LUNGS: CTAB, moving air well. No crackles/wheezes/stridor ausculated ABDOMEN: Chronic abdominal wound infection with erythemaous base with tenderness. Some serosanguinous drainage, and dried purulent material but no active purulent discharge visualized. Tenderness to palpation diffusely thruout the abdomen. no rebound tenderness/guarding. EXTREMITIES: Moving all intact extremities, compartments soft NEUROLOGICAL: No new lateralizing focal neurological deficit observed, CN 2-12 are grossly intact Interpretation Diagnostics Lab Results Interpretation Results Laboratory Tests 07/10/242127: [Embedded Image Not Available] Laboratory Tests: 07/10 Chemistry Lactic Acid (0.7 - 2.1 MMOL/L) 0.7 Coagulation INR (0.86 - 1.14) 1.1 PT Patient/Control Mix (9.4 - 12.5 SECONDS) 12.3 Hematology WBC (3.8 - 9.8 K/MM3) 5.4 RBC (3.58 - 4.97 M/MM3) 4.26 Hgb (11.2 - 14.9 G/DL) 11.1 L Hct (33.2 - 43.5 %) 34.0 MCV (80.7 - 99.1 fL) 80 L MCH (27.0 - 34.1 pg) 26.1 L MCHC (32.2 - 35.7 %) 32.6 RDW (12.1 - 15.2 %) 13.7 Plt Count (129 - 368 K/MM3) 225 MPV (7.4 - 10.4 fl) 9.0 Neut % (Auto) (43 - 75 %) 57.4 Lymph % (Auto) (14 - 44 %) 32.7 Morgan % (Auto) (4 - 13 %) 6.1 Eos % (Auto) (0 - 6 %) 2.8 Baso % (Auto) (0 - 2 %) 0.6 Neut # (Auto) (2.0 - 7.6 K/mm3) 3.09 Lymph # (Auto) (1.0 - 3.8 K/mm3) 1.76 Morgan # (Auto) (0.1 - 0.8 K/mm3) 0.33 Eos # (Auto) (0.0 - 0.2 K/mm3) 0.15 Baso # (Auto) (0.0 - 0.2 K/mm3) 0.03 Immature Gran % (0.0 - 2.0 %) 0.4 Nucleated RBC % (0 - 1.0 %) 0.0 Nucleated RBCs # (Man) (0.0 - 0.1 K/mm3) 0.00 Urines Urine Color (YELLOW) Light-Yellow Urine Appearance (CLEAR) Clear Urine pH (5.0 - 9.0) 6.5 Ur Specific [place] (1.003 - 1.030) 1.031 H Urine Protein (NEGATIVE MG/DL) Negative Urine Glucose (UA) (NORMAL MG/DL) Normal Urine Ketones (NEGATIVE MG/DL) Negative Urine Blood (NEGATIVE Antoine/mm3) Negative Urine Nitrite (NEGATIVE) Negative Urine Bilirubin (NEGATIVE MG/DL) Negative Urine Urobilinogen (NORMAL MG/DL) Normal Ur Leukocyte Esterase (NEGATIVE /mm3) Negative Microbiology: Date/Time Procedure - Status Source Growth 07/10 2129 Blood Culture - RECD BLOOD 07/10 2129 Blood Culture - RECD BLOOD 07/10 2128 Blood Culture - RECD BLOOD 07/10 2128 Blood Culture - RECD BLOOD Recent Impressions: RADIOLOGY - XR CHEST 1V 07/10 2123 Report Impression - Status: SIGNED Entered: 07/10/20242131 IMPRESSION: No evidence to suggest active disease or significant change since 05/25/2024. Impression By: Venancio Womack MD CAT SCAN - CT ABD PELVIS W/CONT 07/10 2233 Report Impression - Status: SIGNED Entered: 07/10/20242305 IMPRESSION: Status post abdominoplasty, by history. See additional comments above. Impression By: Venancio Womack MD Re-Evaluation MDM Free Text MDM Notes Free Text MDM Notes History and physical exam as documented above. History is obtained from patient. I reviewed all prior available records. Differential diagnosis include intra-abdominal abscess versus abdominal wound cellulitis versus perforation versus colitis. Will obtain basic blood work, lipase, CT abdomen/pelvis. Given patient's abdominal wound and history of fever at home, patient with sepsis alerted, and was given IV vancomycin and IV Zosyn empirically for antibiotic coverage. Lactic acid and blood cultures were also obtained. Re-Evaluation/Progress #1 Text/Dict Note Patient's lactic acid is 0.7, and there is no leukocytosis on her serum white blood cell count. Still pending CMP as lab has lost the reports. So will resend blood work so they can run it. Patient CT abdomen/pelvis, shows some subcutaneous fat stranding, but no evidence of a fluid collection or intra-abdominal abscess. Patient likely has cellulitis of their abdomen, given the erythematous nature of their wound, and the tenderness to palpation. I had a discussion with the patient regarding their abdominal wound, and they state that they are still in significant pain despite receiving 8 mg of morphine thus far. As patient still has significant pain, and has findings that may represent a acute on chronic wound infection, will recommend admission to the hospital. Patient states that she would like to go to [facility], as that is where she had her initial care, and that she was seen by general surgery, wound care, and infectious disease over there, so for continuity of care she would like to be transferred over there. I spoke with transfer center, and they all are attempting to coordinate transfer at this time. Time of Re-Eval 199 Re-Evaluation/Progress #2 Text/Dict Note Spoke with general surgeon at [facility], and they have agreed to act as a oncology consultant on the pts case. They state that the patient can be admitted to the hospitalist service, and that they will act as a consult. Patient will require wound care and infectious disease consultation as well. Transfer center states that they will coordinate transfer and rest of the process. Patient currently pending transportation Time of Ev221 Plan Post Re-Eval plan transfer ED Course Medication(s) Ordered Medication(s) Ordered: Anti-Infective Agents Sig/Ever Start time Last Medication Dose Route Stop Time Status Admin Piperacillin Sod/ 3.375 GM X1ED STA 07/10 2114 DC 07/10 Tazobactam Sod IV 07/10 2213 2300 Sodium Chloride 100 ML Vancomycin HCl 1,000 MG X1ED STA 07/10 2114 DC 07/10 Sodium Chloride 250 ML IV 07/10 2313 2300 Central Nervous System Agents Sig/Ever Start time Last Medication Dose Route Stop Time Status Admin Morphine Sulfate 4 MG X1ED STA 07/11 0011 DC 07/11 IV 07/11 0012 0050 Morphine Sulfate 4 MG X1ED STA 07/106 DC 07/10 IV 07/10 2237 2258 Diagnostic Agents Sig/Ever Start time Last Medication Dose Route Stop Time Status Admin Iopamidol 0 .STK-MED ONE 07/10 2130 DC 07/10 IV 2245 Electrolytic, Caloric, And Faye Sig/Ever Start time Last Medication Dose Route Stop Time Status Admin Sodium Chloride 2,154.54 ML BOLUS ONCE STA 07/10 2113 DC 07/10 IV 07/10 2114 2259 Gastrointestinal Drugs Sig/Ever Start time Last Medication Dose Route Stop Time Status Admin Ondansetron HCl 4 MG X1ED STA 07/10 2236 DC 07/10 IV 07/10 2237 225 Patient Discharge Departure Vital Signs/Condition Vital Signs First Documented: Result Date Time Pulse Ox 100 07/10 2106 B/P 142/98 07/10 2106 B/P Mean 112 07/10 2106 O2 Delivery Room air 07/10 2106 Temp 36.9 07/10 2106 Pulse 85 07/10 2106 Resp 07/10 Last Documented: Result Date Time Pulse Ox 100 07/11 0000 B/P 121/64 07/11 0000 B/P Mean 83 07/11 0000 O2 Delivery Room air 07/11 0000 Pulse 80 07/11 0000 Resp 07/11 0000 Temp 36.9 07/10 2106 All vital signs available at the time of this entry have been reviewed. Condition Stable Clinical Impression Clinical Impression Primary Impression: Chronic abdominal wound infection Secondary Impressions: Cellulitis Disposition Decision Transfer )( Request Time 020 )( Request Date 07/11/24 Call Returned Time 222 Spoke with: Seam Rubbing Machine Operator, Attending physician, Specialty physician [facility] Transfer Accepted Yes Accepted by: Accepted for consult b Dr. Tamez (general surgery). Pt to be admitted to hospitalist service )( Acceptance Time 223 )( Acceptance Date 07/11/24 Transfer Reason Patient request Patient Status Stable for transfer Patient Informed Yes Consent Obtained yes Critical Care Time Spent (minutes): 35 Services Performed Patient management by me, Time spent at bedside, Reviewing test results, Reviewing imaging, Discussing patient care, Documentation in record, Time with fam/surrogate Separately billable procedures excluded from time. Patient was critically ill due to: Acute on chronic abdominal wound infection. Fever requiring sepsis alert My treatment and management were: IV Vancomycin and Zosyn for antibiotic coverage. CT imaging, and conversation with general surgeon of accepting facility regarding pts wound. CC Note 1 Total critical care time [35] minutes. Total critical care time documented does not include time spent on separately billed procedures or the services of residents, students, nurses or physician assistants. I personally saw and examined the patient. I have reviewed all diagnostic interpretations and treatment plans as written. I was present for the walker portions of any procedures performed and the inclusive time noted in any critical care statement. Critical care time includes patient management by me, time spent at the patients bedside, time to review lab and imaging results, discussing patient care, documentation in the medical record, and time spent with the family or caregiver. at 0228 RPT #:[id number] END OF REPORT [facility] 2024-07-10 21:15:00 [facility] ([facility]) EMERGENCY PROVIDER REPORT REPORT#:[id number] REPORT STATUS: Signed DATE:07/10/24 TIME: 2114 PATIENT: ETHAN GARCIA UNIT #: [id number] ROOM/BED: : 73 AGE: 49 SEX: F PCP PHYS: Klever Velázquez DO SERVICE DT: AUTHOR: Parag Colindres LOCATION: [facility] REP SRV REP SRV TM: 2114 * ALL edits or amendments must be made on the electronic/computer document * Provider in Triage - Adult Provider in Triage Initial Greet Date/Time 07/10/242103 Greet Note I have greeted and performed a focused rapid initial assessment of this patient. A comprehensive ED assessment and evaluation of the patient, analysis of all test results, and completion of the medical decision-making process will be conducted by additional ED providers. HPI Chief Complaint Fever, ABDOMINAL SKIN INFECTION ON SKIN GRAFT PE General/Const No acute distress Respiratory/Chest No respiratory distress MSE Complete The medical screening examination is complete. 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 Patient states she had abdominoplasty in [place] in December 2023. Patient states while she was in [place] she became septic and had to stay in the hospital for 2 months and received skin graft over her abdominoplasty. Patient notes the physician had to remove multiple necrotic tissue. Patient states her physician placed her on oral antibiotics and recently. Patient notes she still spiking fevers and not feeling well with nausea and vomiting. The patient denies any current SOB, chest pain, dizziness , lightheadedness, diarrhea and headache. Notice: Parts of this note were created using [employer] speech recognition dictation software. All things were made to correct any errors at the time of dictation, however there may be some errors present in the general magistrate that were inadvertently overlooked during the dictation. PMH-Provider in Triage Stated Complaint POSSIBLE ABDOMINOPLASTIC INFECTION Allergies Coded Allergies: aspirin (Mild, RASH 05/25/24) ketorolac (From TORADOL) (Mild, RASH 05/25/24) Home Medications Active Scripts AMOXICILLIN/CLAV K (AUGMENTIN 875/125 MG) 875 MG PO Q12H AMOXICILLIN/CLAV K (AUGMENTIN 875/125 MG) 875 MG PO Q12H #20 TABS Prov: 05/30/24 SULFAMETHOXAZOLE/TMP (BACTRIM DS 800/160 MG) 1 TAB PO Q12H SULFAMETHOXAZOLE/TMP (BACTRIM DS 800/160 MG) 1 TAB PO Q12H #20 TABS Prov: 05/30/24 Hydrocodone/Acetaminophen (HYDROcodone/APAP 5/325) 1 TAB PO Q4H Hydrocodone/Acetaminophen (HYDROcodone/APAP 5/325) 1 TAB PO Q4H #15 TABS Prov: 05/30/24 Reported Medications LORazepam (ATIVAN) 2 MG PO BEDTIME PRN PRN AGITATION PARoxetine HCL (PAXIL) 20 MG PO DAILY QUEtiapine (SEROquel) 50 MG PO BEDTIME ZOLPIDEM (AMBIEN) 10 MG PO BEDTIME traZODone (DESYREL) 300 MG PO BEDTIME Smoking status: Smoking status for patients 13 years old or older: Unknown,if ever smoked at [address] [facility] #:[id number] END OF REPORT [facility] 2024-07-10 15:20:10 Chief Complaint Patient presents with Hospital F/U Follow up from [facility] on 06/27/2024 for infection in skin graft on abdomen. Margret Logan MA II Margret Logan MA, II [facility] 2024-06-27 15:56:54 Radiation Dose CTDIV OL = 0 (mGy): DLP = 426.3 (mGy-cm) PROCEDURE INFORMATION: Exam: CT Abdomen And Pelvis With Contrast Exam date and time: 06/27/2024 4:07 PM Age: 49 years old Clinical indication: /abd pain, n/v, prior skin graft after infected abdominoplasty January 07 TECHNIQUE: Imaging protocol: Computed tomography of the abdomen and pelvis with contrast. Radiation optimization: All CT scans at this facility use at least one of these dose optimization techniques: automated exposure control; mA and/or kV adjustment per patient size (includes targeted exams where dose is matched to clinical indication); or iterative reconstruction. Contrast material: OMNI 350; Contrast volume: 65 ml; Contrast route: INTRAVENOUS (IV); COMPARISON: No relevant prior studies available. RADIATION DOSE METRICS: Total DLP (mGy-cm): 426.3 FINDINGS: Lower chest: Bilateral breast implants. Liver: Normal. No mass. Gallbladder and biliary ducts: Status post cholecystectomy. No calcified stones. No ductal dilation. Pancreas: Normal. No ductal dilation. Spleen: Normal. No splenomegaly. Adrenal glands: Normal. No mass. Kidneys and ureters: Normal. No renal calculi, ureteral calculi or hydronephrosis. Stomach and bowel: Circumferential thickening of the distal esophagus. Small hiatal hernia. Status post sleeve gastrectomy. No obstruction. Colonic diverticulosis without evidence of acute diverticulitis. Appendix: No evidence of appendicitis. Intraperitoneal space: Unremarkable. No free air. No significant fluid collection. Vasculature: Unremarkable. No abdominal aortic aneurysm. Lymph nodes: Unremarkable. No enlarged lymph nodes. Urinary bladder: Unremarkable as visualized. Reproductive: Unremarkable as visualized. Bones/joints: Unremarkable. No acute fracture. Soft tissues: There is absence of subcutaneous fat along the majority of the anterior abdominal wall consistent with provided history of infected abdominoplasty and skin grafting. Subcutaneous stranding in the back and abdominal wall consistent with prior liposuction. Numerous soft tissue and fatty nodules in the bilateral gluteal regions consistent with prior surgery. No drainable soft tissue collection. IMPRESSION: Esophagitis. Small hiatal hernia. Alton Freitas MD On 06/27/2024 16:32:26; [id number] [facility] 2024-06-07 17:33:00 [id number] [address] PATIENT NAME: ETHAN GARCIA ADMIT DATE: 05/26/24 ACCOUNT NO: [id number] ROOM NO: S219 AGE: 49 REPORT TYPE: 360 - QUERY RESPONSE DOCUMENT SEX: F ADMITTING PHYSICIAN: Aris De La O MD ATTENDING PHYSICIAN: Aris De La O MD Provider Query QUERY TEXT: Depth IP Debridement 360MD Query related questions should be directed to: Based on your clinical judgment, please further clarify the depth of the excisional] debridement of abdomen documented in the op report 05/28. The patient's Clinical Indicators include: OP report 05/28 FINDINGS: Sharp excisional debridement of a total of 18 cm to muscle fascia. The area of significant inflammation and purulence was marked out with a 15 blade after which it was sharply debrided from the abdominal wall down to the muscle fascia. Options provided: -- Skin -- Fascia/Subcutaneous -- Muscle, Please indicate specific body part(s). -- Tendon, Please indicate specific body part(s). -- Bone, Please indicate specific bone. -- Other - I will add my own diagnosis -- Dismiss - Not applicable / Not valid -- Dismiss - Clinically unable to determine / Unknown -- Assign to another provider QUERY RESPONSE: The patient had fascia/subcutaneous debridement. Query created by: Usha Villavicencio on 06/07/2024 7:44 AM at 1733 PATIENT NAME: ETHAN GARCIA [facility] 2024-06-03 14:15:00 [facility] [address] [place] [address] PATIENT NAME: ETHAN GARCIA ADMIT DATE: 05/26/24 ACCOUNT NO: [id number] ROOM NO: [facility] AGE: 49 REPORT TYPE: 360 - QUERY RESPONSE DOCUMENT SEX: F ADMITTING PHYSICIAN: Aris De La O MD ATTENDING PHYSICIAN: Aris De La O MD Provider Query QUERY TEXT: Relationship Procedure Condition 360MD Query related questions should be directed to: [facility] Coding Query Helpline Please clarify the etiology of the diagnosis [Abdominal wound cellulitis] and its relationship, if any, to the procedure [S/P Abdominoplasty in December with skin graft]. The classification system provides these guidelines for intraoperative and/or post procedure conditions/diagnoses: -- Not all post procedure conditions are classified as complications. - There must be an unexpected or abnormal occurrence. - There must be a documented cause and effect relationship between the condition and the care. - There must be an indication that it is a complication -- The term ''complication'' as used in ICD-10-CM does not imply that improper or inadequate care is responsible for the problem -- There is no time limit for development of complication -- The term postoperative requires clarity to determine if it is a complication or condition resulting from medical/surgical care that is a residual condition of the procedure. -- When laceration/tear/enterotomy occurs during a procedure, the physician must provide clarity as to whether the tear was an incidental occurrence inherent to the procedure or clinically significant (complication). -- When hemorrhage occurs with procedure, clarify if it is expected or unexpected as well as abnormal amount of blood loss and the organ or tissue structure involved (i.e., subcutaneous, fascia, specific organ, specific artery/vein, etc.). The patient's Clinical Indicators include: Abdominal wound cellulitis - Hospitalist History Physical 05/25/2024 start IV antibiotic therapy with IV Vancomycin + Rocephin - Hospitalist History Physical 05/25/2024 surgical history of abdominoplasty in December, with skin graft - Hospitalist History Physical 05/25/2024 Pt states she had gastric sleeve surgery done december, in [place] - Hospitalist History Physical 05/25/2024 I am consulted by Dr. De La O for evaluation of hiatal hernia found during workup for complications from her abdominoplasty - General Surgery Progress Note 05/27/2024 s/p sleeve gastrectomy and abdominoplasty in [facility] with skin graft from the left thigh - Infect Disease Consult Note 05/26/2024 Options provided: -- Routine, inherent or integral -- Unexpected or abnormal -- Unrelated, Please specify the cause if known. -- Other - I will add my own diagnosis -- Dismiss - Not applicable / Not valid -- Dismiss - Clinically unable to determine / Unknown -- Assign to another provider QUERY RESPONSE: This was unrelated to procedure/due to other cause. Query created by: EDWARD MCCARTNEY on 06/01/2024 5:56 AM at 1415 PATIENT NAME: ETHAN GARCIA [facility] 2024-05-31 15:19:00 [facility] ([facility] Hospitalist Discharge Summary REPORT#:[id number] REPORT STATUS: Signed REPORT INITIALIZATION DATE:05/31/24 TIME:1518 PATIENT: ETHAN GARCIA UNIT #: [id number] ROOM/BED: [place] [address] : 73 AGE: 49 SEX: F ATTEND: Aris De La O MD ADM AUTHOR: Sunil Daniels MD REPT SERVICE DT/TIME: 05/31/241518 * ALL edits or amendments must be made on the electronic/computer document * General Information Discharge date: 05/31/24 Discharge diagnosis: cellulitits Hospital course: Lower abdominal wound, abdominal pain HPI: Patient with surgical history of abdominoplasty in December, with skin graft, presented with complaint of lower abdominal pain, she relates she is on clindamycin, denies fever, nausea, vomiting, purulent drainage, denies any other concerns. Diagnosis, Assessment Plan Consultants: burn/wound Free Text DxA P Notes Free text DxA P notes: 49 years old female who is admitted for: #Abdominal wound cellulitis -IV ABX TO PO WOUND CARE/id WOUND CX PAIN CONTROL OR 05/29 #Gastric sleeve changes -CT AP scan shows small to moderate-sized hiatal hernia - surgery consulted #UTI (urinary tract infection) -Continue empiric antibiotic #Hypertension -IV hydralazine PRN DVT prophylaxis: SCDs GI prophylaxis: pepcid Disposition Anticipated: Home with family support TIME SPENT> 35 MINS Consultants: burn/wound Free Text DxA P Notes Free text DxA P notes: 49 years old female who is admitted for: #Abdominal wound cellulitis -IV ABX TO PO WOUND CARE/id WOUND CX PAIN CONTROL OR 05/29 #Gastric sleeve changes -CT AP scan shows small to moderate-sized hiatal hernia - surgery consulted #UTI (urinary tract infection) -Continue empiric antibiotic #Hypertension -IV hydralazine PRN DVT prophylaxis: SCDs GI prophylaxis: pepcid Disposition Anticipated: Home with family support TIME SPENT> 35 MINS Med Rec Med Rec Discharge meds: Continue taking these medications: LORazepam (ATIVAN) 2 MG TAB 2 MILLIGRAM ORAL AT BEDTIME NEEDED. as needed for AGITATION Comments: #90 - SIG Obtained From [facility] PARoxetine HCL (PAXIL) 20 MG TAB 20 MILLIGRAM ORAL DAILY. Comments: #30 - SIG Obtained From [facility] QUEtiapine (SEROquel) 50 MG TAB 50 MILLIGRAM ORAL BEDTIME. Comments: #30 - SIG Obtained From [facility] ZOLPIDEM (AMBIEN) 10 MG TAB 10 MILLIGRAM ORAL BEDTIME. Comments: #30 - SIG Obtained From [facility] traZODone (DESYREL) 300 MG TAB 300 MILLIGRAM ORAL BEDTIME. Start taking the following new medications: AMOXICILLIN/CLAV K (AUGMENTIN 875/125 MG) 875 MG-125 MG TAB 875 MILLIGRAM ORAL EVERY 12 HOURS. Qty = 20 No Refills SULFAMETHOXAZOLE/TMP (BACTRIM DS 800/160 MG) 800 MG-160 MG TAB 1 TABLET ORAL EVERY 12 HOURS. Qty = 20 No Refills Instructions: UNTIL FINISHED Hydrocodone/Acetaminophen (HYDROcodone/APAP 5/325) 5 MG-325 MG TAB 1 TABLET ORAL EVERY FOUR HOURS. Qty = 15 No Refills Objective Free Text Obj Notes Free Text Obj Notes: Physical Exam: General: No acute distress, well appearing female Neuro: GCS 15, alert and oriented x 3 HEENT: Normocephalic, atraumatic CV: Regular rate and rhythm Pulm: Respirations even and nonlabored. No accessory muscle use. Abd: Soft, mild midepigastric tenderness, nondistended. Complex lower abdominal wound covered by skin graft with areas of pustule formation. Extremities: No gross deformities Skin: Warm and well perfused. No rashes or jaundice Psych: Normal affect and mood. Discharge Instructions PCP Discharge to: Home/Self Care Additional Discharge Routines: PCP Follow-Up Diet: Resume Home Diet/Feeds Follow-up Appointments PCP follow-up: PCP: Klever Velázquez DO PCP follow up timeframe: In 5 days at 1519 RPT #: [id number] END OF REPORT [facility] 2024-05-30 18:50:00 [facility] ([facility]) Wound Care Progress Note REPORT#:[id number] REPORT STATUS: Signed REPORT INITIALIZATION DATE:05/30/24 TIME:1849 PATIENT: ETHAN GARCIA UNIT #: [id number] ROOM/BED: [place] [address] : 73 AGE: 49 SEX: F ATTEND: Aris De La O MD ADM AUTHOR: Balwinder Dow MD REPT SERVICE DT/TIME: 05/30/241849 * ALL edits or amendments must be made on the electronic/computer document * Subjective Chief complaint: Wound Care HPI: no acute events Patient reports: Yes: able to communicate, drainage from wound, feeling better. No: swelling. Objective General VS: Last Documented: Result Date Time Pulse Ox 95 05/30 160 B/P 142/82 05/30 160 B/P Mean 102.2 05/30 160 O2 Delivery Room air 05/30 160 Temp 98.1 05/30 160 Pulse 79 05/30 1607 Resp 16 05/30 160 PATIENT WEIGHT: Weight (lb): Weight (oz): Weight (kg): 65.455 Medications: Active Meds + DC'd Last 24 Hrs Non-Formulary Medication (VANCOMYCIN AUC1) 1 EACH ONCE ONE MISC (DC) Doxycycline Hyclate (VIBRAMYCIN) 100 MG BID PO (DCD) Sodium Chloride (SODIUM CHLORIDE) 10 ML ASDIR IV (DC) Oxycodone HCl (ROXICODONE) 5 MG Q6H PRN PRN PO (DCD) Acetaminophen (TYLENOL EXTRA STRENGTH) 500 MG Q8H PRN PO (DCD) Bacitracin (BACITRACIN 0.9 GM-UD OINTMENT) 1 APPLIC Q24H TOPICAL (DCD) Morphine Sulfate (morphine Sulfate) 2 MG Q4H PRN PRN IV (DC) Vancomycin HCl (VANCOMYCIN HCL) 1,000 MG Q12HR IV (DC) Sodium Chloride (0.9% Sodium Chloride) 250 ML Ceftriaxone Sodium (ROCEPHIN) 1,000 MG DAILY IV (DCD) Sterile Water (WATER FOR INJECTION) 10 ML Enoxaparin Sodium (lovENOX) 40 MG Q24H SUBQ (DCD) Paroxetine HCl (PAXIL) 20 MG DAILY PO (DCD) Quetiapine Fumarate (SeroqueL) 50 MG BEDTIME PO (DCD) Sodium Chloride (SODIUM CHLORIDE) 10 ML BID IV (DCD) Trazodone HCl (DESYREL) 300 MG BEDTIME PO (DCD) Zolpidem Tartrate (AMBIEN) 10 MG BEDTIME PO (DCD) Pantoprazole (PROTONIX) 40 MG BID@0600,1800 PO (DCD) Sodium Chloride (SODIUM CHLORIDE) 10 ML ASDIR PRN IV (DCD) Lorazepam (ATIVAN) 2 MG BEDTIME PRN PRN PO (DCD) Sucralfate (CARAFATE) 1 GM AC HS PO (DCD) Miscellaneous Information (VANCOMYCIN PHARMACY TO DOSE) 1 EACH ASDIR IV (DC) Ondansetron HCl (ZOFRAN) 4 MG Q6H PRN PRN IV (DCD) Al Hydrox/Mg Hydrox/Simethicone (MYLANTA) 30 ML Q4H PRN PRN PO (DCD) Docusate Sodium (COLACE) 100 MG BID PRN PRN PO (DCD) Hydralazine HCl (APRESOLINE) 10 MG Q6H PRN PRN IV (DCD) Hydrocodone Bitart/Acetaminophen (NORCO 7.5/325) 1 TAB Q6H PRN PRN PO ( DCD) Sodium Chloride (0.9% Sodium Chloride) 1,000 ML .Q10H IV (DCD) Tramadol HCl (ULTRAM) 50 MG Q6H PRN PRN PO (DCD) Dietitian Nutrition assessment The data set between the solid lines has been imported from the dietitian's assessment. BMI Calculated: 28.2 Nutrition related diagnosis: Overweight Nutrition diagnosis details: BMI 25-29.9 Nutrition problem: Inadequate oral intake Nutrition etiology: Decreased/poor appetite Nutrition signs and symptoms: <50% intake for 3 weeks , reported Nutrition prescription: 1) Continue NPO, resume regular diet as medically feasible 2) Ensure plus HP BID 3) Biweekly weight checks Dietitian name: Landy Monson RDN, KARISHMA Assessment completed: 05/28/24 Physical Exam General appearance: responsiveness Head/eyes: atraumatic Cardiovascular: no rub Abdomen: non-tender Extremities: no edema Neuro/SPEECH PATHOLOGY TEACHER: alert Skin: palpable subdermal on the right flank and left hip (likely lipomas) Wound Assessment Wound Assessment 1: Type/cause: chronic Wound location: abdomen Tissue layers: with muscle necrosis Site condition: drainage Diagnosis, Assessment Plan Problem List/A P: 1. Chronic abdominal wound infection home health ordered. Ok from wound care standpoint for discharge. cleanse with saline, cover the skin biopsy site with petroleum gauze, apply exufiber sheets over the graft wound cover the entire site with ABD pad change dressing daily 2. Lipoma the movable masses are likely lipoma. Defer to outpatient setting for lipoma removal. 3. Multiple excoriations leave open to air 4. UTI (urinary tract infection) Consultants: burn/wound at 1852 RPT #: [id number] END OF REPORT [facility] 2024-05-30 13:03:00 [facility] ([facility]) Infectious Dis. Progress Note REPORT#:[id number] REPORT STATUS: Signed REPORT INITIALIZATION DATE:05/30/24 TIME:1303 PATIENT: ETHAN GARCIA UNIT #: [id number] ROOM/BED: [place] [address] : 73 AGE: 49 SEX: F ATTEND: Aris De La O MD ADM AUTHOR: Patrick Gaxiola MD REPT SERVICE DT/TIME: 05/30/24 1303 * ALL edits or amendments must be made on the electronic/computer document * Subjective Chief complaint: Cellulitis HPI: Proteus grew in tissue cxs. AFB and fungal stains pending. Review of Systems Constitutional: Denies: fever. Objective Physical Exam General appearance: alert, awake Head/Eyes: atraumatic, normal eyelids/periorb, normocephalic Neck: full range of motion, non-tender, supple/no meningismus Cardiovascular: regular rate rhythm Respiratory: symmetric expansion, no distress Abdomen: no guarding, Erythema on abdomen, with some nodular lesions and a few pustules. No necrosis. Extremities: no clubbing, no cyanosis Musculoskeletal: no joint swelling Neuro/SPEECH PATHOLOGY TEACHER: alert, oriented X 3, normal speech Skin: normal turgor Psychiatry: normal affect, normal judgment/insight, normal mood Diagnosis, Assessment Plan Free Text A P: Laboratory Tests 05/30/24 0506: [Embedded Image Not Available] 05/29/24 1131: [Embedded Image Not Available] Imaging: CTAP reviewed 05/25 CXR reviewed 05/25 Assessment: 1. Cellulitis of abdominal wall with atypical presentation s/p debridement and tissue biopsy 05/28/24. 2. S/p abdominoplasty. Plan: 1. Ceftriaxone. Switch to cefdinir when ready for discharge. 2. Vancomycin. Switch to doxycycline when ready for discharge. 3. Duration: 7 days starting from debridement. End date: 06/05/24. 4. F/u tissue biopsy with cultures for bacteria, mycobacteria and fungi. 5. Appreciate surgeon's help in this case. 6. Monitor CBC and kidney function. 7. Wound care. at 1306 RPT #: [id number] END OF REPORT [facility] 2024-05-30 07:41:00 [facility] General Surgery Progress Note REPORT#:[id number] REPORT STATUS: Signed REPORT INITIALIZATION DATE:05/30/24 TIME:740 PATIENT: ETHAN GARCIA UNIT #: [id number] ROOM/BED: [place] [address] : 73 AGE: 49 SEX: F ATTEND: Aris De La O MD ADM AUTHOR: Fermin Tamez III, MD REPT SERVICE DT/TIME: 05/30/24 0741 * ALL edits or amendments must be made on the electronic/computer document * General Date of surgery: 05/28/24 Status post: Abdominal wall biopsy and excisional debridement Subjective HPI: 05/30/2024 Patient reports that she is overall doing well still with some pain but otherwise awaiting cultures 05/29/2024 Patient underwent abdominal wall biopsy and excisional debridement yesterday. Tolerated procedure well. She reports tolerating diet without any issues 05/28/2024 Patient denies any further epigastric pain. However she is in need of abdominal wall biopsy for further histologic and microbiology testing. 05/27/2024 Patient reports improvement in midepigastric pain with initiation of Carafate and PPI. She endorses that her pain is primarily from her skin graft wound. 05/26/2024 49-year-old female in whom I am consulted by Dr. De La O for evaluation of hiatal hernia found during workup for complications from her abdominoplasty. The patient's history is significant for having undergone sleeve gastrectomy in [place] a few years ago. She was just recently moved to the area approximately 1 year ago and has not had any bariatric surgery follow-up. She reports having at least 2-week history of midepigastric pain with nausea and vomiting. She does endorse using omeprazole. Of note she is primarily here related to symptoms from having had an abdominoplasty outside the country at [place]. It appears that there have been complications and as a result she now has a complex wound that is now covered with skin graft that is being treated with antibiotics. Objective General VS/I O: Last Documented: Result Date Time Pulse Ox 96 05/30 0704 B/P 126/82 05/30 07 B/P Mean 97.0 05/30 07 O2 Delivery Room air 05/30 07 Temp 98.2 05/30 07 Pulse 80 05/30 0704 Resp 16 05/30 07 Vital Signs Date Temp Pulse Resp B/P B/P Mean Pulse Ox FiO2 05/29-05/30 98.2-98.8 61-86 14-18 112-159/75-96 87.4-117.1 96-97 24 hour I O ending at 0700: 05/30 0700 05/29 1900 Intake Total 218 Output Total Balance 218 Intake, Oral 218 PATIENT WEIGHT: Weight (lb): Weight (oz): Weight (kg): 65.455 Results Findings/Data: Laboratory Tests 05/30/24 0506: [Embedded Image Not Available] 05/29/24 1131: [Embedded Image Not Available] Laboratory Tests 05/30 05/29 0506 1131 Hematology WBC (3.5 - 11.0 K/mm3) 4.2 4.7 RBC (4.70 - 6.10 M/mm3) 3.28 L 3.70 L Hgb (10.4 - 14.9 G/DL) 9.2 L 9.7 L Hct (31.5 - 44.1 %) 27.3 L 29.5 L MCV (84.5 - 98.6 Fl) 83.2 L 79.7 L MCH (27.0 - 34.2 pg) 28.0 26.2 L MCHC (31.5 - 34.0 G/DL) 33.7 32.9 RDW (11.5 - 14.5 SD) 13.4 13.3 Plt Count (150 - 450 K/mm3) 187 188 MPV (7.0 - 10.5 fL) 9.00 8.80 Neut % (Auto) (40 - 76 %) 50.7 62.9 Lymph % (Auto) (20.5 - 51.1 %) 35.8 22.4 Morgan % (Auto) (1.7 - 9.3 %) 6.4 6.1 Eos % (Auto) (0.0 - 6.0 %) 6.6 H 7.2 H Baso % (Auto) (0.0 - 2.0 %) 0.5 0.6 Neut # (Auto) (1.8 - 7.6 K/mm3) 2.2 3.0 Lymph # (Auto) (0.6 - 3.2 K/mm3) 1.5 1.1 Morgan # (Auto) (0.3 - 1.1 K/mm3) 0.3 0.3 Eos # (Auto) (0.0 - 0.4 K/mm3) 0.3 0.3 Baso # (Auto) (0.0 - 0.1 K/mm3) 0.0 0.0 Abs Immat Gran (auto) (0.00 - 0.03 x10 3/uL) 0.00 0.04 H Immature Gran % (0.0 - 5.0 %) 0.0 0.8 Nucleated RBC % (0.0 - 1.0 /100WBC%) 0.0 0.0 Free Text Obj Notes Free Text Obj Notes: Physical Exam: General: No acute distress, well appearing female Neuro: GCS 15, alert and oriented x 3 HEENT: Normocephalic, atraumatic CV: Regular rate and rhythm Pulm: Respirations even and nonlabored. No accessory muscle use. Abd: Soft, midepigastric tenderness resolved, nondistended. Complex lower abdominal wound covered by skin graft with area of excision without any signs of bleed Extremities: No gross deformities Skin: Warm and well perfused. No rashes or jaundice Psych: Normal affect and mood. Diagnosis, Assessment Plan Free Text A P: 49-year-old female with a history of a sleeve gastrectomy with symptomatic type I hiatal hernia as well as seasonal debridement and biopsy abdominal wall -Multimodal pain control -Proceed with regular diet, continue with Carafate and PPI -Tolerated procedure well, appreciate wound care physician recommendations -Follow-up cultures and pathology Time spent: Time spent on patient care (minutes): 35 >50% spent on counseling/coordination of care: yes at 0742 [facility] #: [id number] END OF REPORT [facility] 2024-05-29 21:07:00 [facility] ([facility]) Wound Care Progress Note REPORT#:[id number] REPORT STATUS: Signed REPORT INITIALIZATION DATE:05/29/24 TIME:2106 PATIENT: ETHAN GARCIA UNIT #: [id number] ROOM/BED: [place] [address] : 73 AGE: 49 SEX: F ATTEND: Aris De La O MD ADM AUTHOR: Balwinder Dow MD REPT SERVICE DT/TIME: 05/29/242106 * ALL edits or amendments must be made on the electronic/computer document * Subjective Chief complaint: Wound Care HPI: I carried out the wound care at bedside Patient reports: Yes: able to communicate, feeling better. No: drainage from wound, odor. Objective General VS: Last Documented: Result Date Time Pulse Ox 97 05/29 1918 B/P 159/96 05/29 1918 B/P Mean 117.1 05/29 1918 O2 Delivery Room air 05/29 1918 Temp 98.8 05/29 1918 Pulse 71 05/29 1918 Resp 16 05/29 1918 PATIENT WEIGHT: Weight (lb): Weight (oz): Weight (kg): 65.455 Medications: Active Meds + DC'd Last 24 Hrs Non-Formulary Medication (VANCOMYCIN AUC1) 1 EACH ONCE ONE MISC (DC) Sodium Chloride (SODIUM CHLORIDE) 10 ML ASDIR IV Hydrocodone Bitart/Acetaminophen (NORCO 5/325) 1 TAB PACU ONCE PRN PO ( DC) Hydrocodone Bitart/Acetaminophen (NORCO 10/325) 1 TAB PACU ONCE PRN PO ( DC) Hydromorphone HCl (DILAUDID) 0.5 MG PACU Q10MIN PRN PRN IV (DC) Labetalol HCl (TRANDATE) 5 MG PACU Q10MIN PRN PRN IV (DC) Ondansetron HCl (ZOFRAN) 4 MG PACU ONCE PRN IV (DC) Oxycodone HCl (ROXICODONE) 5 MG Q6H PRN PRN PO Acetaminophen (TYLENOL EXTRA STRENGTH) 500 MG Q8H PRN PO Bacitracin (BACITRACIN 0.9 GM-UD OINTMENT) 1 APPLIC Q24H TOPICAL Morphine Sulfate (morphine Sulfate) 2 MG Q4H PRN PRN IV Vancomycin HCl (VANCOMYCIN HCL) 1,000 MG Q12HR IV Sodium Chloride (0.9% Sodium Chloride) 250 ML Ceftriaxone Sodium (ROCEPHIN) 1,000 MG DAILY IV Sterile Water (WATER FOR INJECTION) 10 ML Enoxaparin Sodium (lovENOX) 40 MG Q24H SUBQ Paroxetine HCl (PAXIL) 20 MG DAILY PO Quetiapine Fumarate (SeroqueL) 50 MG BEDTIME PO Sodium Chloride (SODIUM CHLORIDE) 10 ML BID IV Trazodone HCl (DESYREL) 300 MG BEDTIME PO Zolpidem Tartrate (AMBIEN) 10 MG BEDTIME PO Pantoprazole (PROTONIX) 40 MG BID@0600,1800 PO Sodium Chloride (SODIUM CHLORIDE) 10 ML ASDIR PRN IV Lorazepam (ATIVAN) 2 MG BEDTIME PRN PRN PO Sucralfate (CARAFATE) 1 GM AC HS PO Miscellaneous Information (VANCOMYCIN PHARMACY TO DOSE) 1 EACH ASDIR IV Ondansetron HCl (ZOFRAN) 4 MG Q6H PRN PRN IV Al Hydrox/Mg Hydrox/Simethicone (MYLANTA) 30 ML Q4H PRN PRN PO Docusate Sodium (COLACE) 100 MG BID PRN PRN PO Hydralazine HCl (APRESOLINE) 10 MG Q6H PRN PRN IV Hydrocodone Bitart/Acetaminophen (NORCO 7.5/325) 1 TAB Q6H PRN PRN PO Sodium Chloride (0.9% Sodium Chloride) 1,000 ML .Q10H IV Tramadol HCl (ULTRAM) 50 MG Q6H PRN PRN PO Dietitian Nutrition assessment The data set between the solid lines has been imported from the dietitian's assessment. BMI Calculated: 28.2 Nutrition related diagnosis: Overweight Nutrition diagnosis details: BMI 25-29.9 Nutrition problem: Inadequate oral intake Nutrition etiology: Decreased/poor appetite Nutrition signs and symptoms: <50% intake for 3 weeks , reported Nutrition prescription: 1) Continue NPO, resume regular diet as medically feasible 2) Ensure plus HP BID 3) Biweekly weight checks Dietitian name: Landy Monson RDN, LD Assessment completed: 05/28/24 Physical Exam General appearance: chronically ill appearing Head/eyes: atraumatic Cardiovascular: no rub Abdomen: non-tender Extremities: no edema Neuro/SPEECH PATHOLOGY TEACHER: alert Skin: palpable subdermal on the right flank and left hip (likely lipomas) Wound Assessment Wound Assessment 1: Type/cause: chronic Wound location: abdomen Tissue layers: with muscle necrosis Site condition: drainage Diagnosis, Assessment Plan Problem List/A P: 1. Chronic abdominal wound infection switch to the following: cleanse with saline, cover the skin biopsy site with petroleum gauze, apply exufiber sheets over the graft wound cover the entire site with ABD pad change dressing daily 2. Lipoma the movable masses are likely lipoma. Defer to outpatient setting for lipoma removal. 3. Multiple excoriations leave open to air 4. UTI (urinary tract infection) Consultants: burn/wound at 2110 RPT #: [id number] END OF REPORT [facility] 2024-05-29 15:05:00 [facility] ([facility]) Infectious Dis. Progress Note REPORT#:[id number] REPORT STATUS: Signed REPORT INITIALIZATION DATE:05/29/24 TIME:1504 PATIENT: ETHAN GARCIA UNIT #: [id number] ROOM/BED: [facility]19-1 : 73 AGE: 49 SEX: F ATTEND: Aris De La O MD ADM AUTHOR: Patrick Gaxiola MD REPT SERVICE DT/TIME: 05/29/24 1505 * ALL edits or amendments must be made on the electronic/computer document * Subjective Chief complaint: Cellulitis HPI: Surgery had debridement and skin biopsy with cultures. Review of Systems Constitutional: Denies: fever. Objective Physical Exam General appearance: alert, awake Head/Eyes: atraumatic, normal eyelids/periorb, normocephalic Neck: full range of motion, non-tender, supple/no meningismus Cardiovascular: regular rate rhythm Respiratory: symmetric expansion, no distress Abdomen: no guarding, Erythema on abdomen, with some nodular lesions and a few pustules. No necrosis. Extremities: no clubbing, no cyanosis Neuro/SPEECH PATHOLOGY TEACHER: alert, oriented X 3, normal speech Skin: normal turgor Diagnosis, Assessment Plan Free Text A P: Laboratory Tests 05/29/24 1131: [Embedded Image Not Available] 05/28/24 0437: [Embedded Image Not Available] Imaging: CTAP reviewed 05/25 CXR reviewed 05/25 Assessment: 1. Cellulitis of abdominal wall with atypical presentation s/p debridement and tissue biopsy 05/28/24. 2. S/p abdominoplasty. Plan: 1. Ceftriaxone (day 5 of 7). Switch to cefdinir when ready for discharge. 2. Vancomycin (day 5 of 7). Switch to doxycycline when ready for discharge. 3. F/u tissue biopsy with cultures for bacteria, mycobacteria and fungi. 4. Appreciate surgeon's help in this case. 5. Monitor CBC and kidney function. 6. Wound care. at 1243 RPT #: [id number] END OF REPORT [facility] 2024-05-29 13:35:00 [facility] ([facility]) Hospitalist Progress Note REPORT#:[id number] REPORT STATUS: Signed REPORT INITIALIZATION DATE:05/29/24 TIME:1334 PATIENT: ETHAN GARCIA UNIT #: [id number] ROOM/BED: [place] [address] : 73 AGE: 49 SEX: F ATTEND: Aris De La O MD ADM AUTHOR: Sunil Daniels MD REPT SERVICE DT/TIME: 05/29/24 1335 * ALL edits or amendments must be made on the electronic/computer document * Subjective Chief complaint: Lower abdominal wound, abdominal pain HPI: Patient with surgical history of abdominoplasty in December, with skin graft, presented with complaint of lower abdominal pain, she relates she is on clindamycin, denies fever, nausea, vomiting, purulent drainage, denies any other concerns. Diagnosis, Assessment Plan Consultants: burn/wound Free Text DxA P Notes Free text DxA P notes: 49 years old female who is admitted for: #Abdominal wound cellulitis -IV ABX TO PO WOUND CARE/id WOUND CX PAIN CONTROL OR 05/29 #Gastric sleeve changes -CT AP scan shows small to moderate-sized hiatal hernia - surgery consulted #UTI (urinary tract infection) -Continue empiric antibiotic #Hypertension -IV hydralazine PRN DVT prophylaxis: SCDs GI prophylaxis: pepcid Disposition Anticipated: Home with family support TIME SPENT> 35 MINS at 1518 RPT #: [id number] END OF REPORT [facility] 2024-05-29 08:56:00 [facility] ([facility] General Surgery Progress Note REPORT#:[id number] REPORT STATUS: Signed REPORT INITIALIZATION DATE:05/29/24 TIME:08 PATIENT: ETHAN GARCIA UNIT #: [id number] ROOM/BED: [place] [address] : 73 AGE: 49 SEX: F ATTEND: Aris De La O MD ADM AUTHOR: Fermin Tamez III, MD REPT SERVICE DT/TIME: 05/29/24 0856 * ALL edits or amendments must be made on the electronic/computer document * General Date of surgery: 05/28/24 Status post: Abdominal wall biopsy and excisional debridement Subjective HPI: 05/29/2024 Patient underwent abdominal wall biopsy and excisional debridement yesterday. Tolerated procedure well. She reports tolerating diet without any issues 05/28/2024 Patient denies any further epigastric pain. However she is in need of abdominal wall biopsy for further histologic and microbiology testing. 05/27/2024 Patient reports improvement in midepigastric pain with initiation of Carafate and PPI. She endorses that her pain is primarily from her skin graft wound. 05/26/2024 49-year-old female in whom I am consulted by Dr. De La O for evaluation of hiatal hernia found during workup for complications from her abdominoplasty. The patient's history is significant for having undergone sleeve gastrectomy in [place] a few years ago. She was just recently moved to the area approximately 1 year ago and has not had any bariatric surgery follow-up. She reports having at least 2-week history of midepigastric pain with nausea and vomiting. She does endorse using omeprazole. Of note she is primarily here related to symptoms from having had an abdominoplasty outside the country at [place]. It appears that there have been complications and as a result she now has a complex wound that is now covered with skin graft that is being treated with antibiotics. Objective General VS/I O: Last Documented: Result Date Time Pulse Ox 96 05/29 0710 B/P 130/83 05/29 0710 B/P Mean 98.7 05/29 0710 O2 Delivery Room air 05/29 0710 Temp 98.6 05/29 0710 Pulse 75 05/29 0710 Resp 16 05/29 0710 Vital Signs Date Temp Pulse Resp B/P B/P Mean Pulse Ox FiO2 05/28-05/29 96.6-98.6 56-75 16-18 112-183/74-105 86.5-104.3 94-100 24 hour I O ending at 0700: 05/29 0700 05/28 1900 Intake Total 118 Output Total Balance 118 Intake, Oral 118 PATIENT WEIGHT: Weight (lb): Weight (oz): Weight (kg): 65.455 Results Findings/Data: Laboratory Tests 05/28 05/28 2136 1708 Toxicology Vancomycin Trough (AUC) (10 - 20 mcg/mL) 13.3 19.3 Free Text Obj Notes Free Text Obj Notes: Physical Exam: General: No acute distress, well appearing female Neuro: GCS 15, alert and oriented x 3 HEENT: Normocephalic, atraumatic CV: Regular rate and rhythm Pulm: Respirations even and nonlabored. No accessory muscle use. Abd: Soft, midepigastric tenderness resolved, nondistended. Complex lower abdominal wound covered by skin graft with area of excision without any signs of bleed Extremities: No gross deformities Skin: Warm and well perfused. No rashes or jaundice Psych: Normal affect and mood. Diagnosis, Assessment Plan Free Text A P: 49-year-old female with a history of a sleeve gastrectomy with symptomatic type I hiatal hernia. -Multimodal pain control -Proceed with regular diet, continue with Carafate and PPI -Tolerated procedure well, appreciate wound care physician recommendations Time spent: Time spent on patient care (minutes): 35 >50% spent on counseling/coordination of care: yes at 0858 RPT #: [id number] END OF REPORT [facility] 2024-05-28 20:27:00 [facility] ([facility]) Wound Care Progress Note REPORT#:[id number] REPORT STATUS: Signed REPORT INITIALIZATION DATE:05/28/24 TIME:2026 PATIENT: ETHAN GARCIA UNIT #: [id number] ROOM/BED: [place] [address] : 73 AGE: 49 SEX: F ATTEND: Aris De La O MD ADM AUTHOR: Balwinder Dow MD REPT SERVICE DT/TIME: 05/28/242026 * ALL edits or amendments must be made on the electronic/computer document * Subjective Chief complaint: Wound Care HPI: was taken to OR by Dr. Tamez. Patient reports: Yes: able to communicate, drainage from wound, itching, pain controlled. Objective General VS: Last Documented: Result Date Time Pulse Ox 97 05/28 1951 B/P 138/87 05/28 1951 B/P Mean 104.3 05/28 1951 Temp 97.5 05/28 1951 Pulse 63 05/28 1951 Resp 16 05/28 1951 O2 Delivery Room air 05/28 1930 PATIENT WEIGHT: Weight (lb): Weight (oz): Weight (kg): 65.455 Medications: Active Meds + DC'd Last 24 Hrs Non-Formulary Medication (VANCOMYCIN AUC1) 1 EACH ONCE ONE MISC (DC) Sodium Chloride (SODIUM CHLORIDE) 10 ML ASDIR IV Non-Formulary Medication (VANCOMYCIN AUC2) 1 EACH ONCE ONE MISC Propofol (DIPRIVAN) 20 ML .STK-MED ONE IV (DC) Midazolam HCl (VERSED) 0 .STK-MED ONE .ROUTE (DC) Propofol (DIPRIVAN) 0 .STK-MED ONE IV (DC) Hydrocodone Bitart/Acetaminophen (NORCO 5/325) 1 TAB PACU ONCE PRN PO Hydrocodone Bitart/Acetaminophen (NORCO 10/325) 1 TAB PACU ONCE PRN PO Hydromorphone HCl (DILAUDID) 0.5 MG PACU Q10MIN PRN PRN IV Labetalol HCl (TRANDATE) 5 MG PACU Q10MIN PRN PRN IV Ondansetron HCl (ZOFRAN) 4 MG PACU ONCE PRN IV Oxycodone HCl (ROXICODONE) 5 MG Q6H PRN PRN PO Non-Formulary Medication (VANCOMYCIN AUC2) 1 EACH ONCE ONE MISC (DC) Non-Formulary Medication (VANCOMYCIN AUC1) 1 EACH ONCE ONE MISC (DC) Non-Formulary Medication (VANCOMYCIN AUC2) 1 EACH ONCE ONE MISC (DC) Acetaminophen (TYLENOL EXTRA STRENGTH) 500 MG Q8H PRN PO Bacitracin (BACITRACIN 0.9 GM-UD OINTMENT) 1 APPLIC Q24H TOPICAL Morphine Sulfate (morphine Sulfate) 2 MG Q4H PRN PRN IV Vancomycin HCl (VANCOMYCIN HCL) 1,000 MG Q12HR IV Sodium Chloride (0.9% Sodium Chloride) 250 ML Ceftriaxone Sodium (ROCEPHIN) 1,000 MG DAILY IV Sterile Water (WATER FOR INJECTION) 10 ML Enoxaparin Sodium (lovENOX) 40 MG Q24H SUBQ Paroxetine HCl (PAXIL) 20 MG DAILY PO Quetiapine Fumarate (SeroqueL) 50 MG BEDTIME PO Sodium Chloride (SODIUM CHLORIDE) 10 ML BID IV Trazodone HCl (DESYREL) 300 MG BEDTIME PO Zolpidem Tartrate (AMBIEN) 10 MG BEDTIME PO Pantoprazole (PROTONIX) 40 MG BID@0600,1800 PO Sodium Chloride (SODIUM CHLORIDE) 10 ML ASDIR PRN IV Lorazepam (ATIVAN) 2 MG BEDTIME PRN PRN PO Sucralfate (CARAFATE) 1 GM AC HS PO Miscellaneous Information (VANCOMYCIN PHARMACY TO DOSE) 1 EACH ASDIR IV Ondansetron HCl (ZOFRAN) 4 MG Q6H PRN PRN IV Acetaminophen (TYLENOL) 650 MG Q4H PRN PRN PO (DC) Al Hydrox/Mg Hydrox/Simethicone (MYLANTA) 30 ML Q4H PRN PRN PO Docusate Sodium (COLACE) 100 MG BID PRN PRN PO Hydralazine HCl (APRESOLINE) 10 MG Q6H PRN PRN IV Hydrocodone Bitart/Acetaminophen (NORCO 7.5/325) 1 TAB Q6H PRN PRN PO Sodium Chloride (0.9% Sodium Chloride) 1,000 ML .Q10H IV Tramadol HCl (ULTRAM) 50 MG Q6H PRN PRN PO Dietitian Nutrition assessment The data set between the solid lines has been imported from the dietitian's assessment. BMI Calculated: 28.2 Nutrition related diagnosis: Overweight Nutrition diagnosis details: BMI 25-29.9 Nutrition problem: Inadequate oral intake Nutrition etiology: Decreased/poor appetite Nutrition signs and symptoms: <50% intake for 3 weeks , reported Nutrition prescription: 1) Continue NPO, resume regular diet as medically feasible 2) Ensure plus HP BID 3) Biweekly weight checks Dietitian name: Landy Monson RDN, LD Assessment completed: 05/28/24 Physical Exam General appearance: chronically ill appearing Head/eyes: atraumatic Cardiovascular: no rub Abdomen: non-tender Extremities: no edema Neuro/SPEECH PATHOLOGY TEACHER: alert Skin: palpable subdermal on the right flank and left hip (likely lipomas) Wound Assessment Wound Assessment 1: Type/cause: chronic Wound location: abdomen Tissue layers: with muscle necrosis Site condition: drainage Diagnosis, Assessment Plan Problem List/A P: 1. Chronic abdominal wound infection will f/u pt after surgery at the interim, carry out the following: cleanse with saline, apply bacitracin ointment over the open wound, then add on megisorb to cover the entire open wound, cover with ABD pad change dressing once daily 2. Lipoma the movable masses are likely lipoma. Defer to outpatient setting for lipoma removal. 3. Multiple excoriations leave open to air 4. UTI (urinary tract infection) Consultants: burn/wound at 2028 RPT #: [id number] END OF REPORT [facility] 2024-05-28 19:00:00 [facility] ([facility]) Post Anesthesia Evaluation REPORT#:[id number] REPORT STATUS: Signed REPORT INITIALIZATION DATE:05/28/24 TIME:1899 PATIENT: ETHAN GARCIA UNIT #: [id number] ROOM/BED: [place] [address] : 73 AGE: 49 SEX: F ATTEND: Aris De La O MD ADM AUTHOR: Te Brumfield MD REPT SERVICE DT/TIME: 05/28/241899 * ALL edits or amendments must be made on the electronic/computer document * Post Anesthesia Evaluation Anes. changes from pre-op eval Level of consciousness: no change, patient awake, able to answer questions, participate in this eval. Vital signs: Last Documented: Result Date Time Pulse Ox 100 05/28 1715 B/P 140/105 05/28 1715 O2 Delivery Room air 05/28 1715 Temp 36.1 05/28 1715 Pulse 70 05/28 171 Resp 18 05/28 1715 B/P Mean 86.5 05/28 1217 Cardiovascular: CV system stable, vital signs stable Respiratory/Airway: respiratory system stable, maintains without support Pain: adequately controlled Hydration: adequate Temp status: normothermic Presence of N/V: no Anesthesia complications: no at 1900 RPT #: [id number] END OF REPORT [facility] 2024-05-28 18:45:00 [facility] ([facility]) Full Op Note REPORT#:[id number] REPORT STATUS: Signed REPORT INITIALIZATION DATE:05/28/24 TIME:1844 PATIENT: ETHAN GARCIA UNIT #: [id number] ROOM/BED: [place] [address] : 73 AGE: 49 SEX: F ATTEND: Aris De La O MD ADM AUTHOR: Fermin Tamez III, MD REPT SERVICE DT/TIME: 05/28/241844 * ALL edits or amendments must be made on the electronic/computer document * Operative Report Start date: 05/28/24 Start time: 1800 Pre-procedure diagnosis: Complex abdominal wound Post-procedure diagnosis: Complex abdominal wound Procedures performed: Abdominal wound biopsy and sharp excisional debridement of a total of 18 cm to muscle fascia. Technique/Procedure: OPERATIVE DATE: 05/28/2024 PREOPERATIVE DIAGNOSIS: Complex abdominal wound POSTOPERATIVE DIAGNOSIS: Complex abdominal wound PROCEDURES: Abdominal wound biopsy and sharp excisional debridement to muscle fascia for total of 18 cm SURGEON: Fermin Tamez III, MD FIBERGLASS DOWEL DRAWING OPERATOR: None ANESTHESIA: Moderate sedation ESTIMATED BLOOD LOSS: 5 mL IVF: 100 ml FINDINGS: Sharp excisional debridement of a total of 18 cm to muscle fascia. Specimen sent for histology and cultures for bacteria, fungi, and mycobacteria. SPECIMEN: Abdominal wall COMPLICATIONS: None apparent DISPOSITION: PACU followed by floor COUNTS: Correct INDICATIONS FOR PROCEDURE: This is a 49-year-old female who had undergone an abdominoplasty at an outside facility which appears to have been complicated by flap failure and the patient had undergone subsequent skin graft placement. She presents that she has had a chronic abdominal wound and was recommended by infectious disease to undergo biopsy of this wound as well as cultures sent out. She was recommended to undergo abdominal wall biopsy and excisional debridement. The risks (including bleeding, infection, damage to surrounding structures, need for further operations), benefits, and alternatives were discussed with the patient. All questions were answered and the patient elected to proceed. PROCEDURE IN DETAIL: Patient was taken to the operating in the supine position. Lines and monitoring devices were started. SCDs were placed. Pressure points were padded. Moderate sedation was administered. She was on scheduled antibiotics. The patient was then prepped and draped in the standard fashion for abdominal wall biopsy and excisional debridement. A presurgical timeout was performed all team members present. Local anesthesia was administered to provide abdominal wall block. The area of significant inflammation and purulence was marked out with a 15 blade after which it was sharply debrided from the abdominal wall down to the muscle fascia. It was sent out for histology as well as bacteria, fungal, and mycobacterial cultures. Hemostasis was confirmed with electrocautery. The remaining local anesthesia was administered. The total tissue excised was approximately 18 cm. The wound was then dressed with wet-to-dry 4 x 4 followed by gauze and Medipore tape. The procedure was then terminated the patient was awakened and taken the PACU in stable condition. Primary Surgeon: Fermin Tamez MD Beamer Hand(s): none Anesthesia: moderate sedation Operative findings: Sharp excisional debridement of a total of 18 cm to muscle fascia. Speciment sent for histology and cultures for bacteria, fungi, and mycobacteria. Complications: none Estimated blood loss in ml's: 5 mL Specimens removed/altered: Abdominal wall Implant(s): none Wound class: infected at 1855 RPT #: [id number] END OF REPORT [facility] 2024-05-28 15:57:00 [facility] ([facility]) Infectious Dis. Progress Note REPORT#:[id number] REPORT STATUS: Signed REPORT INITIALIZATION DATE:05/28/24 TIME:1556 PATIENT: ETHAN GARCIA UNIT #: [id number] ROOM/BED: [place] [address] : 73 AGE: 49 SEX: F ATTEND: Aris De La O MD ADM AUTHOR: Patrick Gaxiola MD REPT SERVICE DT/TIME: 05/28/24 1557 * ALL edits or amendments must be made on the electronic/computer document * Subjective Chief complaint: Cellulitis HPI: Surgery has plans to perform debridement and skin biopsy with cultures. Review of Systems Constitutional: Denies: fever. Objective General VS/I O: Vital Signs Date Temp Pulse Resp B/P B/P Mean Pulse Ox FiO2 05/27-05/28 36.3-37.1 62-85 16-18 112-143/74-93 86.5-109.5 95-100 Last Documented: Result Date Time Pulse Ox 97 05/28 1217 B/P 112/74 05/28 1217 B/P Mean 86.5 05/28 1217 O2 Delivery Room air 05/28 1217 Temp 36.3 05/28 1217 Pulse 66 05/28 1217 Resp 16 05/28 1217 Vital Signs: Date Time Temp Pulse Resp B/P B/P Pulse O2 O2 Flow FiO2 Mean Ox Delivery Rate 05/28 1217 36.3 66 16 112/74 86.5 97 Room air 05/28 0838 36.9 65 18 129/84 99.3 97 Room air 05/28 0355 36.6 62 16 127/84 98.7 97 05/27 2325 36.5 85 17 124/82 95.8 95 05/27 1933 36.8 66 17 143/93 109.5 98 05/27 1703 37.1 74 16 126/84 98 100 Room air 24 hour I O ending at 0700: 05/28 0700 05/27 1900 Intake Total 1550.00 1000.00 Output Total 300 Balance 1250.00 1000.00 Intake, IV 1250.00 1000.00 Intake, Oral 300 Number Voids 1 Output, Urine 300 PATIENT WEIGHT: Weight (lb): Weight (oz): Weight (kg): 65.455 Physical Exam General appearance: alert, awake Head/Eyes: atraumatic, normal eyelids/periorb, normocephalic Neck: full range of motion, non-tender, supple/no meningismus Cardiovascular: regular rate rhythm Respiratory: symmetric expansion, no distress Abdomen: no guarding, Erythema on abdomen, with some nodular lesions and a few pustules. No necrosis. Extremities: no clubbing, no cyanosis Neuro/SPEECH PATHOLOGY TEACHER: alert, oriented X 3, normal speech Skin: normal turgor Diagnosis, Assessment Plan Free Text A P: Laboratory Tests 05/28/24 043: [Embedded Image Not Available] 05/27/24 0432: [Embedded Image Not Available] Imaging: CTAP reviewed 05/25 CXR reviewed 05/25 Assessment: 1. Cellulitis of abdominal wall with atypical presentation. 2. S/p abdominoplasty. Plan: 1. Ceftriaxone (day 4 of 7). Switch to cefdinir when ready for discharge. 2. Vancomycin (day 4 of 7). Switch to doxycycline when ready for discharge. 3. Agree with plans for surgical debridement and tissue biopsy with cultures for bacteria, mycobacteria and fungi. 4. Monitor CBC and kidney function. 5. Case discussed with wound care. at 1559 RPT #: [id number] END OF REPORT [facility] 2024-05-28 11:02:00 [facility]) Hospitalist Progress Note REPORT#:[id number] REPORT STATUS: Signed REPORT INITIALIZATION DATE:05/28/24 TIME:1101 PATIENT: ETHAN GARCIA UNIT #: [id number] ROOM/BED: [place] [address] : 73 AGE: 49 SEX: F ATTEND: Aris De La O MD ADM AUTHOR: Sunil Daniels MD REPT SERVICE DT/TIME: 05/28/24 1102 * ALL edits or amendments must be made on the electronic/computer document * Subjective Chief complaint: Lower abdominal wound, abdominal pain HPI: Patient with surgical history of abdominoplasty in December, with skin graft, presented with complaint of lower abdominal pain, she relates she is on clindamycin, denies fever, nausea, vomiting, purulent drainage, denies any other concerns. Diagnosis, Assessment Plan Consultants: burn/wound Free Text DxA P Notes Free text DxA P notes: 49 years old female who is admitted for: #Abdominal wound cellulitis -IV ABX TO PO WOUND CARE/id WOUND CX PAIN CONTROL OR 05/29 #Gastric sleeve changes -CT AP scan shows small to moderate-sized hiatal hernia - surgery consulted #UTI (urinary tract infection) -Continue empiric antibiotic #Hypertension -IV hydralazine PRN DVT prophylaxis: SCDs GI prophylaxis: pepcid Disposition Anticipated: Home with family support TIME SPENT> 35 MINS at 1518 RPT #: [id number] END OF REPORT [facility] 2024-05-28 10:42:00 [facility] ([facility]) General Surgery Progress Note REPORT#:[id number] REPORT STATUS: Signed REPORT INITIALIZATION DATE:05/28/24 TIME:1041 PATIENT: ETHAN GARCIA UNIT #: [id number] ROOM/BED: [place] [address] : 73 AGE: 49 SEX: F ATTEND: Aris De La O MD ADM AUTHOR: Fermin Tamez III, MD REPT SERVICE DT/TIME: 05/28/24 1042 * ALL edits or amendments must be made on the electronic/computer document * Subjective HPI: 05/28/2024 Patient denies any further epigastric pain. However she is in need of abdominal wall biopsy for further histologic and microbiology testing. 05/27/2024 Patient reports improvement in midepigastric pain with initiation of Carafate and PPI. She endorses that her pain is primarily from her skin graft wound. 05/26/2024 49-year-old female in whom I am consulted by Dr. De La O for evaluation of hiatal hernia found during workup for complications from her abdominoplasty. The patient's history is significant for having undergone sleeve gastrectomy in [place] a few years ago. She was just recently moved to the area approximately 1 year ago and has not had any bariatric surgery follow-up. She reports having at least 2-week history of midepigastric pain with nausea and vomiting. She does endorse using omeprazole. Of note she is primarily here related to symptoms from having had an abdominoplasty outside the country at [place]. It appears that there have been complications and as a result she now has a complex wound that is now covered with skin graft that is being treated with antibiotics. Objective General VS/I O: Last Documented: Result Date Time Pulse Ox 97 05/28 838 B/P 129/84 05/28 838 B/P Mean 99.3 05/28 838 O2 Delivery Room air 05/28 838 Temp 98.4 05/28 838 Pulse 65 05/28 0838 Resp 18 05/28 838 Vital Signs Date Temp Pulse Resp B/P B/P Mean Pulse Ox FiO2 05/27-05/28 97.7-98.7 62-85 16-18 103-143/71-93 81.6-109.5 95-100 24 hour I O ending at 0700: 05/28 0700 05/27 1900 Intake Total 1550.00 1000.00 Output Total 300 Balance 1250.00 1000.00 Intake, IV 1250.00 1000.00 Intake, Oral 300 Number Voids 1 Output, Urine 300 PATIENT WEIGHT: Weight (lb): Weight (oz): Weight (kg): 65.455 Results Findings/Data: Laboratory Tests 05/28/24436: [Embedded Image Not Available] Laboratory Tests 05/28 437 Hematology WBC (3.5 - 11.0 K/mm3) 4.2 RBC (4.70 - 6.10 M/mm3) 3.43 L Hgb (10.4 - 14.9 G/DL) 9.6 L Hct (31.5 - 44.1 %) 28.4 L MCV (84.5 - 98.6 Fl) 82.8 L MCH (27.0 - 34.2 pg) 28.0 MCHC (31.5 - 34.0 G/DL) 33.8 RDW (11.5 - 14.5 SD) 13.1 Plt Count (150 - 450 K/mm3) 177 MPV (7.0 - 10.5 fL) 9.10 Neut % (Auto) (40 - 76 %) 48.0 Lymph % (Auto) (20.5 - 51.1 %) 34.2 Morgan % (Auto) (1.7 - 9.3 %) 7.0 Eos % (Auto) (0.0 - 6.0 %) 10.1 H Baso % (Auto) (0.0 - 2.0 %) 0.5 Neut # (Auto) (1.8 - 7.6 K/mm3) 2.0 Lymph # (Auto) (0.6 - 3.2 K/mm3) 1.4 Morgan # (Auto) (0.3 - 1.1 K/mm3) 0.3 Eos # (Auto) (0.0 - 0.4 K/mm3) 0.4 Baso # (Auto) (0.0 - 0.1 K/mm3) 0.0 Abs Immat Gran (auto) (0.00 - 0.03 x10 3/uL) 0.01 Immature Gran % (0.0 - 5.0 %) 0.2 Nucleated RBC % (0.0 - 1.0 /100WBC%) 0.0 Laboratory Tests 05/28 0204 Toxicology Vancomycin Peak (AUC) (20 - 60 mcg/mL) 22.6 Free Text Obj Notes Free Text Obj Notes: Physical Exam: General: No acute distress, well appearing female Neuro: GCS 15, alert and oriented x 3 HEENT: Normocephalic, atraumatic CV: Regular rate and rhythm Pulm: Respirations even and nonlabored. No accessory muscle use. Abd: Soft, midepigastric tenderness resolved, nondistended. Complex lower abdominal wound covered by skin graft with areas of pustule formation. Extremities: No gross deformities Skin: Warm and well perfused. No rashes or jaundice Psych: Normal affect and mood. Diagnosis, Assessment Plan Free Text A P: 49-year-old female with a history of a sleeve gastrectomy with symptomatic type I hiatal hernia. -Multimodal pain control -N.p.o. with meds continue Carafate and Protonix -Agree with wound care evaluation -I recommended a abdominal wall biopsy and debridement, the risks (including bleeding, infection, damage to surrounding structures, need for further operations), benefits, and alternatives were discussed with the patient and the patient elected to proceed. Time spent: Time spent on patient care (minutes): 35 >50% spent on counseling/coordination of care: yes at 1043 RPT #: [id number] END OF REPORT [facility] 2024-05-27 17:27:00 [facility] ([facility]) Wound Care Progress Note REPORT#:[id number] REPORT STATUS: Signed REPORT INITIALIZATION DATE:05/27/24 TIME:1726 PATIENT: ETHAN GARCIA UNIT #: [id number] ROOM/BED: [facility]19-1 : 73 AGE: 49 SEX: F ATTEND: Aris De La O MD ADM AUTHOR: Balwinder Dow MD REPT SERVICE DT/TIME: 05/27/241726 * ALL edits or amendments must be made on the electronic/computer document * Subjective Chief complaint: Wound Care HPI: I explained to Ms. Yifan Zarco that simple punch biopsy may not be appropriate and may need surgery to do a deeper sampling. Wound had minor bleed per pt. Patient reports: Yes: able to communicate, drainage from wound, pain controlled. No: odor. Objective General VS: Last Documented: Result Date Time Pulse Ox 100 05/27 1703 B/P 126/84 05/27 1703 B/P Mean 98 05/27 1703 O2 Delivery Room air 05/27 1703 Temp 98.7 05/27 1703 Pulse 74 05/27 1703 Resp 16 05/27 1703 PATIENT WEIGHT: Weight (lb): Weight (oz): Weight (kg): 65.455 Medications: Active Meds + DC'd Last 24 Hrs Non-Formulary Medication (VANCOMYCIN AUC1) 1 EACH ONCE ONE MISC (DC) Non-Formulary Medication (VANCOMYCIN AUC2) 1 EACH ONCE ONE MISC Non-Formulary Medication (VANCOMYCIN AUC1) 1 EACH ONCE ONE MISC Non-Formulary Medication (VANCOMYCIN AUC2) 1 EACH ONCE ONE MISC (DC) Bacitracin (BACITRACIN 0.9 GM-UD OINTMENT) 1 APPLIC Q24H TOPICAL Morphine Sulfate (morphine Sulfate) 2 MG Q4H PRN PRN IV Vancomycin HCl (VANCOMYCIN HCL) 1,000 MG Q12HR IV Sodium Chloride (0.9% Sodium Chloride) 250 ML Ceftriaxone Sodium (ROCEPHIN) 1,000 MG DAILY IV Sterile Water (WATER FOR INJECTION) 10 ML Enoxaparin Sodium (lovENOX) 40 MG Q24H SUBQ Paroxetine HCl (PAXIL) 20 MG DAILY PO Vancomycin HCl (VANCOMYCIN HCL) 1,000 MG Q12HR IV (DC) Sodium Chloride (0.9% Sodium Chloride) 250 ML Quetiapine Fumarate (SeroqueL) 50 MG BEDTIME PO Sodium Chloride (SODIUM CHLORIDE) 10 ML BID IV Trazodone HCl (DESYREL) 300 MG BEDTIME PO Zolpidem Tartrate (AMBIEN) 10 MG BEDTIME PO Pantoprazole (PROTONIX) 40 MG BID@0600,1800 PO Sodium Chloride (SODIUM CHLORIDE) 10 ML ASDIR PRN IV Lorazepam (ATIVAN) 2 MG BEDTIME PRN PRN PO Sucralfate (CARAFATE) 1 GM AC HS PO Miscellaneous Information (VANCOMYCIN PHARMACY TO DOSE) 1 EACH ASDIR IV Ondansetron HCl (ZOFRAN) 4 MG Q6H PRN PRN IV Acetaminophen (TYLENOL) 650 MG Q4H PRN PRN PO Al Hydrox/Mg Hydrox/Simethicone (MYLANTA) 30 ML Q4H PRN PRN PO Docusate Sodium (COLACE) 100 MG BID PRN PRN PO Hydralazine HCl (APRESOLINE) 10 MG Q6H PRN PRN IV Hydrocodone Bitart/Acetaminophen (NORCO 7.5/325) 1 TAB Q6H PRN PRN PO Sodium Chloride (0.9% Sodium Chloride) 1,000 ML .Q10H IV Tramadol HCl (ULTRAM) 50 MG Q6H PRN PRN PO Dietitian Nutrition assessment The data set between the solid lines has been imported from the dietitian's assessment. BMI Calculated: 28.2 Nutrition related diagnosis: Nutrition diagnosis details: Nutrition problem: Nutrition etiology: Nutrition signs and symptoms: Nutrition prescription: Dietitian name: Assessment completed: Physical Exam General appearance: chronically ill appearing Head/eyes: atraumatic Cardiovascular: no rub Abdomen: non-tender Extremities: no edema Neuro/SPEECH PATHOLOGY TEACHER: alert Skin: palpable subdermal on the right flank and left hip (likely lipomas) Wound Assessment Wound Assessment 1: Type/cause: chronic Wound location: abdomen Tissue layers: with muscle necrosis Site condition: drainage Diagnosis, Assessment Plan Problem List/A P: 1. Chronic abdominal wound infection Nonhealing wound. f/u Dr. Tamez for skin biopsy because we need to sample for histology, bacteria, fungal, and mycobacteria at the interim, carry out the following: cleanse with saline, apply bacitracin ointment over the open wound, then add on megisorb to cover the entire open wound, cover with ABD pad change dressing once daily 2. Lipoma the movable masses are likely lipoma. Defer to outpatient setting for lipoma removal. 3. Multiple excoriations leave open to air 4. UTI (urinary tract infection) Consultants: burn/wound at 1732 RPT #: [id number] END OF REPORT [facility] 2024-05-27 10:47:00 [facility] General Surgery Progress Note REPORT#:[id number] REPORT STATUS: Signed REPORT INITIALIZATION DATE:05/27/24 TIME:1046 PATIENT: ETHAN GARCIA UNIT #: [id number] ROOM/BED: [place] [address] : 73 AGE: 49 SEX: F ATTEND: Aris De La O MD ADM AUTHOR: Fermin Tamez III, MD REPT SERVICE DT/TIME: 05/27/24 1047 * ALL edits or amendments must be made on the electronic/computer document * Subjective HPI: 05/27/2024 Patient reports improvement in midepigastric pain with initiation of Carafate and PPI. She endorses that her pain is primarily from her skin graft wound. 05/26/2024 49-year-old female in whom I am consulted by Dr. De La O for evaluation of hiatal hernia found during workup for complications from her abdominoplasty. The patient's history is significant for having undergone sleeve gastrectomy in [place] a few years ago. She was just recently moved to the area approximately 1 year ago and has not had any bariatric surgery follow-up. She reports having at least 2-week history of midepigastric pain with nausea and vomiting. She does endorse using omeprazole. Of note she is primarily here related to symptoms from having had an abdominoplasty outside the country at [place]. It appears that there have been complications and as a result she now has a complex wound that is now covered with skin graft that is being treated with antibiotics. Objective General VS/I O: Last Documented: Result Date Time Pulse Ox 95 05/27 0710 B/P 121/78 05/27 0710 B/P Mean 92.2 05/27 0710 Temp 97.5 05/27 0710 Pulse 69 05/27 0710 Resp 16 05/27 0710 O2 Delivery Room air 05/26 1218 Vital Signs Date Temp Pulse Resp B/P B/P Mean Pulse Ox FiO2 05/26-05/27 97.5-98.8 68-78 16-18 121-145/68-89 86.6-107.8 95-98 24 hour I O ending at 0700: 05/27 0700 05/26 1900 Intake Total 1200.00 950 Output Total 300 Balance 900.00 950 Intake, IV 1200.00 Intake, Oral 950 Number Voids 1 2 Output, Urine 300 PATIENT WEIGHT: Weight (lb): Weight (oz): Weight (kg): 65.455 Free Text Obj Notes Free Text Obj Notes: Physical Exam: General: No acute distress, well appearing female Neuro: GCS 15, alert and oriented x 3 HEENT: Normocephalic, atraumatic CV: Regular rate and rhythm Pulm: Respirations even and nonlabored. No accessory muscle use. Abd: Soft, midepigastric tenderness resolved, nondistended. Complex lower abdominal wound covered by skin graft with areas of pustule formation. Extremities: No gross deformities Skin: Warm and well perfused. No rashes or jaundice Psych: Normal affect and mood. Diagnosis, Assessment Plan Free Text A P: 49-year-old female with a history of a sleeve gastrectomy with symptomatic type I hiatal hernia. -Multimodal pain control -Diet as tolerated, continue Carafate and Protonix -Agree with wound care evaluation -Will continue to follow, once acute symptoms are resolved recommend follow-up with the bariatric surgeon as an outpatient. Consultants: burn/wound Time spent: Time spent on patient care (minutes): 35 >50% spent on counseling/coordination of care: yes at 1048 RPT #: [id number] END OF REPORT [facility] 2024-05-26 15:19:00 [facility]) Wound Care Consultation Note REPORT#:[id number] REPORT STATUS: Signed REPORT INITIALIZATION DATE:05/26/24 TIME:1518 PATIENT: ETHAN GARCIA UNIT #: [id number] ROOM/BED: [place] [address] : 73 AGE: 49 SEX: F ATTEND: Aris De La O MD ADM AUTHOR: Balwinder Dow MD REPT SERVICE DT/TIME: 05/26/241518 * ALL edits or amendments must be made on the electronic/computer document * HPI/History - Adult longitud Requesting clinician: DROOTHY Menchaca Reason for consult: Wound Care HPI: Ms. Naheed Zarco is a 49 year old lady with a history of abdominoplasty in December, with skin graft, who presented with complaint of lower abdominal pain. She had been on clindamycin, denies fever, nausea, vomiting, purulent drainage, denies any other concerns. Surgery was consulted. Past medical history: Reports: Hypertension. Additional surgical history: Abdominal surgery Additional family history: Not given Alcohol use: Denies EtOH use Drug use: Denies recreational drugs Smoking status for patients 13 years old or older: Never Smoker Allergies: Coded Allergies: aspirin (Mild, RASH 05/25/24) ketorolac (From TORADOL) (Mild, RASH 05/25/24) Review of Systems Constitutional: Reports: generalized weakness. Skin: Reports: other (drainage from wound). Objective General VS: Last Documented: Result Date Time Pulse Ox 96 05/27 1116 B/P 103/71 05/27 1116 B/P Mean 81.6 05/27 1116 Temp 98.1 05/27 1116 Pulse 67 05/27 1116 Resp 16 05/27 1116 O2 Delivery Room air 05/26 1218 PATIENT WEIGHT: Weight (lb): Weight (oz): Weight (kg): 65.455 Medications: Active Meds + DC'd Last 24 Hrs Non-Formulary Medication (VANCOMYCIN AUC1) 1 EACH ONCE ONE MISC (DC) Non-Formulary Medication (VANCOMYCIN AUC2) 1 EACH ONCE ONE MISC Non-Formulary Medication (VANCOMYCIN AUC1) 1 EACH ONCE ONE MISC Non-Formulary Medication (VANCOMYCIN AUC2) 1 EACH ONCE ONE MISC (DC) Morphine Sulfate (morphine Sulfate) 2 MG Q4H PRN PRN IV Vancomycin HCl (VANCOMYCIN HCL) 1,000 MG Q12HR IV Sodium Chloride (0.9% Sodium Chloride) 250 ML Ceftriaxone Sodium (ROCEPHIN) 1,000 MG DAILY IV Sterile Water (WATER FOR INJECTION) 10 ML Enoxaparin Sodium (lovENOX) 40 MG Q24H SUBQ Paroxetine HCl (PAXIL) 20 MG DAILY PO Vancomycin HCl (VANCOMYCIN HCL) 1,000 MG Q12HR IV (DC) Sodium Chloride (0.9% Sodium Chloride) 250 ML Quetiapine Fumarate (SeroqueL) 50 MG BEDTIME PO Sodium Chloride (SODIUM CHLORIDE) 10 ML BID IV Trazodone HCl (DESYREL) 300 MG BEDTIME PO Zolpidem Tartrate (AMBIEN) 10 MG BEDTIME PO Pantoprazole (PROTONIX) 40 MG BID@0600,1800 PO Lidocaine HCl (XYLOCAINE) 5 ML ONCE ONE LOCAL (DC) Sodium Chloride (SODIUM CHLORIDE) 10 ML ASDIR PRN IV Vancomycin HCl (Vancomycin HCl) 1,500 MG ONCE ONE IV (DC) Sodium Chloride (0.9% Sodium Chloride) 250 ML Lorazepam (ATIVAN) 2 MG BEDTIME PRN PRN PO Sucralfate (CARAFATE) 1 GM AC HS PO Miscellaneous Information (VANCOMYCIN PHARMACY TO DOSE) 1 EACH ASDIR IV Ondansetron HCl (ZOFRAN) 4 MG Q6H PRN PRN IV Acetaminophen (TYLENOL) 650 MG Q4H PRN PRN PO Al Hydrox/Mg Hydrox/Simethicone (MYLANTA) 30 ML Q4H PRN PRN PO Docusate Sodium (COLACE) 100 MG BID PRN PRN PO Hydralazine HCl (APRESOLINE) 10 MG Q6H PRN PRN IV Hydrocodone Bitart/Acetaminophen (NORCO 7.5/325) 1 TAB Q6H PRN PRN PO Sodium Chloride (0.9% Sodium Chloride) 1,000 ML .Q10H IV Tramadol HCl (ULTRAM) 50 MG Q6H PRN PRN PO Dietitian Nutrition assessment The data set between the solid lines has been imported from the dietitian's assessment. BMI Calculated: 28.2 Nutrition related diagnosis: Nutrition diagnosis details: Nutrition problem: Nutrition etiology: Nutrition signs and symptoms: Nutrition prescription: Dietitian name: Assessment completed: Physical Exam General appearance: responsiveness Head/eyes: atraumatic Cardiovascular: no rub Abdomen: non-tender Extremities: no edema Neuro/SPEECH PATHOLOGY TEACHER: alert Skin: palpable subdermal on the right flank and left hip (likely lipomas) Wound Assessment Wound Assessment 1: Type/cause: chronic Wound location: abdomen Tissue layers: with muscle necrosis Site condition: drainage Diagnosis, Assessment Plan Problem List/A P: 1. Chronic abdominal wound infection A P Nonhealing wound. Agree with ID for biopsy. Unfortunately due to the complexity of the graft on top of chronic wound, defer to Dr. Tamez to sample for histology, bacteria, fungal, and mycobacteria at the interim, will carry out the following: cleanse with saline, apply bacitracin ointment over the open wound, then add on megisorb to cover the entire open wound, cover with ABD pad change dressing once daily 2. Lipoma A P the movable masses are likely lipoma. Defer to outpatient setting for lipoma removal. 3. Multiple excoriations 4. UTI (urinary tract infection) at 1726 RPT #: [id number] END OF REPORT [facility] 2024-05-26 14:31:00 [facility] ([facility]) Infect Disease Consult Note REPORT#:[id number] REPORT STATUS: Signed REPORT INITIALIZATION DATE:05/26/24 TIME:1431 PATIENT: ETHAN GARCIA UNIT #: [id number] ROOM/BED: [place] [address] : 73 AGE: 49 SEX: F ATTEND: Aris De La O MD ADM AUTHOR: Patrick Gaxiola MD REPT SERVICE DT/TIME: 05/26/24 1431 * ALL edits or amendments must be made on the electronic/computer document * History of Present Illness Chief complaint: Cellulitis HPI: 49-year-old female with h/o hiatal hernia s/p sleeve gastrectomy and abdominoplasty in [facility] with skin graft from the left thigh. Pt states she had a necrotizing infection of the abdominal wall around December and she underwent multiple surgeries. She developed worsening midepigastric pain for several weeks associated with erution of nodules with drainage from the abdominal wall. History - Adult longitudinal Past medical history: Reports: Hypertension. Additional surgical history: Abdominal surgery Additional family history: Not given Alcohol use: Denies EtOH use Drug use: Denies recreational drugs Smoking status for patients 13 years old or older: Never Smoker Allergies: Coded Allergies: aspirin (Mild, RASH 05/25/24) ketorolac (From TORADOL) (Mild, RASH 05/25/24) Review of Systems Constitutional: Denies: fever. Skin: Reports: rash. Allergy/Immun: Denies hives, Denies itching Eyes: Denies discharge ENT: Denies: sore throat. Respiratory: Denies: productive cough (sputum). Cardiovascular: Denies: chest pain. GI: Reports: abdominal pain. : Denies: dysuria, flank pain. Musculoskeletal: Denies: joint swelling. Neuro: Denies: headache. Objective General VS/I O: Vital Signs Date Temp Pulse Resp B/P B/P Mean Pulse Ox FiO2 05/26-05/27 36.4-37.1 66-76 16-18 103-143/68-93 81.6-109.5 95-100 Last Documented: Result Date Time Pulse Ox 98 05/27 1933 B/P 143/93 05/27 1933 B/P Mean 109.5 05/27 1933 Temp 36.8 05/27 1933 Pulse 66 05/27 1933 Resp 17 05/27 1933 O2 Delivery Room air 05/27 1703 Vital Signs: Date Time Temp Pulse Resp B/P B/P Pulse O2 O2 Flow FiO2 Mean Ox Delivery Rate 05/27 1933 36.8 66 17 143/93 109.5 98 05/27 1703 37.1 74 16 126/84 98 100 Room air 05/27 1116 36.7 67 16 103/71 81.6 96 05/27 0710 36.4 69 16 121/78 92.2 95 05/27 0420 37.1 76 18 125/86 98.9 98 05/26 2336 36.4 70 18 123/68 86.6 95 24 hour I O ending at 0700: 05/27 0700 05/26 1900 Intake Total 1200.00 950 Output Total 300 Balance 900.00 950 Intake, IV 1200.00 Intake, Oral 950 Number Voids 1 2 Output, Urine 300 PATIENT WEIGHT: Weight (lb): Weight (oz): Weight (kg): 65.455 Physical Exam General appearance: alert, awake, oriented, no acute distress, mental status normal, no respiratory distress Head/Eyes: atraumatic, clear cornea, EOMI, normal conjunctiva/sclera, normal eyelids/periorb, normocephalic ENT: moist mucosal membranes, normal nose Neck: full range of motion, non-tender, supple/no meningismus Cardiovascular: regular rate rhythm Respiratory: symmetric expansion, no distress Abdomen: no guarding, Erythema on abdomen, with some nodular lesions and a few pustules. No necrosis. Genitourinary: no flank pain Extremities: no clubbing, no cyanosis Musculoskeletal: no joint swelling Neuro/SPEECH PATHOLOGY TEACHER: alert, oriented X 3, normal speech Skin: normal turgor Psychiatry: normal affect, normal judgment/insight, normal mood Diagnosis, Assessment Plan Free Text DxA P Notes Free text DxA P notes: Laboratory Tests 05/26/24 0514: [Embedded Image Not Available] 05/26/24 0513: [Embedded Image Not Available] 05/25/24 1742: [Embedded Image Not Available] Imaging: CTAP reviewed 05/25 CXR reviewed 05/25 Assessment: 1. Cellulitis of abdominal wall with atypical presentation. 2. S/p abdominoplasty. Plan: 1. Ceftriaxone (day 2). 2. Vancomycin (day 2). 3. Recommend skin biopsy with cultures for bacteria, mycobacteri and fungi to r/ o atypical infection. 4. Monitor CBC. 5. Monitor kidney function. 6. Case discussed with wound care. 7. F/u with her bariatric surgeon. Thank you for this consult. at 2058 RPT #: [id number] END OF REPORT [facility] 2024-05-26 11:12:00 [facility] ([facility]) Hospitalist Progress Note REPORT#:[id number] REPORT STATUS: Signed REPORT INITIALIZATION DATE:05/26/24 TIME:111 PATIENT: ETHAN GARCIA UNIT #: [id number] ROOM/BED: [place] [address] : 73 AGE: 49 SEX: F ATTEND: Aris De La O MD ADM AUTHOR: Sunil Daniels MD REPT SERVICE DT/TIME: 05/27/24 1112 * ALL edits or amendments must be made on the electronic/computer document * Subjective Chief complaint: Lower abdominal wound, abdominal pain HPI: Patient with surgical history of abdominoplasty in December, with skin graft, presented with complaint of lower abdominal pain, she relates she is on clindamycin, denies fever, nausea, vomiting, purulent drainage, denies any other concerns. Diagnosis, Assessment Plan Consultants: burn/wound Free Text DxA P Notes Free text DxA P notes: 49 years old female who is admitted for: #Abdominal wound cellulitis -IV ABX TO PO WOUND CARE/id WOUND CX PAIN CONTROL #Gastric sleeve changes -CT AP scan shows small to moderate-sized hiatal hernia - surgery consulted #UTI (urinary tract infection) -Continue empiric antibiotic #Hypertension -IV hydralazine PRN DVT prophylaxis: SCDs GI prophylaxis: pepcid Disposition Anticipated: Home with family support TIME SPENT> 35 MINS at 1518 RPT #: [id number] END OF REPORT [facility] 2024-05-26 11:08:00 [facility] ([facility]) Hospitalist Progress Note REPORT#:[id number] REPORT STATUS: Signed REPORT INITIALIZATION DATE:05/26/24 TIME:1108 PATIENT: ETHAN GARCIA UNIT #: [id number] ROOM/BED: [place] [address] : 73 AGE: 49 SEX: F ATTEND: Aris De La O MD ADM AUTHOR: Sunil Daniels MD REPT SERVICE DT/TIME: 05/26/24 1108 * ALL edits or amendments must be made on the electronic/computer document * Subjective Chief complaint: Lower abdominal wound, abdominal pain HPI: Patient with surgical history of abdominoplasty in December, with skin graft, presented with complaint of lower abdominal pain, she relates she is on clindamycin, denies fever, nausea, vomiting, purulent drainage, denies any other concerns. Diagnosis, Assessment Plan Consultants: burn/wound Free Text DxA P Notes Free text DxA P notes: 49 years old female who is admitted for: #Abdominal wound cellulitis - start IV antibiotic therapy with IV Vancomycin + Rocephin - obtain venous doppler US to r/o DVT involvement - IVF with LR @ 50cc/h - Lovenox for VTE prophylaxis -Clear liquid diet for now #Gastric sleeve changes -CT AP scan shows small to moderate-sized hiatal hernia - surgery consulted #UTI (urinary tract infection) -Continue empiric antibiotic #Hypertension -IV hydralazine PRN DVT prophylaxis: SCDs GI prophylaxis: pepcid Disposition Anticipated: Home with family support Time Spent on Patient Care, Coordination and Counselin min. Code Status: Full code. Discharge planning is to be determined based on the course of treatment and clinical improvement. Time spent in this encounter is 45 minutes which includes chart reviews, face-to -face encounter with patient, discussion of the plan of treatment with the patient and staff involving in the patient care . at 1518 RPT #: [id number] END OF REPORT [facility] 2024-05-26 08:39:00 [facility] ([facility]) General Surgery Consult Note REPORT#:[id number] REPORT STATUS: Signed REPORT INITIALIZATION DATE:05/26/24 TIME:08 PATIENT: ETHAN GARCIA UNIT #: [id number] [facility] AGE: 49 SEX: F ATTEND: Aris De La O MD ADM AUTHOR: Fermin Tamez III, MD REPT SERVICE DT/TIME: 05/26/24 0884 * ALL edits or amendments must be made on the electronic/computer document * History of Present Illness Requesting Clinician: Dr. De La O Reason for consult: Symptomatic hiatal hernia HPI: 05/26/2024 49-year-old female in whom I am consulted by Dr. De La O for evaluation of hiatal hernia found during workup for complications from her abdominoplasty. The patient's history is significant for having undergone sleeve gastrectomy in [place] a few years ago. She was just recently moved to the area approximately 1 year ago and has not had any bariatric surgery follow-up. She reports having at least 2-week history of midepigastric pain with nausea and vomiting. She does endorse using omeprazole. Of note she is primarily here related to symptoms from having had an abdominoplasty outside the country at [place]. It appears that there have been complications and as a result she now has a complex wound that is now covered with skin graft that is being treated with antibiotics. History - Adult longitudinal Past medical history: Reports: Hypertension. Additional surgical history: Abdominal surgery Additional family history: Not given Alcohol use: Denies EtOH use Drug use: Denies recreational drugs Smoking status for patients 13 years old or older: Never Smoker Allergies: Coded Allergies: aspirin (Mild, RASH 05/25/24) ketorolac (From TORADOL) (Mild, RASH 05/25/24) Review of Systems Constitutional: Denies: chills, fatigue, fever. GI: Reports: nausea, vomiting. Objective Physical Exam VS/I O Last Documented: Result Date Time Pulse Ox 96 05/26 0742 B/P 130/88 05/26 07 B/P Mean 101.6 05/26 0742 O2 Delivery Room air 05/26 742 Temp 97.5 05/26 07 Pulse 69 05/26 0742 Resp 16 05/26 07 Vital Signs Date Temp Pulse Resp B/P B/P Mean Pulse Ox FiO2 05/25-05/26 97.5-98.7 68-92 16-17 130-182/79-97 97.3-133 96-100 24 hour I O ending at 0700: 05/26 0700 05/25 1900 Intake Total Output Total Balance Patient 65.455 kg Weight Weight Stated/Reported Measurement Method PATIENT WEIGHT: Weight (lb): Weight (oz): Weight (kg): 65.455 Results Findings/Data: Laboratory Tests: 05/26 05/26 0514 0510 Chemistry Sodium (136 - 145 mmol/L) 139 Potassium (3.4 - 5.0 mmol/L) 4.2 Chloride (98 - 107 mmol/L) 105 Carbon Dioxide (21 - 32 mmol/L) 24 Anion Gap (4 - 15 GAP calc) 10 BUN (7 - 18 MG/DL) 8 Creatinine (0.6 - 1.0 MG/DL) 0.6 Glomerular Filtr Rate (>60 estGFR) >=60 max estimate Glucose (70 - 110 MG/DL) 90 Calcium (8.5 - 10.1 MG/DL) 9.0 Phosphorus (2.5 - 4.9 MG/DL) 3.2 Magnesium (1.8 - 2.4 MG/DL) 1.9 Coagulation INR (0.8 - 1.2 INR Unit) 1.04 PTT ([place]) (26 - 35 SECONDS) 19.6 L PT Patient/Control Mix (9.3 - 12.9 SECONDS) 11.4 Fibrinogen (185 - 453 mg/dL) 287 Hematology WBC (3.5 - 11.0 K/mm3) 4.0 RBC (4.70 - 6.10 M/mm3) 4.55 L Hgb (10.4 - 14.9 G/DL) 12.3 Hct (31.5 - 44.1 %) 37.5 MCV (84.5 - 98.6 Fl) 82.4 L MCH (27.0 - 34.2 pg) 27.0 MCHC (31.5 - 34.0 G/DL) 32.8 RDW (11.5 - 14.5 SD) 13.1 Plt Count (150 - 450 K/mm3) 191 MPV (7.0 - 10.5 fL) 9.20 Neut % (Auto) (40 - 76 %) 55.5 Lymph % (Auto) (20.5 - 51.1 %) 29.3 Morgan % (Auto) (1.7 - 9.3 %) 6.8 Eos % (Auto) (0.0 - 6.0 %) 7.6 H Baso % (Auto) (0.0 - 2.0 %) 0.5 Neut # (Auto) (1.8 - 7.6 K/mm3) 2.2 Lymph # (Auto) (0.6 - 3.2 K/mm3) 1.2 Morgan # (Auto) (0.3 - 1.1 K/mm3) 0.3 Eos # (Auto) (0.0 - 0.4 K/mm3) 0.3 Baso # (Auto) (0.0 - 0.1 K/mm3) 0.0 Abs Immat Gran (auto) (0.00 - 0.03 x10 3/uL) 0.01 Immature Gran % (0.0 - 5.0 %) 0.3 Nucleated RBC % (0.0 - 1.0 /100WBC%) 0.0 05/25 05/25 1743 1742 Chemistry Sodium (136 - 145 mmol/L) 137 Potassium (3.4 - 5.0 mmol/L) 3.8 Chloride (98 - 107 mmol/L) 101 Carbon Dioxide (21 - 32 mmol/L) 28 Anion Gap (4 - 15 GAP calc) 8 BUN (7 - 18 MG/DL) 14 Creatinine (0.6 - 1.0 MG/DL) 0.7 Glomerular Filtr Rate (>60 estGFR) >=60 max estimate Glucose (70 - 110 MG/DL) 87 Lactic Acid (0.4 - 1.9 mmol/L) 0.4 Calcium (8.5 - 10.1 MG/DL) 9.5 Total Bilirubin (0.0 - 1.0 MG/DL) 0.3 Direct Bilirubin (0.0 - 0.3 MG/DL) 0.1 Indirect Bilirubin (0.2 - 1.2 MG/DL) 0.20 AST (15 - 37 Unit/L) 19 ALT (30 - 65 Unit/L) 21 L Total Alk Phosphatase (50 - 136 Unit/L) 111 Troponin I High Sens (0 - 54 ng/L) 2.9 Total Protein (6.4 - 8.2 G/DL) 8.2 Albumin (3.4 - 5.0 G/DL) 3.4 Hematology WBC (3.5 - 11.0 K/mm3) 4.8 RBC (4.70 - 6.10 M/mm3) 4.47 L Hgb (10.4 - 14.9 G/DL) 12.3 Hct (31.5 - 44.1 %) 36.8 MCV (84.5 - 98.6 Fl) 82.3 L MCH (27.0 - 34.2 pg) 27.5 MCHC (31.5 - 34.0 G/DL) 33.4 RDW (11.5 - 14.5 SD) 13.1 Plt Count (150 - 450 K/mm3) 226 MPV (7.0 - 10.5 fL) 9.30 Neut % (Auto) (40 - 76 %) 62.9 Lymph % (Auto) (20.5 - 51.1 %) 25.7 Morgan % (Auto) (1.7 - 9.3 %) 5.0 Eos % (Auto) (0.0 - 6.0 %) 5.8 Baso % (Auto) (0.0 - 2.0 %) 0.4 Neut # (Auto) (1.8 - 7.6 K/mm3) 3.0 Lymph # (Auto) (0.6 - 3.2 K/mm3) 1.2 Morgan # (Auto) (0.3 - 1.1 K/mm3) 0.2 L Eos # (Auto) (0.0 - 0.4 K/mm3) 0.3 Baso # (Auto) (0.0 - 0.1 K/mm3) 0.0 Abs Immat Gran (auto) (0.00 - 0.03 x10 3/uL) 0.01 Immature Gran % (0.0 - 5.0 %) 0.2 Nucleated RBC % (0.0 - 1.0 /100WBC%) 0.0 Miscellaneous Maternal Serum HCG (0 - 6 mi-IU/ML) 5 Urines Urine Color (YELLOW) Yellow Urine Appearance (CLEAR) CLEAR Urine pH (5.0 - 7.0) 7.0 Ur Specific [place] (1.005 - 1.015) 1.015 Urine Protein (NEGATIVE mg/dL) Negative Urine Glucose (UA) (NEGATIVE mg/dL) Negative Urine Ketones (NEGATIVE) Negative Urine Blood (NEGATIVE) Negative Urine Nitrite (NEGATIVE) Negative Urine Bilirubin (NEGATIVE) Negative Urine Urobilinogen (<2.0 EU/dL EU/dL) 0.2 Ur Leukocyte Esterase (NEGATIVE) 1+ H Urine RBC (0 - 3 #RBC/HPF) 0-1 Urine WBC (0 - 3 #WBC/HPF) 3-5 H Ur Squamous Epith Cells (NONE /HPF) TRACE Urine Bacteria (NONE - TRACE /HPF) 1+ H Urine Culture Screen (Culture CHK Criteria) NO, WBC<10 Microbiology: Date/Time Procedure - Status Source Growth 05/25 1954 MRSA Screen - COLB NASAL 05/25 1743 Blood Culture - RECD BLOOD 05/25 1743 Blood Culture - RECD BLOOD Recent Impressions: RADIOLOGY - XR CHEST 1 V 05/25 1854 Report Impression - Status: SIGNED Entered: 05/25/2024 190 IMPRESSION: No radiographically identified acute findings in the chest. Impression By: Mitch Gil M.D. CAT SCAN - CT ABD PELVIS W/CONT 05/25 1854 Report Impression - Status: SIGNED Entered: 05/25/20241933 IMPRESSION: 1. No confirmed findings to account for symptoms. 2. Gastric sleeve changes. Small to moderate-sized hiatal hernia. Possible mild thickening of the distal esophageal wooten could represent changes from gastroesophageal reflux and/or distal esophagitis. Please assess clinically. 3. Mild distal colonic diverticulosis without diverticulitis. 4. Borderline splenomegaly. Impression By: Mitch Gil M.D. Free Text Obj Notes Free Text Obj Notes: Physical Exam: General: No acute distress, well appearing female Neuro: GCS 15, alert and oriented x 3 HEENT: Normocephalic, atraumatic CV: Regular rate and rhythm Pulm: Respirations even and nonlabored. No accessory muscle use. Abd: Soft, mild midepigastric tenderness, nondistended. Complex lower abdominal wound covered by skin graft with areas of pustule formation. Extremities: No gross deformities Skin: Warm and well perfused. No rashes or jaundice Psych: Normal affect and mood. Diagnosis, Assessment Plan Time spent: Time spent on patient care (minutes): 60 >50% spent on counseling/coordination of care: yes Free Text DxA P Notes Free Text DxA P Notes: 49-year-old female with a history of a sleeve gastrectomy with symptomatic type I hiatal hernia. -Multimodal pain control -Diet as tolerated, add Carafate and Protonix -Agree with wound care evaluation -Will continue to follow, once acute symptoms are resolved recommend follow-up with the bariatric surgeon as an outpatient. at 0847 RPT #: [id number] END OF REPORT [facility] 2024-05-26 08:28:00 [facility]) Pharmacy Prog.Note-Vancomycin REPORT#:[id number] REPORT STATUS: Signed REPORT INITIALIZATION DATE:05/26/24 TIME:827 PATIENT: ETHAN GARCIA UNIT #: [id number] ROOM/BED: [place] [address] : 73 AGE: 49 SEX: F ATTEND: Aris De La O MD ADM AUTHOR: Yony Trujillo [facility] REPT SERVICE DT/TIME: 05/26/24827 * ALL edits or amendments must be made on the electronic/computer document * Vancomycin Vancomycin Medication Therapy Goal: AUC 400-600 mg*hr/L Indication for treatment: Cellulitis Current therapy: New consult Day of therapy: 0 Weight: Actual weight (kg): 65.4 VS and I/O: Vital Signs Date Temp Pulse Resp B/P B/P Mean Pulse Ox FiO2 05/25-05/26 36.4-37.1 68-92 16-17 130-182/79-97 97.3-133 96-100 72 hours ending at 0700 05/26 19005/25 19005/24 07 1900 Intake Total Output Total Balance Patient 65.455 kg Weight Weight Stated/Rep orted Measuremen t Method 72 Hour I O Total 05/26 07 Intake Total Output Total Balance Labs: Laboratory Test : 05/26 05/26 05/25 0514 0513 1742 Chemistry BUN (7 - 18 MG/DL) 8 14 Creatinine (0.6 - 1.0 MG/DL) 0.6 0.7 Hematology WBC (3.5 - 11.0 K/mm3) 4.0 4.8 Microbiology: 05/25 1954 NASAL: MRSA Screen - COLB 05/25 1743 BLOOD: Blood Culture - RECD 05/25 1743 BLOOD: Blood Culture - RECD Drug admin history: Lab Lab Level SCr 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 Dose to achieve AUC OF 400-600. at 0831 RPT #: [id number] END OF REPORT [facility] 2024-05-25 21:24:00 [facility] ([facility]) Hospitalist History Physical REPORT#:[id number] REPORT STATUS: Signed REPORT INITIALIZATION DATE:05/25/24 TIME:2123 PATIENT: ETHAN GARCIA UNIT #: [id number] ROOM/BED: [place] [address] : 73 AGE: 49 SEX: F ATTEND: Aris De La O MD ADM AUTHOR: Berenice Treviño I APRNNP REPT SERVICE DT/TIME: 05/25/242123 * ALL edits or amendments must be made on the electronic/computer document * Berenice Treviño I 05/25/242123: History of Present Illness HPI Chief complaint: Lower abdominal wound, abdominal pain PCP: PCP: Klever Velázquez DO HPI: Patient is a 49 years old female with surgical history of abdominoplasty in December, with skin graft, presented with complaint of lower abdominal pain, she relates she is on clindamycin. She undergone sleeve gastrectomy in [place] a few years ago. She was just recently moved to the area approximately 1 year ago and has not had any bariatric surgery follow-up. She reports having at least 2-week history of midepigastric pain with nausea and vomiting. She does endorse using omeprazole. She now has a complex wound that is now covered with skin graft that is being treated with antibiotics. Denies fever, nausea, vomiting, purulent drainage, denies any other concerns. Hx Obtained From Patient, Prior medical records History Past medical history: Reports: Hypertension. Additional surgical history: Abdominal surgery Additional family history: Not given Alcohol use: Denies EtOH use Drug use: Denies recreational drugs Smoking status for patients 13 years old or older: Never Smoker Medication/Allergy-Vaccine Hx Allergies: Coded Allergies: aspirin (Mild, RASH 05/25/24) ketorolac (From TORADOL) (Mild, RASH 05/25/24) Review of Systems GI: Reports: abdominal pain. All systems rev neg: except as marked Objective General VS/I O: Vital Signs: Date Time Temp Pulse Resp B/P B/P Pulse O2 O2 Flow FiO2 Mean Ox Delivery Rate 05/25 2344 97.7 80 16 132/88 102.9 99 05/25 2300 70 171/92 124 99 05/25 2230 68 182/97 133 100 05/25 2130 69 177/93 127 99 05/25 2100 70 140/81 104 99 05/25 2059 71 141/81 105 100 05/25 1605 98.7 92 17 142/89 106 98 Room air 24 hour I O ending at 0700: 05/26 0700 05/25 1900 Intake Total Output Total Balance Patient 65.455 kg Weight Weight Stated/Reported Measurement Method PATIENT WEIGHT: Weight (lb): Weight (oz): Weight (kg): 65.455 Medications: Active Meds + DC'd Last 24 Hrs Non-Formulary Medication (VANCOMYCIN AUC1) 1 EACH ONCE ONE MISC (DC) Non-Formulary Medication (VANCOMYCIN AUC2) 1 EACH ONCE ONE MISC Non-Formulary Medication (VANCOMYCIN AUC1) 1 EACH ONCE ONE MISC Non-Formulary Medication (VANCOMYCIN AUC2) 1 EACH ONCE ONE MISC (DC) Vancomycin HCl (VANCOMYCIN HCL) 1,000 MG Q12HR IV Sodium Chloride (0.9% Sodium Chloride) 250 ML Ceftriaxone Sodium (ROCEPHIN) 1,000 MG DAILY IV Sterile Water (WATER FOR INJECTION) 10 ML Paroxetine HCl (PAXIL) 20 MG DAILY PO Vancomycin HCl (VANCOMYCIN HCL) 1,000 MG Q12HR IV (DC) Sodium Chloride (0.9% Sodium Chloride) 250 ML Quetiapine Fumarate (SeroqueL) 50 MG BEDTIME PO Sodium Chloride (SODIUM CHLORIDE) 10 ML BID IV Trazodone HCl (DESYREL) 300 MG BEDTIME PO Zolpidem Tartrate (AMBIEN) 10 MG BEDTIME PO Pantoprazole (PROTONIX) 40 MG BID@0600,1800 PO Lidocaine HCl (XYLOCAINE) 5 ML ONCE ONE LOCAL (DC) Sodium Chloride (SODIUM CHLORIDE) 10 ML ASDIR PRN IV Vancomycin HCl (Vancomycin HCl) 1,500 MG ONCE ONE IV (DC) Sodium Chloride (0.9% Sodium Chloride) 250 ML Lorazepam (ATIVAN) 2 MG BEDTIME PRN PRN PO Sucralfate (CARAFATE) 1 GM AC HS PO Miscellaneous Information (VANCOMYCIN PHARMACY TO DOSE) 1 EACH ASDIR IV Vancomycin HCl (Vancomycin HCl) 1,500 MG ONCE ONE IV (DC) Sodium Chloride (0.9% Sodium Chloride) 250 ML Morphine Sulfate (morphine Sulfate) 2 MG Q6H PRN PRN IV (DC) Ceftriaxone Sodium (ROCEPHIN) 1,000 MG Q12H IV (DC) Sterile Water (WATER FOR INJECTION) 10 ML Ondansetron HCl (ZOFRAN) 4 MG Q6H PRN PRN IV Acetaminophen (TYLENOL) 650 MG Q4H PRN PRN PO Al Hydrox/Mg Hydrox/Simethicone (MYLANTA) 30 ML Q4H PRN PRN PO Docusate Sodium (COLACE) 100 MG BID PRN PRN PO Hydralazine HCl (APRESOLINE) 10 MG Q6H PRN PRN IV Hydrocodone Bitart/Acetaminophen (NORCO 7.5/325) 1 TAB Q6H PRN PRN PO Sodium Chloride (0.9% Sodium Chloride) 1,000 ML .Q10H IV Tramadol HCl (ULTRAM) 50 MG Q6H PRN PRN PO Ceftriaxone Sodium (ROCEPHIN) 1,000 MG X1ED STA IV (DC) Sterile Water (WATER FOR INJECTION) 10 ML Results Findings/Data: Laboratory Tests 05/26 0513 Chemistry Sodium (136 - 145 mmol/L) 139 Potassium (3.4 - 5.0 mmol/L) 4.2 Chloride (98 - 107 mmol/L) 105 Carbon Dioxide (21 - 32 mmol/L) 24 Anion Gap (4 - 15 GAP calc) 10 BUN (7 - 18 MG/DL) 8 Creatinine (0.6 - 1.0 MG/DL) 0.6 Glomerular Filtr Rate (>60 estGFR) >=60 max estimate Glucose (70 - 110 MG/DL) 90 Calcium (8.5 - 10.1 MG/DL) 9.0 Phosphorus (2.5 - 4.9 MG/DL) 3.2 Magnesium (1.8 - 2.4 MG/DL) 1.9 Laboratory Tests 05/26 514 Coagulation INR (0.8 - 1.2 INR Unit) 1.04 PTT ([place]) (26 - 35 SECONDS) 19.6 L PT Patient/Control Mix (9.3 - 12.9 SECONDS) 11.4 Fibrinogen (185 - 453 mg/dL) 287 Laboratory Tests 05/26 514 Hematology WBC (3.5 - 11.0 K/mm3) 4.0 RBC (4.70 - 6.10 M/mm3) 4.55 L Hgb (10.4 - 14.9 G/DL) 12.3 Hct (31.5 - 44.1 %) 37.5 MCV (84.5 - 98.6 Fl) 82.4 L MCH (27.0 - 34.2 pg) 27.0 MCHC (31.5 - 34.0 G/DL) 32.8 RDW (11.5 - 14.5 SD) 13.1 Plt Count (150 - 450 K/mm3) 191 MPV (7.0 - 10.5 fL) 9.20 Neut % (Auto) (40 - 76 %) 55.5 Lymph % (Auto) (20.5 - 51.1 %) 29.3 Morgan % (Auto) (1.7 - 9.3 %) 6.8 Eos % (Auto) (0.0 - 6.0 %) 7.6 H Baso % (Auto) (0.0 - 2.0 %) 0.5 Neut # (Auto) (1.8 - 7.6 K/mm3) 2.2 Lymph # (Auto) (0.6 - 3.2 K/mm3) 1.2 Morgan # (Auto) (0.3 - 1.1 K/mm3) 0.3 Eos # (Auto) (0.0 - 0.4 K/mm3) 0.3 Baso # (Auto) (0.0 - 0.1 K/mm3) 0.0 Abs Immat Gran (auto) (0.00 - 0.03 x10 3/uL) 0.01 Immature Gran % (0.0 - 5.0 %) 0.3 Nucleated RBC % (0.0 - 1.0 /100WBC%) 0.0 Results: labs reviewed, vital signs reviewed Free Text Obj Notes Free Text Obj Notes: Physical Exam: General: No acute distress, well appearing female Neuro: GCS 15, alert and oriented x 3 HEENT: Normocephalic, atraumatic CV: Regular rate and rhythm Pulm: Respirations even and nonlabored. No accessory muscle use. Abd: Soft, mild midepigastric tenderness, nondistended. Complex lower abdominal wound covered by skin graft with areas of pustule formation. Extremities: No gross deformities Skin: Warm and well perfused. No rashes or jaundice Psych: Normal affect and mood. Diagnosis, Assessment Plan Problem List/A P: 1. Cellulitis 2. UTI (urinary tract infection) Orders: Procedure Date/time Status CLEAR LIQUID DIET 05/26 B Active PHOSPHOROUS 05/26 0500 Active MAGNESIUM 05/26 0500 Active COAGULATION I PROFILE 05/26 0500 Active CBC W/AUTO DIFF 05/26 0500 Active BASIC METABOLIC PANEL 05/26 0500 Active PHARMACY CONSULT 05/25 2252 Active Provider Consult 05/25 2239 Active Resuscitation Status 05/25 2238 Active Consultants: burn/wound Plan discussed with: patient, nurse Time spent: Time spent on patient care (minutes): 45 Code Status/Resusc. Discussion Code status: full code Free Text DxA P Notes Free Text DxA P Notes: 49 years old female with past surgical history of abdominoplasty., gasrectomy who is admitted for: #Abdominal wound cellulitis - start IV antibiotic therapy with IV Vancomycin + Rocephin - obtain venous doppler US to r/o DVT involvement - IVF with LR @ 50cc/h - Lovenox for VTE prophylaxis -Clear liquid diet for now #H/o Gastrectomy #H/O abdominoplasty - Pt states she had gastric sleeve surgery done december, in [place] -CT AP scan shows small to moderate-sized hiatal hernia - surgery consulted #UTI (urinary tract infection) -Continue empiric antibiotic #Hypertension -IV hydralazine PRN #Anxiety, depression, mood disorder -Resume home medications DVT prophylaxis: SCDs, Lovenox GI prophylaxis: PPI Disposition Anticipated: Home with family support Time Spent on Patient Care, Coordination and Counselin min. Code Status: Full code. Discharge planning is to be determined based on the course of treatment and clinical improvement. Time spent in this encounter is 45 minutes which includes chart reviews, face-to -face encounter with patient, discussion of the plan of treatment with the patient and staff involving in the patient care . 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 Agree with the history and physical findings Lab works noted Imaging noted as well Findings were discussed with the ESPERANZA and Staff at 0222 at 1612 RPT #: [id number] END OF REPORT [facility] 2024-05-25 16:18:00 [facility] ([facility]) EMERGENCY PROVIDER REPORT REPORT#:[id number] REPORT STATUS: Signed DATE:05/25/24 TIME:161 PATIENT: ETHAN GARCIA UNIT #: [id number] ROOM/BED: [place] [id number] : [birth year] AGE: 49 SEX: F PCP PHYS: Klever Velázquez DO SERVICE AUTHOR: Mika Toth * ALL edits or amendments must be made on the electronic/computer document * Mika Toth 05/25/24 1618: HPI-Rash/Abscess/Cellulitis Free Text HPI Notes Free Text HPI Notes Patient with surgical history of abdominoplasty in December, with skin graft, presented with complaint of lower abdominal pain, she relates she is on clindamycin, denies fever, nausea, vomiting, purulent drainage, denies any other concerns. General Initial Greet Date/Time 05/25/24 1608 Presentation Chief Complaint Red area Review of Systems ROS Statements All systems rev neg except as marked. Focused Review of Systems Constitutional Denies: Fever. Respiratory Denies: Cough, non-productive, Cough, productive, Shortness of breath. Cardiovascular Denies: Chest pain. GI Reports: Nausea, Vomiting. Denies: Diarrhea, Hematemesis, Hematochezia. Past Medical History - Adult Stated Complaint WOUND ON LOWER ABD/PAIN Allergies Coded Allergies: aspirin (Mild, RASH 05/25/24) ketorolac (From TORADOL) (Mild, RASH 05/25/24) Home Medications Reported Medications LORazepam (ATIVAN) 2 MG PO BEDTIME PRN PRN AGITATION PARoxetine HCL (PAXIL) 20 MG PO DAILY QUEtiapine (SEROquel) 50 MG PO BEDTIME ZOLPIDEM (AMBIEN) 10 MG PO BEDTIME traZODone (DESYREL) 300 MG PO BEDTIME Calculated Suicide Risk (nurs) No risk Smoking status for patients 13 years old or older: Never Smoker Physical Exam Vital Signs Vital Signs First Documented: Result Date Time Pulse Ox 98 05/25 1605 B/P 142/89 05/25 1605 B/P Mean 106 / 1605 O2 Delivery Room air 05/25 1605 Temp 37.1 05/25 1605 Pulse 92 05/25 1605 Resp 17 05/25 1605 Last Documented: Result Date Time Pulse Ox 98 05/25 1605 B/P 142/89 05/25 1605 B/P Mean 106 / 1605 O2 Delivery Room air 05/25 1605 Temp 37.1 05/25 1605 Pulse 92 05/25 1605 Resp 17 05/25 1605 Review of Vital Signs Reviewed Focused PE General/Const General/Const Awake, Alert, No acute distress Resp/Chest Respiratory/Chest Breath sounds NL, Breath sounds = bilat, No respiratory distress Skin Text/Dict Notes Status post abdominoplasty, erythema, complex abdominal wound. Interpretation Diagnostics Lab Results Interpretation Results Laboratory Tests 05/25/24 174: [Embedded Image Not Available] Laboratory Tests: 05/25 05/25 1743 1742 Chemistry Sodium (136 - 145 mmol/L) 137 Potassium (3.4 - 5.0 mmol/L) 3.8 Chloride (98 - 107 mmol/L) 101 Carbon Dioxide (21 - 32 mmol/L) 28 Anion Gap (4 - 15 GAP calc) 8 BUN (7 - 18 MG/DL) 14 Creatinine (0.6 - 1.0 MG/DL) 0.7 Glomerular Filtr Rate (>60 estGFR) >=60 max estimate Glucose (70 - 110 MG/DL) 87 Lactic Acid (0.4 - 1.9 mmol/L) 0.4 Calcium (8.5 - 10.1 MG/DL) 9.5 Total Bilirubin (0.0 - 1.0 MG/DL) 0.3 Direct Bilirubin (0.0 - 0.3 MG/DL) 0.1 Indirect Bilirubin (0.2 - 1.2 MG/DL) 0.20 AST (15 - 37 Unit/L) 19 ALT (30 - 65 Unit/L) 21 L Total Alk Phosphatase (50 - 136 Unit/L) 111 Troponin I High Sens (0 - 54 ng/L) 2.9 Total Protein (6.4 - 8.2 G/DL) 8.2 Albumin (3.4 - 5.0 G/DL) 3.4 Hematology WBC (3.5 - 11.0 K/mm3) 4.8 RBC (4.70 - 6.10 M/mm3) 4.47 L Hgb (10.4 - 14.9 G/DL) 12.3 Hct (31.5 - 44.1 %) 36.8 MCV (84.5 - 98.6 Fl) 82.3 L MCH (27.0 - 34.2 pg) 27.5 MCHC (31.5 - 34.0 G/DL) 33.4 RDW (11.5 - 14.5 SD) 13.1 Plt Count (150 - 450 K/mm3) 226 MPV (7.0 - 10.5 fL) 9.30 Neut % (Auto) (40 - 76 %) 62.9 Lymph % (Auto) (20.5 - 51.1 %) 25.7 Morgan % (Auto) (1.7 - 9.3 %) 5.0 Eos % (Auto) (0.0 - 6.0 %) 5.8 Baso % (Auto) (0.0 - 2.0 %) 0.4 Neut # (Auto) (1.8 - 7.6 K/mm3) 3.0 Lymph # (Auto) (0.6 - 3.2 K/mm3) 1.2 Morgan # (Auto) (0.3 - 1.1 K/mm3) 0.2 L Eos # (Auto) (0.0 - 0.4 K/mm3) 0.3 Baso # (Auto) (0.0 - 0.1 K/mm3) 0.0 Abs Immat Gran (auto) (0.00 - 0.03 x10 3/uL) 0.01 Immature Gran % (0.0 - 5.0 %) 0.2 Nucleated RBC % (0.0 - 1.0 /100WBC%) 0.0 Miscellaneous Maternal Serum HCG (0 - 6 mi-IU/ML) 5 Urines Urine Color (YELLOW) Yellow Urine Appearance (CLEAR) CLEAR Urine pH (5.0 - 7.0) 7.0 Ur Specific [place] (1.005 - 1.015) 1.015 Urine Protein (NEGATIVE mg/dL) Negative Urine Glucose (UA) (NEGATIVE mg/dL) Negative Urine Ketones (NEGATIVE) Negative Urine Blood (NEGATIVE) Negative Urine Nitrite (NEGATIVE) Negative Urine Bilirubin (NEGATIVE) Negative Urine Urobilinogen (<2.0 EU/dL EU/dL) 0.2 Ur Leukocyte Esterase (NEGATIVE) 1+ H Urine RBC (0 - 3 #RBC/HPF) 0-1 Urine WBC (0 - 3 #WBC/HPF) 3-5 H Ur Squamous Epith Cells (NONE /HPF) TRACE Urine Bacteria (NONE - TRACE /HPF) 1+ H Urine Culture Screen (Culture CHK Criteria) NO, WBC<10 Microbiology: Date/Time Procedure - Status Source Growth 05/25 1743 Blood Culture - RES BLOOD 05/25 1743 Blood Culture - RES BLOOD Recent Impressions: RADIOLOGY - XR CHEST 1 V 05/25 1854 Report Impression - Status: SIGNED Entered: 05/25/2024 1900 IMPRESSION: No radiographically identified acute findings in the chest. Impression By: Mitch Gil M.D. CAT SCAN - CT ABD PELVIS W/CONT 05/25 1854 Report Impression - Status: SIGNED Entered: 05/25/2024 1934 IMPRESSION: 1. No confirmed findings to account for symptoms. 2. Gastric sleeve changes. Small to moderate-sized hiatal hernia. Possible mild thickening of the distal esophageal wooten could represent changes from gastroesophageal reflux and/or distal esophagitis. Please assess clinically. 3. Mild distal colonic diverticulosis without diverticulitis. 4. Borderline splenomegaly. Impression By: Mitch Gil M.D. Lab Imaging Statement Laboratory radiographic studies reviewed and considered in the medical decision-making. Point of Care Testing Pulse Oximetry Pulse Ox % 98 On: Room air Interpretation Interpreted by pr ECG #1 Interpretation Text/Dict Note EKG interpreted by ER doc on 05/25/2024 on 1619 Normal sinus rhythm, regular rhythm, 77 bpm, normal MD interval, normal axis deviation, QRS 72 minutes, QTc 411 minutes, no STEMI Re-Evaluation MDM Free Text MDM Notes Free Text MDM Notes 49-year-old female presents with complaint of wound, abdominal pain, patient with failed outpatient oral therapy of clindamycin, sepsis workup initiated, she has been treated with vancomycin, Rocephin, IVF normal saline, lactic acid within normal limits, no white count, will admit patient for failed outpatient antibiotic therapy, and observation. Patient admitted in stable condition in no acute distress. ED Course Medication(s) Ordered Medication(s) Ordered: Anti-Infective Agents Sig/Ever Start time Last Medication Dose Route Stop Time Status Admin Ceftriaxone Sodium 1,000 MG X1ED STA 05/25 1640 DC 05/25 Lidocaine HCl 0 IM 05/25 1641 1645 Ceftriaxone Sodium 1,000 MG X1ED STA 05/25 1616 DC Sterile Water 10 ML IV 05/26 0215 Vancomycin HCl 1,000 MG X1ED STA 05/25 1616 DC 05/25 Sodium Chloride 250 ML IV 05/25 1745 1759 Central Nervous System Agents Sig/Ever Start time Last Medication Dose Route Stop Time Status Admin Morphine Sulfate 2 MG X1ED STA 05/25 1755 DC / IV 05/25 1756 1800 Diagnostic Agents Sig/Ever Start time Last Medication Dose Route Stop Time Status Admin Iopamidol 0 .STK-MED ONE 05/25 1831 DC 05/25 IV 1844 Electrolytic, Caloric, And Faye Sig/Ever Start time Last Medication Dose Route Stop Time Status Admin Sodium Chloride 1,000 ML X1ED STA 05/25 1616 DC 05/25 IV 05/25 1716 1759 Patient Discharge Departure Vital Signs/Condition Vital Signs First Documented: Result Date Time Pulse Ox 98 05/25 1605 B/P 142/89 05/25 1605 B/P Mean 106 05/25 1605 O2 Delivery Room air 05/25 1605 Temp 37.1 05/25 1605 Pulse 92 05/25 1605 Resp 17 05/25 1605 Last Documented: Result Date Time Pulse Ox 98 / 1605 B/P 142/89 05/25 1605 B/P Mean 106 / 1605 O2 Delivery Room air 05/25 1605 Temp 37.1 05/25 1605 Pulse 92 05/25 1605 Resp 17 05/25 1605 All vital signs available at the time of this entry have been reviewed. Condition Stable Clinical Impression Clinical Impression Primary Impression: Cellulitis Secondary Impressions: Wound cellulitis Disposition Decision Hospitalize Hosp Physician Name JaironXinAris MD [facility] Physician Hospitalist Request Time 1951 Request Date 05/25/24 )( Accepts Hospitalization Yes )( Reason for Hospitalization cellulitis )( Accepted Time 1952 Discharge/Care Plan Counseled Regarding Diagnosis, Lab results, Imaging studies, Need for admission Admit Note I have spoken with the patient and/or caregivers. I have explained the patient's condition, diagnoses and treatment plan based on the information available to me at this time. I have answered the patient's and/or caregiver's questions and addressed any concerns. The patient and/or caregivers have as good an understanding of the patient's diagnosis, condition and treatment plan as can be expected at this point. The patient has been stabilized within the capability of the emergency department. The patient will be transported for further care and management or will be moved to an observation or inpatient service. I have communicated with the staff or medical practitioner taking over this patient's care. Quality Measures 12-Lead ECG for CP Performed documented Ronal Eric 05/29/24 0742: Patient Discharge Departure Supervising Physician Note MidLv/Doc Saw Pt 1 I have personally seen the patient and I evaluated the patient along with involvement of the PA/SOLAR INSTALLATION CREW SUPERVISOR. I agree with the PA/paste mixer liquid findings and plan. I have performed all aspects of MDM as documented including: evaluation of the patient/ patient's condition(s), review and analysis of available data, and determination of risk of patient management decisions. 49-year-old female, presented to the emergency department with redness in the abdominal area. Recently status post abdominoplasty with infection, failed outpatient treatment with clindamycin. Due to outpatient treatment failure, patient is a candidate for inpatient admission with IV antibiotics which have been started. Management discussed with hospitalist, accepts admission to floor. Vital signs are stable, hemodynamically stable for floor admission. at 1532 at 0743 RPT #: [id number] END OF REPORT [facility] 2023-12-07 14:50:39 Chief Complaint Patient presents with Endometrial Biopsy DAVY Payan II [facility]
--- NOTE | 2025-01-15 14:02 | RAD REPORT ---
EXAMINATION: ONE VIEW CHEST XR CLINICAL INDICATION: CHEST PAIN TECHNIQUE: Frontal chest projection is submitted. Examination is limited by patient positioning and t echnique. COMPARISON: 03/22/2023 FINDINGS: Mild interstitial prominence suggesting underlying emphysema or mild interstitial pulmonary edema. Th e heart is normal in size. No displaced fractures identified.
[2025-01-15 14:27] LABS: Absolute Lymphocytes (CBC) 1.5 K/uL (0.7-4.9); Absolute Monocytes 0.3 K/uL (0.1-1.3); Absolute Neutrophil 3.6 K/uL (1.8-8.0); Basophils % 0.7 % (0-1.3); Eosinophils % 0.5 % (0-4.4); Hematocrit 34.9 % (36.0-45.0); Hemoglobin 11.8 g/dL (12.0-15.0); Lymphocytes % 26.9 % (15.3-44.8); MCH 25.9 pg (27.0-35.0); MCHC 33.8 g/dL (32.0-36.0); MCV 76.5 fL (80-100); MPV 7.5 fL (7.6-11.3); Neutrophils % 65.9 % (41.7-73.7); Platelets 242 thou/uL (152-406); RBC Red Blood Cell Count 4.56 M/uL (3.86-4.86); Red Cell Distribution Width 14.4 % (12.1-15.2)
[2025-01-15] MEDS ORDERED: FAMOTIDINE 20 MG/2 ML VIAL IV ONE (14:32)
[2025-01-15] MEDS ORDERED: NA CHLORIDE 0.9% 1,000 ML ONE (14:32)
[2025-01-15] MEDS ORDERED: ASPIRIN 81 MG CHEWABLE TABLET ONE (14:32)
[2025-01-15 14:39] LABS: Specific Gravity 1.029 (1.005-1.030); Sqamous Epithelial <5 /HPF (None Seen); Urine Bacteria None Seen /HPF (<20); Urine Bilirubin NEGATIVE (Negative); Urine Blood Negative (Negative); Urine Clarity Extremely Turbid (Clear); Urine Color Yellow (Yellow); Urine Crystals Unidentified Few /HPF (None Seen); Urine Culture Reflex Order NOT NEEDED; Urine Glucose NEGATIVE (Negative); Urine Ketones 2+ (Negative); Urine Microscopic Reflex YN ORDER UMIC; Urine Mucus 4+ /HPF (None Seen); Urine Nitrite NEGATIVE (Negative); Urine Protein 1+ (Negative); Urine Urobilinogen Normal (Normal); Urine pH 5.5 (5.0-7.0)
[2025-01-15] MEDS ORDERED: FENTANYL CITR 100 MCG/2 ML ONE (14:40)
[2025-01-15 14:42] LABS: PT Prothrombin Time 14.3 SECONDS (10-13.0); Protime INR 1.27
[2025-01-15 14:48] LABS: Albumin 3.5 g/dL (3.4-5.0); Albumin/Globulin Ratio 0.8 (1.1-1.8); Alkaline Phosphatase 97 U/L (45-117); Anion Gap 7.2 mEq/L (5.0-15.0); BUN Blood Urea Nitrogen 16 mg/dL (7-18); Bicarbonate 26 mEq/L (21-32); Bilirubin Total 0.4 mg/dL (0.2-1.0); Globulin 4.5 g/dL (2.3-3.5); Glomerular Filtration Rate 84 ml/min (=/>90); Glucose Level 100 mg/dL (74-106); Lipase 44 U/L (13-75); Magnesium 2.1 mg/dL (1.6-2.4); NT PRO-BNP 195 pg/mL (<125); Potassium 3.2 mEq/L (3.5-5.1); Sodium Level 135 mEq/L (136-145); Troponin High Sensitivity 7.6 pg/mL (<58.9)
[2025-01-15 14:49] LABS: ALT/SGPT < 14 U/L (13-56); AST/SGOT < 10 U/L (15-37); Bilirubin Direct < 0.2 mg/dL (0-0.2); Bilirubin Indirect, Calculated 0.2 mg/dL (0.2-0.8)
--- NOTE | 2025-01-15 15:25 | RAD REPORT ---
EXAM: Angio Aorta For Dissection CLINICAL INDICATION: Female, 50 years ABD PAIN TECHNIQUE: CTA of the aorta was obtained including the chest, abdomen and pelvis, with IV contrast, a s per department protocol. Axial, sagittal and coronal reconstructions were obtained. Post-processing was applied at the acquisition scanner with concurrent physician supervision which in cludes 3D reconstructions, MIPs, volume rendered images and/or shaded surface rendering. One or more of the following dose reduction techniques were used: Automated exposure control, adjustment of the mA and/or kV according to the patient size, and/or iterative reconstruction. Unless otherwise specified, incidental findings do not require dedicated imaging follow-up. [id number]. COMPARISON: 05/23/2024 FINDINGS: Chest: LOWER NECK: Visualized thyroid gland and soft tissues are normal. LUNGS AND AIRWAYS: Airways are clear. No evidence of airspace or interstitial process.No suspicious a nd/or stable pulmonary nodules. PLEURA: No pleural effusion. No pneumothorax. Hemidiaphragms are normally positioned. MEDIASTINUM AND LYMPH NODES: No mediastinal mass or fluid collection. Normal size mediastinal, hilar, and axillary lymph nodes. Moderate thickening of the distal esophagus. Partial gastrectomy with probable small hiatal hernia. This finding was present previously as well. THORACIC AORTA: No thoracic aortic aneurysm. PULMONARY ARTERIES: Caliber is within normal limits. HEART: Normal heart size. No coronary calcifications.No significant pericardial effusion. Abdomen/Pelvis UPPER GI: Partial gastrectomy. LIVER: No significant focal abnormality. GALLBLADDER/BILE DUCTS: Cholecystomy.?Extrahepatic biliary duct dilatation is likely related to the p ostcholecystectomy state. PANCREAS: No mass, ductal dilation, or rosa-pancreatic fluid. SPLEEN: Unremarkable. ADRENALS: No adrenal masses. KIDNEYS AND URETERS: Normal size and contour. No hydronephrosis.No suspicious renal mass. ABDOMINAL AORTA AND OTHER VESSELS: Normal caliber aorta and IVC. PERITONEUM: No abnormal free fluid. No free air. LYMPH NODES: No pathologic lymphadenopathy. ABDOMINAL WALL: Postoperative changes at the abdominal wall. SMALL BOWEL/COLON: Small bowel has normal course and caliber. No colonic wall thickening or pericolon ic inflammatory changes.Appendix not visualized. It may be surgically absent. URINARY BLADDER: Underdistended but grossly unremarkable. REPRODUCTIVE ORGANS: No pathologic process. MUSCULOSKELETAL: No acute or suspicious osseous abnormality. Severe disc height loss L5-S1. ADDITIONAL FINDINGS: None. IMPRESSION: No aortic aneurysm or dissection. No acute findings in the chest, abdomen, or pelvis. Moderately thickened distal esophagus likely reflecting esophagitis. This could be a cause of chest p ain.
[2025-01-15] MEDS ORDERED: MORPHINE 4 MG/ML SYR ONE ×2 (15:44→17:06)
[2025-01-15] MEDS ORDERED: CEFTRIAXONE 1000 MG/VIAL ONE (16:31)
[2025-01-15] MEDS ORDERED: PANTOPRAZOLE 40 MG INJ ONE (16:31)
[2025-01-15] MEDS ORDERED: MAGNES/ALUMIN/SIMET 30ML UCUP ONE (16:31)
[2025-01-15] MEDS ORDERED: LIDOCAINE VISCOUS 2% 10ML ORAL SOLN ONE (16:32)
--- NOTE | 2025-01-15 16:33 | ER ---
Nurse's Notes [facility] Name: Ethan Harrison Age: 50 yrs Sex: Female : 1975 Arrival Date: 01/15/2025 Time: 12:09 Bed 24 Private MD: Diagnosis: Esophagitis, unspecified;Chest pain, unspecified;Epigastric abdominal tenderness Presentation: 01/15 12:54 Chief complaint: Patient states: chest pain to center of chest and upper abdominal pain cm10 onset this morning at 0400. Pt states that the pain woke her from her sleep. Pt also reports nausea. Pt describes the pain as pressure. Coronavirus screen: Client denies travel out of the [place] in the last 14 days. Ebola Screen: Patient denies travel to an Ebola-affected area in the 21 days before illness onset. Initial Sepsis Screen: Does the patient meet any 2 criteria? No. Patient's initial sepsis screen is negative. Does the patient have a suspected source of infection? No. Patient's initial sepsis screen is negative. Risk Assessment: Do you want to hurt yourself or someone else? Patient reports no desire to harm self or others. Onset of symptoms was January 15, 2025. 12:54 Method Of Arrival: Ambulatory cm10 12:54 Acuity: YUAN 3 cm10 Triage Assessment: 12:56 General: Appears in no apparent distress. uncomfortable, Behavior is calm, cooperative. cm10 Neuro: No deficits noted. Level of Consciousness is awake, alert, obeys commands, Oriented to person, place, time, situation, Appropriate for age. Respiratory: No deficits noted. Airway is patent Respiratory effort is even, unlabored, Respiratory pattern is regular, symmetrical. 12:56 Pain: Complains of pain in chest and abdomen Pain currently is 10 out of 10 on a pain cm10 scale. Quality of pain is described as sharp. Historical: - Allergies: 12:55 NSAIDS; cm10 - PMHx: 12:55 Asthma; insomnia; Pancreatitis; cm10 - PSHx: 12:55 abdominoplasty; Appendectomy; Cholecystectomy; gastric sleeve; right shoulder; Skin cm10 grafting; - Immunization history:: Adult Immunizations up to date. - Infectious Disease History:: Denies. - Social history:: Smoking status: unknown. - Family history:: not pertinent. Screenin:39 [facility] ED Fall Risk Assessment (Adult) History of falling in the last 3 months, jb4 including since admission No falls in past 3 months (0 pts) Confusion or Disorientation No (0 pts) Intoxicated or Sedated No (0 pts) Impaired Gait No (0 pts) Mobility Assist Device Used No (0 pt) Altered Elimination No (0 pt) Score/Fall Risk Level 0 - 2 = Low Risk Oriented to surroundings, Maintained a safe environment. Abuse screen: Denies threats or abuse. Nutritional screening: No deficits noted. Tuberculosis screening: No symptoms or risk factors identified. Assessment: 15:38 General: Appears in no apparent distress. comfortable, Behavior is calm, cooperative, jb4 appropriate for age. Pain: Complains of pain in abdomen Pain does not radiate. Pain currently is 7 out of 10 on a pain scale. Neuro: Level of Consciousness is awake, alert, obeys commands, Oriented to person, place, time, situation. Cardiovascular: Patient's skin is warm and dry. Respiratory: Airway is patent Respiratory effort is even, unlabored, Respiratory pattern is regular, symmetrical. GI: Abdomen is flat, non-distended, surgical scaring noted to lower abdomen with redness and warmth. Derm: Skin is intact, Skin is pink, warm \T\ dry. Musculoskeletal: Circulation, motion, and sensation intact. Range of motion: intact in all extremities. 16:30 Reassessment: Patient appears in no apparent distress at this time. Patient and/or jb4 family updated on plan of care and expected duration. Pain level reassessed. Patient is alert, oriented x 3, equal unlabored respirations, skin warm/dry/pink. 17:45 Reassessment: Patient appears in no apparent distress at this time. Patient and/or jb4 family updated on plan of care and expected duration. Pain level reassessed. Patient is alert, oriented x 3, equal unlabored respirations, skin warm/dry/pink. Vital Signs: 12:54 BP 141 / 98; Pulse 87; Resp 15; Temp 98.5(O); Pulse Ox 100% on R/A; Weight 72.57 kg; cm10 Height 5 ft. 0 in. ; Pain 10/10; 15:39 BP 150 / 81; Pulse 69; Resp 12; Pulse Ox 100% on R/A; jb4 16:30 BP 145 / 90; Pulse 77; Resp 16; Pulse Ox 100% on R/A; jb4 17:30 BP 110 / 79; Pulse 69; Resp 16; Pulse Ox 100% on R/A; jb4 12:54 Body Mass Index 31.25 (72.57 kg, 152.4 cm) cm10 12:54 Pain Scale: Adult cm10 Vitals: 15:39 Cardiac Rhythm Assessment Sinus rhythm. jb4 Zoey Coma Score: 15:39 Eye Response: spontaneous(4). Motor Response: obeys commands(6). Verbal Response: jb4 oriented(5). Total: 15. ED Course: 12:11 Patient arrived in ED. al6 12:55 Moiz Claros MD is Attending Physician. griffin 12:55 Triage completed. cm10 12:56 Arm band placed on right wrist. Patient placed in waiting room. EKG completed in cm10 triage. Results shown to MD. 12:56 EKG done, by ED staff, reviewed by Moiz Claros MD. cm10 13:35 Missed attempt(s): 24 gauge in left antecubital area. Bleeding controlled, band aid bc6 applied, catheter tip intact. 13:47 XRAY Chest (1 view) In Process Unspecified. EDMS 14:19 Accessed peripheral vein via ultrasound, utilizing dynamic ultrasound technique Blood cm10 collected. Clean \T\ dry. Dressing intact. Good blood return. Flushes easily. 20g left forearm. 14:19 Lipase Sent. cm10 14:19 Basic Metabolic Panel Sent. cm10 14:19 CBC with Diff Sent. cm10 14:19 LFT's Sent. cm10 14:19 Magnesium Sent. cm10 14:19 NT PRO-BNP Sent. cm10 14:20 PT-INR Sent. cm10 14:20 Troponin HS Sent. cm10 14:31 Urine collected: clean catch specimen, clear. tm3 15:08 CT Aorta for Dissection In Process Unspecified. EDMS 15:38 Charlie Arguello, RN is Primary Nurse. jb4 15:39 Patient has correct armband on for positive identification. Bed in low position. Call jb4 light in reach. Side rails up X 1. Provided Education on: plan of care. 15:39 No provider procedures requiring assistance completed. jb4 16:32 Pepe Gaston MD is Referral Physician. griffin 17:30 IV discontinued, intact, bleeding controlled, No redness/swelling at site. Pressure jb4 dressing applied. Administered Medications: 14:36 Drug: Famotidine IVP 20 mg IVP once; dilute with 10 mL 0.9% NaCl; give over 2 minutes jl7 Route: IVP; Site: left forearm; 14:36 Drug: NS 0.9% IV 1000 ml IV at 1000 ml once; to be given as a bolus over 60 minutes jl7 Route: IV; Rate: 1000 ml; Site: left forearm; 14:36 Drug: Aspirin PO Chewable Tablet 81 mg PO once Route: PO; jl7 14:51 Drug: fentaNYL (PF) IVP 50 mcg IVP once Route: IVP; Site: left forearm; jl7 15:52 Drug: morphine IVP or IV 4 mg IVP once over 4 mins Route: IVP; Infused Over: 4 mins; jb4 Site: right antecubital; 16:49 Drug: Pantoprazole IVP 80 mg IVP once Route: IVP; Site: left antecubital; jb4 16:49 Drug: GI Cocktail without - (Maalox PO 30 ml, Lidocaine Mucous Membrane 2 % 15 jb4 ml) PO once Route: PO; 16:49 Drug: Rocephin IV 1 grams IV at per protocol once; Given slow IV push per pharmacy jb4 instructions Route: IV; Rate: per protocol; Site: left antecubital; 17:03 Drug: Sucralfate PO 1 grams PO once Route: PO; jb4 17:14 Drug: morphine IVP or IV 4 mg IVP once over 4 mins Route: IVP; Infused Over: 4 mins; jb4 Site: left antecubital; 17:14 Drug: Ondansetron IVP 4 mg IVP once; over 2 minutes Route: IVP; Site: left antecubital; jb4 Medication: 17:30 VIS not applicable for this client. jb4 Outcome: 16:32 Discharge ordered by MD. moya 17:30 Discharged to home via wheelchair, with family, jb4 17:30 Condition: stable 17:30 Discharge instructions given to patient, family, Instructed on discharge instructions, follow up and referral plans. medication usage, Demonstrated understanding of instructions, follow-up care, medications, Prescriptions given X 4, 17:50 Patient left the ED. jb4 Signatures: Dispatcher [employer] EDDave Forresti tm3 Moiz Claros MD MD cha Bryson, James, RN RN jb4 Imelda Bolton RN RN jl7 Carline Wells6 Medina Carter RN RN cm10 Marielos Gonzales al6
--- NOTE | 2025-01-15 16:33 | EDPHYS ---
Physician Documentation [facility] Name: Ethan Harrison Age: 50 yrs Sex: Female : 1975 Arrival Date: 01/15/2025 Time: 12:09 Bed 24 Private MD: ED Physician Moiz Claros HPI: 01/15 16:23 This 50 yrs old Female presents to ER via Ambulatory with complaints of griffin Abdominal Pain, Chest Pain. 16:23 The patient or guardian reports chest pain that is located primarily in the substernal griffin area. Onset: 3 day(s) ago. The pain does not radiate. Associated signs and symptoms: Pertinent positives: abdominal pain. The chest pain is described as burning. Duration: The patient or guardian reports multiple episodes, that wax and wane. Modifying factors: The symptoms are alleviated by antacids, remaining still, the symptoms are aggravated by eating. Severity of pain: At its worst the pain was moderate in the emergency department the pain is unchanged. The patient has experienced similar episodes in the past, multiple times. Historical: - Allergies: 12:55 NSAIDS; cm10 - PMHx: 12:55 Asthma; insomnia; Pancreatitis; cm10 - PSHx: 12:55 abdominoplasty; Appendectomy; Cholecystectomy; gastric sleeve; right shoulder; Skin cm10 grafting; - Immunization history:: Adult Immunizations up to date. - Infectious Disease History:: Denies. - Social history:: Smoking status: unknown. - Family history:: not pertinent. ROS: 16:23 Constitutional: Negative for fever, chills, and weight loss, Eyes: Negative for injury, griffin pain, redness, and discharge, ENT: Negative for injury, pain, and discharge, Neck: Negative for injury, pain, and swelling, Respiratory: Negative for shortness of breath, cough, wheezing, and pleuritic chest pain, Back: Negative for injury and pain, : Negative for injury, bleeding, discharge, and swelling, MS/Extremity: Negative for injury and deformity, Skin: Negative for injury, rash, and discoloration, Neuro: Negative for headache, weakness, numbness, tingling, and seizure, Psych: Negative for depression, anxiety, suicide ideation, homicidal ideation, and hallucinations, Allergy/Immunology: Negative for hives, rash, and allergies, Endocrine: Negative for neck swelling, polydipsia, polyuria, polyphagia, and marked weight changes, 16:23 Cardiovascular: Positive for chest pain, of the chest, 16:23 Abdomen/GI: Positive for abdominal pain, nausea, abdominal cramps, Exam: 16:23 Constitutional: This is a well developed, well nourished patient who is awake, alert, griffin and in no acute distress. Head/Face: Normocephalic, atraumatic. Eyes: Pupils equal round and reactive to light, extra-ocular motions intact. Lids and lashes normal. Conjunctiva and sclera are non-icteric and not injected. Cornea within normal limits. Periorbital areas with no swelling, redness, or edema. ENT: Nares patent. No nasal discharge, no septal abnormalities noted. Tympanic membranes are normal and external auditory canals are clear. Oropharynx with no redness, swelling, or masses, exudates, or evidence of obstruction, uvula midline. Mucous membranes moist. Neck: Trachea midline, no thyromegaly or masses palpated, and no cervical lymphadenopathy. Supple, full range of motion without nuchal rigidity, or vertebral point tenderness. No Meningismus. Chest/axilla: Normal chest wall appearance and motion. Nontender with no deformity. No lesions are appreciated. Cardiovascular: Regular rate and rhythm with a normal S1 and S2. No gallops, murmurs, or rubs. Normal PMI, no JVD. No pulse deficits. Respiratory: Lungs have equal breath sounds bilaterally, clear to auscultation and percussion. No rales, rhonchi or wheezes noted. No increased work of breathing, no retractions or nasal flaring. Back: No spinal tenderness. No costovertebral tenderness. Full range of motion. Skin: Warm, dry with normal turgor. Normal color with no rashes, no lesions, and no evidence of cellulitis. MS/ Extremity: Pulses equal, no cyanosis. Neurovascular intact. Full, normal range of motion., bilateral aka Neuro: Awake and alert, GCS 15, oriented to person, place, time, and situation. Cranial nerves II-XII grossly intact. Motor strength 5/5 in all extremities. Sensory grossly intact. Cerebellar exam normal. Normal gait. Psych: Awake, alert, with orientation to person, place and time. Behavior, mood, and affect are within normal limits. 16:23 ECG was reviewed by the Attending Physician. 16:23 Abdomen/GI: Inspection: distension, that is mild, Bowel sounds: active, Palpation: mild abdominal tenderness, moderate abdominal tenderness, in the epigastric area, Liver: no appreciated palpable abnormalities, Hernia: not appreciated, Vital Signs: 12:54 BP 141 / 98; Pulse 87; Resp 15; Temp 98.5(O); Pulse Ox 100% on R/A; Weight 72.57 kg; cm10 Height 5 ft. 0 in. ; Pain 10/10; 15:39 BP 150 / 81; Pulse 69; Resp 12; Pulse Ox 100% on R/A; jb4 16:30 BP 145 / 90; Pulse 77; Resp 16; Pulse Ox 100% on R/A; jb4 17:30 BP 110 / 79; Pulse 69; Resp 16; Pulse Ox 100% on R/A; jb4 12:54 Body Mass Index 31.25 (72.57 kg, 152.4 cm) cm10 12:54 Pain Scale: Adult cm10 [place] Coma Score: 15:39 Eye Response: spontaneous(4). Motor Response: obeys commands(6). Verbal Response: jb4 oriented(5). Total: 15. MDM: 12:55 Medical Screening Exam initiated griffin 16:29 Differential diagnosis: abnormal EKG, acute myocardial infarction, acute pericarditis, griffin anxiety, chest wall pain, costochondritis, esophagitis, gastritis, herpes zoster, hiatal hernia, pancreatitis, peptic ulcer disease, pneumonia, pneumothorax, stable angina, thoracic aortic disection, unstable angina. HEART Score: History: Slightly Suspicious (0), ECG: Normal (0), Age: > 45 and < 65 years (1), Risk Factors: 1 or 2 risk factors (1), [+ Family HX] [Obesity] Troponin: < or = 1 x Normal Limit (0), Total Score = 2. The patient was given aspirin in the Emergency Department. BALJEET Risk Score: TOTAL SCORE = 0. Data reviewed: vital signs, nurses notes, lab test result(s), EKG, radiologic studies, CT scan, plain films. Consideration of Admission/Observation Escalation of care including admission/observation considered. I considered the following discharge prescriptions or medication management in the emergency department Medications were administered in the Emergency Department. See MAR. Independent interpretation of the following test(s) in the Emergency Department EKG: See my EKG interpretation above. Test considered but Not performed: Ultrasound no abd usg. Historians other than the Patient: Family Member: family well informed. Care significantly affected by the following chronic conditions: Obesity, asthma, pancreatitis. 01/15 12:58 Order name: Basic Metabolic Panel; Complete Time: 16:12 [facility] 01/15 12:58 Order name: CBC with Diff; Complete Time: 16:12 [facility] 01/15 12:58 Order name: LFT's; Complete Time: 16:12 [facility] 01/15 12:58 Order name: Magnesium; Complete Time: 16:12 [facility] 01/15 12:58 Order name: NT PRO-BNP; Complete Time: 16:12 [facility] 01/15 12:58 Order name: PT-INR; Complete Time: 16:12 griffin 01/15 12:58 Order name: Troponin HS; Complete Time: 16:12 [facility] 01/15 12:58 Order name: Lipase; Complete Time: 16:12 [facility] 01/15 12:58 Order name: Urinalysis w/ reflexes; Complete Time: 16:12 [facility] 01/15 12:58 Order name: XRAY Chest (1 view); Complete Time: 16:12 [facility] 01/15 12:58 Order name: CT Aorta for Dissection; Complete Time: 16:12 [facility] 01/15 12:58 Order name: Cardiac monitoring; Complete Time: 15:27 [facility] 01/15 12:58 Order name: EKG - Nurse/Tech; Complete Time: 14:25 [facility] 01/15 12:58 Order name: IV Saline Lock; Complete Time: 14:19 [facility] 01/15 12:58 Order name: Labs collected and sent; Complete Time: 14:19 [facility] 01/15 12:58 Order name: O2 Per Protocol; Complete Time: 14:25 [facility] 01/15 12:58 Order name: O2 Sat Monitoring; Complete Time: 14:25 [facility] EC:23 Rate is 79 beats/min. Rhythm is regular. QRS Caro is Normal. NH interval is normal. QRS griffin interval is normal. QT interval is normal. No Q waves. T waves are Normal. No ST changes noted. Clinical impression: Normal ECG and No evidence of ischemia. Interpreted by me. Reviewed by me. Administered Medications: 14:36 Drug: Famotidine IVP 20 mg IVP once; dilute with 10 mL 0.9% NaCl; give over 2 minutes jl7 Route: IVP; Site: left forearm; 14:36 Drug: NS 0.9% IV 1000 ml IV at 1000 ml once; to be given as a bolus over 60 minutes jl7 Route: IV; Rate: 1000 ml; Site: left forearm; 14:36 Drug: Aspirin PO Chewable Tablet 81 mg PO once Route: PO; jl7 14:51 Drug: fentaNYL (PF) IVP 50 mcg IVP once Route: IVP; Site: left forearm; jl7 15:52 Drug: morphine IVP or IV 4 mg IVP once over 4 mins Route: IVP; Infused Over: 4 mins; jb4 Site: right antecubital; 16:49 Drug: Pantoprazole IVP 80 mg IVP once Route: IVP; Site: left antecubital; jb4 16:49 Drug: GI Cocktail without - (Maalox PO 30 ml, Lidocaine Mucous Membrane 2 % 15 jb4 ml) PO once Route: PO; 16:49 Drug: Rocephin IV 1 grams IV at per protocol once; Given slow IV push per pharmacy jb4 instructions Route: IV; Rate: per protocol; Site: left antecubital; 17:03 Drug: Sucralfate PO 1 grams PO once Route: PO; jb4 17:14 Drug: morphine IVP or IV 4 mg IVP once over 4 mins Route: IVP; Infused Over: 4 mins; jb4 Site: left antecubital; 17:14 Drug: Ondansetron IVP 4 mg IVP once; over 2 minutes Route: IVP; Site: left antecubital; jb4 Disposition Summary: 01/15/25 16:32 Discharge Ordered Notes: Location: Home griffin Problem: new griffin Symptoms: have improved griffin Condition: Stable griffin Diagnosis - Esophagitis, unspecified griffin - Chest pain, unspecified griffin - Epigastric abdominal tenderness griffin Followup: griffin - With: Private Physician - When: 2 - 3 days - Reason: Recheck today's complaints, Continuance of care, Re-evaluation by your physician Followup: griffin - With: Pepe Gaston MD - When: 1 - 2 days - Reason: Recheck today's complaints, Re-evaluation by your physician Discharge Instructions: - Discharge Summary Sheet griffin - Abdominal Pain, Adult griffin - Nonspecific Chest Pain, Adult griffin - Esophagitis griffin - Urinary Tract Infection, Adult griffin - Urinary Tract Infection, Adult, [id number] griffin - Abdominal Pain, Adult, [id number] griffin - Nonspecific Chest Pain, Adult, [id number] [facility] Forms: - Medication Reconciliation Form [facility] - Antibiotic Education griffin - Prescription Opioid Use griffin - Patient Portal Instructions griffin - Leadership Thank You Letter [facility] - Work release form jb4 Prescriptions: - Carafate 1 gram Oral Tablet - take 1 tablet ORAL route 4 times per day take on an empty stomach, beginning on griffin waking and last dose at bedtime; 100 tablet; Refills: 0, Product Selection Permitted - Cipro 250 mg Oral tablet - take 1 tablet ORAL route every 12 hours; 14 tablet; Refills: 0, Product griffin Selection Permitted - Protonix 40 mg Oral tablet, delayed release (enteric coated) - take 1 tablet ORAL route 2 times per day; 60 tablet; Refills: 0, Product griffin Selection Permitted - dicyclomine 10 mg/5 mL Oral solution - take 10 milliliters ORAL route 4 times per day; 200 milliliter; Refills: 0, griffin Product Selection Permitted Signatures: Dispatcher [employer] EDMS Moiz Claros MD MD cha Bryson, James, RN RN jb4 Imelda Bolton RN RN jl7 Medina Carter, RN RN cm10 Corrections: (The following items were deleted from the chart) 12:59 12:59 BASIC METABOLIC PANEL+C.LAB.BRZ ordered. EDMS EDMS 12:59 12:59 CBC+H.LAB.BRZ ordered. EDMS EDMS 12:59 12:59 HEPATIC FUNCTION+C.LAB.BRZ ordered. EDMS EDMS 12:59 12:59 MAGNESIUM+C.LAB.BRZ ordered. EDMS EDMS 12:59 12:59 PROBNP+C.LAB.BRZ ordered. EDMS EDMS 12:59 12:59 PROTIME (+INR)+COAG.LAB.BRZ ordered. EDMS EDMS 12:59 12:59 Troponin High Sensitivity+C.LAB.BRZ ordered. EDMS EDMS 12:59 12:59 LIPASE+C.LAB.BRZ ordered. EDMS EDMS 12:59 12:59 Urinalysis+U.LAB.BRZ ordered. EDMS EDMS 12:59 12:59 Chest Single View+RAD.RAD.BRZ ordered. EDMS EDMS 12:59 Angio Aorta For Dissection+CT.RAD.BRZ ordered. EDMS EDMS 12:59 Abdomen Limited+US.RAD.BRZ ordered. EDMS EDMS
[2025-01-15] MEDS ORDERED: SUCRALFATE 1 GM TABLET ONE (16:52)
[2025-01-15] MEDS ORDERED: ONDANSETRON 4 MG/2 ML VIAL ONE (17:06)
[2025-01-15 18:13] VITALS: TEMP 98.5; O2SAT 100
[2025-01-15 18:21] VITALS: BP 110/79
== END 2025-01-15 17:50 | disposition home or self-care (01) ==
LOC: ER 12:09
DX: K20.90 Esophagitis, unspecified without bleeding (principal); R10.816 Epigastric abdominal tenderness
CPT/HCPCS: 36415; 71045; 71275; 74175; 80048; 80076; 81001; 83690; 83735; 83880; 84484; 85025; 85610; 93005; 99285; J0696; J2405; J2470; J3010; J7030; Q9967